=== PATIENT | male | born 1990 | race Caucasian/White ===

== ENCOUNTER 2018-04-02 13:39 | Emergency (ER) | payer MEDICAID ==
[~2018-04-02] VITALS: Ht 177.8 cm; Wt 90.0 kg
[~2018-04-02 13:39] MED LIST: NO HOME MEDS
[2018-04-02] MEDS ORDERED: ketorolac trometh inj. 60 MG/2 ML VIAL IM ONE (14:05)
[2018-04-02 14:32] VITALS: BP 135/89
== END 2018-04-02 14:36 | disposition home or self-care (01) ==
LOC: ER 13:40
DX: M25.562 Pain in left knee (principal); G89.29 Other chronic pain; F15.90 Other stimulant use, unspecified, uncomplicated; Z98.890 Other specified postprocedural states; Z88.0 Allergy status to penicillin; Z88.8 Allergy status to other drugs, medicaments and biological substances; X58.XXXA Exposure to other specified factors, initial encounter; Y93.55 Activity, bike riding; Y92.410 Unspecified street and highway as the place of occurrence of the external cause; Y99.8 Other external cause status
CPT/HCPCS: 29505; 96372; 99283; J1885

== ENCOUNTER 2018-05-28 13:56 | Outpatient (CLI) | payer MEDICAID ==
[~2018-05-28 13:56] MED LIST changes: +HYDR-4383 PO
[2018-05-28 14:09] VITALS: BP 146/73
== END 2018-05-28 15:13 | disposition home or self-care (01) ==
LOC: ORTHO 13:56
PROVIDERS: ATTEND Nurse Practitioner Family
DX: S62.024G Nondisplaced fracture of middle third of navicular [scaphoid] bone of right wrist, subsequent encounter for fracture with delayed healing (principal); S63.502D Unspecified sprain of left wrist, subsequent encounter; F17.210 Nicotine dependence, cigarettes, uncomplicated; Z88.0 Allergy status to penicillin; Z88.8 Allergy status to other drugs, medicaments and biological substances; X58.XXXD Exposure to other specified factors, subsequent encounter
CPT/HCPCS: 73130; 99213

== ENCOUNTER 2018-06-26 12:55 | Outpatient (CLI) | payer MEDICAID ==
[2018-06-26 12:55] VITALS: BP 123/75
== END 2018-06-26 14:04 | disposition home or self-care (01) ==
LOC: ORTHO 12:55
PROVIDERS: ATTEND Nurse Practitioner Family
DX: S62.024D Nondisplaced fracture of middle third of navicular [scaphoid] bone of right wrist, subsequent encounter for fracture with routine healing (principal); S63.501D Unspecified sprain of right wrist, subsequent encounter; F17.210 Nicotine dependence, cigarettes, uncomplicated; F32.9 Major depressive disorder, single episode, unspecified; Z88.8 Allergy status to other drugs, medicaments and biological substances; Z88.0 Allergy status to penicillin; X58.XXXD Exposure to other specified factors, subsequent encounter
CPT/HCPCS: 73110; 99213

== ENCOUNTER 2018-07-23 14:48 | Outpatient (CLI) | payer MEDICAID ==
[2018-07-23 14:59] VITALS: BP 123/81
== END 2018-07-23 15:48 | disposition home or self-care (01) ==
LOC: ORTHO 14:48
PROVIDERS: ATTEND Nurse Practitioner Family
DX: S62.024D Nondisplaced fracture of middle third of navicular [scaphoid] bone of right wrist, subsequent encounter for fracture with routine healing (principal); Z98.890 Other specified postprocedural states; Z88.0 Allergy status to penicillin; Z88.8 Allergy status to other drugs, medicaments and biological substances; X58.XXXD Exposure to other specified factors, subsequent encounter
CPT/HCPCS: 73110; 99213

== ENCOUNTER 2018-08-13 14:58 | Outpatient (CLI) | payer MEDICAID ==
[2018-08-13 14:57] VITALS: BP 143/80
== END 2018-08-13 15:22 | disposition home or self-care (01) ==
LOC: ORTHO 14:58
PROVIDERS: ATTEND Nurse Practitioner Family
DX: S62.021D Displaced fracture of middle third of navicular [scaphoid] bone of right wrist, subsequent encounter for fracture with routine healing (principal); F17.210 Nicotine dependence, cigarettes, uncomplicated; F32.9 Major depressive disorder, single episode, unspecified; Z88.1 Allergy status to other antibiotic agents; Z88.8 Allergy status to other drugs, medicaments and biological substances; X58.XXXD Exposure to other specified factors, subsequent encounter
CPT/HCPCS: 73110; 99213

== ENCOUNTER 2018-09-09 08:15 | Emergency (ER) | payer MEDICAID ==
[~2018-09-09] VITALS: Ht 177.8 cm; Wt 81.0 kg
[2018-09-09 08:17] VITALS: BP 123/77
[2018-09-09] MEDS ORDERED: ibuprofen tablet 400 MG TABLET PO ONE (08:25)
[2018-09-09] MEDS ORDERED: bacitracin 15gm ointment TP ONE (08:25)
[2018-09-09] MEDS ORDERED: LORazepam 1 MG tablet PO ONE (09:25)
[2018-09-09 09:32] LABS: URINE AMPHETAMINE SCREEN NEGATIVE (Neg); URINE BARBITUATE SCREEN NEGATIVE (Neg); URINE BENZODIAZEPINES SCREEN NEGATIVE (Neg); URINE CANNABINOID SCREEN NEGATIVE (Neg); URINE COCAINE SCREEN NEGATIVE (Neg); URINE METHADONE SCREEN NEGATIVE (Neg); URINE OPIATE SCREEN NEGATIVE (Neg); URINE PHENCYCLIDINE SCREEN NEGATIVE (Neg)
[2018-09-09 09:38] LABS: GLUCOSE, URINE NEGATIVE (Neg); KETONES,URINE >=80 mg/dl (Neg); LEUKOCYTE ESTERASE ,URINE NEGATIVE (Neg); NITRITES, URINE NEGATIVE (Neg); OCCULT BLOOD,URINE SMALL (Neg); PROTEIN,URINE 30 mg/dl (Neg)
[2018-09-09] MEDS ORDERED: LORazepam 0.5 MG tablet PO ONE (09:40)
--- NOTE | 2018-09-09 09:43 | NUR ---
pt left out the back door. pt left clothes and shoes in the room. pt left in hospital grown and bare foot. md and charge nurse aware
[2018-09-09 09:45] LABS: CLARITY,URINE SLIGHTLY CLOUDY (Clear); COLOR,URINE DARK YELLOW (Yellow); UA COLLECTION TYPE CLN CATCH MIDSTREAM
[2018-09-09 09:47] LABS: MUCUS STRANDS MODERATE /LPF (Neg); SQUAMOUS EPITHELIAL CELL,UR NONE SEEN /LPF (FEW); WBC,URINE 0-4 /HPF (0-4)
[2018-09-09 09:48] LABS: AMORPHOUS URATES 1+; SPERM FEW /HPF (NEGATIVE)
[2018-09-09 09:55] LABS: ALANINE AMINOTRANSFERASE 48 U/L (12-78); ALBUMIN 4.3 G/DL (3.4-5.0); ALBUMIN/GLOBULIN RATIO 1.2 (1.1-1.5); ALKALINE PHOSPHATASE 77 IU/L (46-116); ANION GAP 14 (8-16); ASPARTATE AMINO TRANSFERASE 109 U/L (10-37); BLOOD UREA NITROGEN 18 MG/DL (7-18); BUN/CREATININE RATIO 22.5 (5.4-32.0); CALCIUM 9.2 MG/DL (8.5-10.1); CHLORIDE 100 MMOL/L (99-107); ETHANOL < 0.010 GM/DL (0.0-0.010); GLUCOSE 116 MG/DL (70-104); POTASSIUM 3.9 MMOL/L (3.5-5.1); SODIUM 140 MMOL/L (135-145); TOTAL CARBON DIOXIDE 25.8 MMOL/L (24-32); TOTAL PROTEIN 7.9 G/DL (6.4-8.2); eGFR > 90 ML/MIN
[2018-09-09 09:56] LABS: BASOPHILS # (AUTO) 0.2 X10'3 (0-0.2); BASOPHILS % (AUTO) 1.2 % (0-1); EOSINOPHILS % (AUTO) 0.1 % (0-6); HEMATOCRIT 46.8 % (42.0-52.0); HEMOGLOBIN 15.6 g/dl (14.0-17.9); LYMPHOCYTES % (AUTO) 7.2 % (21-51); MEAN CORPUSCULAR HEMOGLOBIN 29.6 PG (27.0-31.0); MEAN CORPUSCULAR HGB CONC 33.3 % (33.0-36.5); MEAN CORPUSCULAR VOLUME 88.7 FL (78-98); MEAN PLATELET VOLUME 9.2 FL (7.4-10.4); MONOCYTES # (AUTO) 1.3 X10'3 (0-0.9); MONOCYTES % (AUTO) 9.5 % (2-12); NEUTROPHILS # (AUTO) 11.2 X10'3 (1.8-7.7); PLATELET COUNT 213 X10'3 (140-440); RED BLOOD COUNT 5.28 X10'6 (4.70-6.10); RED CELL DISTRIBUTION WIDTH 12.3 % (11.5-14.5); WHITE BLOOD COUNT 13.7 X10'3 (4.5-11.0)
[2018-09-09] MEDS ORDERED: DIPH-681 PO (17:11)
[2018-09-09] MEDS ORDERED: OMEP40CA37 PO (17:11)
[2018-09-09] MEDS ORDERED: QUET-1 PO (17:11)
[2018-09-09] MEDS ORDERED: CLON-527 PO (17:11)
== END 2018-09-09 09:48 | disposition left against medical advice (07) ==
LOC: ER 08:15
DX: S90.822A Blister (nonthermal), left foot, initial encounter (principal); S90.821A Blister (nonthermal), right foot, initial encounter; L98.8 Other specified disorders of the skin and subcutaneous tissue; K21.9 Gastro-esophageal reflux disease without esophagitis; G89.29 Other chronic pain; Z59.0 Homelessness; Z98.890 Other specified postprocedural states; Z88.8 Allergy status to other drugs, medicaments and biological substances; Z88.0 Allergy status to penicillin; X58.XXXA Exposure to other specified factors, initial encounter; Y93.89 Activity, other specified; Y92.89 Other specified places as the place of occurrence of the external cause; Y99.9 Unspecified external cause status
CPT/HCPCS: 36415; 80053; 80305; 80320; 81001; 85025; 99283

== ENCOUNTER 2018-09-09 09:57 | Emergency (ER) | payer MEDICAID ==
[~2018-09-09] VITALS: Ht 175.3 cm; Wt 81.0 kg
[2018-09-09] MEDS ORDERED: haloperidol lactate 5mg/ml inj IM ONE (10:10)
[2018-09-09] MEDS ORDERED: diphenhydrAMINE 50 mg/ml inj IM ONE (10:10)
[2018-09-09] MEDS ORDERED: LORazepam 2 mg/ml vial IM ONE ×2 (10:10)
--- NOTE | 2018-09-09 11:00 | NUR ---
TELE PSYCH CALLED
--- NOTE | 2018-09-09 13:00 | NUR ---
PT RESTING IN ROOM
--- NOTE | 2018-09-09 14:00 | NUR ---
PT AWAKE, HAD LUNCH, AMBULATED TO BATHROOM
--- NOTE | 2018-09-09 16:00 | NUR ---
PT RESTING, NO CHANGE
--- NOTE | 2018-09-09 16:00 | NUR ---
PACKET FAXED TO [facility] OFFICE AT THIS TIME
[2018-09-09] MEDS ORDERED: CLON-527 PO (17:11)
[2018-09-09] MEDS ORDERED: DIPH-681 PO (17:11)
[2018-09-09] MEDS ORDERED: OMEP40CA37 PO (17:11)
[2018-09-09] MEDS ORDERED: QUET-1 PO (17:11)
[2018-09-09] MEDS ORDERED: LORazepam 1 MG tablet PO ONE (17:25)
[2018-09-09] MEDS ORDERED: LORazepam 0.5 MG tablet PO ONE (17:30)
[2018-09-09] MEDS ORDERED: LORazepam 0.5 MG tablet PO PRN (17:30)
--- NOTE | 2018-09-09 17:39 | NUR ---
Patient moved from bed 16 to bed 26.
--- NOTE | 2018-09-09 18:55 | NUR ---
Pt. ate 100% of dinner tray.
[2018-09-09] MEDS: quetiapine 100mg tablet PO SCH (19:04)
[2018-09-09] MEDS: clonazePAM 1mg tablet PO PRN (19:04)
[2018-09-09] MEDS: diphenhydrAMINE 25mg capsule PO SCH (21:00)
--- NOTE | 2018-09-09 22:18 | NUR ---
pt. sleeping at this time. will continue to monitor.
--- NOTE | 2018-09-09 23:22 | NUR ---
Pt asleep on back. RR 13, even and unlabored. No apparent distress at this time.
--- NOTE | 2018-09-10 01:42 | NUR ---
Pt asleep on back. RR 12, even and unlabored. No apparent distress at this time.
--- NOTE | 2018-09-10 02:07 | NUR ---
pt. sleeping at this time. no s/s of acute distress. will continue to monitor.
--- NOTE | 2018-09-10 03:16 | NUR ---
pt. sleeping in supine position. no acute distress noted. will continue to monitor.
--- NOTE | 2018-09-10 04:57 | NUR ---
pt. to bathroom and back to bed.
--- NOTE | 2018-09-10 05:22 | NUR ---
pt. sleeping at this time.
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
[2018-09-10] MEDS ORDERED: bacitracin 15gm ointment TP ONE (06:30)
[2018-09-10] MEDS: sulfamethoxazole/trimethoprim DS (800/160mg) tablet PO SCH ×3 (07:21→19:55)
[2018-09-10] MEDS: clonazePAM 1mg tablet PO PRN ×3 (07:21→19:55)
[2018-09-10] MEDS: quetiapine 100mg tablet PO SCH ×2 (07:21→19:55)
[2018-09-10] MEDS: pantoprazole 40mg Tablet.DR PO SCH (07:21)
--- NOTE | 2018-09-10 07:50 | NUR ---
Tech used skin marker around reddened areas. RN cleansed feet with N.S. and gauze. RN placed Bacitracin and Kerlix on both feet. RN then wrapped each foot with pako wrap. Patient tolerated well.
--- NOTE | 2018-09-10 10:03 | NUR ---
Patient sleeping supine. No distress observed. Continue to monitor.
--- NOTE | 2018-09-10 12:16 | NUR ---
Patient sleeping on left side. No distress observed. Continue to monitor.
--- NOTE | 2018-09-10 15:55 | NUR ---
Patient is up and walking and asking for juice. No distress observed. Continue to monitor.
--- NOTE | 2018-09-10 17:38 | NUR ---
Patient walking back and forth in front of the nurses station. Continue to monitor.
[2018-09-10] MEDS: diphenhydrAMINE 25mg capsule PO SCH (19:55)
[2018-09-10] MEDS: lactobacillus rhamnosus 10,000 MMU CELLS/CAPSULE PO SCH (19:56)
--- NOTE | 2018-09-10 20:29 | NUR ---
PT ASKED TO CALL HIS DAD SO I GAVE HIM THE PHONE AND GAVE HIM THE NUMBER WE HAD FOR HIS DAD IN HIS RECORDS. PT CAME BACK AND SAID IT WASNT THE RIGHT ONE AND WENT AND LAID BACK DOWN
--- NOTE | 2018-09-10 20:52 | NUR ---
PATIENT APPEARS TOO BE SLEEPING, ON LEFT SIDE, RR EVEN UNLABORED
--- NOTE | 2018-09-10 22:49 | NUR ---
PATIENT LAYING ON HIS RIGHT SIDE, EYES CLOSED RR EVEN UNLABORED DRESSINGS TO BILATERAL FEET: MARIANGEL WRAP OVER GAUZE: CDI; MANAGER PHARMACY WNL TO BOTH FEET
--- NOTE | 2018-09-11 02:00 | NUR ---
Pt asleep on left side. RR 12, ever and unlabored. No apparent distress @ this time.
--- NOTE | 2018-09-11 04:08 | NUR ---
Pt asleep on left side. RR 11, ever and unlabored. No apparent distress @ this time.
--- NOTE | 2018-09-11 06:30 | NUR ---
Asleep under covers in position upon change of shift observation. Undisturbed at this time. Breathing and color WNL
[2018-09-11] MEDS: lactobacillus rhamnosus 10,000 MMU CELLS/CAPSULE PO SCH (08:30)
[2018-09-11] MEDS: sulfamethoxazole/trimethoprim DS (800/160mg) tablet PO SCH (08:30)
[2018-09-11] MEDS: clonazePAM 1mg tablet PO PRN ×2 (08:30→13:28)
--- NOTE | 2018-09-11 08:30 | NUR ---
Awakened for breakfast and morning medication. Pleasant upon staff approach. States he wants to change his diet to vegetarian. Dietary informed.
[2018-09-11] MEDS: quetiapine 100mg tablet PO SCH (08:31)
[2018-09-11] MEDS: pantoprazole 40mg Tablet.DR PO SCH (08:32)
--- NOTE | 2018-09-11 10:30 | NUR ---
Returned to sleep immediately after breakfast. Remains asleep at this time.
--- NOTE | 2018-09-11 12:52 | NUR ---
relieving RN for lunch, report given to Patricia, staff with [facility], she will present info to MD and call back if they accept pt, pt is resting quietly on bed, amb with steady gait to restroom
--- NOTE | 2018-09-11 12:56 | NUR ---
[facility] requesting TSH level, last one was done 06/18/17,
--- NOTE | 2018-09-11 13:13 | NUR ---
pt accepted at [facility] [place], waiting for TSH level before sending pt to facility
--- NOTE | 2018-09-11 13:15 | NUR ---
Patient awakened for lunch. Ate 100% of his meal. Decided he will remain vegetarian but will stay away from "non grass fed beef." Thinks "fish could work for me." Got out of bed to look at the clock. Asked for a snack. Given yogurt, crackers and milk.
--- NOTE | 2018-09-11 13:54 | NUR ---
TSH results received. Faxed to [facility] [place] at this time
--- NOTE | 2018-09-11 14:35 | NUR ---
Patient's father Jed Jackeline's number is [phone]
--- NOTE | 2018-09-11 16:14 | NUR ---
Discharge Note: General Surgery Physician Assistant from [facility] here to transport patient to [facility] [place]. Patient left the unit ambulatory, accompanied by Security. Did not have personal possessions. Provided with clothes and a sack lunch. Cooperative with the discharge process. Accepted information that he was being transferred to [facility] without comment.
[2018-09-11 16:20] VITALS: BP 132/72
== END 2018-09-11 16:15 ==
LOC: ER 09:58
DX: F29 Unspecified psychosis not due to a substance or known physiological condition (principal); F41.9 Anxiety disorder, unspecified; F20.9 Schizophrenia, unspecified; F31.9 Bipolar disorder, unspecified; K21.9 Gastro-esophageal reflux disease without esophagitis; G89.29 Other chronic pain; Z98.890 Other specified postprocedural states; Z88.0 Allergy status to penicillin; Z88.8 Allergy status to other drugs, medicaments and biological substances; Z79.899 Other long term (current) drug therapy; Z59.0 Homelessness; Z60.2 Problems related to living alone
CPT/HCPCS: 36415; 84443; 96372; 99285; J1200; J1630; J2060; Q0163

== ENCOUNTER 2018-09-24 19:25 | Inpatient (IN) | payer MEDICAID, OTHER | END 2018-10-01 11:25 | disposition home or self-care (01) | LOC: ER 19:25 → ED HOLD 09-25 08:16 → PCU 3S 09-25 23:30 ==

== ENCOUNTER 2018-10-01 11:30 | Emergency (ER) | payer MEDICAID ==
[~2018-10-01] VITALS: Ht 180.3 cm; Wt 76.4 kg
[~2018-10-01 11:30] MED LIST changes: +ATI0.5T PO; +CLON-527 PO; +DIPH-681 PO; +DIPH-915 PO; +FAMO20TA8 PO; -HYDR-4383 PO; +LORA2VIA4 IV; -NO HOME MEDS; +OMEP40CA37 PO; +QUET-1 PO; +QUET100T33 PO; +TEMA15CA PO
[2018-10-01 12:37] LABS: BASOPHILS # (AUTO) 0.1 X10'3 (0-0.2); BASOPHILS % (AUTO) 1.8 % (0-1); EOSINOPHILS # (AUTO) 0.2 X10'3 (0-0.9); EOSINOPHILS % (AUTO) 2.4 % (0-6); HEMOGLOBIN 13.6 g/dl (14.0-17.9); LYMPHOCYTES # (AUTO) 1.3 X10'3 (1.1-4.8); LYMPHOCYTES % (AUTO) 18.8 % (21-51); MEAN CORPUSCULAR HEMOGLOBIN 29.8 PG (27.0-31.0); MEAN CORPUSCULAR HGB CONC 33.9 g/dL (33.0-36.5); MEAN CORPUSCULAR VOLUME 87.8 FL (78-98); MEAN PLATELET VOLUME 8.2 FL (7.4-10.4); MONOCYTES # (AUTO) 0.8 X10'3 (0-0.9); MONOCYTES % (AUTO) 12.4 % (2-12); NEUTROPHILS # (AUTO) 4.4 X10'3 (1.8-7.7); NEUTROPHILS % (AUTO) 64.6 % (42-75); PLATELET COUNT 217 X10'3 (140-440); RED BLOOD COUNT 4.55 X10'6 (4.70-6.10); RED CELL DISTRIBUTION WIDTH 13.2 % (11.5-14.5); WHITE BLOOD COUNT 6.8 X10'3 (4.5-11.0)
[2018-10-01 12:39] LABS: URINE AMPHETAMINE SCREEN NEGATIVE (Neg); URINE BARBITUATE SCREEN NEGATIVE (Neg); URINE BENZODIAZEPINES SCREEN NEGATIVE (Neg); URINE CANNABINOID SCREEN NEGATIVE (Neg); URINE COCAINE SCREEN NEGATIVE (Neg); URINE METHADONE SCREEN NEGATIVE (Neg); URINE OPIATE SCREEN NEGATIVE (Neg); URINE PHENCYCLIDINE SCREEN NEGATIVE (Neg)
[2018-10-01 12:50] LABS: ALBUMIN 3.4 G/DL (3.4-5.0); ANION GAP 8 (8-16); BILIRUBIN,TOTAL 0.2 MG/DL (0.1-1.0); BLOOD UREA NITROGEN 21 MG/DL (7-18); BUN/CREATININE RATIO 23.9 (5.4-32.0); CALCIUM 8.8 MG/DL (8.5-10.1); CHLORIDE 103 MMOL/L (99-107); CREATININE 0.88 MG/DL (0.60-1.10); GLUCOSE 97 MG/DL (70-104); POTASSIUM 4.3 MMOL/L (3.5-5.1); SODIUM 139 MMOL/L (135-145); TOTAL CARBON DIOXIDE 28.5 MMOL/L (24-32); TOTAL PROTEIN 6.9 G/DL (6.4-8.2); eGFR > 90 ML/MIN
--- NOTE | 2018-10-01 12:50 | NUR ---
SANDOR GARZON AT BEDSIDE AND HE VISUALIZED RIGHT FOOT WOUND WITH OPEN AREA BETWEEN BIG TOE AND SECOND TOE
[2018-10-01 12:51] LABS: ALANINE AMINOTRANSFERASE 39 U/L (12-78); ALKALINE PHOSPHATASE 71 IU/L (46-116); ASPARTATE AMINO TRANSFERASE 20 U/L (10-37); ETHANOL < 0.010 GM/DL (0.0-0.010)
--- NOTE | 2018-10-01 13:09 | NUR ---
WOUND CARE ORDER PER SANDOR GARZON: SOAK BOTH FEET WITH BOTTLE OF IODINE FOR 15 MINUTES TWICE DAILY DRY FEET WELL RIGHT FOOT DRESSING: NON ADHERENT BETWEEN 1 & 2ND TOES, GAUZE, WRAP WITH COBAN
--- NOTE | 2018-10-01 13:11 | NUR ---
SOAK BOTH FEET WITH WARM WATER AND BOTTLE OF IODINE FOR 15 MINUTES TWICE A DAY
--- NOTE | 2018-10-01 13:42 | NUR ---
PT SOAKING IN WARM BETADINE WATER FOR 15 MIN, REMOVE FEET FROM SOAK AND DRY WITH TOWELS. TAKE PICTURES OF BOTTOM OF BOTH FEET AND BETWEEN GREAT TOE AND 2ND TOE ON RIGHT FOOT. PT GIVEN VEGAN SNACK. PT IS CALM AND COOPERATIVE.
[2018-10-01] MEDS ORDERED: TEMA15CA PO (13:50)
[2018-10-01] MEDS ORDERED: QUET200T30 PO (13:50)
[2018-10-01] MEDS ORDERED: LORA0.5T PO (13:50)
--- NOTE | 2018-10-01 14:34 | NUR ---
CALLED SOC TO INITIATE PSYCH TELE.
--- NOTE | 2018-10-01 16:17 | NUR ---
SET UP FOR PSYCH TELE IN ROOM.
--- NOTE | 2018-10-01 16:45 | NUR ---
PT IS NOT COOPERATIVE FOR THE PSYCH TELE INTERVIEW. REFUSES TO TALK TO THE DR. CONTINUES TO READ THE BIBLE. SOC DR CALLS BACK TO REPORT THAT HE IS UPHOLDING THE 5150 AND WILL RECOMMEND THAT PT BE PLACED ON THE INVEGA SHOT. WAITING FOR THE FAXED REPORT.
[2018-10-01] MEDS ORDERED: LORazepam 0.5 MG tablet PO PRN (17:35)
--- NOTE | 2018-10-01 17:39 | NUR ---
PHARMACY CLARIFYING PT'S HOME MEDS AND CANCELS THE ATIVAN AND KEEPS THE CLONOPIN.
[2018-10-01] MEDS ORDERED: diphenhydrAMINE 25mg capsule PO PRN (18:20)
--- NOTE | 2018-10-01 19:00 | NUR ---
CALL FROM TELEPSYCH DR RICH AT THIS TIME TO CLARIFY INVEGA SUSTENNA ORDER PER RECOMMENDATION ON TELEPSYCH CONSULT PAGE FOUR TREATMENT #3. PER MD PATIENT TO HAVE FIRST DOSE OF INVEGA SUSTENNA 234 MG IM IN DELTOID NOW AND IN ONE WEEK MEDICATION IS TO BE TAPERED TO 156 MG IM AND CONTINUED TO BE TAPERED PER MD. DR RICH AWARE PATIENT MAY NOT BE IN HOSPITAL FOR A WEEK AND IS AWARE FIRST DOSE TO BE GIVEN NOW.
--- NOTE | 2018-10-01 19:18 | NUR ---
PATIENT AWAKE, ALERT, SITTING UP IN BED, READING, NO SIGNS OF DISTRESS NOTED, CALM AT THIS TIME. PER RN CHANO PATIENT ASKED FOR GEODONE (SEE EMAR). PATIENT REFUSED TO ANSWER ANY QUESTIONS DURING ASSESSMENT BUT WAS ABLE TO FOLLOW SIMPLE COMMANDS AND NON COMBATIVE AND NON VIOLENT IN ANY WAY. ALL SAFETY MEASURES IN PLACE, PATIENT IN SIGHT OF NURSING STAFF AT ALL TIMES.
[2018-10-01] MEDS: ziprasidone 20mg capsule PO PRN (19:52)
[2018-10-01] MEDS ORDERED: quetiapine 100mg tablet PO SCH (20:00)
[2018-10-01] MEDS ORDERED: paliperidone palmitate inj 234 MG/1.5 ML SYRINGE IM ONE (20:30)
--- NOTE | 2018-10-01 22:43 | NUR ---
The patient has been up out of bed and pacing in front of the nursing station periodically. He requested and received HS snack. He is cooperative and follows redirection
--- NOTE | 2018-10-02 00:42 | NUR ---
The patient did appear to be asleep but was awakened by loud peer.
--- NOTE | 2018-10-02 02:46 | NUR ---
The patient is quiet but awake on his bed and restless
--- NOTE | 2018-10-02 05:14 | NUR ---
The patient is up pacing up in front of the nursing station. He refused to respond when asked how he was feeling.
--- NOTE | 2018-10-02 06:30 | NUR ---
Asleep upon change of shift observation. Undisturbed at this time.
[2018-10-02] MEDS ORDERED: diphenhydrAMINE 25mg capsule PO SCH (08:00)
--- NOTE | 2018-10-02 08:30 | NUR ---
Awakened for AM meds - Geodon and PRN Ativan and breakfast. Presents as confused and delusional. Does not want to eat. States "You don't want me to eat." Encouraged to eat his meal. Ate 100% of his food.
[2018-10-02] MEDS: famotidine 20mg tablet PO SCH (08:34)
[2018-10-02] MEDS: ziprasidone 20mg capsule PO PRN (08:35)
[2018-10-02] MEDS: LORazepam 1 MG tablet PO PRN ×2 (08:35→22:17)
[2018-10-02] MEDS ORDERED: mag hydrox/Alum hydrox/simeth 30ml oral suspension PO PRN (10:10)
--- NOTE | 2018-10-02 10:30 | NUR ---
Awake and pacing around the unit. States he is living in hell. States "this hospital is hell." More responsive to staff. Answering staff today versus staring at staff and remaining mute. Affect blunted.
--- NOTE | 2018-10-02 11:15 | NUR ---
Footsoak performed. Patient cooperative with process. Right toes dressed in a clean, dry bandage afterwards.
--- NOTE | 2018-10-02 12:30 | NUR ---
Behavior escalating at this time. Getting out of bed and attempting to put his head in the toilet. Appears to be responding to internal stimuli. Is not responding to limit setting or direction. Returns to bed then immediately gets up and goes into the bathroom, taking off his shirt and socks, to bend over the toilet. Continuously escorted back to bed.
--- NOTE | 2018-10-02 13:00 | NUR ---
Served lunch. Asked to have his food tray removed. Stated "This is not mine. I can't eat this. I curse too much." Began to eat his food then spit the food out on his tray.
[2018-10-02] MEDS: ziprasidone IM 20mg inj **IM only IM PRN (13:37)
[2018-10-02] MEDS: diphenhydrAMINE 50 mg/ml inj IM PRN (13:37)
[2018-10-02] MEDS: LORazepam 2 mg/ml vial IM PRN (13:37)
[2018-10-02] MEDS ORDERED: LORazepam 2 mg/ml vial IM ONE (14:35)
[2018-10-02] MEDS ORDERED: diphenhydrAMINE 50 mg/ml inj IM ONE (14:35)
[2018-10-02] MEDS ORDERED: haloperidol lactate 5mg/ml inj IM ONE (14:35)
--- NOTE | 2018-10-02 14:46 | NUR ---
Escalation in behavior over the past hour after he was medicated. Throwing objects at staff including his bible and a cup. Growling while laying in bed. Fighting the drowsiness of his medications. Attempted to run out the [facility] door. Security called and escorted patient back into bed. Medicated with Ativan 2 mg. IM. States "I don't want that poison in my body." Accepted medication with Security standby.
--- NOTE | 2018-10-02 16:12 | NUR ---
Remains awake at this time. Presents as resisting the effects of his medications. Moves frequently. Continues to growl. Bites his sheets.
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
[2018-10-02] MEDS: temazepam 15mg capsule PO PRN (21:21)
[2018-10-02] MEDS ORDERED: ibuprofen tablet 400 MG TABLET PO ONE (22:00)
--- NOTE | 2018-10-03 06:30 | NUR ---
Asleep upon change of shift observation. Breathing even and unlabored. Undisturbed at this time.
[2018-10-03] MEDS: famotidine 20mg tablet PO SCH (07:52)
[2018-10-03] MEDS: clonazePAM 1mg tablet PO PRN ×2 (07:52→20:43)
[2018-10-03] MEDS: ziprasidone 20mg capsule PO PRN ×2 (07:52→20:43)
--- NOTE | 2018-10-03 08:30 | NUR ---
Awakened for breakfast and AM medications. Patient had many questions about when he would be transferred to a "different place." Informed he had come to the ER as mute and it has been difficult to asses his mental health status. Reminded of the importance to communicate with staff. Patient agreed to do so.
[2018-10-03] MEDS: ziprasidone IM 20mg inj **IM only IM PRN (10:23)
[2018-10-03] MEDS: LORazepam 2 mg/ml vial IM PRN (10:23)
[2018-10-03] MEDS: diphenhydrAMINE 50 mg/ml inj IM PRN (10:23)
--- NOTE | 2018-10-03 10:30 | NUR ---
Came to the nurse's station and asked for medications. States "the voices in my head are really bad. I need medicine. Can you give me something?" Asked if he would be willing to take IM medications. Patient stated "Yes." Ativan 2 mg./Benadrl 50 mg./Geodon 10 mg. IM given without event.
--- NOTE | 2018-10-03 11:00 | NUR ---
Warm foot soak completed at this time. Patient c/o right pain in heel. Right foot appears to have areas of abscess. Dr. Lorenz informed.
--- NOTE | 2018-10-03 12:30 | NUR ---
Awakened for lunch. Ate 100% of his meal. Continues to seek additional food and ask when he will be leaving. Also asks to use the phone frequently to call his father. Presents with poor memory and concentration at this time.
--- NOTE | 2018-10-03 14:30 | NUR ---
Braydon PATTEN here. Examined the foot of patient. Ordered an x-ray of right foot for possible foreign body.
--- NOTE | 2018-10-03 15:46 | NUR ---
X-ray performed without event. No foreign body noted in foot per report.
[2018-10-03] MEDS: LORazepam 1 MG tablet PO PRN ×2 (15:56→22:33)
--- NOTE | 2018-10-03 17:57 | NUR ---
Father's phone number: [phone]
[2018-10-03] MEDS: ibuprofen tablet 400 MG TABLET PO PRN (19:51)
--- NOTE | 2018-10-03 19:59 | NUR ---
One to one with the patient to assess severity of disordered thought processes and severity of depressive symptoms. The patient was pleasant and cooperative with the assessment. He stated that he continues to have intense auditory hallucinations telling him to kill himself and other odd things. He reports that his mood has been up and down and that he also has been having suicidal thoughts sporadically during the day but denies plan. He also reports racing thoughts at times as well. Complained of foot pain and requested prn mitali and MD was made aware and orders received.
[2018-10-03] MEDS: temazepam 15mg capsule PO PRN (20:43)
--- NOTE | 2018-10-03 22:00 | NUR ---
Patient up and walking in front of the nursing station. He has been medication compliant. He is friendly with staff. He is requesting food items.
--- NOTE | 2018-10-04 00:29 | NUR ---
The patient is currently sleeping
--- NOTE | 2018-10-04 02:09 | NUR ---
The patient is making some grunting noises but is laying on his bed and talking to himself
--- NOTE | 2018-10-04 02:18 | NUR ---
The patient is up to the station and complaining of sweating. New scrubs given. The patient stated he had a bad dream and awakened with his scrubs damp from sweat.
--- NOTE | 2018-10-04 02:47 | NUR ---
The patient is reporting increased pain in the heel of his right foot and swelling. Dr. Gant made aware and examined the foot.
[2018-10-04] MEDS ORDERED: quetiapine 100mg tablet PO ONE (04:05)
[2018-10-04] MEDS: ibuprofen tablet 400 MG TABLET PO PRN (04:10)
--- NOTE | 2018-10-04 04:14 | NUR ---
The patient has been sleeping very poorly and now has been talking angrily to himself in response to voices. The MD was made aware and orders received.
--- NOTE | 2018-10-04 04:17 | NUR ---
The patient is making growling sounds. He did take seroquel 200mg and ibuprofen
[2018-10-04] MEDS: LORazepam 2 mg/ml vial IM PRN (04:22)
--- NOTE | 2018-10-04 04:50 | NUR ---
The patient is resting on his bed quietly
--- NOTE | 2018-10-04 05:10 | NUR ---
The patient appears to be sleeping
--- NOTE | 2018-10-04 05:29 | NUR ---
The patient is up to the bathroom but does not appear agitated.
[2018-10-04 05:51] VITALS: BP 116/79
--- NOTE | 2018-10-04 06:45 | NUR ---
PT RESTING QUIETLY IN BED
[2018-10-04] MEDS: famotidine 20mg tablet PO SCH (08:07)
--- NOTE | 2018-10-04 08:10 | NUR ---
PT SITTING UP IN BED EATING BREAKFAST, TOOK ORAL MEDICATION.
[2018-10-04] MEDS: ziprasidone 20mg capsule PO PRN (11:58)
[2018-10-04] MEDS: LORazepam 1 MG tablet PO PRN (11:58)
--- NOTE | 2018-10-04 12:39 | NUR ---
PT AMBULATED TO RESTROOM THEN BACK TO BED WITHOUT COMPLAINT
--- NOTE | 2018-10-04 13:01 | NUR ---
PT AWAKE WAITING FOR LUNCH
[2018-10-04] MEDS: clonazePAM 1mg tablet PO PRN (15:15)
--- NOTE | 2018-10-04 15:15 | NUR ---
PT PACING BACK AND FORTH IN UNIT. STATES HE FEELS REALLY ANXIOUS AND ASKED IF HE COULD HAVE ANYTHING TO HELP HIS ANXIETY. MEDS GIVEN ORDERED.
--- NOTE | 2018-10-04 15:45 | NUR ---
[facility] HERE FOR PT.
--- NOTE | 2018-10-04 15:58 | NUR ---
PT D/C'D TO [facility]
[2018-10-05] MEDS ORDERED: DIPH25CA51 PO (18:08)
[2018-10-05] MEDS ORDERED: ZIPR20CA2 PO (18:08)
[2018-10-05] MEDS ORDERED: FAMO20TA8 PO (18:08)
[2018-10-05] MEDS ORDERED: LORA1TAB PO (18:08)
[2018-10-05] MEDS ORDERED: TEMA15CA PO (18:08)
[2018-10-05] MEDS ORDERED: QUET-1 PO (18:08)
== END 2018-10-04 15:58 ==
LOC: ER 11:31
DX: F29 Unspecified psychosis not due to a substance or known physiological condition (principal); M62.82 Rhabdomyolysis; K21.9 Gastro-esophageal reflux disease without esophagitis; G89.29 Other chronic pain; F31.9 Bipolar disorder, unspecified; F20.9 Schizophrenia, unspecified; Z60.2 Problems related to living alone; Z98.890 Other specified postprocedural states; Z88.0 Allergy status to penicillin; Z88.8 Allergy status to other drugs, medicaments and biological substances; Z79.899 Other long term (current) drug therapy
CPT/HCPCS: 36415; 80053; 80305; 80320; 85025; 96372; 99285; J1200; J2060; J3486

== ENCOUNTER 2018-10-04 13:40 | Inpatient (IN) | payer MEDICAID | END 2018-11-12 15:05 | disposition still patient (30) | LOC: ADULT MH 13:40 | DX: F29 Unspecified psychosis not due to a substance or known physiological condition (principal) ==

== ENCOUNTER 2019-04-01 18:46 | Emergency (ER) | payer MEDICAID ==
[~2019-04-01] VITALS: Ht 170.2 cm; Wt 66.0 kg
[~2019-04-01 18:46] MED LIST changes: -ATI0.5T PO; +BUSP15TA7 PO; +CLON-371 PO; -CLON-527 PO; -DIPH-681 PO; -DIPH-915 PO; -FAMO20TA8 PO; -LORA2VIA4 IV; -OMEP40CA37 PO; -QUET-1 PO; -QUET100T33 PO; +QUET200T84 PO; +QUET50TA79 PO; -TEMA15CA PO
[2019-04-01] MEDS ORDERED: diphenhydrAMINE 50 mg/ml inj IM ONE ×2 (18:55→19:10)
[2019-04-01] MEDS ORDERED: haloperidol lactate 5mg/ml inj IM ONE ×2 (18:55→19:10)
[2019-04-01] MEDS ORDERED: LORazepam 2 mg/ml vial IM ONE ×2 (19:00→19:10)
--- NOTE | 2019-04-01 19:50 | NUR ---
PATIENT IS REFUSING TO ANSWER ANY QUESTIONS. HE SPEAKS WHEN HE WANTS TO. PATIENT IS ON THE PULSE OX AND BP MONITORING PER MD VERBAL REQUEST.
--- NOTE | 2019-04-01 20:15 | NUR ---
DR KULKARNI AT BEDSIDE, JUST FINISHED ATTEMPTING TO STRAIGHT CATH THE PATIENT WHOSE URINE BARELY CAME INTO THE CATHETER: NOT ENOUGH FOR A URINE SAMPLE
[2019-04-01 20:31] LABS: BASOPHILS # (AUTO) 0.1 X10'3 (0-0.2); BASOPHILS % (AUTO) 0.8 % (0-1); EOSINOPHILS # (AUTO) 0.2 X10'3 (0-0.9); EOSINOPHILS % (AUTO) 2.2 % (0-6); HEMATOCRIT 38.5 % (42.0-52.0); LYMPHOCYTES # (AUTO) 1.5 X10'3 (1.1-4.8); LYMPHOCYTES % (AUTO) 20.7 % (21-51); MEAN CORPUSCULAR HGB CONC 33.6 g/dL (33.0-36.5); MEAN CORPUSCULAR VOLUME 89.2 FL (78-98); MEAN PLATELET VOLUME 9.2 FL (7.4-10.4); MONOCYTES # (AUTO) 0.6 X10'3 (0-0.9); MONOCYTES % (AUTO) 8.7 % (2-12); NEUTROPHILS # (AUTO) 4.8 X10'3 (1.8-7.7); NEUTROPHILS % (AUTO) 67.6 % (42-75); PLATELET COUNT 278 X10'3 (140-440); RED BLOOD COUNT 4.32 X10'6 (4.70-6.10); RED CELL DISTRIBUTION WIDTH 13.1 % (11.5-14.5); WHITE BLOOD COUNT 7.2 X10'3 (4.5-11.0)
[2019-04-01 20:43] LABS: ALANINE AMINOTRANSFERASE 27 U/L (12-78); ALBUMIN/GLOBULIN RATIO 0.9 (1.1-1.5); ALKALINE PHOSPHATASE 63 IU/L (46-116); ANION GAP 5 (8-16); ASPARTATE AMINO TRANSFERASE 18 U/L (10-37); BILIRUBIN,TOTAL 0.2 MG/DL (0.1-1.0); BLOOD UREA NITROGEN 12 MG/DL (7-18); BUN/CREATININE RATIO 13.3 (5.4-32.0); CALCIUM 8.2 MG/DL (8.5-10.1); CHLORIDE 105 MMOL/L (99-107); GLUCOSE 86 MG/DL (70-104); SODIUM 140 MMOL/L (135-145); TOTAL CARBON DIOXIDE 30.2 MMOL/L (24-32); TOTAL PROTEIN 6.2 G/DL (6.4-8.2); eGFR > 90 ML/MIN
[2019-04-01 20:52] LABS: ETHANOL < 0.010 GM/DL (0.0-0.010)
[2019-04-01] MEDS ORDERED: normal saline 1000ML IV soln IVB ONE (21:00)
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
--- NOTE | 2019-04-01 22:10 | NUR ---
Paged CT for head CT ordered by MD. Mccray IM administered for anxiety prior to CT arrival.
--- NOTE | 2019-04-01 22:10 | NUR ---
CT PAGED FOR HEAD CT
--- NOTE | 2019-04-01 22:28 | NUR ---
Patient to CT via wheelchair in stable condition and accompanied by security. Addendum: 04/01/19 at 2255 by [facility] 4-point restraints removed for transfer.
--- NOTE | 2019-04-01 22:35 | NUR ---
Patient back from CT. Patient cooperative and no behavioral issues reported. Patient assisted back to bed, all restraints off at this time due to patient cooperation and no evidence of violent intent at this time. Patient requesting a dinner tray. Snacks provided. Patient now in laying in bed with eyes closed and covers on. Will continue to monitor patient closely.
[2019-04-01 22:57] LABS: CLARITY,URINE CLEAR (Clear); COLOR,URINE YELLOW (Yellow); GLUCOSE, URINE NEGATIVE (Neg); KETONES,URINE NEGATIVE (Neg); LEUKOCYTE ESTERASE ,URINE TRACE (Neg); NITRITES, URINE NEGATIVE (Neg); OCCULT BLOOD,URINE NEGATIVE (Neg); PROTEIN,URINE NEGATIVE (Neg); UROBILINOGEN,URINE 0.2 E.U/dL (0.2-1.0)
[2019-04-01 22:58] LABS: UA COLLECTION TYPE CLN CATCH MIDSTREAM
[2019-04-01 23:00] LABS: URINE AMPHETAMINE SCREEN NEGATIVE (Neg); URINE BARBITUATE SCREEN NEGATIVE (Neg); URINE BENZODIAZEPINES SCREEN NEGATIVE (Neg); URINE CANNABINOID SCREEN NEGATIVE (Neg); URINE COCAINE SCREEN NEGATIVE (Neg); URINE METHADONE SCREEN NEGATIVE (Neg); URINE OPIATE SCREEN NEGATIVE (Neg); URINE PHENCYCLIDINE SCREEN NEGATIVE (Neg)
[2019-04-01 23:03] LABS: BACTERIA,URINE NONE SEEN /HPF (Neg); MUCUS STRANDS NONE SEEN /LPF (Neg); RBC,URINE NONE SEEN /HPF (0-2); SQUAMOUS EPITHELIAL CELL,UR FEW /LPF (FEW); TRANSITIONAL EPI CELLS,URINE MODERATE /HPF; WBC,URINE 0-4 /HPF (0-4)
--- NOTE | 2019-04-02 00:12 | NUR ---
Patient resting in bed comfortably with eyes closed, no changes in patient condition noted. No incidences of violent behavior. Will continue to monitor patient.
--- NOTE | 2019-04-02 02:15 | NUR ---
Patient resting in bed with eyes closed, respirations even and unlabored. No changes in patient condition, no incidences of violence. Will continue to monitor patient.
--- NOTE | 2019-04-02 05:25 | NUR ---
Patient sleeping comfortably. No changes in patient condition noted.
--- NOTE | 2019-04-02 06:28 | NUR ---
Report given to Katlyn JUAREZ
[2019-04-02] MEDS ORDERED: levoTHYROXINE 100mcg tablet PO STA (09:34)
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
--- NOTE | 2019-04-02 10:27 | NUR ---
PT REFUSING TO TAKE MEDICATIONS AT THIS TIME (SYNTHROID).
--- NOTE | 2019-04-02 10:39 | NUR ---
[facility]
[2019-04-02] MEDS: levoTHYROXINE 100mcg tablet PO SCH ×2 (11:00→16:09)
--- NOTE | 2019-04-02 13:25 | NUR ---
PT. IS SLEEPING IN BED IN NO DISTRESS. WILL CONTINUE TO MONITOR.
--- NOTE | 2019-04-02 16:15 | NUR ---
PT FINALLY AGREED TO TAKE MEDICATIONS
[2019-04-02 17:32] VITALS: BP 108/55
--- NOTE | 2019-04-02 17:37 | NUR ---
PT FINALLY TOOK HIS THYROID MED AND ATE BREAKFAST AND LUNCH
--- NOTE | 2019-04-02 19:00 | NUR ---
Received pt lying in bed. Pt at one point got up like he was going to try and leave and when redirected, he stated he was just walking. No further incidents. Dinner arrived and he ate and then laid back down.
--- NOTE | 2019-04-02 21:00 | NUR ---
Pt resting calmly in bed without complaints awaiting admission to [facility].
== END 2019-04-02 22:20 ==
LOC: ER 18:46
DX: S00.81XA Abrasion of other part of head, initial encounter (principal); F29 Unspecified psychosis not due to a substance or known physiological condition; R41.82 Altered mental status, unspecified; K21.9 Gastro-esophageal reflux disease without esophagitis; G89.29 Other chronic pain; F31.9 Bipolar disorder, unspecified; F20.9 Schizophrenia, unspecified; F10.99 Alcohol use, unspecified with unspecified alcohol-induced disorder; Z98.890 Other specified postprocedural states; Z60.2 Problems related to living alone; Z59.0 Homelessness; Z88.0 Allergy status to penicillin; Z88.8 Allergy status to other drugs, medicaments and biological substances; Z79.899 Other long term (current) drug therapy; Z73.6 Limitation of activities due to disability; X58.XXXA Exposure to other specified factors, initial encounter; Y93.89 Activity, other specified; Y92.89 Other specified places as the place of occurrence of the external cause; Y99.8 Other external cause status; Y90.0 Blood alcohol level of less than 20 mg/100 ml
CPT/HCPCS: 36415; 70450; 80053; 80305; 80320; 81001; 84443; 85025; 96360; 96372; 99285; J1200; J1630; J2060; J7030

== ENCOUNTER 2019-04-02 20:38 | Inpatient (IN) | payer MEDICAID ==
[~2019-04-02] VITALS: Ht 177.8 cm; Wt 72.7 kg
[2019-04-02] MEDS ORDERED: mag hydrox/Alum hydrox/simeth 30ml oral suspension PO PRN (22:05)
[2019-04-02] MEDS ORDERED: loperamide 2mg capsule PO PRN (22:05)
[2019-04-02] MEDS ORDERED: acetaminophen 325mg tablet PO PRN ×2 (22:05)
[2019-04-02] MEDS ORDERED: magnesium hydroxide 30ml (MOM) UD suspension PO PRN (22:05)
[2019-04-02] MEDS ORDERED: LORazepam 1 MG tablet PO PRN (22:10)
[2019-04-02] MEDS ORDERED: diphenhydrAMINE 25mg capsule PO PRN (22:10)
[2019-04-02] MEDS ORDERED: QUEtiapine 25mg tablet PO ONE (22:10)
[2019-04-02] MEDS ORDERED: clonazePAM 0.5mg tablet PO ONE (22:10)
[2019-04-02] MEDS ORDERED: QUEtiapine 25mg tablet PO SCH (22:10)
[2019-04-02] MEDS ORDERED: haloperidol 5mg tablet PO PRN (23:20)
[2019-04-03] MEDS ORDERED: haloperidol 5mg tablet PO ONE
[2019-04-03 00:09] VITALS: BP 125/76
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
[2019-04-03] MEDS ORDERED: levoTHYROXINE 100mcg tablet PO SCH (07:00)
[2019-04-03] MEDS: clonazePAM 0.5mg tablet PO SCH ×2 (08:08→20:00)
[2019-04-03] MEDS: QUEtiapine 25mg tablet PO SCH ×2 (08:09→21:00)
[2019-04-03 08:15] LABS: HEMOGLOBIN A1C 5.4 % (4.5-6.2)
[2019-04-03 08:19] LABS: CHOL/HDL RATIO 3.3 (0.00-4.99); CHOLESTEROL 119 MG/DL (0-200); HDL CHOLESTEROL 36 MG/DL (35-60); LDL CHOLESTEROL 76 MG/DL (50-100); TRIGLYCERIDES 30 MG/DL (20-135)
[2019-04-03 09:13] VITALS: BP 113/58
[2019-04-03] MEDS ORDERED: tuberculin, purif. prot. deriv. 5 units/0.1ml ID ONE (10:00)
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
--- NOTE | 2019-04-04 02:39 | NUR ---
Nursing Progress Note: Legal hold: 5150 Client involuntary status for GD/DTO. Report given by ANN Villa, with the use of SBAR: Why are they here: Patient was brought into the ED by [facility] on a 5150 hold for being gravely disabled. Bystanders called 911 because the patient was wandering the streets yelling nonsense while wearing only shorts that were partially exposing him. Patient was uncooperative with law enforcement and refused to answer their questions. When arriving to the ED department patient was still uncooperative and was assaultive towards [facility] and hospital staff. Patient has been non-compliant with his medications, and was refusing to take medications in the ED. Assessment: What has happened this shift: Patient was sleeping on his left side in bed following shift change. The patient awakens to voice and refuses to discuss anything. He returns to sleep. Patient awoken for medications later in the evening. He refuses medications, he refuses to talk save for saying he does not wish to talk. S/I, H/I: Will not answer. A/VH: Pt declined to answer, stated that he didn't want to talk about it. Sleep: Stayed in bed, slept through dinner. ADL's: Independent, per day shift. Group attendance: Not on days. Were meds taken: Non compliant on NOC shift. Any med S/E: None noted or reported Mental Status Exam Appearance: Disheveled, fatigued Eye contact: Fair Behavior: Isolates in bed. Does not wish to have conversation. Speech: Quiet. Hard to hear. Mood: Will not discuss. Affect: Blunted, constricted Thought process: Linear per day shift. Thought Content: Pt does not wish to talk about his symptoms at this time. Cognition: A/O X 3 per day shift. Insight: Poor Judgment: Poor Interventions PRN's used: None Therapeutic interventions: 1:1 assessment, encouragement to express thoughts and feelings, medication administration/monitoring/education, Q 15 minute checks for safety. Restraints/seclusion/emergency medication: N/A Justification of Continued Inpatient Treatment: Continued therapeutic support and medication management needed to provide stabilization, prevent decompensation, decreasing risk to patient and readmittance.
[2019-04-04] MEDS: QUEtiapine 25mg tablet PO SCH ×3 (08:00→20:28)
[2019-04-04] MEDS: clonazePAM 0.5mg tablet PO SCH ×3 (08:00→20:27)
--- NOTE | 2019-04-04 13:44 | NUR ---
Nursing Progress Note: Legal hold: 5150 Client involuntary status for GD/DTO. Report given by Gabrielle PEREZ with the use of SBAR: Why are they here: Patient was brought into the ED by [facility] on a 5150 hold for being gravely disabled. Bystanders called 911 because the patient was wandering the streets yelling nonsense while wearing only shorts that were partially exposing him. Patient was uncooperative with law enforcement and refused to answer their questions. When arriving to the ED department patient was still uncooperative and was assaultive towards [facility] and hospital staff. Patient has been non-compliant with his medications, and was refusing to take medications in the ED. Assessment: What has happened this shift: Pt up for breakfast, initially refused meds at breakfast, stating, "I don't want them." Went to his room after breakfast to again encourage he take his medications. Pt was lying in bed on his stomach with his covers over him reading the Bible. Pt again declined his meds. Asked him why he did not wish to take them today as he had taken them yesterday. Pt replied, "they aren't working." Educated pt that he had only been back on his meds for a couple of days, encouraged him to give them some more time. Pt replied, "give me the pills" handed pt his pills and he took them. Pt refused VS today, refused physical assessment, and refused to answer mental health assessment questions. S/I, H/I: Pt declined to answer. A/VH: Pt declined to participate in assessment Sleep: Slept 6.25 hours per noc shift report, was awake more during day shift today than yesterday, only took occasional short naps. ADL's: Independent Group attendance: No Were meds taken: Yes, with much encouragement Any med S/E: None noted or reported Mental Status Exam Appearance: Messy hair, dressed in green scrubs and nonskid socks Eye contact: Fair Behavior: avoidant, dismissive, irritable, isolative to self, reads the Bible Speech: Clear, normal volume, rate and rhythm, minimal speech Mood: irritable Affect: Blunted, constricted Thought process: linear Thought Content: Wants to be left alone, does not believe the medicine is working. Cognition: A/O X 3 Insight: Poor Judgment: Poor Interventions PRN's used: None Therapeutic interventions: 1:1 assessment, encouragement to take medication, medication administration/monitoring/education, Q 15 minute checks for safety. Restraints/seclusion/emergency medication: N/A Justification of Continued Inpatient Treatment: Continued therapeutic support and medication management needed to provide stabilization, prevent decompensation, decreasing risk to patient and readmittance. Addendum: 04/04/19 at 1357 by Faith Vogel RN ([place]) Pt's nasal swab came back positive for MRSA, pt not receptive to MRSA teaching at this time. Addendum: 04/04/19 at 1622 by Faith Vogel RN (Lee) Dr Garcia increased Seroquel from 100 mg to 200 mg daily. Pt continues to refuse his PPD.
--- NOTE | 2019-04-05 02:08 | NUR ---
Nursing Progress Note: Legal hold: 5150 Client involuntary status for GD/DTO. Report given by CHRIS Méndez with the use of SBAR: Why are they here: Patient was brought into the ED by [facility] on a 5150 hold for being gravely disabled. Bystanders called 911 because the patient was wandering the streets yelling nonsense while wearing only shorts that were partially exposing him. Patient was uncooperative with law enforcement and refused to answer their questions. When arriving to the ED department patient was still uncooperative and was assaultive towards [facility] and hospital staff. Patient has been non-compliant with his medications, and was refusing to take medications in the ED. Assessment: What has happened this shift: Patient is in the Group room sitting in a corner chair reading a Bible. When greeted by this typewriter ribbon winder he looks up, then continues to read without saying anything. He is noted to spend time either in the group room reading the Bible or in his room in a chair reading the Bible. He refuses vital signs, he refuses a physical assessment and he refuses to answer any mental health questions as well. He does take his HS medications without event and then crawls into bed. S/I, H/I: Declined to answer. A/VH: Declined to participate in assessment Sleep: See sleep assessment ADL's: Independent Group attendance: No groups this shift Were meds taken: Yes Any med S/E: None noted or reported Mental Status Exam Appearance: Messy hair, dressed in green scrubs and nonskid socks Eye contact: Fair Behavior: Avoidant, dismissive, irritable, isolative to self, reads the Bible Speech: Clear, normal volume, rate and rhythm, minimal speech Mood: Irritable Affect: Blunted, constricted Thought process: Linear Thought Content: Wants to be left alone. Cognition: A/O X 3 Insight: Poor Judgment: Poor Interventions PRN's used: None Therapeutic interventions: 1:1 assessment, encouragement to take medication, medication administration/monitoring/education, Q 15 minute checks for safety. Restraints/seclusion/emergency medication: N/A Justification of Continued Inpatient Treatment: Continued therapeutic support and medication management needed to provide stabilization, prevent decompensation, decreasing risk to patient and readmittance.
[2019-04-05] MEDS ORDERED: quetiapine 100mg tablet PO SCH (08:00)
[2019-04-05] MEDS: clonazePAM 0.5mg tablet PO SCH ×2 (08:12→21:10)
[2019-04-05] MEDS: duloxetine 20mg capsule.DR PO SCH (08:13)
[2019-04-05] MEDS: QUEtiapine 25mg tablet PO SCH ×2 (08:13→12:58)
--- NOTE | 2019-04-05 11:01 | NUR ---
Patient refused vitals and physical assessment.
--- NOTE | 2019-04-05 15:13 | NUR ---
Nursing Progress Note: Legal hold: 5150 Client involuntary status for GD/DTO. Report given by Gabrielle PEREZ with the use of SBAR: Why are they here: Patient was brought into the ED by [facility] on a 5150 hold for being gravely disabled. Bystanders called 911 because the patient was wandering the streets yelling nonsense while wearing only shorts that were partially exposing him. Patient was uncooperative with law enforcement and refused to answer their questions. When arriving to the ED department patient was still uncooperative and was assaultive towards [facility] and hospital staff. Patient has been non-compliant with his medications, and was refusing to take medications in the ED. Assessment What has happened this shift? Patient awakened for breakfast, took a.m. medications. Patient does not want to participate in mental health assessment nor physical assessment. Patient will only state that he is okay, but nothing more than this. Patient refusing ppd test. S/I, H/I: Pt declined to answer. A/VH: Refuses to answer. Sleep: Slept 8 hours at NOC, napped in daytime. ADL's: Independent Group attendance: No Were meds taken: Yes Any med S/E: None noted or reported Mental Status Exam Appearance: Messy hair, dressed in green scrubs and nonskid socks Eye contact: Fair Behavior: avoidant, dismissive, irritable, isolative to self Speech: Clear, normal volume, rate and rhythm, minimal speech Mood: irritable Affect: Blunted, constricted Thought process: linear. Thought blocking Thought Content: Unable to assess. Cognition: A/O X 3 Insight: Poor Judgment: Poor Interventions PRN's used: None Therapeutic interventions: 1:1 assessment, encouragement to take medication, medication administration/monitoring/education, Q 15 minute checks for safety. Restraints/seclusion/emergency medication: N/A Justification of Continued Inpatient Treatment: Continued therapeutic support and medication management needed to provide stabilization, prevent decompensation, decreasing risk to patient and readmittance.
[2019-04-05] MEDS: quetiapine 100mg tablet PO SCH (21:09)
--- NOTE | 2019-04-06 04:10 | NUR ---
RN PROGRESS NOTE: Client refused vital signs, physical assessment, and to speak with staff. Client watched TV in the rec room with others, but did not interact with them. Client returned to his room, sat in the corner, and began reading. He did not acknowledge this RN's presence. Client avoided eye contact. Client was compliant with meds. He did not appear to have difficulty falling and staying asleep. Affect and mood are angry.
[2019-04-06] MEDS: QUEtiapine 25mg tablet PO SCH ×2 (08:31→12:56)
[2019-04-06] MEDS: clonazePAM 0.5mg tablet PO SCH ×2 (08:31→20:14)
[2019-04-06] MEDS: duloxetine 20mg capsule.DR PO SCH (08:32)
--- NOTE | 2019-04-06 18:09 | NUR ---
Nursing Progress Note: Legal hold: 5250 Client involuntary status for GD/DTO. Report given by Gabrielle PEREZ. Why are they here: Patient was brought into the ED by [facility] on a 5150 hold for being gravely disabled. Bystanders called 911 because the patient was wandering the streets yelling nonsense while wearing only shorts that were partially exposing him. Patient was uncooperative with law enforcement and refused to answer their questions. When arriving to the ED department patient was still uncooperative and was assaultive towards [facility] and hospital staff. Patient has been non-compliant with his medications, and was refusing to take medications in the ED. Assessment What has happened this shift? Patient sleeping most of the day, up for snacks and meals. Patient refusing mental health and physical assessments. Patient will not state when he had a last bowel movement was, then said leave me alone. Patient refusing ppd test. S/I, H/I: Pt declined to answer. A/VH: Refuses to answer. Sleep: See sleep hours. napped in daytime. ADL's: Independent Group attendance: No Were meds taken: Yes Any med S/E: None noted or reported Mental Status Exam Appearance: Messy hair, dressed in green scrubs and nonskid socks Eye contact: Avoidance Behavior: Avoidance, dismissive, irritable, isolative to self Speech: Clear, normal volume, rate and rhythm, does not speak unless he has to. Mood: irritable Affect: Blunted, constricted Thought process: Thought blocking Thought Content: Wanting to be left alone. Cognition: A/O X 3 Insight: Poor Judgment: Impaired. Interventions PRN's used: None Therapeutic interventions: Attempted 1:1 assessment, clear and simple instructions, encouragement to take medication, medication administration/monitoring/education, Q 15 minute checks for safety. Restraints/seclusion/emergency medication: N/A Justification of Continued Inpatient Treatment: Continued therapeutic support and medication management needed to provide stabilization, prevent decompensation, decreasing risk to patient and readmittance.
[2019-04-06] MEDS: quetiapine 100mg tablet PO SCH (20:14)
--- NOTE | 2019-04-07 00:56 | NUR ---
Nursing Progress Note: Legal hold: 5250 Client involuntary status for GD/DTO. Report given by Kylie PEREZ. Why are they here: Patient was brought into the ED by [facility] on a 5150 hold for being gravely disabled. Bystanders called 911 because the patient was wandering the streets yelling nonsense while wearing only shorts that were partially exposing him. Patient was uncooperative with law enforcement and refused to answer their questions. When arriving to the ED department patient was still uncooperative and was assaultive towards [facility] and hospital staff. Patient has been non-compliant with his medications, and was refusing to take medications in the ED. Assessment What has happened this shift? Patient laid in bed at shift change and read his bible. When information writer approached pt and greeted him he did not look up or reply. When asked if information writer could assess him he replies, "no." He is medication compliant but refuses to answer all questions. After taking medications and eating snack in the community room he goes back to his room and reads the bible. S/I, H/I: Pt declined to answer. A/VH: Refuses to answer. Sleep: See sleep hours ADL's: Independent Group attendance: No Were meds taken: Yes Any med S/E: None noted or reported Mental Status Exam Appearance:dressed in green scrubs and nonskid socks Eye contact: Avoidance Behavior: Avoidance, dismissive, irritable, isolative Speech: "no" is his only answer Mood: irritable Affect: flat, constricted Thought process: Thought blocking Thought Content: Wanting to be left alone. Cognition: A/O X 3 Insight: Poor Judgment: Impaired. Interventions PRN's used: None Therapeutic interventions: Attempted 1:1 assessment, clear and simple instructions, encouragement to take medication, medication administration/monitoring/education, Q 15 minute checks for safety. Restraints/seclusion/emergency medication: N/A Justification of Continued Inpatient Treatment: Continued therapeutic support and medication management needed to provide stabilization, prevent decompensation, decreasing risk to patient and readmittance.
[2019-04-07] MEDS: clonazePAM 0.5mg tablet PO SCH ×2 (08:11→20:32)
[2019-04-07] MEDS: QUEtiapine 25mg tablet PO SCH ×2 (08:11→12:54)
[2019-04-07] MEDS: duloxetine 20mg capsule.DR PO SCH (08:11)
--- NOTE | 2019-04-07 14:33 | NUR ---
LPS RECOMMENDATION: KIARA provided Dr. Garcia with LPS recommendation paperwork. Dr. Garcia completed and SW faxed to [facility] Office for referral. Sailaja Rothman, Sleeping Car Conductor [facility] [id number] Supervised Dheeraj Montiel, [id number] Addendum: 04/07/19 at 1636 by Sailaja Rothman SS Addition to note: SW attempted to meet w/ pt for discharge planning and TOYA signatures. Pt declined to meet w/ SW and began ignoring her. Sailaja Rothman, Sleeping Car Conductor [facility] [id number] Supervised by Dheeraj Rae, [id number]
--- NOTE | 2019-04-07 15:00 | NUR ---
Patient eating well, 75-100% PO intake meeting nutrition needs. GI symptoms documented as constipated, LBM also documented as 04/02, has milk of magnjann gonzalezsue on medications list, discussed with staff, staff reports patient will be offered the milk of adamaris potter. Will continue to follow. Recommend: 1. continue regular diet 2. bowel care to relieve constipation 3. weekly wts Addendum: 04/07/19 at [address] Amended: Links added.
--- NOTE | 2019-04-07 17:37 | NUR ---
Nursing Progress Note: Legal hold: 5150 Client involuntary status for GD/DTO. Report given by Mily JUAREZ with the use of SBAR: Why are they here: Patient was brought into the ED by [facility] on a 5150 hold for being gravely disabled. Bystanders called 911 because the patient was wandering the streets yelling nonsense while wearing only shorts that were partially exposing him. Patient was uncooperative with law enforcement and refused to answer their questions. When arriving to the ED department patient was still uncooperative and was assaultive towards [facility] and hospital staff. Patient has been non-compliant with his medications, and was refusing to take medications in the ED. Assessment: What has happened this shift: Patient has isolated in his room for the majority of the shift. Some pacing noted at the end of the day. Pt refused VS today, refused physical assessment, and refused to answer mental health assessment questions. Did mention to tech when asked that he had a bowel movement "earlier today." Attended his 5250 hearing today. Stated he wanted to be released "because I don't belong here. I can take care of myself. I can go to the [facility] for food, halfway, clothing. I have a sleeping bag by the [employer]." When asked by the immigration judge about his consistency with taking medications, patient answered "Yea. I know how to take them. I take them when I need them. You know. PRN." 5250 upheld due to danger to self and gravely disabled. S/I, H/I: Pt declined to answer. A/VH: Pt declined to participate in assessment Sleep: Slept 6.25 hours per noc shift report, was awake more during day shift today than yesterday, only took occasional short naps. ADL's: Independent/Showered today Group attendance: No Were meds taken: Yes, without event Any med S/E: None noted or reported Mental Status Exam Appearance: Clean, dressed in green scrubs and nonskid socks Eye contact: Fair Behavior: avoidant, dismissive, irritable, isolative to self, reads the Bible Speech: Clear, normal volume, rate and rhythm, minimal speech Mood: irritable Affect: Blunted, constricted Thought process: linear Thought Content: Wants to be left alone Cognition: Will respond to name only Insight: Poor Judgment: Poor Interventions PRN's used: None Therapeutic interventions: 1:1 assessment, encouragement to take medication, medication administration/monitoring/education, Q 15 minute checks for safety. Restraints/seclusion/emergency medication: N/A Justification of Continued Inpatient Treatment: Continued therapeutic support and medication management needed to provide stabilization, prevent decompensation, decreasing risk to patient and readmittance.
[2019-04-07] MEDS: quetiapine 100mg tablet PO SCH (20:32)
--- NOTE | 2019-04-08 02:20 | NUR ---
Nursing Progress Note: Legal hold: 5250 Client involuntary status for GD/DTO. Report given by Kylie PEREZ. Why are they here: Patient was brought into the ED by [facility] on a 5150 hold for being gravely disabled. Bystanders called 911 because the patient was wandering the streets yelling nonsense while wearing only shorts that were partially exposing him. Patient was uncooperative with law enforcement and refused to answer their questions. When arriving to the ED department patient was still uncooperative and was assaultive towards [facility] and hospital staff. Patient has been non-compliant with his medications, and was refusing to take medications in the ED. Assessment What has happened this shift? Patient isolates to his room the beginning of shift laying down with his eyes closed or staring at the ceiling. He spent some time in the hallway sitting in a chair reading the bible. He is medication compliant but refuses a 1:1 physical assessment and will not answer when his last BM was or if he is constipated. When asked how he was feeling he did answer "terrible" but anything asked after that was responded to by silence. After taking medications and eating snack in the community room he goes back to the chair in the hallway and reads the bible. S/I, H/I: Pt declined to answer. A/VH: Refuses to answer. Sleep: See sleep hours ADL's: Independent Group attendance: attended snack Were meds taken: Yes Any med S/E: None noted or reported Mental Status Exam Appearance:dressed in green scrubs and nonskid socks Eye contact: Avoidance Behavior: Avoidance, dismissive, irritable, isolative Speech: "no" is his only answer Mood: irritable Affect: flat, constricted Thought process: Thought blocking Thought Content: Wanting to be left alone. Cognition: A/O X 3 Insight: Poor Judgment: Impaired. Interventions PRN's used: None Therapeutic interventions: Attempted 1:1 assessment, clear and simple instructions, encouragement to take medication, medication administration/monitoring/education, Q 15 minute checks for safety. Restraints/seclusion/emergency medication: N/A Justification of Continued Inpatient Treatment: Continued therapeutic support and medication management needed to provide stabilization, prevent decompensation, decreasing risk to patient and readmittance.
[2019-04-08] MEDS: QUEtiapine 25mg tablet PO SCH ×2 (08:27→12:54)
[2019-04-08] MEDS: clonazePAM 0.5mg tablet PO SCH (08:27)
[2019-04-08] MEDS: duloxetine 20mg capsule.DR PO SCH (08:27)
--- NOTE | 2019-04-08 16:36 | NUR ---
Nursing Progress Note: Legal hold: 5150 Client involuntary status for GD/DTO. Report given by ANN Edouard with the use of SBAR: Why are they here: Patient was brought into the ED by [facility] on a 5150 hold for being gravely disabled. Bystanders called 911 because the patient was wandering the streets yelling nonsense while wearing only shorts that were partially exposing him. Patient was uncooperative with law enforcement and refused to answer their questions. When arriving to the ED department patient was still uncooperative and was assaultive towards [facility] and hospital staff. Patient has been non-compliant with his medications, and was refusing to take medications in the ED. Assessment: What has happened this shift: Pt isolated in his room most of this shift. He does not answer questions when you speak to him. He was compliant with his medications. He shares that he is angry about being here and that he just wants to leave. S/I, H/I: Pt declined to answer. A/VH: Pt declined to participate in assessment Sleep: stayed in bed all day ADL's: Independent/Showered today Group attendance: No Were meds taken: Yes, without event Any med S/E: None noted or reported Mental Status Exam Appearance: Clean, dressed in green scrubs and nonskid socks Eye contact: Fair Behavior: irritable, isolative to self Speech: Clear, normal volume, rate and rhythm, minimal speech Mood: irritable Affect: Blunted, constricted Thought process: linear Thought Content: Wants to be left alone Cognition: Will respond to name only Insight: Poor Judgment: Poor Interventions PRN's used: None Therapeutic interventions: 1:1 assessment, encouragement to take medication, medication administration/monitoring/education, Q 15 minute checks for safety. Restraints/seclusion/emergency medication: N/A Justification of Continued Inpatient Treatment: Continued therapeutic support and medication management needed to provide stabilization, prevent decompensation, decreasing risk to patient and readmittance.
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
[2019-04-08] MEDS ORDERED: quetiapine 100mg tablet PO SCH (21:00)
[2019-04-09] MEDS: duloxetine 20mg capsule.DR PO SCH (07:38)
[2019-04-09] MEDS: QUEtiapine 25mg tablet PO SCH ×2 (07:38→13:30)
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
--- NOTE | 2019-04-09 12:37 | NUR ---
COUNTY DENIAL OF LPS: KIARA received TC from Dr. Trivedi at [facility], who reports pt will not be evaluated for LPS Conservatorship due to hx of dismissal of after the temporary conservatorship. Dr. Trivedi states pt is likely to be treated to baseline within the 47 days that the facility can provide under LPS holds. SW agreed to inform tx team of this decision from county/Public Guardian. Saialja Rothman, Cellophane Bag Machine Operator FRUIT CULLER [id number] Supervised by Dheeraj Rae, [id number]
[2019-04-10] MEDS ORDERED: DULO30CA52 PO (15:05)
[2019-04-10] MEDS ORDERED: TRAZ-251 PO (15:05)
[2019-04-10] MEDS ORDERED: DULO60CA65 PO (15:05)
[2019-04-10] MEDS ORDERED: PANT40TA4 PO (15:05)
== END 2019-04-09 16:30 | disposition left against medical advice (07) | DRG 750 ==
LOC: ADULT MH 21:53
PROVIDERS: ADMIT Psychiatry & Neurology Psychiatry; ATTEND Psychiatry & Neurology Psychiatry
DX: F25.9 Schizoaffective disorder, unspecified (principal); Z91.14 Patient's other noncompliance with medication regimen; E03.9 Hypothyroidism, unspecified; Z79.899 Other long term (current) drug therapy; Z88.0 Allergy status to penicillin; Z88.8 Allergy status to other drugs, medicaments and biological substances
CPT/HCPCS: 36415; 80061; 83036; 87081; Q0163

== ENCOUNTER 2019-04-10 11:32 | Emergency (ER) | payer MEDICAID ==
[~2019-04-10] VITALS: Ht 177.8 cm; Wt 77.2 kg
[2019-04-10] MEDS ORDERED: haloperidol lactate 5mg/ml inj IM ONE (11:50)
[2019-04-10] MEDS ORDERED: normal saline 1000ML IV soln IVB ONE ×2 (11:50→17:05)
[2019-04-10] MEDS ORDERED: LORazepam 2 mg/ml vial IV ONE (11:50)
[2019-04-10 12:35] LABS: BASOPHILS % (AUTO) 0.4 % (0-1); EOSINOPHILS % (AUTO) 0.1 % (0-6); HEMATOCRIT 38.8 % (42.0-52.0); HEMOGLOBIN 12.9 g/dl (14.0-17.9); LYMPHOCYTES # (AUTO) 0.7 X10'3 (1.1-4.8); MEAN CORPUSCULAR HEMOGLOBIN 30.2 PG (27.0-31.0); MEAN CORPUSCULAR HGB CONC 33.3 g/dL (33.0-36.5); MEAN CORPUSCULAR VOLUME 90.8 FL (78-98); MEAN PLATELET VOLUME 8.5 FL (7.4-10.4); MONOCYTES # (AUTO) 0.6 X10'3 (0-0.9); MONOCYTES % (AUTO) 6.7 % (2-12); NEUTROPHILS # (AUTO) 7.9 X10'3 (1.8-7.7); NEUTROPHILS % (AUTO) 84.8 % (42-75); PLATELET COUNT 221 X10'3 (140-440); RED BLOOD COUNT 4.27 X10'6 (4.70-6.10); RED CELL DISTRIBUTION WIDTH 13.3 % (11.5-14.5); WHITE BLOOD COUNT 9.3 X10'3 (4.5-11.0)
[2019-04-10 12:55] LABS: ALANINE AMINOTRANSFERASE 34 U/L (12-78); ALBUMIN 3.7 G/DL (3.4-5.0); ALBUMIN/GLOBULIN RATIO 1.1 (1.1-1.5); ALKALINE PHOSPHATASE 56 IU/L (46-116); ANION GAP 15 (8-16); ASPARTATE AMINO TRANSFERASE 34 U/L (10-37); BILIRUBIN,TOTAL 0.5 MG/DL (0.1-1.0); BLOOD UREA NITROGEN 19 MG/DL (7-18); BUN/CREATININE RATIO 12.8 (5.4-32.0); CALCIUM 8.4 MG/DL (8.5-10.1); CHLORIDE 110 MMOL/L (99-107); CREATININE 1.48 MG/DL (0.60-1.10); GLUCOSE 138 MG/DL (70-104); POTASSIUM 4.1 MMOL/L (3.5-5.1); SODIUM 146 MMOL/L (135-145); TOTAL CARBON DIOXIDE 20.8 MMOL/L (24-32); TOTAL PROTEIN 7.1 G/DL (6.4-8.2); eGFR 56 ML/MIN
[2019-04-10 13:05] LABS: CLARITY,URINE SLIGHTLY CLOUDY (Clear); GLUCOSE, URINE NEGATIVE (Neg); KETONES,URINE NEGATIVE (Neg); LEUKOCYTE ESTERASE ,URINE NEGATIVE (Neg); NITRITES, URINE NEGATIVE (Neg); OCCULT BLOOD,URINE NEGATIVE (Neg); PROTEIN,URINE 100 mg/dl (Neg); UROBILINOGEN,URINE 0.2 E.U/dL (0.2-1.0)
[2019-04-10 13:07] LABS: COLOR,URINE DARK YELLOW (Yellow); UA COLLECTION TYPE NON-SPECIFIED
[2019-04-10 13:08] LABS: URINE AMPHETAMINE SCREEN NEGATIVE (Neg); URINE BARBITUATE SCREEN NEGATIVE (Neg); URINE BENZODIAZEPINES SCREEN NEGATIVE (Neg); URINE CANNABINOID SCREEN NEGATIVE (Neg); URINE COCAINE SCREEN NEGATIVE (Neg); URINE METHADONE SCREEN NEGATIVE (Neg); URINE OPIATE SCREEN NEGATIVE (Neg); URINE PHENCYCLIDINE SCREEN NEGATIVE (Neg)
[2019-04-10 13:09] LABS: CREATINE KINASE 551 U/L (39-308); ETHANOL < 0.010 GM/DL (0.0-0.010); TROPONIN I < 0.04 NG/ML (0.0-0.05)
[2019-04-10 13:14] LABS: HYALINE CASTS 0-3 /LPF (NEGATIVE); SQUAMOUS EPITHELIAL CELL,UR MANY /LPF (FEW)
[2019-04-10 13:15] LABS: BACTERIA,URINE FEW /HPF (Neg); FINE GRANULAR CAST 0-3 /LPF (NEGATIVE); WBC,URINE 0-4 /HPF (0-4)
--- NOTE | 2019-04-10 13:33 | NUR ---
Xray to left wrist performed. MD at bedside evaluating image and wrist. Pt is alert and oriented at this time, is now talking and cooperative.
[2019-04-10 13:34] LABS: PARTIAL THROMBOPLASTIN TIME 25 SECONDS (22-32)
--- NOTE | 2019-04-10 13:55 | NUR ---
PT MOVED VIA [facility] FROM BED 01 TO BED 03 BY DIONI JUAREZ AND MOHSEN JUAREZ
--- NOTE | 2019-04-10 14:40 | NUR ---
monitor tech is in room applied splint to pt's left wrist
[2019-04-10] MEDS ORDERED: TRAZ-251 PO (15:05)
[2019-04-10] MEDS ORDERED: DULO30CA52 PO (15:05)
[2019-04-10] MEDS ORDERED: DULO60CA65 PO (15:05)
[2019-04-10] MEDS ORDERED: PANT40TA4 PO (15:05)
--- NOTE | 2019-04-10 15:39 | NUR ---
packet has been packed to [facility]
[2019-04-10] MEDS ORDERED: traZODone 150mg tablet PO PRN (15:50)
[2019-04-10] MEDS: clonazePAM 1mg tablet PO PRN (16:40)
--- NOTE | 2019-04-10 16:41 | NUR ---
pt c/o feeling anxious. klonipin given. pt states he has taken it before and it helps
--- NOTE | 2019-04-10 17:22 | NUR ---
SPOKE WITH DR COX PT HAS ONLY HAD NS X1L AND HAS ELEVATED MYOGLOBIN. ORDER FOR NS 1 L PLACED AND STARTED
--- NOTE | 2019-04-10 18:22 | NUR ---
Pt is eating dinner at this time. Sitter is present at bedside.
[2019-04-10] MEDS: busPIRone 15mg tablet PO SCH (21:04)
[2019-04-10] MEDS: quetiapine 100mg tablet PO SCH (21:04)
--- NOTE | 2019-04-11 07:00 | NUR ---
Spoke with Dr ramsey to see if pt needs additional labs today. Stated no additional labs needed and pt is medically clear.
[2019-04-11] MEDS: quetiapine 100mg tablet PO SCH (07:28)
[2019-04-11] MEDS: busPIRone 15mg tablet PO SCH ×2 (07:28→13:36)
--- NOTE | 2019-04-11 07:30 | NUR ---
pt requests to have right lef restraint off. pt answering appropriately, right leg removed with left lef still in restraints. no pain. pt rotates self in bed frequently. sitter at bedside. will continue to monitor
[2019-04-11] MEDS ORDERED: duloxetine 30mg CAPSULE.DR PO SCH (08:00)
[2019-04-11] MEDS ORDERED: pantoprazole 40mg Tablet.DR PO SCH (08:00)
--- NOTE | 2019-04-11 08:13 | NUR ---
PT EATING BREAKFAST AND COOPERATING AT THIS TIME.
--- NOTE | 2019-04-11 08:25 | NUR ---
pt restless in bed, educated about importance of staying calm to release the last restraint.
[2019-04-11] MEDS: clonazePAM 1mg tablet PO PRN (08:29)
--- NOTE | 2019-04-11 10:03 | NUR ---
called to OF to see about moving bed 3 over. pt is appropriate, no distress.
--- NOTE | 2019-04-11 11:12 | NUR ---
Report given to Seamus JUAREZ at overflow. Pt escorted with brady, RN, and security to overflow.
[2019-04-11] MEDS ORDERED: ketorolac trometh. 30mg/ml inj. IV ONE (14:10)
--- NOTE | 2019-04-11 17:23 | NUR ---
PATIENT REFUSED VITALS
[2019-04-11] MEDS ORDERED: OLANZapine 2.5MG tablet PO STA (17:35)
[2019-04-11 18:40] VITALS: BP 108/57
== END 2019-04-11 18:44 ==
LOC: ER 11:32
DX: S52.252A Displaced comminuted fracture of shaft of ulna, left arm, initial encounter for closed fracture (principal); F29 Unspecified psychosis not due to a substance or known physiological condition; F31.9 Bipolar disorder, unspecified; F20.9 Schizophrenia, unspecified; L55.9 Sunburn, unspecified; K21.9 Gastro-esophageal reflux disease without esophagitis; G89.29 Other chronic pain; F10.99 Alcohol use, unspecified with unspecified alcohol-induced disorder; Z98.890 Other specified postprocedural states; Z60.2 Problems related to living alone; Z59.0 Homelessness; Z88.0 Allergy status to penicillin; Z88.8 Allergy status to other drugs, medicaments and biological substances; Z79.899 Other long term (current) drug therapy; X58.XXXA Exposure to other specified factors, initial encounter; Y93.89 Activity, other specified; Y92.89 Other specified places as the place of occurrence of the external cause; Y99.8 Other external cause status; Y90.9 Presence of alcohol in blood, level not specified; R79.1 Abnormal coagulation profile
CPT/HCPCS: 29125; 36415; 73090; 80053; 80305; 80320; 81001; 82550; 83874; 84484; 85025; 85610; 85730; 93005; 96372; 96374; 96375; 99285; J1630; J1885; J2060; J7030; 90654

== ENCOUNTER 2019-04-11 15:17 | Inpatient (IN) | payer MEDICAID ==
[~2019-04-11] VITALS: Ht 177.8 cm; Wt 85.8 kg
[~2019-04-11 15:17] MED LIST changes: +DULO30CA52 PO; +DULO60CA65 PO; +PANT40TA4 PO; +TRAZ-251 PO
[2019-04-11] MEDS ORDERED: acetaminophen 325mg tablet PO PRN (18:55)
[2019-04-11] MEDS ORDERED: tuberculin, purif. prot. deriv. 5 units/0.1ml ID ONE (18:55)
[2019-04-11] MEDS ORDERED: mag hydrox/Alum hydrox/simeth 30ml oral suspension PO PRN (18:55)
[2019-04-11] MEDS ORDERED: loperamide 2mg capsule PO PRN (18:55)
[2019-04-11] MEDS ORDERED: magnesium hydroxide 30ml (MOM) UD suspension PO PRN (18:55)
[2019-04-11 21:08] VITALS: BP 134/78
[2019-04-11] MEDS: busPIRone 15mg tablet PO SCH (21:21)
[2019-04-11] MEDS: quetiapine 100mg tablet PO SCH (21:21)
[2019-04-11] MEDS: clonazePAM 0.5mg tablet PO PRN (21:21)
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
[2019-04-12] MEDS: pantoprazole 40mg Tablet.DR PO SCH (08:34)
[2019-04-12] MEDS: busPIRone 15mg tablet PO SCH ×3 (08:35→21:04)
[2019-04-12] MEDS: duloxetine 30mg CAPSULE.DR PO SCH (08:35)
[2019-04-12] MEDS: acetaminophen 325mg tablet PO PRN (11:02)
[2019-04-12] MEDS ORDERED: QUEtiapine 25mg tablet PO ONE (11:15)
[2019-04-12] MEDS: HYDROcodone/acetaminophen 10/325mg tab PO PRN ×3 (11:31→21:06)
[2019-04-12] MEDS: clonazePAM 0.5mg tablet PO PRN (11:31)
[2019-04-12] MEDS: QUEtiapine 25mg tablet PO SCH (13:25)
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
[2019-04-12 19:37] LABS: ALBUMIN 3.2 G/DL (3.4-5.0); ANION GAP 7 (8-16); BLOOD UREA NITROGEN 12 MG/DL (7-18); BUN/CREATININE RATIO 12.8 (5.4-32.0); CALCIUM 8.5 MG/DL (8.5-10.1); CHLORIDE 107 MMOL/L (99-107); CREATININE 0.94 MG/DL (0.60-1.10); GLUCOSE 104 MG/DL (70-104); POTASSIUM 4.2 MMOL/L (3.5-5.1); SODIUM 143 MMOL/L (135-145); TOTAL CARBON DIOXIDE 29.2 MMOL/L (24-32); eGFR > 90 ML/MIN
[2019-04-12 19:38] LABS: BASOPHILS % (AUTO) 0.5 % (0-1); EOSINOPHILS # (AUTO) 0.2 X10'3 (0-0.9); EOSINOPHILS % (AUTO) 3.3 % (0-6); HEMATOCRIT 35.8 % (42.0-52.0); LYMPHOCYTES # (AUTO) 1.8 X10'3 (1.1-4.8); LYMPHOCYTES % (AUTO) 31.3 % (21-51); MEAN CORPUSCULAR HEMOGLOBIN 30.4 PG (27.0-31.0); MEAN CORPUSCULAR HGB CONC 33.5 g/dL (33.0-36.5); MEAN CORPUSCULAR VOLUME 90.5 FL (78-98); MONOCYTES # (AUTO) 0.6 X10'3 (0-0.9); MONOCYTES % (AUTO) 11.1 % (2-12); NEUTROPHILS # (AUTO) 3.1 X10'3 (1.8-7.7); NEUTROPHILS % (AUTO) 53.8 % (42-75); PLATELET COUNT 183 X10'3 (140-440); RED BLOOD COUNT 3.96 X10'6 (4.70-6.10); RED CELL DISTRIBUTION WIDTH 13.3 % (11.5-14.5); WHITE BLOOD COUNT 5.8 X10'3 (4.5-11.0)
[2019-04-12] MEDS ORDERED: sennosides/docusate sodium tablet PO SCH (21:00)
[2019-04-12] MEDS: quetiapine 100mg tablet PO SCH (21:06)
--- NOTE | 2019-04-13 00:30 | NUR ---
Patient is experiencing nausea, vomiting, and diarrhea. He refuses evaluation or medical treatment. He returns to bed. Patient encouraged to wash hands. Patient is uncooperative with staff.
--- NOTE | 2019-04-13 01:15 | NUR ---
Patient is experiencing his second episode of nausea, vomiting, and diarrhea. This patient has refused evaluation, antiemetics, etc. The patient tells this lead technical writer to go away, I don't want to talk.
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
[2019-04-13] MEDS: QUEtiapine 25mg tablet PO SCH ×2 (07:30→12:30)
[2019-04-13] MEDS: pantoprazole 40mg Tablet.DR PO SCH (07:30)
[2019-04-13] MEDS ORDERED: ondansetron 4mg rapidly disintigrating tab PO PRN (07:50)
[2019-04-13] MEDS: duloxetine 30mg CAPSULE.DR PO SCH (08:00)
[2019-04-13] MEDS: busPIRone 15mg tablet PO SCH ×3 (08:00→20:08)
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
[2019-04-13] MEDS: clonazePAM 0.5mg tablet PO PRN (19:43)
[2019-04-13] MEDS: HYDROcodone/acetaminophen 10/325mg tab PO PRN (19:44)
[2019-04-13 19:57] VITALS: BP 120/75
[2019-04-13] MEDS ORDERED: clonazePAM 1mg tablet PO ONE ×2 (20:05→20:40)
[2019-04-13] MEDS: quetiapine 100mg tablet PO SCH (20:09)
--- NOTE | 2019-04-14 02:24 | NUR ---
NURSING PROGRESS NOTE Legal hold: 5150 Client involuntary status for GD. Why are they here: Patient was brought into the ED by the Police on a 5150 hold for being detained after running down [address] naked and resisting arrest. Patient reports "I remember going [place] the [place]." Then states he remembers nothing else besides stripping naked and running. When asked why he took his clothes off and began to run naked he states "I don't know I went crazy." Assessment: What has happened this shift: Pt in room at start of shift. On LOS sitter in hallway outside room. Pt became increasingly agitated pacing in room. Took 0.5 Klonopin for agitation and Artie for arm pain. pt agitation increased at one point he was hitting the wall. Given HS meds and1mg Klonopin. Received an order for Klonopin 1mg and repeat in 30 minutes if not effective from Shorty Jones. Pt improved but still agitated after 30 minutes. When offered 2nd Klonopin pt refused. Behavior continued to deescalate till pt went to sleep. Sleeping at this time. S/I, H/I: Denies A/VH: Auditory Sleep: asleep at this time ADL's: Independent with help covering splint Group attendance: No Were meds taken: yes Any med S/E: None noted or reported Mental Status Exam: Appearance: Disheveled, wearing green scrubs Eye contact: Direct/ minimal Behavior: withdrawn, guarded, resistive to care Speech: Clear, normal volume, rate and rhythm. Mood: Irritated Affect: Constricted, uncooperative Thought process: Linear Thought Content: would not answer questions or speak Cognition: A & Ox3 Insight: Poor Judgment: Poor Interventions PRN's used: Klonopin Therapeutic interventions: 1:1 assessment at bedside, provided therapeutic communication, medication administration/education/monitoring for compliance. Provided active listening with positive feedback, maintained safe therapeutic milieu, and encouraged patient to participate in unit milieu. Q 15 minute checks for safety. Restraints/seclusion/emergency medication: N/A Justification of Continued Inpatient Treatment: Continued therapeutic support and medication management needed to provide stabilization, prevent decompensation, decreasing risk to patient and readmittance.
[2019-04-14] MEDS: QUEtiapine 25mg tablet PO SCH ×2 (07:30→12:30)
[2019-04-14] MEDS: pantoprazole 40mg Tablet.DR PO SCH (07:30)
[2019-04-14] MEDS: duloxetine 30mg CAPSULE.DR PO SCH (08:00)
[2019-04-14] MEDS: busPIRone 15mg tablet PO SCH ×3 (08:00→21:50)
[2019-04-14] MEDS ORDERED: LORazepam 1 MG tablet PO ONE (09:35)
[2019-04-14] MEDS ORDERED: haloperidol 5mg tablet PO ONE (09:35)
[2019-04-14] MEDS ORDERED: LORazepam 2 mg/ml vial ONE ×2 (09:45→15:08)
[2019-04-14] MEDS ORDERED: haloperidol lactate 5mg/ml inj ONE ×3 (09:46→15:11)
[2019-04-14] MEDS ORDERED: diphenhydrAMINE 50 mg/ml inj ONE ×2 (09:46→15:10)
[2019-04-14] MEDS ORDERED: LORazepam 1 MG tablet PO STA (15:20)
[2019-04-14] MEDS ORDERED: haloperidol 5mg tablet PO STA (15:20)
[2019-04-14] MEDS ORDERED: diphenhydrAMINE 25mg capsule PO STA (15:20)
[2019-04-14] MEDS ORDERED: diphenhydrAMINE 25mg capsule PO ONE (15:40)
[2019-04-14] MEDS: HYDROcodone/acetaminophen 10/325mg tab PO PRN (16:23)
--- NOTE | 2019-04-14 17:00 | NUR ---
NURSING PROGRESS NOTE Legal hold: 5150 Client involuntary status for GD. Why are they here: Patient was brought into the ED by the Police on a 5150 hold for being detained after running down [place] naked and resisting arrest. Patient reports "I remember going [place]." Then states he remembers nothing else besides stripping naked and running. When asked why he took his clothes off and began to run naked he states "I don't know I went crazy." Assessment: What has happened this shift: LOS d/c today. Pt. sleeping at beginning of shift. Pt. did not report any diarrhea or vomitting today. Pt. refused assessment today. Pt. ate all meals in community room. Pt. refused medications. Pt. became agitated, pacing, attempted to open exit doors. RN recieved order for PO or if refused IM medication. Pt. refused PO and recived IM Haldol, ativan, and Benydrl. Pt. then slept until lunch. Pt. appears to be responding to internal stimuli. After lunch pt. again became, pacing the halls and attempting to open the exit doors. Pt. given haldol, ativan, and benadryl po with good effect. Pt. reporting pain in left arm rated 8/10 and recieved Emmett and napped. S/I, H/I: Denies A/VH: Denies but appears to be responding to internal stimuli. Sleep: Napped frequently ADL's: Independent with help covering splint Group attendance: No Were meds taken: yes Any med S/E: None noted or reported Mental Status Exam: Appearance: Disheveled, wearing green scrubs Eye contact: Direct/ minimal Behavior: withdrawn, guarded, resistive to care Speech: Clear, normal volume, rate and rhythm. Mood: Irritated Affect: Constricted, uncooperative Thought process: Linear Thought Content: would not answer questions or speak Cognition: A & Ox3 Insight: Poor Judgment: Poor Interventions PRN's used: Haldol 10mg x2, Ativan 4mg x2, Benydrl 50mgx1 and 100mg x1. Emmett x1 Therapeutic interventions: 1:1 assessment at bedside, provided therapeutic communication, medication administration/education/monitoring for compliance. Provided active listening with positive feedback, maintained safe therapeutic milieu, and encouraged patient to participate in unit milieu. Q 15 minute checks for safety. Restraints/seclusion/emergency medication: N/A Justification of Continued Inpatient Treatment: Continued therapeutic support and medication management needed to provide stabilization, prevent decompensation, decreasing risk to patient and readmittance.
[2019-04-14] MEDS: quetiapine 100mg tablet PO SCH (21:50)
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
[2019-04-15] MEDS: QUEtiapine 25mg tablet PO SCH ×2 (08:18→11:45)
[2019-04-15] MEDS: busPIRone 15mg tablet PO SCH ×3 (08:18→21:06)
[2019-04-15] MEDS: duloxetine 30mg CAPSULE.DR PO SCH (08:18)
[2019-04-15] MEDS: pantoprazole 40mg Tablet.DR PO SCH (08:18)
[2019-04-15] MEDS: HYDROcodone/acetaminophen 10/325mg tab PO PRN ×2 (11:08→17:05)
[2019-04-15] MEDS ORDERED: haloperidol 5mg tablet PO ONE (11:20)
[2019-04-15] MEDS ORDERED: LORazepam 1 MG tablet PO ONE (11:20)
[2019-04-15] MEDS: haloperidol 5mg tablet PO SCH (17:00)
[2019-04-15] MEDS: clonazePAM 1mg tablet PO SCH (17:00)
[2019-04-15] MEDS ORDERED: clonazePAM 1mg tablet PO SCH (17:20)
[2019-04-15] MEDS ORDERED: haloperidol 5mg tablet PO SCH (17:40)
--- NOTE | 2019-04-15 18:22 | NUR ---
NURSING PROGRESS NOTE [place] Legal hold: 5150 Client involuntary status for GD. Why are they here: Patient was brought into the ED by the Police on a 5150 hold for being detained after running down [place] naked and resisting arrest. Patient reports "I remember going [place] the river trail." Then states he remembers nothing else besides stripping naked and running. When asked why he took his clothes off and began to run naked he states "I don't know I went crazy." Assessment: What has happened this shift: Patient sleeping at change of shift. Awakened for medications and breakfast; patient then went back to bed. Patient awakened and started checking doors, then came to RN and stated I need something stronger than Ativan I just received. Pt. Asked for B-52 oral which was provided with good relief of symptoms. Patient was medication compliant, but refused vitals and physical exam. Pt. Took a shower with plastic bag over his arm, wrapped in coban and secured with tape. S/I, H/I: Denies A/VH: Denies but appears to be responding to internal stimuli. Sleep: Napped frequently ADL's: Independent with help covering splint Group attendance: Sat for part of group Were meds taken: yes Any med S/E: None noted or reported Mental Status Exam: Appearance: Disheveled, wearing green scrubs Eye contact: minimal Behavior: withdrawn, guarded, resistive to care Speech: Clear, normal volume, rate and rhythm. Mood: Irritated Affect: Constricted, uncooperative Thought process: Linear Thought Content: Stated he was fine. Has pain from fx arm. Looking to elope unit. Cognition: A & Ox3 Insight: Impaired. Judgment: Impaired. Interventions PRN's used: Haldol 10mg, Ativan 2mg , Benydrl 50mg x 2, [place] x 2 Therapeutic interventions: 1:1 assessment at bedside, provided therapeutic communication, medication administration/education/monitoring for compliance. Provided active listening with positive feedback, maintained safe therapeutic milieu, and encouraged patient to participate in unit milieu. Q 15 minute checks for safety. Restraints/seclusion/emergency medication: N/A Justification of Continued Inpatient Treatment: Continued therapeutic support and medication management needed to provide stabilization, prevent decompensation, decreasing risk to patient and readmittance.
[2019-04-15] MEDS: quetiapine 100mg tablet PO SCH (21:06)
[2019-04-15] MEDS: traZODone 50mg tablet PO SCH (21:06)
--- NOTE | 2019-04-15 22:47 | NUR ---
NURSING PROGRESS NOTE Legal hold: 5150 Client involuntary status for GD. Why are they here: Patient was brought into the ED by the Police on a 5150 hold for being detained after running down [place] naked and resisting arrest. Patient reports "I remember going [place] the [place]." Then states he remembers nothing else besides stripping naked and running. When asked why he took his clothes off and began to run naked he states "I don't know I went crazy." Assessment: What has happened this shift: Pt slept entire shift. He wakes up when technical publications writer calls his name but will not make eye contact. He accepts his night time medication but refuses to talk to technical publications writer otherwise. He does not answer any questions just says, "I don't want to talk" and rolls over in bed and puts the covers over his head. S/I, H/I: will not respond A/VH: will not respond Sleep: see sleep assessment notation ADL's: Independent with help covering splint Group attendance: No Were meds taken: yes Any med S/E: None noted or reported Mental Status Exam: Appearance: Disheveled, wearing green scrubs Eye contact: avoidant Behavior: withdrawn, guarded, resistive to care Speech: Clear Mood: Irritated Affect: Constricted, uncooperative Thought process: Linear Thought Content: would not answer questions or speak Cognition: A & Ox3 Insight: Poor Judgment: Poor Interventions PRN's used: none Restraints/seclusion/emergency medication: N/A Justification of Continued Inpatient Treatment: Continued therapeutic support and medication management needed to provide stabilization, prevent decompensation, decreasing risk to patient and readmittance.
[2019-04-16] MEDS ORDERED: haloperidol 5mg tablet PO SCH (08:00)
[2019-04-16] MEDS: haloperidol 5mg tablet PO SCH ×2 (08:30→16:34)
[2019-04-16] MEDS: clonazePAM 1mg tablet PO SCH ×2 (08:30→16:34)
[2019-04-16] MEDS: pantoprazole 40mg Tablet.DR PO SCH (08:30)
[2019-04-16] MEDS: busPIRone 15mg tablet PO SCH ×3 (08:30→20:01)
[2019-04-16] MEDS: HYDROcodone/acetaminophen 10/325mg tab PO PRN ×3 (10:50→20:01)
[2019-04-16] MEDS: diphenhydrAMINE 25mg capsule PO PRN ×2 (11:25→20:06)
[2019-04-16] MEDS ORDERED: quetiapine 100mg tablet PO ONE (11:45)
--- NOTE | 2019-04-16 15:57 | NUR ---
Art Therapy Group, Continued: Patient entered the group room late. He was able to adapt quickly engaging in the group activity. Patient was able to utilize his paper using oil pastels to release his stated emotions of "Anger, resentment and disgust." Following this, he chose to crumple up and throw away his drawing, promptly leaving the room.He did not want to communicate further w/ this therapist or his peers. He did return to the group room 30 minutes later, taking his place around the table. He did not choose to journal or share during the group process. He remained respectful, yet withdrawn. Cherise Blanchard MA Licensed Marriage Family Therapist #[id number] [facility] Art Therapist
--- NOTE | 2019-04-16 17:55 | NUR ---
NURSING PROGRESS NOTE Legal hold: 5150 Client involuntary status for GD. Why are they here: Patient was brought into the ED by the Police on a 5150 hold for being detained after running down [place] naked and resisting arrest. Patient reports "I remember going [place] the [place]." Then states he remembers nothing else besides stripping naked and running. When asked why he took his clothes off and began to run naked he states "I don't know I went crazy." Assessment: What has happened this shift: Patient awakened for breakfast and a.m. Medications. Patient is starting to talk a little more, he can make all requests known to RN, but most times will not answer questions. States that he is having regular bowel movements and does not want to be asked this. Medication compliant. Showers daily. S/I, H/I: Denies A/VH: Denies Sleep: 10 hrs NOC, naps during daytime. ADL's: Independent with help covering splint for shower Group attendance: Sat for part of group Were meds taken: yes Any med S/E: None noted or reported Mental Status Exam: Appearance: Clean, wearing green scrubs Eye contact: minimal Behavior: withdrawn, guarded, isolative. Speech: Clear, normal volume, rate and rhythm. Mood: Depressed. Affect: Anxious, constricted. Thought process: Linear. Thought Content: Meeting daily needs. Cognition: A & Ox3 Insight: Poor. Judgment: Impaired. Interventions PRN's used: Seroquel 100 mg, [place] Therapeutic interventions: 1:1 assessment at bedside, provided therapeutic communication, medication administration/education/monitoring for compliance. Provided active listening with positive feedback, maintained safe therapeutic milieu, and encouraged patient to participate in unit milieu. Q 15 minute checks for safety. Restraints/seclusion/emergency medication: N/A Justification of Continued Inpatient Treatment: Continued therapeutic support and medication management needed to provide stabilization, prevent decompensation, decreasing risk to patient for readmittance.
[2019-04-16 20:00] VITALS: BP 113/65
[2019-04-16] MEDS: traZODone 50mg tablet PO SCH (20:00)
[2019-04-16] MEDS: quetiapine 100mg tablet PO SCH (20:01)
--- NOTE | 2019-04-17 03:21 | NUR ---
NURSING PROGRESS NOTE Legal hold: 5150 Client involuntary status for GD. Why are they here: Patient was brought into the ED by the Police on a 5150 hold for being detained after running down [place] naked and resisting arrest. Patient reports "I remember going [place]." Then states he remembers nothing else besides stripping naked and running. When asked why he took his clothes off and began to run naked he states "I don't know I went crazy." Assessment: What has happened this shift: Patient walks the unit and engages in conversation with staff and peers which is a very big change from yesterday. He smiles at senior writer and answers questions appropriately. He takes his Hs medications and requests a norco for L arm pain. Pt states his arm is at a pain scale of 3 and "doing well, but sometimes the pain gets intense." He makes direct eye contact and is pleasant. He eats snack and watches TV for awhile before retiring to bed. S/I, H/I: Denies A/VH: Denies Sleep: see sleep assessment ADL's: Independent with help covering splint for shower Group attendance: assistant casino shift manager Were meds taken: yes Any med S/E: None noted or reported Mental Status Exam: Appearance: Clean, wearing green scrubs Eye contact: direct Behavior: cooperative, social Speech: Clear, normal volume, rate and rhythm. Mood: upbeat Affect: brightening Thought process: Linear. Thought Content: Meeting daily needs. Cognition: A & Ox3 Insight: Poor. Judgment: Impaired. Interventions PRN's used: [place] Therapeutic interventions: 1:1 assessment at bedside, provided therapeutic communication, medication administration/education/monitoring for compliance. Provided active listening with positive feedback, maintained safe therapeutic milieu, and encouraged patient to participate in unit milieu. Q 15 minute checks for safety. Restraints/seclusion/emergency medication: N/A Justification of Continued Inpatient Treatment: Continued therapeutic support and medication management needed to provide stabilization, prevent decompensation, decreasing risk to patient for readmittance.
[2019-04-17] MEDS: pantoprazole 40mg Tablet.DR PO SCH (07:29)
[2019-04-17] MEDS: haloperidol 5mg tablet PO SCH ×2 (08:36→16:48)
[2019-04-17] MEDS: busPIRone 15mg tablet PO SCH ×3 (08:36→20:32)
[2019-04-17] MEDS: clonazePAM 1mg tablet PO SCH ×3 (08:36→16:49)
[2019-04-17] MEDS: diphenhydrAMINE 25mg capsule PO PRN (09:41)
[2019-04-17] MEDS: acetaminophen 325mg tablet PO PRN (09:42)
[2019-04-17] MEDS: HYDROcodone/acetaminophen 10/325mg tab PO PRN ×2 (09:44→16:32)
[2019-04-17] MEDS ORDERED: quetiapine 100mg tablet PO ONE (10:45)
--- NOTE | 2019-04-17 14:29 | NUR ---
Initial: Pt admit with psychosis. Pt currently on regular diet with documented 100% PO intake meeting nutrient needs. LBM 04/13 however per RN pt reporting regular BMs and is non-compliant with physical assessment, likely LBM 04/13 not accurate. Pt with MoM PRN not yet given. No nutrition diagnosis at this time. Will continue to follow. Recommendations: 1) Continue with regular diet 2) Bowel care PRN 3) Weekly wts Addendum: 04/17/19 at [address] Amended: Links added.
--- NOTE | 2019-04-17 14:42 | NUR ---
Recommendation for conservatorship paperwork sent to [facility] on 04/16/2019.
[2019-04-17] MEDS ORDERED: clonazePAM 1mg tablet PO ONE (17:30)
[2019-04-17] MEDS ORDERED: QUEtiapine 25mg tablet PO ONE (17:30)
--- NOTE | 2019-04-17 18:03 | NUR ---
NURSING PROGRESS NOTE Legal hold: 5150 Client involuntary status for GD. Why are they here: Patient was brought into the ED by the Police on a 5150 hold for being detained after running down [place] naked and resisting arrest. Patient reports "I remember [place]." Then states he remembers nothing else besides stripping naked and running. When asked why he took his clothes off and began to run naked he states "I don't know I went crazy." Assessment: What has happened this shift: Patient has been on a line of sight today due to elopement risk. He is medication compliant and and requests medication when feeling out of control. Patient will do minimal small talk, awaiting medication stabilization. S/I, H/I: Denies A/VH: Denies Sleep: naps during daytime. ADL's: Independent with help covering splint for shower Group attendance: Sat for part of group Were meds taken: yes Any med S/E: None noted or reported Mental Status Exam: Appearance: Clean, wearing green scrubs Eye contact: minimal Behavior: withdrawn, guarded, isolative. Speech: Clear, normal volume, rate and rhythm. Mood: Depressed. Affect: Anxious, constricted. Thought process: Linear. Talks fluently to M.D. Thought Content: Meeting daily needs. Cognition: A & Ox3 Insight: Poor. Judgment: Impaired. Interventions PRN's used: Seroquel, [place], Klonopin, Benadryl Therapeutic interventions: 1:1 assessment at bedside, provided therapeutic communication, medication administration/education/monitoring for compliance. Provided active listening with positive feedback, maintained safe therapeutic milieu, and encouraged patient to participate in unit milieu. Q 15 minute checks for safety. Restraints/seclusion/emergency medication: N/A Justification of Continued Inpatient Treatment: Continued therapeutic support and medication management needed to provide stabilization, prevent decompensation, decreasing risk to patient for readmittance.
[2019-04-17] MEDS: quetiapine 100mg tablet PO SCH (20:32)
[2019-04-17] MEDS: traZODone 50mg tablet PO SCH (20:32)
--- NOTE | 2019-04-17 22:57 | NUR ---
NURSING PROGRESS NOTE Legal hold: 5250 Client involuntary status for GD. Why are they here: Patient was brought into the ED by the Police on a 5150 hold for being detained after running down [place] naked and resisting arrest. Patient reports "I remember [place]." Then states he remembers nothing else besides stripping naked and running. When asked why he took his clothes off and began to run naked he states "I don't know I went crazy." Assessment: What has happened this shift: Pt slept entire shift. He wakes up when senior technical writer calls his name but only answers minimally. He accepts his night time medication but refuses to talk to senior technical writer otherwise, he just puts his headphones on and closes his eyes again. Fingers distal to splint warm, capillary refill WNL. PT states he is not in pain. S/I, H/I: shakes his head A/VH: shakes his head Sleep: see sleep assessment notation ADL's: Independent with help covering splint Group attendance: No Were meds taken: yes Any med S/E: None noted or reported Mental Status Exam: Appearance: Disheveled, wearing green scrubs Eye contact: avoidant Behavior: withdrawn Speech: Clear Mood:isolative, tired Affect: flat Thought process: Linear Thought Content: would not answer questions or speak Cognition: A & Ox3 Insight: Poor Judgment: Poor Interventions PRN's used: none Restraints/seclusion/emergency medication: N/A Justification of Continued Inpatient Treatment: Continued therapeutic support and medication management needed to provide stabilization, prevent decompensation, decreasing risk to patient and readmittance.
[2019-04-18] MEDS: clonazePAM 1mg tablet PO SCH ×2 (08:15→17:00)
[2019-04-18] MEDS: busPIRone 15mg tablet PO SCH ×3 (08:15→21:49)
[2019-04-18] MEDS: haloperidol 5mg tablet PO SCH ×2 (08:15→17:26)
[2019-04-18] MEDS: pantoprazole 40mg Tablet.DR PO SCH (08:15)
[2019-04-18] MEDS: QUEtiapine 25mg tablet PO SCH ×2 (08:15→12:18)
[2019-04-18] MEDS: HYDROcodone/acetaminophen 10/325mg tab PO PRN ×2 (11:51→17:25)
--- NOTE | 2019-04-18 13:27 | NUR ---
NURSING PROGRESS NOTE Legal hold: 5250 Client involuntary status for GD. Report received from ANN Quintana with use of SBAR. Why are they here: Patient was brought into the ED by the Police on a 5150 hold for being detained after running down [place] naked and resisting arrest. Patient reports "I remember [place]." Then states he remembers nothing else besides stripping naked and running. When asked why he took his clothes off and began to run naked he states "I don't know I went crazy." Assessment: What has happened this shift: Pt up for breakfast, went back to bed immediately afterwards with radio headphones on. Pt is on a LOS while awake for elopement risk. Pt refused VS and physical assessment, was compliant with medications. Pt approached this RN at 1130 to ask for a [place] for left arm pain. He also requested Klonopin or Seroquel. Administered prn [place], educated pt that he no longer has prn Klonopin or Seroquel ordered, they are both routine. Pt was okay with waiting until noon med pass for his Buspar and his Seroquel. Pt denied SI/HI, reported that he heard the voices "a little last night." Asked pt if the voices told him to do anything, he replied that they might tell him to get up and leave the room or something like that. Pt has a cast on left arm, CSM intact. S/I, H/I: Pt denies A/VH: Pt denies VH, admitted to some AH last night but not today. Sleep: Pt goes back to bed after meals and naps ADL's: Independent Group attendance: No Were meds taken: Yes Any med S/E: None noted or reported Mental Status Exam: Appearance: Disheveled, wearing green scrubs Eye contact: Fair Behavior: Isolative to self, avoidant except when requests prns Speech: Clear, normal volume, rate and rhythm. Mood: somewhat irritable Affect: constricted Thought process: Linear Thought Content: Likes to take Klonopin and Seroquel Cognition: A/O X 4 Insight: Poor Judgment: Poor Interventions PRN's used: [place] 10/325 mg Therapeutic interventions: 1:1 assessment, encouragement to express thoughts and feelings, medication administration/education/monitoring, encouragement to allow VS and physical assessments to be done, encouragement to attend group, LOS while awake, Q 15 min checks while asleep, elopement prevention. Restraints/seclusion/emergency medication: N/A Justification of Continued Inpatient Treatment: Continued therapeutic support and medication management needed to provide stabilization, prevent decompensation, decreasing risk to patient, plan is to place patient on a conservatorship.
[2019-04-18] MEDS ORDERED: clonazePAM 1mg tablet PO ONE (15:45)
[2019-04-18] MEDS: quetiapine 100mg tablet PO PRN (17:35)
[2019-04-18] MEDS: diphenhydrAMINE 25mg capsule PO PRN (18:48)
[2019-04-18 19:14] VITALS: BP 123/72
[2019-04-18] MEDS: traZODone 50mg tablet PO SCH (20:52)
[2019-04-18] MEDS: quetiapine 100mg tablet PO SCH (20:52)
--- NOTE | 2019-04-19 00:51 | NUR ---
NURSING PROGRESS NOTE Legal hold: 5250 Client involuntary status for GD. Report received from ANN Quintana with use of SBAR. Why are they here: Patient was brought into the ED by the Police on a 5150 hold for being detained after running down [place] naked and resisting arrest. Patient reports "I remember [place]." Then states he remembers nothing else besides stripping naked and running. When asked why he took his clothes off and began to run naked he states "I don't know I went crazy." Assessment: What has happened this shift: Patient visible on the unit at the beginning of shift. Patient resistive to care but is complaint with medication. Patient didn't want to talk and would not walk down to do weekly weight so bed scale used. Patient c/o depression, anxiousness and itchiness. PRN Benadryl was effective. Patient did admit to A/H that come and go. Patient mostly isolated to himself and has slept most of the shift. S/I, H/I: Pt denies A/VH: Denied VH, Admitted AH Sleep: Pt goes back to bed after meals and naps ADL's: Independent Group attendance: No Were meds taken: Yes Any med S/E: None noted or reported Mental Status Exam: Appearance: Disheveled, wearing green scrubs Eye contact: Fair Behavior: Isolative to self, avoidant except when requests prns Speech: Clear, normal volume, rate and rhythm. Mood: somewhat irritable Affect: constricted Thought process: Linear Thought Content: Likes to take Klonopin and Seroquel Cognition: A/O X 4 Insight: Poor Judgment: Poor Interventions PRN's used: Benadryl, effective Therapeutic interventions: 1:1 assessment, encouragement to express thoughts and feelings, medication administration/education/monitoring, encouragement to allow VS and physical assessments to be done, encouragement to attend group, LOS while awake, Q 15 min checks while asleep, elopement prevention. Restraints/seclusion/emergency medication: N/A Justification of Continued Inpatient Treatment: Continued therapeutic support and medication management needed to provide stabilization, prevent decompensation, decreasing risk to patient, plan is to place patient on a conservatorship.
[2019-04-19] MEDS: busPIRone 15mg tablet PO SCH ×3 (08:07→21:07)
[2019-04-19] MEDS: QUEtiapine 25mg tablet PO SCH ×2 (08:07→12:16)
[2019-04-19] MEDS: haloperidol 5mg tablet PO SCH ×2 (08:07→17:29)
[2019-04-19] MEDS: clonazePAM 1mg tablet PO SCH ×2 (08:07→17:29)
[2019-04-19] MEDS: pantoprazole 40mg Tablet.DR PO SCH (08:07)
[2019-04-19] MEDS: HYDROcodone/acetaminophen 10/325mg tab PO PRN ×2 (11:32→18:02)
--- NOTE | 2019-04-19 13:46 | NUR ---
NURSING PROGRESS NOTE Legal hold: 5250 Client involuntary status for GD. Report received from CHRIS Sanchez with use of SBAR. Why are they here: Patient was brought into the ED by the Police on a 5150 hold for being detained after running down [place] naked and resisting arrest. Patient reports "I [place]." Then states he remembers nothing else besides stripping naked and running. When asked why he took his clothes off and began to run naked he states "I don't know I went crazy." Assessment: What has happened this shift: Pt out of bed for meals, returns to bed to nap after meals. Pt continues on a LOS for elopement risk. Pt refused VS and physical assessment this am, did allow this RN to assess his left hand/fingers later in the shift; CSM intact. Pt has a fractured ulna, left arm is casted. Pt c/o moderate pain at 1130, requested prn [place] 10/325 mg with good effect. Pt denies the cast being too tight, states if anything it feels loose and he can feel the bones "popping around in there." Pt denies SI, admits to AH stated the voices were "not too bad today." When asked if they tell him to do anything, he replied, "not anything out of the ordinary." When asked if the voices said mean or derogatory things, pt clammed up and said, "I don't want to talk about it." No door checking or unsafe behaviors noted this shift. S/I, H/I: Pt denies A/VH: +AH Sleep: Pt goes back to bed after meals and naps ADL's: Independent Group attendance: Yes Were meds taken: Yes Any med S/E: None noted or reported Mental Status Exam: Appearance: Disheveled, wearing green scrubs Eye contact: Fair Behavior: Isolative to self, avoidant except when approaches to request prn Speech: Clear, normal volume, rate and rhythm. Mood: irritable Affect: constricted Thought process: Linear Thought Content: does not want to talk about the voices, feels his bones popping Cognition: A/O X 4 Insight: Poor Judgment: Poor Interventions PRN's used: [place] 10/325 mg at 1130 Therapeutic interventions: 1:1 assessment, establishment of rapport, encouragement to express thoughts and feelings, medication administration/education/monitoring, encouragement to allow VS and physical assessments to be done, encouragement to attend group, LOS, elopement prevention. Restraints/seclusion/emergency medication: N/A Justification of Continued Inpatient Treatment: Continued therapeutic support and medication management needed to provide stabilization, prevent decompensation, decreasing risk to patient and readmission.
[2019-04-19] MEDS: quetiapine 100mg tablet PO PRN (17:29)
[2019-04-19] MEDS: quetiapine 100mg tablet PO SCH (21:07)
[2019-04-19] MEDS: traZODone 50mg tablet PO SCH (21:07)
--- NOTE | 2019-04-19 21:45 | NUR ---
NURSING PROGRESS NOTE Legal hold: 5250 Client involuntary status for GD. Report received from CHRIS Camacho with use of SBAR. Why are they here: Patient was brought into the ED by the Police on a 5150 hold for being detained after running down [place] naked and resisting arrest. Patient reports "I [place]." Then states he remembers nothing else besides stripping naked and running. When asked why he took his clothes off and began to run naked he states "I don't know I went crazy." Assessment: What has happened this shift: Patient in bed asleep at the beginning of shift. Refused VS and assessment. Patient catatonic, shrugs off all questions this continuity writer tried to ask. Compliant with medications. Patient came out of his room briefly to watch TV in the rec room before receiving his medications where he stayed a short while after but most of the time he continues to isolate to himself. S/I, H/I: Pt denies A/VH: denied VH, endorses AH Sleep: asleep most of this shift ADL's: Independent Group attendance: no Were meds taken: Yes Any med S/E: None noted or reported Mental Status Exam: Appearance: Disheveled, wearing green scrubs Eye contact: Fair Behavior: Isolative to self, avoidant except when approaches to request prn Speech: Clear, normal volume, rate and rhythm. Mood: irritable Affect: constricted Thought process: Linear Thought Content: unable to assess Cognition: A/O X 4 Insight: Poor Judgment: Poor Interventions PRN's used: none at this time Therapeutic interventions: 1:1 assessment, establishment of rapport, encouragement to express thoughts and feelings, medication administration/education/monitoring, encouragement to allow VS and physical assessments to be done, encouragement to attend group, LOS, elopement prevention. Restraints/seclusion/emergency medication: N/A Justification of Continued Inpatient Treatment: Continued therapeutic support and medication management needed to provide stabilization, prevent decompensation, decreasing risk to patient and readmission.
[2019-04-20] MEDS: QUEtiapine 25mg tablet PO SCH ×2 (07:52→12:41)
[2019-04-20] MEDS: busPIRone 15mg tablet PO SCH ×3 (07:52→20:46)
[2019-04-20] MEDS: pantoprazole 40mg Tablet.DR PO SCH (07:52)
[2019-04-20] MEDS: clonazePAM 1mg tablet PO SCH ×2 (07:52→17:06)
[2019-04-20] MEDS: haloperidol 5mg tablet PO SCH ×2 (07:52→17:06)
[2019-04-20] MEDS: HYDROcodone/acetaminophen 10/325mg tab PO PRN (14:19)
[2019-04-20] MEDS: quetiapine 100mg tablet PO PRN (17:20)
--- NOTE | 2019-04-20 17:40 | NUR ---
Pt was complaining of left arm discomfort, feeling like his arm is sliding around in the cast. Provided sling for for pt to use while up out of bed and he continues on LOS. Pt expressed relief, that his arm felt much better. Sling should be removed at HS.
--- NOTE | 2019-04-20 18:32 | NUR ---
NURSING PROGRESS NOTE Legal hold: 5250 Client involuntary status for GD. Report received from Maren KEITH with use of SBAR. Why are they here: Patient was brought into the ED by the Police on a 5150 hold for being detained after running down [place] naked and resisting arrest. Patient reports "I remember going towards the river trail." Then states he remembers nothing else besides stripping naked and running. When asked why he took his clothes off and began to run naked he states "I don't know I went crazy." Assessment: What has happened this shift: Pt refused VS and physical assessment, admits to AH but doesn't want to talk about it. Did allow this RN to perform CSM check left hand. Also allowed radial pulse check of right wrist, established that pulse was +2 and regular. Left arm is in a cast. Pt c/o left arm pain at 1419, administered prn [place] 10/325 mg with good effect. Hospitalist was in today, notified him of pt's complaints of feeling like the cast was too loose and the bones were "popping." Hospitalist was not concerned. Obtained a sling for left arm, pt expressed relief, stated that his arm felt much better. Pt continues on LOS for elopement risk. Educated chief warden that sling should only be used while pt continues on LOS and should be removed at HS. Pt c/o anxiety at 1720, administered prn Seroquel 100 mg. Pt engaged with staff more this shift, also up out of bed more. Pt thanked this nurse a couple of times today and was helpful with throwing away his own paper med cup/packaging in the trash. Paces in [place] with headphones on, attends groups, no door checking or unsafe behaviors noted. S/I, H/I: Pt denies A/VH: +AH Sleep: pt took far fewer naps today ADL's: Independent Group attendance: Yes Were meds taken: Yes Any med S/E: None noted or reported Mental Status Exam: Appearance: Shaved today Eye contact: Good Behavior: cooperative though resistant to physical assessment and VS, as well as skin assessment Speech: Clear, normal volume, rate and rhythm. Mood: anxious, mildly irritable Affect: constricted Thought process: Linear Thought Content: cast feels loose, feels like bones are popping, happy & feels better with arm splinted Cognition: A/O X 4 Insight: Poor Judgment: Poor Interventions PRN's used: [place] 10/325 mg at 1419, Seroquel 100 mg at 1720 Therapeutic interventions: 1:1 assessment, establishment of rapport, encouragement to express thoughts and feelings, medication administration/education/monitoring, encouragement to allow VS and physical assessments to be done, encouragement to attend group, LOS, elopement prevention, CSM checks left hand. Restraints/seclusion/emergency medication: N/A Justification of Continued Inpatient Treatment: Continued therapeutic support and medication management needed to provide stabilization, prevent decompensation, decreasing risk to patient and readmission.
[2019-04-20 19:57] VITALS: BP 101/68
[2019-04-20] MEDS: quetiapine 100mg tablet PO SCH (20:46)
[2019-04-20] MEDS: traZODone 50mg tablet PO SCH (20:46)
--- NOTE | 2019-04-20 22:03 | NUR ---
NURSING PROGRESS NOTE Legal hold: 5250 Client involuntary status for GD. Report received from Doug JUAREZ with use of SBAR. Why are they here: Patient was brought into the ED by the Police on a 5150 hold for being detained after running down [place] naked and resisting arrest. Patient reports "I remember going towards the river trail." Then states he remembers nothing else besides stripping naked and running. When asked why he took his clothes off and began to run naked he states "I don't know I went crazy." Assessment: What has happened this shift: Pt sitting in recreation room watching tv and remained there until it was time for medications and bedtime. He allowed vitals and physical assessment, he remains guarded and superficial in regards to his mental health symptoms stating he does not want to discuss that. Took his evening meds without problems and then went to bed. S/I, H/I: Pt denies A/VH: refused to discuss Sleep: sleeps well at night, does report issues with nightmares, but he states its a chronic issue ADL's: Independent Group attendance: no groups scheduled this shift Were meds taken: Yes Any med S/E: None noted or reported Mental Status Exam: Appearance: well groomed, wearing green scrubs Eye contact: fair Behavior: cooperative, allowed vitals and assessment, did not want to discuss his hallucinations Speech: Clear, normal volume, rate and rhythm. Mood: even Affect: blunted Thought process: Linear Thought Content: unable to assess, remains guarded Cognition: A/O X 4 Insight: Poor Judgment: Poor Interventions PRN's used: None Therapeutic interventions: 1:1 assessment, establishment of rapport, medication administration/education/monitoring, encouragement to allow VS and physical assessments to be done, LOS, elopement prevention, CSM checks left hand. Restraints/seclusion/emergency medication: N/A Justification of Continued Inpatient Treatment: Continued therapeutic support and medication management needed to provide stabilization, prevent decompensation, decreasing risk to patient and readmission.
[2019-04-21] MEDS: busPIRone 15mg tablet PO SCH ×3 (08:50→20:32)
[2019-04-21] MEDS: QUEtiapine 25mg tablet PO SCH ×2 (08:50→13:00)
[2019-04-21] MEDS: haloperidol 5mg tablet PO SCH ×2 (08:50→18:07)
[2019-04-21] MEDS: pantoprazole 40mg Tablet.DR PO SCH (08:50)
[2019-04-21] MEDS: clonazePAM 1mg tablet PO SCH ×2 (08:50→18:06)
[2019-04-21] MEDS: HYDROcodone/acetaminophen 10/325mg tab PO PRN ×2 (08:58→18:31)
[2019-04-21] MEDS: quetiapine 100mg tablet PO PRN ×2 (09:30→18:31)
--- NOTE | 2019-04-21 13:05 | NUR ---
LPS RECOMMENDATION TO [facility]: made TC to Scotty Matta, INVESTOR RELATIONS ASSOCIATE , to request communication for LPS Conservatorship of pt and verbalize pt's expressed desire for conservatorship. Scotty agreed to present information to tx team in the morning of 04/22/2019 and have the [place] office share the decision with [facility]. Sailaja Rothman, Wire Coating Machine Operator ARTIFICIAL BREEDING TECHNICIAN [id number] Supervised by Dheeraj Rae, [id number]
--- NOTE | 2019-04-21 17:45 | NUR ---
NURSING PROGRESS NOTE Legal hold: 5250 Client involuntary status for GD. Report received from Maren KEITH with use of SBAR. Why are they here: Patient was brought into the ED by the Police on a 5150 hold for being detained after running down [place] naked and resisting arrest. Patient reports "I remember going [place] the river trail." Then states he remembers nothing else besides stripping naked and running. When asked why he took his clothes off and began to run naked he states "I don't know I went crazy." Assessment: What has happened this shift: Pt up and visible this shift. Pt refused am vital signs and did not answer questions r/t his psychiatric condition. Pt did take all medications. Pt did use the radio at times today, but did not initiate interaction with others. Pt did not attend groups. In am, pt stated he felt angry and wanted to punch the green. Pt requested Seroquel which he took and he stated later that it really helped. S/I, H/I: Pt denies A/VH: +AH Sleep: pt napping at times ADL's: Independent Group attendance: no Were meds taken: Yes Any med S/E: None noted or reported Mental Status Exam: Appearance: clean shaved, appropriate Eye contact: Good Behavior: cooperative though resistant to physical assessment and VS, as well as skin assessment Speech: Clear, normal volume, rate and rhythm. Mood: anxious, mildly irritable Affect: constricted Thought process: Linear Thought Content: Cognition: A/O X 4 Insight: Poor Judgment: Poor Interventions PRN's used: [place] and seroquel Therapeutic interventions: 1:1 assessment, establishment of rapport, encouragement to express thoughts and feelings, medication administration/education/monitoring, encouragement to allow VS and physical assessments to be done, encouragement to attend group, LOS, elopement prevention, CSM checks left hand. Restraints/seclusion/emergency medication: N/A Justification of Continued Inpatient Treatment: Continued therapeutic support and medication management needed to provide stabilization, prevent decompensation, decreasing risk to patient and readmission.
[2019-04-21] MEDS: quetiapine 100mg tablet PO SCH (20:32)
[2019-04-21] MEDS: traZODone 50mg tablet PO SCH (20:32)
[2019-04-21 20:43] VITALS: BP 122/68
--- NOTE | 2019-04-21 21:13 | NUR ---
NURSING PROGRESS NOTE Legal hold: 5250 Client involuntary status for GD. Why are they here: Patient was brought into the ED by the Police on a 5150 hold for being detained after running down [place] naked and resisting arrest. Patient reports "I remember going towards the river trail." Then states he remembers nothing else besides stripping naked and running. When asked why he took his clothes off and began to run naked he states "I don't know I went crazy." Assessment: What has happened this shift: Pt sits in community room by himself not engaging with any staff or peers. When approached he will not make eye contact. He accepts his night time medication but refuses to talk to travel writer otherwise. S/I, H/I: will not respond A/VH: will not respond Sleep: see sleep assessment notation ADL's: Independent with help covering splint Group attendance: No Were meds taken: yes Any med S/E: None noted or reported Mental Status Exam: Appearance: Disheveled, wearing green scrubs Eye contact: avoidant Behavior: withdrawn, guarded, resistive to care Speech: Clear Mood: Irritated Affect: Constricted, uncooperative Thought process: Linear Thought Content: would not answer questions or speak Cognition: A & Ox3 Insight: Poor Judgment: Poor Interventions PRN's used: none Restraints/seclusion/emergency medication: N/A Justification of Continued Inpatient Treatment: Continued therapeutic support and medication management needed to provide stabilization, prevent decompensation, decreasing risk to patient and readmittance.
[2019-04-22] MEDS: haloperidol 5mg tablet PO SCH ×2 (08:18→16:59)
[2019-04-22] MEDS: QUEtiapine 25mg tablet PO SCH ×2 (08:19→12:21)
[2019-04-22] MEDS: pantoprazole 40mg Tablet.DR PO SCH (08:19)
[2019-04-22] MEDS: busPIRone 15mg tablet PO SCH ×3 (08:19→20:39)
[2019-04-22] MEDS: clonazePAM 1mg tablet PO SCH ×2 (08:20→16:59)
--- NOTE | 2019-04-22 09:47 | NUR ---
Reassessment: Eating well, 75-100% PO intake meeting nutrient needs. [facility] 04/21. Will continue to follow.. Recommendations: 1) Continue with regular diet 2) Bowel care PRN 3) Weekly wts Addendum: 04/22/19 at [address] Amended: Links added.
[2019-04-22] MEDS: HYDROcodone/acetaminophen 10/325mg tab PO PRN ×2 (12:10→18:17)
--- NOTE | 2019-04-22 15:52 | NUR ---
NURSING PROGRESS NOTE: [place] Legal hold: 5250 Client involuntary status for GD. Why are they here: Patient was brought into the ED by the Police on a 5150 hold for being detained after running down [place] naked and resisting arrest. Patient reports "I remember going [place] the [place]." Then states he remembers nothing else besides stripping naked and running. When asked why he took his clothes off and began to run naked he states "I don't know I went crazy." Assessment: What has happened this shift: Client is no longer LOS and was sleeping to begin this shift. Awoke for breakfast and displayed no behavioral issues. Ambulated briefly on unit and was compliant with medications. Client returned to his room after breakfast where he remains as of this writing. Client had an x-ray of his left arm today. Client complains of pain and feeling the , "bones rub together". Client attended group this am and had to be redirected for aggression towards Recreational Therapist. Client did take prn of [place] for am pain with good effect this am. Client attended both group activities today and participated. S/I, H/I: "no" A/VH: "no" Sleep: see sleep assessment notation ADL's: Independent with help covering splint Group attendance: No Were meds taken: yes Any med S/E: None noted or reported Mental Status Exam: Appearance: Disheveled Eye contact: more direct Behavior: withdrawn, guarded Speech: Clear Mood: Irritated Affect: Constricted, uncooperative Thought process: Linear Thought Content: becoming more social and interactive with peers as well as staff. Cognition: A & Ox3 Insight: Poor Judgment: Poor Interventions PRN's used: none Restraints/seclusion/emergency medication: N/A Justification of Continued Inpatient Treatment: Continued therapeutic support and medication management needed to provide stabilization, prevent decompensation, decreasing risk to patient and readmittance.
[2019-04-22] MEDS: quetiapine 100mg tablet PO PRN (18:17)
[2019-04-22] MEDS: quetiapine 100mg tablet PO SCH (20:40)
[2019-04-22] MEDS: traZODone 50mg tablet PO SCH (20:40)
[2019-04-22 20:43] VITALS: BP 120/76
--- NOTE | 2019-04-22 23:29 | NUR ---
NURSING PROGRESS NOTE Legal hold: 5250 Client involuntary status for GD. Why are they here: Patient was brought into the ED by the Police on a 5150 hold for being detained after running down [place] naked and resisting arrest. Patient reports "I remember going towards the river trail." Then states he remembers nothing else besides stripping naked and running. When asked why he took his clothes off and began to run naked he states "I don't know I went crazy." Assessment: What has happened this shift: Pt makes good eye contact this evening and greets technical report writer. PT said his arm is feeling better at the moment but earlier in the day it hurt. Mechanical Intern asks how his mood has been and he replies, "it really is up and down like today it's a bit better." Mechanical Intern expressed that she was glad he was talking more than usual and he smiled. He denies feeling suicidal but admits that he is still hearing voices. Mechanical Intern asks if they are as bad as they used to be, and he said, "yea I just learn how to deal with them better, I read, I watch TV, I talk sometimes that helps." He also said the Seroquel, Haldol, and "the other meds" have been helping the voices. S/I, H/I: denies A/VH: reports hearing voices. Sleep: see sleep assessment notation ADL's: Independent with help covering splint Group attendance: No Were meds taken: yes Any med S/E: None noted or reported Mental Status Exam: Appearance: wearing green scrubs, clean shaven Eye contact: fair Behavior: withdrawn, guarded, resistive to care Speech: Clear Mood: cooperative, friendly Affect: bland,some brightening Thought process: Linear Thought Content: WNL Cognition: A & Ox3 Insight: Poor Judgment: Poor Interventions PRN's used: none Restraints/seclusion/emergency medication: N/A Justification of Continued Inpatient Treatment: Continued therapeutic support and medication management needed to provide stabilization, prevent decompensation, decreasing risk to patient and readmittance.
[2019-04-23] MEDS: busPIRone 15mg tablet PO SCH ×3 (08:03→19:45)
[2019-04-23] MEDS: haloperidol 5mg tablet PO SCH ×2 (08:03→16:20)
[2019-04-23] MEDS: clonazePAM 1mg tablet PO SCH ×2 (08:03→16:20)
[2019-04-23] MEDS: QUEtiapine 25mg tablet PO SCH ×2 (08:03→13:17)
[2019-04-23] MEDS: pantoprazole 40mg Tablet.DR PO SCH (08:04)
[2019-04-23] MEDS: HYDROcodone/acetaminophen 10/325mg tab PO PRN ×2 (09:13→16:21)
[2019-04-23] MEDS: quetiapine 100mg tablet PO PRN (09:14)
--- NOTE | 2019-04-23 13:31 | NUR ---
Called Dr. Trivedi [phone], to see if he has reviewed the doctors recommendation for conservatorship. No answer, LVM.
--- NOTE | 2019-04-23 17:03 | NUR ---
NURSING PROGRESS NOTE: Van Legal hold: 5250 Client involuntary status for GD. Why are they here: Patient was brought into the ED by the Police on a 5150 hold for being detained after running down [place] naked and resisting arrest. Patient reports "I remember going [place] the [place]." Then states he remembers nothing else besides stripping naked and running. When asked why he took his clothes off and began to run naked he states "I don't know I went crazy." Assessment: What has happened this shift: Patient was asleep at change of shift and up for breakfast. Patient appears more relaxed and chatted with RN in patient's room. Patient laughing and talking to RN. Patient denies depression and SI. Patient states he hears voices everyday and doesn't remember one day in the last 6 years that he has not heard voices. Patient states he feels a little constipated thought he had a BM yesterday it was hard. RN gave patient prune juice x 2 today and also MOM. RN to order power pudding for patient. Patient c/o of feeling his fractured arm's bones moving. osteopathic medicine teacher spoke to ortho clinic who looked at new Xray and stated he doesn't need a cast and he can follow up in [address] Austin came to see patient and stated he would speak to the ortho PA tomorrow and discuss the possibility of a cast for patient. Patient's [place] was changed to Q6 hours PRN and patient overheard Dr Austin giving RN orders and patient stated he was okay with this. S/I, H/I: denies A/VH: denies Sleep: patient took a couple of naps today. ADL's: Independent with help covering splint. took shower today 04/23 Group attendance: No Were meds taken: yes Any med S/E: None noted or reported Mental Status Exam: Appearance: clean and neat. wearing green scrubs Eye contact: good Behavior: more relaxed and chatting with staff Speech: Clear Mood: pleasant Affect: brighter Thought process: Linear Thought Content: worried about his arm healing. Cognition: A & Ox3 Insight: Poor Judgment: Poor Interventions PRN's used: [place], M.O.M., Seroquel Restraints/seclusion/emergency medication: N/A Justification of Continued Inpatient Treatment: Continued therapeutic support and medication management needed to provide stabilization, prevent decompensation, decreasing risk to patient and readmittance.
[2019-04-23] MEDS: quetiapine 100mg tablet PO SCH (19:45)
[2019-04-23] MEDS: traZODone 50mg tablet PO SCH (19:45)
[2019-04-23 20:53] VITALS: BP 112/70
--- NOTE | 2019-04-24 00:23 | NUR ---
NURSING PROGRESS NOTE Legal hold: 5250 Client involuntary status for GD. Why are they here: Patient was brought into the ED by the Police on a 5150 hold for being detained after running down [place] naked and resisting arrest. Patient reports "I remember going [place]." Then states he remembers nothing else besides stripping naked and running. When asked why he took his clothes off and began to run naked he states "I don't know I went crazy." Assessment: What has happened this shift: Pt sits in rec room and watches TV. He is seen walking the unit occasionally before laying down in his room for the night around 19:45. PT was woken up and given his HS medications. He was medication compliant but not talkative. Diamond Sizer And Sorter asked if he wanted HS snack and he just shook his head and laid back down. Diamond Sizer And Sorter asked if pt's arm was in any pain and he shook his head. S/I, H/I: will not respond A/VH: will not respond Sleep: see sleep assessment notation ADL's: Independent with help covering splint Group attendance: No Were meds taken: yes Any med S/E: None noted or reported Mental Status Exam: Appearance: Disheveled, wearing green scrubs Eye contact: avoidant Behavior: withdrawn, guarded, resistive to care Speech: Clear Mood: Irritated Affect: Constricted, uncooperative Thought process: Linear Thought Content: would not answer questions or speak Cognition: A & Ox3 Insight: Poor Judgment: Poor Interventions PRN's used: none Restraints/seclusion/emergency medication: N/A Justification of Continued Inpatient Treatment: Continued therapeutic support and medication management needed to provide stabilization, prevent decompensation, decreasing risk to patient and readmittance.
[2019-04-24 07:50] VITALS: BP 113/64
[2019-04-24] MEDS: busPIRone 15mg tablet PO SCH ×3 (08:11→20:18)
[2019-04-24] MEDS: pantoprazole 40mg Tablet.DR PO SCH (08:12)
[2019-04-24] MEDS: clonazePAM 1mg tablet PO SCH ×2 (08:12→16:49)
[2019-04-24] MEDS: haloperidol 5mg tablet PO SCH ×2 (08:13→16:50)
[2019-04-24] MEDS: QUEtiapine 25mg tablet PO SCH ×2 (08:13→13:36)
[2019-04-24] MEDS: HYDROcodone/acetaminophen 10/325mg tab PO PRN ×2 (10:42→16:50)
[2019-04-24] MEDS: quetiapine 100mg tablet PO PRN ×2 (10:42→15:49)
[2019-04-24] MEDS ORDERED: hydrOXYzine 25 MG tablet PO ONE (11:40)
[2019-04-24] MEDS: ibuprofen 200mg tablet PO PRN (15:49)
[2019-04-24] MEDS: diphenhydrAMINE 25mg capsule PO PRN (16:55)
--- NOTE | 2019-04-24 17:08 | NUR ---
NURSING PROGRESS NOTE: Legal hold: 5250 Client involuntary status for GD. Why are they here: Patient was brought into the ED by the Police on a 5150 hold for being detained after running down [place] naked and resisting arrest. Patient reports "I remember going [place] the [place]." Then states he remembers nothing else besides stripping naked and running. When asked why he took his clothes off and began to run naked he states "I don't know I went crazy." Assessment: What has happened this shift: Patient was asleep at change of shift and up for breakfast. Patient did allow vital signs to be taken today. Patient was interactive with the RN, laughing and talking about medication and Viagra's origin. Patient was seen this morning by Orthopedic PA and they are treating the fracture conservatively. Patient has some pain with movement. Patient states he is depressed but not suicidal. Patient feeling anxious and often asking for medications for anxiety. Dr Trivedi from the [facility] evaluated patient today and agreed patient needs to be conserved. Patient has agreed to pursue conservatorship which will help him stay on meds and more than likely the charges against him will be dropped. Patient told Dr that he is seeing demons everyday and they speak to him. Patient is not taking his money out because it is demon possessed. Patient hides his delusions from staff. S/I, H/I: denies A/VH: denies Sleep: cat naps today ADL's: Independent Group attendance: No Were meds taken: yes Any med S/E: None noted or reported Mental Status Exam: Appearance: clean and neat. wearing green scrubs Eye contact: good Behavior: relaxed and chatting with RN Speech: Clear Mood: depressed with moments of laughter Affect: flat Thought process: Linear Thought Content: thinking about conservatorship Cognition: A & Ox3 Insight: fair Judgment: fair Interventions PRN's used: [place], Motrin, Atarax, Benadryl, Seroquel Restraints/seclusion/emergency medication: N/A Justification of Continued Inpatient Treatment: Continued therapeutic support and medication management needed to provide stabilization, prevent decompensation, decreasing risk to patient and readmittance.
--- NOTE | 2019-04-24 17:19 | NUR ---
DISCHARGE COORDINATION: KIARA faxed packet to [facility] for possible placement if pt is not LPS Conserved. Sailaja Rothman, Trade Clerk BOOTS AND SHOES SUPERVISOR [id number] Supervised by Dheeraj Rae, [id number]
[2019-04-24] MEDS: traZODone 50mg tablet PO SCH (20:18)
[2019-04-24] MEDS: quetiapine 100mg tablet PO SCH (20:18)
--- NOTE | 2019-04-25 01:17 | NUR ---
NURSING PROGRESS NOTE Legal hold: 5250 Client involuntary status for GD. Why are they here: Patient was brought into the ED by the Police on a 5150 hold for being detained after running down [place] naked and resisting arrest. Patient reports "I remember going [place] the [place]." Then states he remembers nothing else besides stripping naked and running. When asked why he took his clothes off and began to run naked he states "I don't know I went crazy." Assessment: What has happened this shift: Patient asleep at the beginning of shift. Briefly woke to eat snack and take HS medications. Patient refused VS and assessment. Complaint with medications. When this press writer asked the patient if was experiencing any hallucinations, he responded, "nothing out of the ordinary." When this press writer tried to have hi elaborate he refused to answer questions and stated, "I don't want to talk about it." This press writer asked if he had any pain and he stated mild pain with movement but did not need prn pain medication at the time. S/I, H/I: denied A/VH: passive, refused to elaborate Sleep: asleep at tis time ADL's: Independent with help covering splint Group attendance: No Were meds taken: yes Any med S/E: None noted or reported Mental Status Exam: Appearance: Disheveled, wearing green scrubs Eye contact: avoidant Behavior: withdrawn, guarded, resistive to care Speech: Clear Mood: Irritated Affect: Constricted, uncooperative Thought process: Linear Thought Content: unable to assess Cognition: A & Ox3 Insight: Poor Judgment: Poor Interventions PRN's used: none Restraints/seclusion/emergency medication: N/A Justification of Continued Inpatient Treatment: Continued therapeutic support and medication management needed to provide stabilization, prevent decompensation, decreasing risk to patient and readmittance.
[2019-04-25] MEDS: pantoprazole 40mg Tablet.DR PO SCH (07:30)
[2019-04-25] MEDS: busPIRone 15mg tablet PO SCH ×3 (08:42→20:18)
[2019-04-25] MEDS: haloperidol 5mg tablet PO SCH ×2 (08:42→16:05)
[2019-04-25] MEDS: duloxetine 30mg CAPSULE.DR PO SCH (08:42)
[2019-04-25] MEDS: HYDROcodone/acetaminophen 10/325mg tab PO PRN ×2 (08:42→16:05)
[2019-04-25] MEDS: clonazePAM 1mg tablet PO SCH ×2 (08:43→16:04)
[2019-04-25] MEDS: quetiapine 100mg tablet PO SCH ×3 (08:43→20:19)
[2019-04-25] MEDS: quetiapine 100mg tablet PO PRN (16:51)
--- NOTE | 2019-04-25 16:57 | NUR ---
DISCHARGE PLANNING: Jerardo, from [facility] came to interview pt this AM and accepted pt. Twan, from [facility] phoned later in afternoon and said they could accept on Sunday04/29/19 and wanted to know our time frame. this rfp writer spoke w/pt's doctor, Dr. Garcia and he said pt would not be ready for D/C until about one week from today. I relayed the time frame to Max. They will need a TB sin test or chest X-Ray and signed med orders prior to D/C. CHITRA Pardo
[2019-04-25] MEDS: ibuprofen 200mg tablet PO PRN (18:15)
--- NOTE | 2019-04-25 18:46 | NUR ---
Nursing Progress Note: Legal hold: N/A Client on voluntary/involuntary status for DTS. Report received from nurse with use of KAI Quintana RN. Why are they here: Pt arrives 1330 on [place] for Behavioral health on a 5150 for DTS. Pt reports feeling depressed and suicidal. Client was recently kicked out of his mothers home and is homeless. Client reports hearing voices and feels the public affairs manager from the [facility] is after him and going to kill him. Pt has a plan to "jump out in front of a train." Pt has history of seizures, pancreatitis, diabetes, depression, schizophrenia. Assessment Patient sleeps well. Naps during daytime. First time that patient informed RN that he had diarrhea last night. Spoke to him about his conservatorship. Pt. Understands instructions about conservatorship and transfer to [facility] to keep up conservatorship. Pt. agrees. S/I, H/I: Pt denies A/VH: Denies VH, no AH so far today Sleep: Patient took several naps today. ADL's: Independent Group attendance: yes Were meds taken: Yes Any med S/E: None reported/None observed Mental Status Exam Appearance: Disheveled, unshaved in tank top and shorts. Eye contact: Good Behavior: Pleasant, cooperative Speech: Clear, audible, normal rate and rhythm Mood: appropriate Affect: animated Thought process: linear Thought Content: going to [place] Cognition: A&Ox4 Insight: Fair Judgment: Fair Interventions PRN's used:None Therapeutic interventions:1:1 assessment, establishment of rapport, therapeutic conversation, medication administration/education/monitoring, encouragement to attend groups, discharge process education, Q 15 min safety checks. Restraints/seclusion/emergency medication:none Justification of Continued Inpatient Treatment: Pt states his AH is ongoing, he needs crisis stabilization and medication adjustment/monitoring in a safe and therapeutic environment to prevent decompensation and readmission, he needs placement.
[2019-04-25 19:45] VITALS: BP 109/73
[2019-04-25] MEDS: traZODone 50mg tablet PO SCH (20:18)
--- NOTE | 2019-04-25 22:38 | NUR ---
Nursing Progress Note: Legal hold: N/A Client on voluntary/involuntary status for DTS. Report received from nurse with use of CHRIS Gross. Why are they here: Pt arrives 1330 on [place] for Behavioral health on a 5150 for DTS. Pt reports feeling depressed and suicidal. Client was recently kicked out of his mothers home and is homeless. Client reports hearing voices and feels the electrician third from the [facility] is after him and going to kill him. Pt has a plan to "jump out in front of a train." Pt has history of seizures, pancreatitis, diabetes, depression, schizophrenia. Assessment What happened this shift: Patient visible on the unit, communicating with peers at the beginning of shift. Patient remained on the unit until shortly after receiving medications. Patient compliant with VS and assessment this shift. He continues to avoid conversation regarding VH and SI. When questioned if he is experiencing VH he shrugs and states, "the normal" and walks away. S/I, H/I: denies A/VH: passively endorses VH Sleep: asleep at this time ADL's: Independent Group attendance: group room for HS snack Were meds taken: Yes Any med S/E: None reported/None observed Mental Status Exam Appearance: Disheveled, green scrubs Eye contact: Good Behavior: Pleasant, cooperative Speech: Clear, audible, normal rate and rhythm Mood: "fine" Affect: animated Thought process: linear Thought Content: unable to assess Cognition: A&Ox4 Insight: Fair Judgment: Fair Interventions PRN's used:None Therapeutic interventions:1:1 assessment, establishment of rapport, therapeutic conversation, medication administration/education/monitoring, encouragement to attend groups, discharge process education, Q 15 min safety checks. Restraints/seclusion/emergency medication:none Justification of Continued Inpatient Treatment: Pt states his AH is ongoing, he needs crisis stabilization and medication adjustment/monitoring in a safe and therapeutic environment to prevent decompensation and readmission, he needs placement.
[2019-04-26] MEDS: docusate sod 100mg capsule PO SCH ×2 (07:00→20:00)
[2019-04-26] MEDS: pantoprazole 40mg Tablet.DR PO SCH (07:37)
[2019-04-26] MEDS: protein shake 8oz. (237ml) PO SCH ×3 (08:00→18:00)
[2019-04-26] MEDS: haloperidol 5mg tablet PO SCH ×2 (08:31→16:05)
[2019-04-26] MEDS: busPIRone 15mg tablet PO SCH ×3 (08:32→20:13)
[2019-04-26] MEDS: quetiapine 100mg tablet PO SCH ×3 (08:32→20:13)
[2019-04-26] MEDS: duloxetine 30mg CAPSULE.DR PO SCH (08:32)
[2019-04-26] MEDS: clonazePAM 1mg tablet PO SCH ×2 (08:35→16:05)
[2019-04-26] MEDS: HYDROcodone/acetaminophen 10/325mg tab PO PRN ×2 (09:02→16:07)
[2019-04-26] MEDS: ibuprofen 200mg tablet PO PRN (17:22)
--- NOTE | 2019-04-26 17:43 | NUR ---
Nursing Progress Note Legal hold: 5250 Client on involuntary status for DTS. Report received from nurse with use of KAI Espinal RN. Assessment Why are they here: Patient was brought into the ED by the Police on a 5150 hold for being detained after running down [place] naked and resisting arrest. Patient reports "I [place]." Then states he remembers nothing else besides stripping naked and running. When asked why he took his clothes off and began to run naked he states "I don't know I went crazy." What happened today? Patient awakened for breakfast and medications. He is becoming more cooperative and social on the unit. Will make small talk with RN and makes some humorous comments occasionally and starting to feel relaxed with peers and staff. S/I, H/I: Pt denies A/VH: A/H never goes away completely. Sleep: Napped ADL's: Independent. Freshly showered. Group attendance: yes Were meds taken: Yes Any med S/E: None reported/None observed Mental Status Exam Appearance: Eye contact: Good Behavior: Pleasant, cooperative Speech: Clear, audible, normal rate and rhythm Mood: appropriate Affect: animated Thought process: linear Thought Content: Meeting basic needs of daily living, pain from arm. Cognition: A&Ox4 Insight: Fair Judgment: Fair Interventions PRN's used:None Therapeutic interventions:1:1 assessment, establishment of rapport, therapeutic conversation, medication administration/education/monitoring, encouragement to attend groups, discharge process education, Q 15 min safety checks. Restraints/seclusion/emergency medication:none Justification of Continued Inpatient Treatment: Pt states his AH is ongoing, he needs crisis stabilization and medication adjustment/monitoring in a safe and therapeutic environment to prevent decompensation and readmission.
[2019-04-26 19:40] VITALS: BP 122/96
[2019-04-26] MEDS: traZODone 50mg tablet PO SCH (20:13)
--- NOTE | 2019-04-26 23:34 | NUR ---
Nursing Progress Note: Legal hold: N/A Client on voluntary/involuntary status for DTS. Report received from nurse with use of CHRIS Gross. Why are they here: Pt arrives 1330 on [place] for Behavioral health on a 5150 for DTS. Pt reports feeling depressed and suicidal. Client was recently kicked out of his mothers home and is homeless. Client reports hearing voices and feels the electricity trader from the [facility] is after him and going to kill him. Pt has a plan to "jump out in front of a train." Pt has history of seizures, pancreatitis, diabetes, depression, schizophrenia. Assessment What happened this shift: Patient visible on the unit, watching TV in rec room with peers. Patient pleasant an cooperative. Staid on the unit unitl shortly after recieving medications. Patient continues to endorse AH but will not explain. When asked if he could explain how he presented to the unit, he explained that he could but did not want to talk about it because he is embarrassed. Patient compliant with all medication. Colace held due to reports of loose stool. S/I, H/I: denies A/VH: endorses VH Sleep: asleep at this time ADL's: Independent Group attendance: group room for HS snack Were meds taken: Yes Any med S/E: None reported/None observed Mental Status Exam Appearance: Disheveled, green scrubs Eye contact: Good Behavior: Pleasant, cooperative Speech: Clear, audible, normal rate and rhythm Mood: depressed Affect: animated Thought process: linear Thought Content: unable to assess Cognition: A&Ox4 Insight: Fair Judgment: Fair Interventions PRN's used:None Therapeutic interventions:1:1 assessment, establishment of rapport, therapeutic conversation, medication administration/education/monitoring, encouragement to attend groups, discharge process education, Q 15 min safety checks. Restraints/seclusion/emergency medication:none Justification of Continued Inpatient Treatment: Pt states his AH is ongoing, he needs crisis stabilization and medication adjustment/monitoring in a safe and therapeutic environment to prevent decompensation and readmission, he needs placement.
[2019-04-27] MEDS: docusate sod 100mg capsule PO SCH ×2 (08:00→20:00)
[2019-04-27] MEDS: protein shake 8oz. (237ml) PO SCH ×4 (08:00→18:00)
[2019-04-27] MEDS: busPIRone 15mg tablet PO SCH ×3 (08:09→21:11)
[2019-04-27] MEDS: pantoprazole 40mg Tablet.DR PO SCH (08:10)
[2019-04-27] MEDS: quetiapine 100mg tablet PO SCH ×3 (08:10→21:11)
[2019-04-27] MEDS: haloperidol 5mg tablet PO SCH ×2 (08:10→16:25)
[2019-04-27] MEDS: clonazePAM 1mg tablet PO SCH ×2 (08:10→16:24)
[2019-04-27] MEDS: duloxetine 30mg CAPSULE.DR PO SCH (08:10)
[2019-04-27] MEDS: HYDROcodone/acetaminophen 10/325mg tab PO PRN ×2 (08:37→15:40)
--- NOTE | 2019-04-27 09:57 | NUR ---
LPS/DISCHARGE PLANNING: SW received TC from Dr. Trivedi at [phone], who reports pt is to be discharged to the [facility] at the end of his hold and can meet w/ pollution control technician Clinician for assessment while at [facility]. If pt continues to believe his sx create need for conservatorship pt can request at this time and be placed on [id number] to re-enter [facility] services. This policy writer will discuss potential plan w/ assigned provider and nursing staff. Sailaja Rothman, Data Report Analyst [employer] [id number] Supervised by Dheeraj Rae, [id number]
[2019-04-27] MEDS: quetiapine 100mg tablet PO PRN ×2 (10:39→18:20)
--- NOTE | 2019-04-27 14:47 | NUR ---
Nursing Progress Note Legal hold: 5250 Client on involuntary status for GD Report received from nurse with use of SBAR Gabrielle Frank RN. Assessment Why are they here: Patient was brought into the ED by the Police on a 5150 hold for being detained after running down [place] naked and resisting arrest. Patient reports "I remember [place]." Then states he remembers nothing else besides stripping naked and running. When asked why he took his clothes off and began to run naked he states "I don't know I went crazy." Assessment: What happened this shift: Pt denied depression and SI, continues to c/o anxiety and auditory hallucinations. Pt reports that the voices say both good and bad things, he states that it is irritating how he oftentimes cannot distinguish between the voices and his own self talk. Pt states sometimes he can't tell if it is God or demons or himself. Pt states he is unsure if the Buspar actually helps because he has never tried it alone, it has always been in conjunction with another med. Pt states he knows that the Seroquel and the Klonopin help because he has tried them by themselves. Pt expressed concern over his kidney function as a doctor told him previously that they could have been damaged after an episode of severe dehydration resulting from pt being in the hot sun for several days with nothing to drink. Pt wondered if his labs needed redrawn. Reassured pt that his latest kidney function labs were within normal limits, further education provided on the risks of dehydration. Pt also stated that he was getting funny twitches/numbness at times in his toes. Pt asked if maybe we should check his glucose levels, then pt stated, "or maybe it could be these shoes" pointed to the tennis shoes he was wearing. Reviewed his glucose lab result with him. Pt stated that yeah but that was when he first came in and hadn't been eating anything for days. Reviewed past glucose labs with him and reassured him that he had not had any abnormal glucose levels. Pt has a cast on his left arm for ulnar fracture, he is also using a sling. CSM intact. Pt's 5250 hold is up tomorrow. SW has been advised by [facility] MD Dr Trivedi to discharge the pt to the [facility] tomorrow and if pt feels that his symptoms still warrant conservatorship then the pt needs to request to see a clinician there for a 5150 eval. Tomorrow is the holiday. Pt has indicated that [place] then maybe go see a clinician at the [facility] on Sunday. Pt states he has a good spot and it is like camping. S/I, H/I: Pt denies A/VH: Pt did not admit to VH, states he always has AH Sleep: Slept 8.25 hours per noc shift report ADL's: Independent Group attendance: yes Were meds taken: Yes Any med S/E: None observed or reported Mental Status Exam Appearance: neat, clean, nice looking young man dressed in hospital scrubs and tennis shoes Eye contact: Good Behavior: Pleasant, cooperative, friendly, inquisitive Speech: Clear, audible, normal rate and rhythm Mood: Anxious Affect: Anxious Thought process: somewhat perseverative, reality distortion, difficulty determining what is real and what is not Thought Content: Wonders if more lab work needs done, concerned about his kidney function and glucose levels, thinking of discharge [place] Cognition: A/O x 4 Insight: Fair Judgment: Poor Interventions PRN's used: Seroquel 100 mg, [place] 10/325 mg Therapeutic interventions: 1:1 assessment, active listening, therapeutic conversation, medication administration/education/monitoring, symptom monitoring, reality orientation, Q 15 min safety checks. Restraints/seclusion/emergency medication:none Justification of Continued Inpatient Treatment: Pt states his AH is ongoing, he needs crisis stabilization and medication adjustment/monitoring in a safe and therapeutic environment to prevent decompensation and readmission, plan was to conserve the pt but per county, pt may not be conserved if he is placed on a 5270, must be discharged tomorrow and seek help again if he continues to feel that he needs it. Addendum: 09/01/19 at 1704 by Faith Vogel RN (Lee) Dr Pan spoke with the patient and the plan is for pt to stay until Sunday. He has tentatively agreed to sign in vol tomorrow though seems undecided as to whether or not he will actually stay. Pt states that it would be nice to have at least one day of freedom and a large beer. Offered positive feedback on the progress pt has made while here, that it was nice to see him back to his old self and encouraged him to consider making garcia choices.
[2019-04-27] MEDS: hydrOXYzine 25 MG tablet PO PRN (16:44)
--- NOTE | 2019-04-27 18:09 | NUR ---
Pt has had an order for protein shakes TID with meals. He has had this order since 04/25/19. Pt has not been receiving the shakes. Called and spoke with dietary about it at lunchtime, they were going to contact the clinical data management director and resolve the issue. Pt did not receive protein shake at dinner. Will follow up tomorrow.
[2019-04-27] MEDS: ibuprofen 200mg tablet PO PRN (19:03)
[2019-04-27 19:57] VITALS: BP 116/63
[2019-04-27] MEDS: traZODone 50mg tablet PO SCH (21:12)
--- NOTE | 2019-04-28 01:27 | NUR ---
Nursing Progress Note Legal hold: 5250 Client on involuntary status for GD Report received from nurse with use of KAI Espinal RN. Assessment Why are they here: Patient was brought into the ED by the Police on a 5150 hold for being detained after running down [place] naked and resisting arrest. Patient reports "I [place]." Then states he remembers nothing else besides stripping naked and running. When asked why he took his clothes off and began to run naked he states "I don't know I went crazy." Assessment: What happened this shift: Pt up on unit interacting with other pts. Listening to headphones at times then watching TV with other pts. Pt denied depression and SI. Pt describes his mood as "good, I am feeling much better about my situation" Pt feels his medications are working and he feels stable. Pt says he is planning to sign in voluntary and stay till Sunday then go to the [facility]. Admits to hearing voices, did not answer when asked what they say. S/I, H/I: Pt denies A/VH: Pt did not admit to VH, states he always has AH Sleep: asleep now ADL's: Independent Group attendance: yes Were meds taken: Yes Any med S/E: None observed or reported Mental Status Exam Appearance: neat, clean, nice looking young man dressed in hospital scrubs and tennis shoes Eye contact: Good Behavior: Pleasant, cooperative, friendly, Speech: Clear, audible, normal rate and rhythm Mood: "Good" Affect: Relaxed Thought process: somewhat perseverative, reality distortion, difficulty determining what is real and what is not Thought Content: Discharge and going to [facility] Cognition: A/O x 4 Insight: Fair Judgment: Poor Interventions PRN's used: none Therapeutic interventions: 1:1 assessment, active listening, therapeutic conversation, medication administration/education/monitoring, symptom monitoring, reality orientation, Q 15 min safety checks. Restraints/seclusion/emergency medication:none Justification of Continued Inpatient Treatment: Pt states his AH is ongoing, he needs crisis stabilization and medication adjustment/monitoring in a safe and therapeutic environment to prevent decompensation and readmission, plan was to conserve the pt but per county, pt may not be conserved if he is placed on a 5270, must be discharged tomorrow and seek help again if he continues to feel that he needs it.
[2019-04-28] MEDS: haloperidol 5mg tablet PO SCH ×2 (08:05→17:59)
[2019-04-28] MEDS: clonazePAM 1mg tablet PO SCH ×2 (08:05→17:59)
[2019-04-28] MEDS: busPIRone 15mg tablet PO SCH ×3 (08:05→20:20)
[2019-04-28] MEDS: pantoprazole 40mg Tablet.DR PO SCH (08:05)
[2019-04-28] MEDS: quetiapine 100mg tablet PO SCH ×3 (08:06→20:20)
[2019-04-28] MEDS: duloxetine 30mg CAPSULE.DR PO SCH (08:06)
[2019-04-28] MEDS: docusate sod 100mg capsule PO SCH ×2 (08:06→20:00)
[2019-04-28] MEDS: protein shake 8oz. (237ml) PO SCH ×3 (08:08→18:01)
[2019-04-28] MEDS: HYDROcodone/acetaminophen 10/325mg tab PO PRN ×2 (09:00→18:00)
[2019-04-28] MEDS: hydrOXYzine 25 MG tablet PO PRN (10:13)
[2019-04-28] MEDS: quetiapine 100mg tablet PO PRN ×2 (10:25→19:25)
--- NOTE | 2019-04-28 14:26 | NUR ---
Nursing Progress Note Legal hold: 5270 Client on involuntary status for GD Report received from nurse with use of KAI Minor RN. Assessment Why are they here: Patient was brought into the ED by the Police on a 5150 hold for being detained after running down [place] naked and resisting arrest. Patient reports "I remember [place]." Then states he remembers nothing else besides stripping naked and running. When asked why he took his clothes off and began to run naked he states "I don't know I went crazy." Assessment: What happened this shift: Pt c/o feeling anxious and depressed this morning. When asked pt why he thought he was feeling depressed he replied, "I don't know why sometimes I just get like that, sometimes I feel good and sometimes I don't." Pt came into charting area frequently to speak with this RN. We discussed his pending discharge and reviewed what the plan was. Pt shared more about his strange dreams from the night before last, he would share and then seem to get a little nervous about it and abruptly say,"okay" and walk out of the room but then he would return to say more. Pt is religiously preoccupied. He has feelings of guilt and shame for sexual thoughts. He stated that feeling lustful is a sin because the Bible says though shalt not commit adultery even in thought. Asked the pt if he was , pt replied, "no." Asked him how then could he be committing adultery? Pt was somewhat embarrassed to discuss his strange dreams as they involved him being castrated and then not castrated and then castrated, he said that in the dream he would look down or feel down there and he wouldn't have balls and then he would have them and then he wouldn't again. He also stated that he saw a penis but it wasn't his penis, though it was uncircumcised like his. He stated that he could remember thinking in his dream that he was castrated for his sinful thoughts. He rapidly referred to a passage in Ra, stated something to the effect that, in the book of Ra it states...but patient mumbled and this nurse could not comprehend what he said. Discussed the possibility that sexual thoughts/desires are not unnatural in a healthy young man and thoughts themselves do not constitute sin so long as they are not acted inappropriately on and that perhaps there is no need to feel guilty about something that he has not done. Pt seemed largely unconvinced. Pt continues to have pervasive ongoing AH, he becomes anxious and utilizes coping mechanisms such as pacing in the [place] listening to music headphones but coping mechanisms are often insufficient and he frequently requests prn meds to help him manage his symptoms. Pt requested prn [place] 10/325 mg at 0900 for moderate left arm pain, Atarax 25 mg for anxiety at 1013 then pt returned at 1025 to state that he didn't think that one Atarax tab was going to be enough to help with his anxiety so requested prn Seroquel 100 mg. 5250 hold was up today, psychiatrist determined that pt remains gravely disabled and decided to place him on a 5270. S/I, H/I: Pt denies A/VH: +AH, denies VH Sleep: Slept 8 hours per noc shift report ADL's: Independent Group attendance: yes Were meds taken: Yes Any med S/E: None reported or observed Mental Status Exam Appearance: neat, clean, nice looking young man dressed in hospital scrubs and tennis shoes Eye contact: Good Behavior: Pleasant, cooperative, friendly, inquisitive Speech: Clear, audible, normal rate and rhythm Mood: Anxious, depressed Affect: Anxious Thought process: anabaptist preoccupation, perseveration Thought Content: perseverates on guilt/sin from perceived "unclean" thoughts, feels needs frequent prn meds to manage symptoms Cognition: A/O x 4 Insight: Fair Judgment: Poor Interventions PRN's used: [place] 10/325 mg @ 0900, Atarax 25 mg @ 1013, Seroquel 100 mg @ 1025 Therapeutic interventions: 1:1 assessment, active listening, therapeutic conversation, medication administration/education/monitoring, symptom monitoring, reality orientation, Q 15 min safety checks. Restraints/seclusion/emergency medication:none Justification of Continued Inpatient Treatment: Pt has persistent AH and has difficulty distinguishing the voices of God/demons vs his own thoughts, he continues to have elevated anxiety for which coping mechanisms other than prn medication are largely ineffective, he is religiously preoccupied and perseverates on feelings of sin/guilt for having sexual needs, he remains unable to formulate a viable plan for food, clothing, and jail, seems unable to manage medication and follow up care on his own. Pt placed on a 5270 today.
[2019-04-28] MEDS ORDERED: haloperidol decanoate***LONG-ACTING*** 100mg/ml **IM only** inj. IM ONE (18:35)
[2019-04-28] MEDS: ibuprofen 200mg tablet PO PRN (18:41)
[2019-04-28 20:00] VITALS: BP 119/66
[2019-04-28] MEDS: traZODone 50mg tablet PO SCH (20:20)
--- NOTE | 2019-04-29 00:53 | NUR ---
Nursing Progress Note Legal hold: 5250 Client on involuntary status for GD Report received from nurse with use of KAI Espinal RN. Assessment Why are they here: Patient was brought into the ED by the Police on a 5150 hold for being detained after running down [place] naked and resisting arrest. Patient reports "I [place]." Then states he remembers nothing else besides stripping naked and running. When asked why he took his clothes off and began to run naked he states "I don't know I went crazy." Assessment: What happened this shift: Pt up on unit interacting with other pts. Pt denied depression and SI. Pt says he did not have a good day today. Unable to describe what was not good. He admitted to feeling nervous about going to the [facility] tomorrow. Pt says he only is hearing his voices if he listens for them "They are not very loud" A/VH: Pt did not admit to VH, states he always has AH Sleep: asleep now ADL's: Independent Group attendance: yes Were meds taken: Yes Any med S/E: None observed or reported Mental Status Exam Appearance: neat, clean, nice looking young man dressed in hospital scrubs and tennis shoes Eye contact: Good Behavior: Pleasant, cooperative, friendly, Speech: Clear, audible, normal rate and rhythm Mood: " Not Good" Affect: Relaxed Thought process: somewhat perseverative, reality distortion, difficulty determining what is real and what is not Thought Content: Discharge and going to [facility] Cognition: A/O x 4 Insight: Fair Judgment: Poor Interventions PRN's used: Motrin Seroquel Therapeutic interventions: 1:1 assessment, active listening, therapeutic conversation, medication administration/education/monitoring, symptom monitoring, reality orientation, Q 15 min safety checks. Restraints/seclusion/emergency medication:none Justification of Continued Inpatient Treatment: Pt states his AH is ongoing, he needs crisis stabilization and medication adjustment/monitoring in a safe and therapeutic environment to prevent decompensation and readmission, plan is to discharge tomorrow to the [facility] and seek help again if he continues to feel that he needs it.
[2019-04-29 07:35] VITALS: BP 114/62
[2019-04-29] MEDS: haloperidol 5mg tablet PO SCH (07:54)
[2019-04-29] MEDS: clonazePAM 1mg tablet PO SCH (07:54)
[2019-04-29] MEDS: quetiapine 100mg tablet PO SCH ×2 (07:54→12:20)
[2019-04-29] MEDS: busPIRone 15mg tablet PO SCH ×2 (07:54→12:20)
[2019-04-29] MEDS: duloxetine 30mg CAPSULE.DR PO SCH (07:54)
[2019-04-29] MEDS: pantoprazole 40mg Tablet.DR PO SCH (07:55)
[2019-04-29] MEDS: docusate sod 100mg capsule PO SCH (08:00)
[2019-04-29] MEDS: protein shake 8oz. (237ml) PO SCH ×2 (08:07→13:26)
[2019-04-29] MEDS: HYDROcodone/acetaminophen 10/325mg tab PO PRN (08:19)
[2019-04-29] MEDS ORDERED: BUSP15TA7 PO (10:30)
[2019-04-29] MEDS ORDERED: HALO5TAB PO ×2 (10:30→13:05)
[2019-04-29] MEDS ORDERED: PANT40TA4 PO (10:30)
[2019-04-29] MEDS ORDERED: CLON1TAB12 PO (10:30)
[2019-04-29] MEDS ORDERED: COL100C PO (10:30)
[2019-04-29] MEDS ORDERED: IBUP-1985 PO (10:30)
[2019-04-29] MEDS ORDERED: HYDR-3972 PO (10:30)
[2019-04-29] MEDS ORDERED: TRAZ-251 PO (10:30)
[2019-04-29] MEDS ORDERED: NUT.237L32 PO (10:30)
[2019-04-29] MEDS ORDERED: QUET100T33 PO ×2 (10:30)
--- NOTE | 2019-04-29 11:57 | NUR ---
Reassessment: Eating well, 75-100% PO intake meeting nutrient needs. [facility] 04/28. Will continue to follow.. Recommendations: 1) Continue with regular diet 2) Bowel care PRN 3) Weekly wts Addendum: 04/29/19 at [address] Amended: Links added.
--- NOTE | 2019-04-29 14:13 | NUR ---
Discharge Note Pt was accompanied by omaira Siddiqui off the unit at 1348. He was transported to [facility] via [facility] transportation. Pt had all of his valuables when he left. He has a follow up appointment at [facility] on 04/30/19 @ 9am. He has an upbeat, anxious mood and denies SI. His sx have significantly improved since admission. He has no acute physical or emotional distress. He was offered nicotine replacements which was declined.
== END 2019-04-29 13:48 | disposition short-term general hospital (02) | DRG 750 ==
LOC: ADULT MH 15:17
PROVIDERS: ADMIT Psychiatry & Neurology Psychiatry; ATTEND Psychiatry & Neurology Psychiatry
DX: F25.9 Schizoaffective disorder, unspecified (principal); Z59.0 Homelessness; F31.9 Bipolar disorder, unspecified; S52.252A Displaced comminuted fracture of shaft of ulna, left arm, initial encounter for closed fracture; K59.00 Constipation, unspecified; F41.9 Anxiety disorder, unspecified; G89.29 Other chronic pain; X58.XXXA Exposure to other specified factors, initial encounter; S62.002A Unspecified fracture of navicular [scaphoid] bone of left wrist, initial encounter for closed fracture; G24.9 Dystonia, unspecified; K21.9 Gastro-esophageal reflux disease without esophagitis; Z72.89 Other problems related to lifestyle; Z91.14 Patient's other noncompliance with medication regimen; Z88.0 Allergy status to penicillin; Z88.8 Allergy status to other drugs, medicaments and biological substances; Y93.89 Activity, other specified; Y92.89 Other specified places as the place of occurrence of the external cause; Y99.8 Other external cause status; Y35.311A Legal intervention involving baton, law enforcement official injured, initial encounter
CPT/HCPCS: 36415; 73090; 80048; 85025; 87081; 99285; J1200; J1630; J2060; Q0163; Z7610

== ENCOUNTER 2019-05-22 08:01 | Day surgery (SDC) | payer MEDICAID ==
[~2019-05-22] VITALS: Ht 177.8 cm; Wt 81.8 kg
[~2019-05-22 08:01] MED LIST changes: -CLON-371 PO; +CLON1TAB12 PO; +COL100C PO; -DULO30CA52 PO; -DULO60CA65 PO; +HALO5TAB PO; +HYDR-3972 PO; +IBUP-1985 PO; +NUT.237L32 PO; +QUET100T33 PO; -QUET200T84 PO; -QUET50TA79 PO
[2019-05-22 08:15] VITALS: BP 133/75
[2019-05-22] MEDS ORDERED: CLON-514 PO (08:27)
[2019-05-22] MEDS ORDERED: DOCU100C41 PO (08:28)
[2019-05-22] MEDS ORDERED: fentaNYL/PF 50MCG/1 ML 2ML syringe ONE (08:28)
[2019-05-22] MEDS ORDERED: LIDOcaine Viscous 15ml cup ONE (08:29)
[2019-05-22] MEDS ORDERED: HALO0.5T PO (08:29)
[2019-05-22] MEDS ORDERED: MIDAZolam 5mg/5ml vial ONE (08:29)
[2019-05-22] MEDS ORDERED: HYDR-3972 PO (08:32)
[2019-05-22] MEDS ORDERED: PANT-47 PO (08:35)
[2019-05-22] MEDS ORDERED: QUET100T33 PO (08:36)
[2019-05-22 09:56] VITALS: BP 111/49
[2019-05-22 10:06] VITALS: BP 113/45
[2019-05-22 10:16] VITALS: BP 114/58
[2019-05-22 10:26] VITALS: BP 118/62
== END 2019-05-22 10:32 | disposition home or self-care (01) ==
LOC: GI LAB 08:01
PROVIDERS: ATTEND Internal Medicine Gastroenterology
DX: R12 Heartburn (principal); K29.50 Unspecified chronic gastritis without bleeding; Z79.899 Other long term (current) drug therapy
CPT/HCPCS: 43239; 99152; J2250; J3010; J7040; A4620

== ENCOUNTER 2019-05-22 11:27 | Outpatient (CLI) | payer MEDICAID ==
[~2019-05-22 11:27] MED LIST changes: +CLON-514 PO; +DOCU100C41 PO; +HALO0.5T PO; +PANT-47 PO
== END 2019-05-22 12:45 | disposition home or self-care (01) ==
LOC: ORTHO 11:27
PROVIDERS: ATTEND Orthopaedic Surgery
DX: S52.602D Unspecified fracture of lower end of left ulna, subsequent encounter for closed fracture with routine healing (principal); M79.632 Pain in left forearm
CPT/HCPCS: 73090; A4590; G0463

== ENCOUNTER 2019-05-28 08:02 | Emergency (ER) | payer MEDICAID ==
[~2019-05-28] VITALS: Ht 177.8 cm; Wt 81.8 kg
[~2019-05-28 08:02] MED LIST changes: -BUSP15TA7 PO; -CLON1TAB12 PO; -COL100C PO; -HALO5TAB PO; -IBUP-1985 PO; -NUT.237L32 PO; -PANT40TA4 PO; -TRAZ-251 PO
[2019-05-28] MEDS ORDERED: TRAZ-251 PO (08:25)
[2019-05-28] MEDS ORDERED: HALO5AMP2 PO (08:25)
[2019-05-28] MEDS ORDERED: DOCU100C33 PO (08:28)
[2019-05-28] MEDS ORDERED: QUET200T84 PO (08:29)
[2019-05-28] MEDS ORDERED: QUET-1 PO ×2 (08:33→08:36)
[2019-05-28 08:45] LABS: BASOPHILS # (AUTO) 0.1 X10'3 (0-0.2); BASOPHILS % (AUTO) 0.5 % (0-1); EOSINOPHILS # (AUTO) 0.1 X10'3 (0-0.9); EOSINOPHILS % (AUTO) 0.8 % (0-6); HEMATOCRIT 43.1 % (42.0-52.0); HEMOGLOBIN 14.6 g/dl (14.0-17.9); LYMPHOCYTES # (AUTO) 1.5 X10'3 (1.1-4.8); LYMPHOCYTES % (AUTO) 13.3 % (21-51); MEAN CORPUSCULAR HEMOGLOBIN 30.2 PG (27.0-31.0); MEAN CORPUSCULAR HGB CONC 33.8 g/dL (33.0-36.5); MEAN CORPUSCULAR VOLUME 89.4 FL (78-98); MEAN PLATELET VOLUME 8.1 FL (7.4-10.4); MONOCYTES % (AUTO) 8.9 % (2-12); NEUTROPHILS # (AUTO) 8.5 X10'3 (1.8-7.7); NEUTROPHILS % (AUTO) 76.5 % (42-75); PLATELET COUNT 270 X10'3 (140-440); RED BLOOD COUNT 4.82 X10'6 (4.70-6.10); RED CELL DISTRIBUTION WIDTH 13.5 % (11.5-14.5); WHITE BLOOD COUNT 11.1 X10'3 (4.5-11.0)
[2019-05-28 08:59] LABS: CLARITY,URINE SLIGHTLY CLOUDY (Clear); COLOR,URINE YELLOW (Yellow); GLUCOSE, URINE NEGATIVE (Neg); KETONES,URINE NEGATIVE (Neg); LEUKOCYTE ESTERASE ,URINE NEGATIVE (Neg); NITRITES, URINE NEGATIVE (Neg); OCCULT BLOOD,URINE NEGATIVE (Neg); PROTEIN,URINE NEGATIVE (Neg); UROBILINOGEN,URINE 0.2 E.U/dL (0.2-1.0)
[2019-05-28 09:03] LABS: ALANINE AMINOTRANSFERASE 19 U/L (12-78); ALBUMIN 3.7 G/DL (3.4-5.0); ALBUMIN/GLOBULIN RATIO 1.1 (1.1-1.5); ALKALINE PHOSPHATASE 92 IU/L (46-116); ANION GAP 9 (8-16); ASPARTATE AMINO TRANSFERASE 10 U/L (10-37); BILIRUBIN,TOTAL 0.2 MG/DL (0.1-1.0); BLOOD UREA NITROGEN 11 MG/DL (7-18); BUN/CREATININE RATIO 11.7 (5.4-32.0); CALCIUM 8.4 MG/DL (8.5-10.1); CHLORIDE 107 MMOL/L (99-107); CREATININE 0.94 MG/DL (0.60-1.10); GLUCOSE 101 MG/DL (70-104); POTASSIUM 4.2 MMOL/L (3.5-5.1); SODIUM 143 MMOL/L (135-145); TOTAL CARBON DIOXIDE 27.2 MMOL/L (24-32); TOTAL PROTEIN 7.2 G/DL (6.4-8.2); eGFR > 90 ML/MIN
[2019-05-28 09:06] LABS: MUCUS STRANDS MANY /LPF (Neg); SQUAMOUS EPITHELIAL CELL,UR FEW /LPF (FEW); UA COLLECTION TYPE VOIDED
[2019-05-28 09:07] LABS: BACTERIA,URINE FEW /HPF (Neg); HYALINE CASTS 0-3 /LPF (NEGATIVE); RBC,URINE 0-2 /HPF (0-2); WBC,URINE 0-4 /HPF (0-4)
[2019-05-28 09:13] LABS: URINE AMPHETAMINE SCREEN NEGATIVE (Neg); URINE BARBITUATE SCREEN NEGATIVE (Neg); URINE BENZODIAZEPINES SCREEN NEGATIVE (Neg); URINE CANNABINOID SCREEN NEGATIVE (Neg); URINE COCAINE SCREEN NEGATIVE (Neg); URINE METHADONE SCREEN NEGATIVE (Neg); URINE OPIATE SCREEN POSITIVE (Neg); URINE PHENCYCLIDINE SCREEN NEGATIVE (Neg)
[2019-05-28 09:15] LABS: ETHANOL < 0.010 GM/DL (0.0-0.010)
--- NOTE | 2019-05-28 09:45 | NUR ---
PACKET HAS BEEN FAXED TO [facility]
--- NOTE | 2019-05-28 11:46 | NUR ---
PT TOOK SEROQUEL 200 MG, 2.5 HALDOL @ 0700.
--- NOTE | 2019-05-28 12:19 | NUR ---
PT BROUGHT OVER FROM ROOM 15 TO ROOM 22. PT PACING UP AND DOWN THE OF HALLWAY.
--- NOTE | 2019-05-28 12:35 | NUR ---
Med rec faxed to pharmacy. Pt asking for Seroquel and Klonopin. Pt pacing back and forth in unit.
[2019-05-28] MEDS ORDERED: quetiapine 100mg tablet PO SCH ×2 (12:51→21:00)
[2019-05-28] MEDS: clonazePAM 1mg tablet PO PRN (12:57)
[2019-05-28] MEDS: quetiapine 100mg tablet PO PRN ×2 (12:57→18:43)
[2019-05-28] MEDS ORDERED: QUET100T33 PO (12:58)
[2019-05-28] MEDS ORDERED: QUET25TA34 PO (12:58)
--- NOTE | 2019-05-28 15:23 | NUR ---
pt is calm and resting quietly in bed.
--- NOTE | 2019-05-28 17:08 | NUR ---
pt slept for a few hours s/p Seroquel and Klonopin administration @ 1257. He is now anxious and pacing back and forth on the unit. Comes to nurses station asking for a PRN for anxiety. Talked to Dr. Marshall and stated ok to give Hydroxyzine 50mg. Ordered placed.
[2019-05-28] MEDS ORDERED: hydrOXYzine 25 MG tablet PO ONE (17:10)
[2019-05-28] MEDS: docusate sod 100mg capsule PO SCH (19:45)
[2019-05-28] MEDS: haloperidol 5mg tablet PO SCH (19:45)
--- NOTE | 2019-05-28 20:00 | NUR ---
The patient has been pacing in front of the nursing station and appears preoccupied with internal stimuli. He reports he feels very anxious and irritable and he is asking for for medications. He was guarded and irritable during the assessment. He admitted to having voices and stated that his anxiety level was "terrible". He is compliant with staff and he is taking his medications as prescribed.
[2019-05-28] MEDS ORDERED: traZODone 50mg tablet PO SCH (21:00)
--- NOTE | 2019-05-28 21:03 | NUR ---
report to Suresh Villafuerte
--- NOTE | 2019-05-28 21:47 | NUR ---
The patient is resting on his bed.
--- NOTE | 2019-05-29 00:01 | NUR ---
The patient appears to be sleeping
--- NOTE | 2019-05-29 02:45 | NUR ---
The patient appears to be sleeping
--- NOTE | 2019-05-29 04:40 | NUR ---
The patient appears to be asleep at this time
--- NOTE | 2019-05-29 07:00 | NUR ---
Pt. asleep in bed at start of shift. breathing normaly.
[2019-05-29] MEDS ORDERED: pantoprazole 40mg Tablet.DR PO SCH (08:00)
[2019-05-29] MEDS: haloperidol 5mg tablet PO SCH (08:49)
[2019-05-29] MEDS: QUEtiapine 25mg tablet PO SCH ×2 (08:49→13:01)
[2019-05-29] MEDS: docusate sod 100mg capsule PO SCH (08:49)
--- NOTE | 2019-05-29 09:00 | NUR ---
Pt. took all AM medications and pt. went back to sleep. Pt. waiting for breakfast tray.
--- NOTE | 2019-05-29 10:07 | NUR ---
breaking primary RN, pt is sitting up in bed, eating breakfast, no anxiety or agitation observed
--- NOTE | 2019-05-29 11:00 | NUR ---
RN attempted to do 1:1 at bedside. Pt. states, "I feel crazy, I'm trippin... I don't want to talk about it. Pt. denies SI/HI, A/V H. Pt. given PRN of seroquel 100mg and Klonopin 1mg. Pt. states, "The meds aren't working". Pt. got out of bed and started to pace. RN encouraged pt. to rest and let PRNs take effect. Pt. went back to bed.
[2019-05-29] MEDS: clonazePAM 1mg tablet PO PRN (11:05)
[2019-05-29] MEDS: quetiapine 100mg tablet PO PRN (11:06)
[2019-05-29] MEDS: LORazepam 1 MG tablet PO PRN ×2 (11:42→18:48)
[2019-05-29] MEDS ORDERED: quetiapine 100mg tablet PO ONE ×2 (11:45→15:30)
[2019-05-29] MEDS ORDERED: acetaminophen 325mg tablet PO ONE (12:10)
--- NOTE | 2019-05-29 13:00 | NUR ---
Pt. more calm. eating lunch. Pt. states, "The medications is helping a little".
--- NOTE | 2019-05-29 15:00 | NUR ---
Pt. increasingly agitated, pacing, throwing ice pack on floor. Pt. states, "There's demons in my head and they won't shut up. Some aliens, or demons put something on my face and it hurts." RN reached out to provider for PRN.
[2019-05-29] MEDS ORDERED: QUEtiapine 25mg tablet PO ONE (15:20)
--- NOTE | 2019-05-29 15:28 | NUR ---
Pt. given Seroquel 100mg po for audio hallucinations and agitation.
[2019-05-29] MEDS ORDERED: LORazepam 1 MG tablet PO ONE (16:10)
--- NOTE | 2019-05-29 16:10 | NUR ---
Pt. reports seroquel is helping decrease his AH, however, pt. reports increasing anxiety. Pt. given 1x does of Ativan 1mg po.
--- NOTE | 2019-05-29 17:00 | NUR ---
Pt. continues to c/o audio hallucinations. Pt. has outbursts at times loudly stating, "I'm not doing well". Pt. pacing. Pt. c/o of slurring speech, states. RN reached out to provider for medications for EPS. Pt. requested that his father, Jeff Viveros, not be informed of pt.'s situation, only that the phone be transfered to pt.
[2019-05-29] MEDS ORDERED: benztropine 1mg tablet PO ONE (17:20)
--- NOTE | 2019-05-29 17:23 | NUR ---
Pt. received x1 cogentin 1mg po for EPS symptoms. Pt. briefly discussed the events leading up to his admission. Pt. reports that he feels he shouldn't have left the [facility] and gone to live with his Dad in [place]. Pt. states, "what happened was I had 2 alcoholic drinks and then I blacked out and I woke up hallucinating". Pt. states, "I never should have left the [facility] and gone to live with my dad. I had too much time on my hands".
--- NOTE | 2019-05-29 18:54 | NUR ---
Patient is pacing, he exhibits rapid speech, patient responding to internal stimuli. Patient is quite anxious and exhibits agitation. PO Ativan given.
--- NOTE | 2019-05-29 19:05 | NUR ---
Patient health care aide is here from the Behavioral Health Unit. Patient is being transfered to their unit. Patient is cooperative with tech at this time
[2019-05-29 19:19] VITALS: BP 133/89
[2019-05-29] MEDS ORDERED: METH-348 (20:44)
[2019-05-29] MEDS ORDERED: METH-350 (20:44)
[2019-05-29] MEDS ORDERED: quetiapine 100mg tablet PO SCH (21:00)
== END 2019-05-29 19:24 ==
LOC: ER 08:02
DX: R45.851 Suicidal ideations (principal); F20.9 Schizophrenia, unspecified; K21.9 Gastro-esophageal reflux disease without esophagitis; G89.29 Other chronic pain; F31.9 Bipolar disorder, unspecified; Z98.890 Other specified postprocedural states; Z59.0 Homelessness; Z88.0 Allergy status to penicillin; Z79.899 Other long term (current) drug therapy
CPT/HCPCS: 36415; 80053; 80305; 80320; 81001; 84443; 85025; 99285; Z7610

== ENCOUNTER 2019-05-29 11:52 | Inpatient (IN) | payer MEDICAID ==
[~2019-05-29] VITALS: Ht 177.8 cm; Wt 83.2 kg
[~2019-05-29 11:52] MED LIST changes: +DOCU100C33 PO; -DOCU100C41 PO; -HALO0.5T PO; +HALO5AMP2 PO; +QUET-1 PO; +QUET25TA34 PO; +TRAZ-251 PO
[2019-05-29 20:12] VITALS: BP 131/71
[2019-05-29] MEDS ORDERED: METH-350 (20:44)
[2019-05-29] MEDS ORDERED: METH-348 (20:44)
[2019-05-29] MEDS ORDERED: magnesium hydroxide 30ml (MOM) UD suspension PO PRN (22:15)
[2019-05-29] MEDS ORDERED: ibuprofen tablet 400 MG TABLET PO PRN (22:15)
[2019-05-29] MEDS ORDERED: acetaminophen 325mg tablet PO PRN ×2 (22:15)
[2019-05-29] MEDS ORDERED: loperamide 2mg capsule PO PRN (22:15)
[2019-05-29] MEDS ORDERED: traZODone 50mg tablet PO ONE (22:50)
[2019-05-29] MEDS ORDERED: traZODone 50mg tablet PO SCH (22:50)
[2019-05-29] MEDS ORDERED: QUEtiapine 25mg tablet PO ONE (22:50)
[2019-05-29] MEDS ORDERED: QUEtiapine 25mg tablet PO SCH (22:50)
[2019-05-29] MEDS ORDERED: quetiapine 100mg tablet PO ONE (23:20)
--- NOTE | 2019-05-30 01:45 | NUR ---
ADMISSION NOTE: Pt arrived on the unit on 05/29/2019 at 1930 accompanied by staff. 2RN skin check was completed, and pt changed into green scrubs. Belongings were inventoried and physical assessment completed. 5150 written, explained to patient, and copy of document given to him. PT came to [facility] from the ED. On May 28 pt presented to [facility] ED stating "I am not able to care for myself." He explained he nearly stripped down naked after experiencing hallucinations, but explained he stopped himself and was able to seek help in the ED instead. PT reports he was taking his medications, but then stopped briefly. Pt currently has a cast on his left arm. Capillary refill distal to cast WNL. No edema present. Pt denies any pain at this time. Pt denies SI/HI ideations at this time. He states he is having AH. Van has a long history of mental health hospitalizations and hx of conservatorship. Pt also has hx of suicide attempts and elopement.
[2019-05-30 08:00] VITALS: BP 115/66
[2019-05-30 08:17] LABS: CHOL/HDL RATIO 3.6 (0.00-4.99); CHOLESTEROL 158 MG/DL (0-200); HDL CHOLESTEROL 44 MG/DL (35-60); LDL CHOLESTEROL 105 MG/DL (50-100); TRIGLYCERIDES 179 MG/DL (20-135)
[2019-05-30] MEDS: haloperidol 5mg tablet PO SCH ×2 (08:27→17:35)
[2019-05-30] MEDS: pantoprazole 40mg Tablet.DR PO SCH (08:28)
[2019-05-30] MEDS: quetiapine 100mg tablet PO SCH ×2 (08:28→11:17)
[2019-05-30] MEDS: docusate sod 100mg capsule PO SCH ×2 (08:28→20:20)
[2019-05-30] MEDS: clonazePAM 1mg tablet PO PRN (11:17)
[2019-05-30] MEDS: hydrOXYzine 25 MG tablet PO PRN (12:30)
--- NOTE | 2019-05-30 17:48 | NUR ---
Nursing Progress Note: Legal hold: 5150 Client on involuntary status for GD Report received from nurse with use of SBAR: Gabrielle Banda RN Why are they here: Pt arrived on the unit on 05/29/2019 at 1930 accompanied by staff. PT came to [facility] from the ED. On May 28 pt presented to [facility] ED stating "I am not able to care for myself." He explained he nearly stripped down naked after experiencing hallucinations, but explained he stopped himself and was able to seek help in the ED instead. PT reports he was taking his medications, but then stopped briefly. Assessment Patient is observed resting comfortably at shift change. He wakes and take shis medications without issue. After breakfast he returns to bed. Later he c/o increased anxiety and requests Ativan. He states that he does not like the haldol and feels it is causing his tongue to make wierd movements. He states that he does not like to take the Seroquel because it makes him feel drugged up. He doesnt want to use either of those as a PRN. Patient states he continues to hear voices but does not elaborate on what they say. S/I, H/I: none reported A/VH: A/H Sleep: 8hrs NOC rested during the day ADL's: Independent, showered today Group attendance: yes Were meds taken: Yes Any med S/E: patient reports abnormal tongue movements Mental Status Exam Appearance: Well groomed Eye contact: Direct Behavior: Pleasant, cooperative Speech: Clear, soft tone, normal rate/rhythm Mood: content Affect: restricted Thought process: Linear Thought Content: medication regimen Cognition: A&O X4 Insight: Fair to good Judgment: Fair Interventions PRN's used: Ativan, Atarax Therapeutic interventions: 1:1 assessment, establishment of rapport, maintained safe therapeutic milieu, provided active listening with positive feedback, provided medication education and monitored for effects, monitored for change in behavior and provided needed interventions. Q 15 minute safety checks. Restraints/seclusion/emergency medication: N/A Justification of Continued Inpatient Treatment: Continued therapeutic support and medication management needed to provide stabilization, prevent decompensation, improve coping mechanisms decreasing risk to patient of re-admittance.
[2019-05-30] MEDS: quetiapine 100mg tablet PO PRN (18:23)
[2019-05-30 20:00] VITALS: BP 141/81
[2019-05-30] MEDS: traZODone 50mg tablet PO SCH (20:20)
[2019-05-30] MEDS ORDERED: quetiapine 100mg tablet PO SCH (21:00)
--- NOTE | 2019-05-30 23:01 | NUR ---
Nursing Progress Note: Legal hold: 5150 Client on involuntary status for GD Report received from nurse with use of SBAR: ANN Camacho Why are they here: Pt arrived on the unit on 05/29/2019 at 1930 accompanied by staff. PT came to [facility] from the ED. On May 28 pt presented to [facility] ED stating "I am not able to care for myself." He explained he nearly stripped down naked after experiencing hallucinations, but explained he stopped himself and was able to seek help in the ED instead. PT reports he was taking his medications, but then stopped briefly. Assessment Pt paces the unit at shift change while listening to head phones. He lays down around 1900. Pt is cooperative with 1:1 assessment and makes good eye contact. Air Conditioning Insulation Installer asks how his day went and he said, "it was okay but I am kind of regretting coming here, I wonder if I could have just dealt with it myself and maybe I would been okay in a day or two." Air Conditioning Insulation Installer reassured him and pt agreed it was probably a good thing he came to ED that day. Air Conditioning Insulation Installer asks about what living situation he sees being good for him after discharge. He was previously living with a man named Jeff in [place], but he said he does not want to go back and that Jeff "wasn't that nice." He says living on the [facility] wouldn't be that bad in a tent and he states he has done that through a winter before "it was just a little cold but bearable." Air Conditioning Insulation Installer asks if there is anywhere that doesn't involve being homeless or sleeping outside where it is not safe. He states, "well I could go to the [facility] but that sounds horrible." He admits to hearing AH, mostly "chattering in the background" but he states that wearing the headphones is helping. S/I, H/I: none reported A/VH: A/H Sleep:see sleep assessment notation ADL's: Independent, showered on day shift Group attendance: yes, HS snack Were meds taken: Yes Any med S/E: none reported this shift Mental Status Exam Appearance: Well groomed Eye contact: Direct Behavior: Pleasant, cooperative Speech: Clear, soft tone, normal rate/rhythm Mood: content, pleasant Affect: restricted at times, but lighthearted at other times Thought process: Linear Thought Content: "I kind of regret coming here" Cognition: A&O X4 Insight: Fair to good Judgment: Fair Interventions PRN's used: none Therapeutic interventions: 1:1 assessment, establishment of rapport, maintained safe therapeutic milieu, provided active listening with positive feedback, provided medication education and monitored for effects, monitored for change in behavior and provided needed interventions. Q 15 minute safety checks. Restraints/seclusion/emergency medication: N/A Justification of Continued Inpatient Treatment: Continued therapeutic support and medication management needed to provide stabilization, prevent decompensation, improve coping mechanisms decreasing risk to patient of re-admittance.
[2019-05-31 08:22] VITALS: BP 92/51
[2019-05-31] MEDS: haloperidol 5mg tablet PO SCH (08:45)
[2019-05-31] MEDS: pantoprazole 40mg Tablet.DR PO SCH (08:45)
[2019-05-31] MEDS: docusate sod 100mg capsule PO SCH ×2 (08:45→20:23)
[2019-05-31] MEDS: quetiapine 100mg tablet PO SCH ×3 (08:45→20:21)
--- NOTE | 2019-05-31 09:22 | NUR ---
LAB called: Pt MRSA positive. Pt educated to wash his hands.
[2019-05-31] MEDS: clonazePAM 1mg tablet PO PRN (11:49)
[2019-05-31] MEDS: hydrOXYzine 25 MG tablet PO PRN (16:17)
[2019-05-31] MEDS: quetiapine 100mg tablet PO PRN (16:18)
--- NOTE | 2019-05-31 16:38 | NUR ---
Nursing Progress Note: Legal hold: 5150 Client on involuntary status for GD Report received from nurse with use of SBAR: Gabrielle Banda RN Why are they here: Pt arrived on the unit on 05/29/2019 at 1930 accompanied by staff. PT came to [facility] from the ED. On May 28 pt presented to [facility] ED stating "I am not able to care for myself." He explained he nearly stripped down naked after experiencing hallucinations, but explained he stopped himself and was able to seek help in the ED instead. PT reports he was taking his medications, but then stopped briefly. Assessment Patient is observed sleeping at change of shift. He sleeps until breakfast arrives and then returns to his room to rest. He takes his medications without issue and denies any needs. Patient meets with doctor and haldol is decreased with the plan to start Abilify. Patient understands this change, is happy with it, education is provided. Patient does not discuss AH but does state that his mind feels funny. He cant tell if it is a symptom of his dx or his medication. He laughs and is friendly during interaction. Patient is observed pacing and reports anxiety, PRNs administered. S/I, H/I: none reported A/VH: none reported Sleep: 7.5hrs NOC rested during the day ADL's: Independent Group attendance: yes Were meds taken: Yes Any med S/E: reports over sedation last night Mental Status Exam Appearance: Well groomed Eye contact: Direct Behavior: Pleasant, cooperative Speech: Clear, soft tone, normal rate/rhythm Mood: content Affect: restricted with brightening Thought process: Linear Thought Content: medication regimen Cognition: A&O X4 Insight: Fair to good Judgment: Fair Interventions PRN's used: Ativan, Atarax, seroquel Therapeutic interventions: 1:1 assessment, establishment of rapport, maintained safe therapeutic milieu, provided active listening with positive feedback, provided medication education and monitored for effects, monitored for change in behavior and provided needed interventions. Q 15 minute safety checks. Restraints/seclusion/emergency medication: N/A Justification of Continued Inpatient Treatment: Continued therapeutic support and medication management needed to provide stabilization, prevent decompensation, improve coping mechanisms decreasing risk to patient of re-admittance.
[2019-05-31 19:57] VITALS: BP 138/93
[2019-05-31] MEDS: aripiprazole 5mg tablet PO SCH (20:21)
[2019-05-31] MEDS: benztropine 1mg tablet PO SCH (20:21)
[2019-05-31] MEDS: traZODone 50mg tablet PO SCH (20:22)
--- NOTE | 2019-06-01 00:06 | NUR ---
Nursing Progress Note: Legal hold: 5150 Client on involuntary status for GD Report received from nurse with use of SBAR: ANN Camacho. Why are they here: Pt arrived on the unit on 05/29/2019 at 1930 accompanied by staff. PT came to [facility] from the ED. On May 28 pt presented to [facility] ED stating "I am not able to care for myself." He explained he nearly stripped down naked after experiencing hallucinations, but explained he stopped himself and was able to seek help in the ED instead. PT reports he was taking his medications, but then stopped briefly. Assessment Patient is in room isolating after change of shift. Patient is well oriented. When interviewed by this advertising copy writer the patient states "Life is terrible, I just want to sleep." Patient exhibits a flat affect. He complains of anxiety, he states he wants more Klonopin than BID. Patient states he also wants to know when the doctor is going to start him on Ritalin? This advertising copy writer explained to patient that medications can only be given as prescribed. Based on patients insistence this advertising copy writer placed a call to Dr. Garcia and a one time order for Klonopin 0.5 mg PO was received. The patient was advised that Dr. Garcia will follow up with him on the Ritalin order in a few days. Save for anxiety, the patients thought process is linear. Patient states he is still hearing faint voices. He denies S/I, H/I. Depression is moderate. The patient ate his dinner. He has been medication compliant. Upon passing of evening medications patient states he no longer needs the new Klonopin order. Patient states my evening medications will do me fine. The patient is medication compliant. S/I, H/I: None reported A/VH: Audible only, minor voices, indistinguishable in nature. Sleep: Resting quietly following night time medication pass. ADL's: Independent Group attendance:Yes, on day shift. Were meds taken: Patient is medication compliant. Any med S/E: None Mental Status Exam Appearance: Well groomed Eye contact: Direct Behavior: Pleasant, cooperative Speech: Clear, soft tone, normal rate/rhythm Mood: content Affect: restricted with brightening Thought process: Linear Thought Content: medication regimen Cognition: A&O X4 Insight: Fair to good Judgment: Fair Interventions PRN's used: Ativan, Atarax, seroquel Therapeutic interventions: 1:1 assessment, establishment of rapport, maintained safe therapeutic milieu, provided active listening with positive feedback, provided medication education and monitored for effects, monitored for change in behavior and provided needed interventions. Q 15 minute safety checks. Restraints/seclusion/emergency medication: N/A Justification of Continued Inpatient Treatment: Continued therapeutic support and medication management needed to provide stabilization, prevent decompensation, improve coping mechanisms decreasing risk to patient of re-admittance.
[2019-06-01 07:50] VITALS: BP 117/74
[2019-06-01] MEDS: aripiprazole 5mg tablet PO SCH ×2 (08:22→20:08)
[2019-06-01] MEDS: pantoprazole 40mg Tablet.DR PO SCH (08:22)
[2019-06-01] MEDS: docusate sod 100mg capsule PO SCH ×2 (08:22→20:07)
[2019-06-01] MEDS: benztropine 1mg tablet PO SCH (08:23)
[2019-06-01] MEDS: quetiapine 100mg tablet PO SCH ×3 (08:23→20:08)
[2019-06-01] MEDS: clonazePAM 1mg tablet PO PRN ×2 (09:01→20:58)
[2019-06-01] MEDS: hydrOXYzine 25 MG tablet PO PRN ×2 (11:51→18:55)
[2019-06-01] MEDS: quetiapine 100mg tablet PO PRN (14:05)
[2019-06-01] MEDS: mag hydrox/Alum hydrox/simeth 30ml oral suspension PO PRN (16:14)
--- NOTE | 2019-06-01 17:44 | NUR ---
Nursing Progress Note: Legal hold: 5150 Client on involuntary status for GD Report received from nurse with use of SBAR: Buck RN. Why are they here: Pt arrived on the unit on 05/29/2019 at 1930 accompanied by staff. PT came to [facility] from the ED. On May 28 pt presented to [facility] ED stating "I am not able to care for myself." He explained he nearly stripped down naked after experiencing hallucinations, but explained he stopped himself and was able to seek help in the ED instead. PT reports he was taking his medications, but then stopped briefly. Assessment Pt. is asleep at start of shift. Pt. ate all of his breakfast. Pt. took all medications. Pt. denies SI/HI. Pt. reports hearing auditory hallucinations, pt. states, "they are quite now and I can ignore them, if I really wanted to I could listen to them". Pt. reporting anxiety and requesting PRN Klonopin. Klonopin given with minimal effect. RN asked pt. what was causing his anxiety and pt. states, "I don't want to talk about it right now". 1:1 done at bedside but. pt. offers minimal responses to questions. Pt. seen in room reading. Pt. became anxious requesting PRN Klonopin, pt. informed that Klonpin is q12 hours. Pt. received Atarax 50mg instead with minimal effect. Pt. requested increased Klonopin due to anxiety. RN informed pt.'s provider. Pt. sat with this RN and discussed his plans for discharge. Pt. reports that he will go to [facility] or the [place]. 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 Pt. states, "I realize I need a good paying job". S/I, H/I: Denies. A/VH: Pt. reports always hearing voices in the background, but that they are quiter. Pt. states, "I could listen to them if I really wanted tod" Sleep: Pt. up all shift. ADL's: Independent Group attendance:Yes Were meds taken: Yes Any med S/E: None Mental Status Exam Appearance: Well groomed Eye contact: Direct Behavior: Pleasant, cooperative Speech: Clear, soft tone, normal rate/rhythm Mood: anxious at times. bright at other times Affect: congruent with affect Thought process: Linear Thought Content: Klonopin Cognition: A&O X4 Insight: Fair Judgment: Fair Interventions PRN's used: Ativan, Atarax, seroquel, Maalox Therapeutic interventions: 1:1 assessment, establishment of rapport, maintained safe therapeutic milieu, provided active listening with positive feedback, provided medication education and monitored for effects, monitored for change in behavior and provided needed interventions. Q 15 minute safety checks. Restraints/seclusion/emergency medication: N/A Justification of Continued Inpatient Treatment: Continued therapeutic support and medication management needed to provide stabilization, prevent decompensation, improve coping mechanisms decreasing risk to patient of re-admittance.
[2019-06-01 19:57] VITALS: BP 132/85
[2019-06-01] MEDS: traZODone 50mg tablet PO SCH (20:09)
--- NOTE | 2019-06-01 21:41 | NUR ---
Nursing Progress Note: Legal hold: 5150 Client on involuntary status for GD Report received from nurse with use of SBAR: ANN Camacho. Why are they here: Pt arrived on the unit on 05/29/2019 at 1930 accompanied by staff. PT came to [facility] from the ED. On May 28 pt presented to [facility] ED stating "I am not able to care for myself." He explained he nearly stripped down naked after experiencing hallucinations, but explained he stopped himself and was able to seek help in the ED instead. PT reports he was taking his medications, but then stopped briefly. Assessment Pt. denies SI/HI. Pt. reports hearing auditory hallucinations, pt. states, "they are quite now and I can ignore them, if I really wanted to I could listen to them". Pt complained of anxiety and received Atarax 50mg with minimal effect. After med pass he requested a Prn Klonopin for increased anxiety. He paced the landaverde with head phones on then went to bed. S/I, H/I: Denies. A/VH: Pt. reports always hearing voices in the background, but that they are quiter. Pt. states, "I could listen to them if I really wanted to" Sleep: Pt. up all shift. ADL's: Independent Group attendance:Yes Were meds taken: Yes Any med S/E: None Mental Status Exam Appearance: Well groomed Eye contact: Direct Behavior: Pleasant, cooperative Speech: Clear, soft tone, normal rate/rhythm Mood: anxious at times. bright at other times Affect: congruent with affect Thought process: Linear Thought Content: Klonopin Cognition: A&O X4 Insight: Fair Judgment: Fair Interventions PRN's used: Ativan, Atarax, Therapeutic interventions: 1:1 assessment, establishment of rapport, maintained safe therapeutic milieu, provided active listening with positive feedback, provided medication education and monitored for effects, monitored for change in behavior and provided needed interventions. Q 15 minute safety checks. Restraints/seclusion/emergency medication: N/A Justification of Continued Inpatient Treatment: Continued therapeutic support and medication management needed to provide stabilization, prevent decompensation, improve coping mechanisms decreasing risk to patient of re-admittance.
[2019-06-02] MEDS: quetiapine 100mg tablet PO SCH ×2 (07:25→12:10)
[2019-06-02] MEDS: pantoprazole 40mg Tablet.DR PO SCH (07:25)
[2019-06-02] MEDS: aripiprazole 5mg tablet PO SCH (07:25)
[2019-06-02] MEDS: docusate sod 100mg capsule PO SCH (07:25)
[2019-06-02 07:30] VITALS: BP 130/82
[2019-06-02] MEDS: clonazePAM 1mg tablet PO PRN (07:35)
[2019-06-02] MEDS: mag hydrox/Alum hydrox/simeth 30ml oral suspension PO PRN (09:08)
[2019-06-02] MEDS: quetiapine 100mg tablet PO PRN (09:11)
[2019-06-02] MEDS ORDERED: calcium carbonate 500mg chew tablet PO PRN (13:35)
[2019-06-02] MEDS ORDERED: calcium carbonate 500mg chew tablet PO ONE (13:50)
[2019-06-02] MEDS ORDERED: clonazePAM 1mg tablet PO PRN (14:20)
[2019-06-02] MEDS ORDERED: quetiapine 100mg tablet PO PRN (14:25)
--- NOTE | 2019-06-02 17:45 | NUR ---
Pt. won his court hearing today and is d/c to home with his father Jeff. Pt.'s father is picking him up and driving him. Pt. is A&Ox4. Pt. reports 2/10 pain in his left arm. Pt. denies SI/HI, pt. reports hearing voices but cannot make out what they are saying. Pt.'s f/u plan is to contact his providers out-patient office tomorrow to get refills and f/u appointments. Pt. discharged on the following medication: Klonopin 1mg po PRN #7 Abilify 10mg po q am #7 Abilify 20mg po q hs #7 Trazadone 50mg po q hs #7 Pt. reports he plans to stay with his father only a few days and then will try getting into the [facility] or [facility]. Pt. is in no apparent psychological or emotional distress. Pt. verbalizes f/u plans.
[2019-06-02] MEDS ORDERED: TRAZ-251 PO (18:26)
[2019-06-02] MEDS ORDERED: PANT40TA4 PO (18:26)
[2019-06-02] MEDS ORDERED: ARIP10TA17 PO (18:26)
[2019-06-02] MEDS ORDERED: ARIP20TA10 PO (18:26)
[2019-06-02] MEDS ORDERED: CLON-286 PO (18:26)
[2019-06-02] MEDS ORDERED: pantoprazole 40mg Tablet.DR PO SCH (20:00)
[2019-06-02] MEDS ORDERED: aripiprazole 5mg tablet PO SCH (21:00)
[2019-06-02] MEDS ORDERED: traZODone 50mg tablet PO SCH (21:00)
[2019-06-03] MEDS ORDERED: aripiprazole 5mg tablet PO SCH (08:00)
== END 2019-06-02 18:45 | disposition home or self-care (01) | DRG 750 ==
LOC: ADULT MH 11:52
PROVIDERS: ADMIT Psychiatry & Neurology Psychiatry; ATTEND Psychiatry & Neurology Psychiatry
DX: F25.0 Schizoaffective disorder, bipolar type (principal); Z59.0 Homelessness; F41.9 Anxiety disorder, unspecified; F90.9 Attention-deficit hyperactivity disorder, unspecified type
CPT/HCPCS: 36415; 80061; 87081; Z7610

== ENCOUNTER 2019-06-21 13:18 | Emergency (ER) | payer MEDICAID ==
[~2019-06-21] VITALS: Ht 172.7 cm; Wt 80.0 kg
[~2019-06-21 13:18] MED LIST changes: +ARIP10TA17 PO; +ARIP20TA10 PO; +CLON-286 PO; -CLON-514 PO; -DOCU100C33 PO; -HALO5AMP2 PO; -HYDR-3972 PO; -PANT-47 PO; +PANT40TA4 PO; -QUET-1 PO; -QUET100T33 PO; -QUET25TA34 PO
[2019-06-21 13:54] LABS: BASOPHILS # (AUTO) 0.1 X10'3 (0-0.2); BASOPHILS % (AUTO) 0.7 % (0-1); EOSINOPHILS % (AUTO) 0.5 % (0-6); HEMATOCRIT 40.4 % (42.0-52.0); HEMOGLOBIN 13.7 g/dl (14.0-17.9); LYMPHOCYTES # (AUTO) 1.5 X10'3 (1.1-4.8); LYMPHOCYTES % (AUTO) 18.8 % (21-51); MEAN CORPUSCULAR HEMOGLOBIN 30.4 PG (27.0-31.0); MEAN CORPUSCULAR VOLUME 89.4 FL (78-98); MEAN PLATELET VOLUME 8.3 FL (7.4-10.4); MONOCYTES # (AUTO) 0.8 X10'3 (0-0.9); MONOCYTES % (AUTO) 10.4 % (2-12); NEUTROPHILS # (AUTO) 5.6 X10'3 (1.8-7.7); NEUTROPHILS % (AUTO) 69.6 % (42-75); PLATELET COUNT 242 X10'3 (140-440); RED BLOOD COUNT 4.51 X10'6 (4.70-6.10); RED CELL DISTRIBUTION WIDTH 12.9 % (11.5-14.5); WHITE BLOOD COUNT 8.1 X10'3 (4.5-11.0)
[2019-06-21 14:04] LABS: ALANINE AMINOTRANSFERASE 25 U/L (12-78); ALBUMIN 3.8 G/DL (3.4-5.0); ALBUMIN/GLOBULIN RATIO 1.1 (1.1-1.5); ALKALINE PHOSPHATASE 66 IU/L (46-116); ANION GAP 10 (8-16); ASPARTATE AMINO TRANSFERASE 30 U/L (10-37); BILIRUBIN,TOTAL 0.4 MG/DL (0.1-1.0); BLOOD UREA NITROGEN 12 MG/DL (7-18); BUN/CREATININE RATIO 14.5 (5.4-32.0); CALCIUM 9.2 MG/DL (8.5-10.1); CHLORIDE 105 MMOL/L (99-107); CREATININE 0.83 MG/DL (0.60-1.10); GLUCOSE 101 MG/DL (70-104); POTASSIUM 3.5 MMOL/L (3.5-5.1); SODIUM 142 MMOL/L (135-145); TOTAL PROTEIN 7.3 G/DL (6.4-8.2); eGFR > 90 ML/MIN
[2019-06-21 14:13] LABS: ETHANOL < 0.010 GM/DL (0.0-0.010)
--- NOTE | 2019-06-21 14:14 | NUR ---
provider at the bedside attempting to assess and evaluate pt, pt is still non verbal at this time.
--- NOTE | 2019-06-21 14:52 | NUR ---
Pt urine was collected. Adsvised pt urine is a bit dark and he needs to consume some water. Client is compliant and curently drinking water.
[2019-06-21 15:00] LABS: CLARITY,URINE CLEAR (Clear); COLOR,URINE YELLOW (Yellow); GLUCOSE, URINE NEGATIVE (Neg); KETONES,URINE 15 mg/dl (Neg); LEUKOCYTE ESTERASE ,URINE NEGATIVE (Neg); NITRITES, URINE NEGATIVE (Neg); OCCULT BLOOD,URINE NEGATIVE (Neg); PROTEIN,URINE NEGATIVE (Neg); UROBILINOGEN,URINE 0.2 E.U/dL (0.2-1.0)
[2019-06-21 15:05] LABS: UA COLLECTION TYPE CLN CATCH MIDSTREAM
[2019-06-21 15:14] LABS: URINE AMPHETAMINE SCREEN NEGATIVE (Neg); URINE BARBITUATE SCREEN NEGATIVE (Neg); URINE BENZODIAZEPINES SCREEN NEGATIVE (Neg); URINE CANNABINOID SCREEN NEGATIVE (Neg); URINE COCAINE SCREEN NEGATIVE (Neg); URINE METHADONE SCREEN NEGATIVE (Neg); URINE OPIATE SCREEN NEGATIVE (Neg); URINE PHENCYCLIDINE SCREEN NEGATIVE (Neg)
[2019-06-21] MEDS ORDERED: ARIP5TAB14 PO (16:07)
[2019-06-21] MEDS ORDERED: ARIP20TA10 PO (16:09)
[2019-06-21] MEDS ORDERED: CLON-527 PO (16:10)
[2019-06-21] MEDS ORDERED: TRAZ-251 PO (16:11)
[2019-06-21] MEDS ORDERED: PANT-47 PO (16:11)
--- NOTE | 2019-06-21 16:40 | NUR ---
Esther from [facility] attempting to speak with pt. Pt nonverbal
--- NOTE | 2019-06-21 19:05 | NUR ---
Pt redressed with minimal direction from tech. Security at bedside.
[2019-06-21] MEDS: ARIPIPRAZOLE 10 MG TABLET PO SCH ×2 (20:20→20:22)
[2019-06-21] MEDS: traZODone 50mg tablet PO SCH ×2 (20:20→20:22)
--- NOTE | 2019-06-21 20:25 | NUR ---
Pt refused to wear red allergy band.
--- NOTE | 2019-06-21 20:45 | NUR ---
Pt refusing to take po meds after several attempts.
--- NOTE | 2019-06-21 22:19 | NUR ---
Pt resting comfortably, respirations normal, no s/s of distress.
--- NOTE | 2019-06-21 23:12 | NUR ---
Pt resting comfortably, respirations normal, no s/s of distress.
--- NOTE | 2019-06-22 00:02 | NUR ---
Pt resting comfortably, respirations normal, no s/s of distress.
--- NOTE | 2019-06-22 01:00 | NUR ---
Pt resting comfortably, respirations normal, no s/s of distress.
--- NOTE | 2019-06-22 02:00 | NUR ---
Pt resting comfortably, respirations normal, no s/s of distress.
--- NOTE | 2019-06-22 03:00 | NUR ---
Pt resting comfortably, respirations normal, no s/s of distress.
--- NOTE | 2019-06-22 03:02 | NUR ---
Pt took clothes off and got out of bed. Standing at bedside. Easily redirected.
--- NOTE | 2019-06-22 03:54 | NUR ---
Pt resting comfortably, respirations normal, no s/s of distress.
--- NOTE | 2019-06-22 07:01 | NUR ---
pt standing in room, naked looking at the wall. Does not appear to be in distress.
[2019-06-22] MEDS: clonazePAM 1mg tablet PO SCH (08:00)
[2019-06-22] MEDS: aripiprazole 5mg tablet PO SCH (08:00)
[2019-06-22] MEDS: pantoprazole 40mg Tablet.DR PO SCH (08:00)
--- NOTE | 2019-06-22 08:03 | NUR ---
pt put his pants on at the request of Handsel RN.
--- NOTE | 2019-06-22 08:04 | NUR ---
Pt took his pants back off and is naked again.
--- NOTE | 2019-06-22 08:07 | NUR ---
Pt refusing medications and breakfast
--- NOTE | 2019-06-22 08:36 | NUR ---
Pt continues to senior java engineer the corner naked.
--- NOTE | 2019-06-22 09:53 | NUR ---
Pt is sitting on the floor naked. He refuses to eat or get dressed. He will only say no
--- NOTE | 2019-06-22 11:33 | NUR ---
pt is pacing in his room, he is still naked.
--- NOTE | 2019-06-22 11:57 | NUR ---
Pt pacing next to his bed
--- NOTE | 2019-06-22 11:57 | NUR ---
Pt has appointment on 06/26/19 at [facility] and with Dr Templeton 06/27/19 at 11 am.
--- NOTE | 2019-06-22 12:28 | NUR ---
Pt lying down
--- NOTE | 2019-06-22 12:33 | NUR ---
pt is pacing next to the bed, he is still naked.
--- NOTE | 2019-06-22 13:30 | NUR ---
registration attempted bedside follow up but pt would not respond.
--- NOTE | 2019-06-22 13:42 | NUR ---
This rn is currently breaking david rn. pt is naked pacing near bedside. pt refuses lunch and meds.
--- NOTE | 2019-06-22 14:48 | NUR ---
pt is dressed and laying in bed. Does not appear to be in distress.
--- NOTE | 2019-06-22 14:49 | NUR ---
Pt currently wearing both his scrub pants and scrub top
--- NOTE | 2019-06-22 15:22 | NUR ---
Pt eating his meal and drinking water and lemonade
--- NOTE | 2019-06-22 16:59 | NUR ---
Pt pacing by his head
--- NOTE | 2019-06-22 17:47 | NUR ---
Pt ate a sandwich, and drank cocoa and lemonade
[2019-06-22 17:58] VITALS: BP 146/75
--- NOTE | 2019-06-22 19:16 | NUR ---
Patient paces [place] and sits on bed. He will not speak with this underwriter mortgage loan. Patient under close observation, in view from nursing station.
[2019-06-22] MEDS: ARIPIPRAZOLE 10 MG TABLET PO SCH (21:00)
[2019-06-22] MEDS: traZODone 50mg tablet PO SCH (21:00)
--- NOTE | 2019-06-22 21:44 | NUR ---
Patient sitting on floor next to bed. Patient refuses medications.
--- NOTE | 2019-06-22 23:55 | NUR ---
Pt calm and in bed wtih eyes closed. Lying on his right side with blankets covering to his shouders. RR 14 and unlabored. Staff within view of Pt AAT.
--- NOTE | 2019-06-23 01:20 | NUR ---
Patient sleeping on his left side in bed.
--- NOTE | 2019-06-23 01:20 | NUR ---
Patient is sleeping mid fowlers position in bed.
--- NOTE | 2019-06-23 01:35 | NUR ---
Patient is up to bathroom to void then back to bed. Patient does not speak to staff.
--- NOTE | 2019-06-23 05:30 | NUR ---
Pt refused AM vitals. RN aware.
--- NOTE | 2019-06-23 05:37 | NUR ---
Patient refuses morning vital signs to be taken. He presents as awake and aware. His voice is clear whtn he chooses to talk.
--- NOTE | 2019-06-23 07:00 | NUR ---
pt is resting in bed
[2019-06-23] MEDS: aripiprazole 5mg tablet PO SCH ×2 (08:00→08:07)
[2019-06-23] MEDS: pantoprazole 40mg Tablet.DR PO SCH (08:00)
[2019-06-23] MEDS: clonazePAM 1mg tablet PO SCH ×2 (08:00→08:07)
--- NOTE | 2019-06-23 08:00 | NUR ---
pt is pacing by his bed. pt can be redirected to some degree
--- NOTE | 2019-06-23 09:00 | NUR ---
pt finished all his breakfast
--- NOTE | 2019-06-23 09:23 | NUR ---
pt is refusing to take his meds at this time. pt is pacing by his med. pt will speak with staff but just using yes and no responses
--- NOTE | 2019-06-23 09:41 | NUR ---
spoke with [facility] is scheduled to come off on
--- NOTE | 2019-06-23 10:00 | NUR ---
PT IS RESTING IN BED. SEEMS TO BE AWAKING UP MORE AFTER TAKING HIS MEDS
--- NOTE | 2019-06-23 11:00 | NUR ---
PT IS UP AND WAKING UP
--- NOTE | 2019-06-23 12:00 | NUR ---
PT IS TALKING TO STAFF. INTERACTING. WALKING AROUND
--- NOTE | 2019-06-23 13:00 | NUR ---
SPOKE WITH ABOUT [facility] ORDERING [facility]. PT WAS ON THE MEDICATION BEFORE PER MENTAL HEALTH AND HE DID WELL. PT IS REQUESTING TO TRY THE MEDICATION AGAIN
--- NOTE | 2019-06-23 14:00 | NUR ---
PT IS TALKING WITH STAFF. PT HAS BEEN KEEPING ALL HIS CLOTHES ON
--- NOTE | 2019-06-23 15:00 | NUR ---
PT IS AWAKING AROUND UNIT. HE STATES THE VOICES HE HEARS IS GETTING BETTER
--- NOTE | 2019-06-23 16:00 | NUR ---
PT HAS TAKEN A BREAK FROM PACING AROUND AND RETURNED BACK TO BED
[2019-06-23] MEDS ORDERED: LORazepam 1 MG tablet PO ONE (16:35)
--- NOTE | 2019-06-23 17:00 | NUR ---
PT IS BACK UP AND WALKING AROUND. HE IS LAUGHING AND JOKING WITH STAFF
--- NOTE | 2019-06-23 17:27 | NUR ---
PT WALKING UP AND DOWN HALLWAY FOR EXERCISE.
--- NOTE | 2019-06-23 18:04 | NUR ---
REPORT GIVEN TO NIGHT RN. PT IS RESTING IN BED. PT REFUSED FOR HIS VITAL SIGNS TO BE TAKEN AT THIS TIME
== END 2019-06-23 21:52 ==
LOC: ER 13:29
DX: F25.9 Schizoaffective disorder, unspecified (principal); K21.9 Gastro-esophageal reflux disease without esophagitis; G89.29 Other chronic pain; F31.9 Bipolar disorder, unspecified; F10.99 Alcohol use, unspecified with unspecified alcohol-induced disorder; Z98.890 Other specified postprocedural states; Z60.2 Problems related to living alone; Z59.0 Homelessness; Z88.0 Allergy status to penicillin; Z88.8 Allergy status to other drugs, medicaments and biological substances; Z79.899 Other long term (current) drug therapy; Y90.9 Presence of alcohol in blood, level not specified
CPT/HCPCS: 36415; 80053; 80305; 80320; 81003; 84443; 85025; 99285

== ENCOUNTER 2021-03-15 13:54 | Emergency (ER) | payer MEDICAID ==
[~2021-03-15] VITALS: Ht 179.1 cm; Wt 77.3 kg
[~2021-03-15 13:54] MED LIST changes: -ARIP10TA17 PO; -ARIP20TA10 PO; +ARIP30TA22 PO; +ATOM80CA PO; -CLON-286 PO; +CLON0.5T4 PO; +PANT-47 PO; -PANT40TA4 PO; +QUET50TA22 PO; -TRAZ-251 PO
[2021-03-15 14:11] VITALS: BP 132/83
[2021-03-15] MEDS ORDERED: clonazePAM 1mg tablet PO ONE (14:35)
[2021-03-15 14:39] LABS: BASOPHILS % (AUTO) 0.5 % (0-1); EOSINOPHILS # (AUTO) 0.1 X10'3 (0-0.9); EOSINOPHILS % (AUTO) 1.5 % (0-6); HEMOGLOBIN 16.4 g/dl (14.0-17.9); LYMPHOCYTES # (AUTO) 1.4 X10'3 (1.1-4.8); LYMPHOCYTES % (AUTO) 15.5 % (21-51); MEAN CORPUSCULAR HGB CONC 34.2 g/dL (33.0-36.5); MEAN CORPUSCULAR VOLUME 90.5 FL (78-98); MEAN PLATELET VOLUME 8.3 FL (7.4-10.4); MONOCYTES # (AUTO) 0.9 X10'3 (0-0.9); NEUTROPHILS # (AUTO) 6.7 X10'3 (1.8-7.7); NEUTROPHILS % (AUTO) 72.5 % (42-75); PLATELET COUNT 267 X10'3 (140-440); RED CELL DISTRIBUTION WIDTH 13.6 % (11.5-14.5); WHITE BLOOD COUNT 9.3 X10'3 (4.5-11.0)
[2021-03-15 14:45] LABS: ALANINE AMINOTRANSFERASE 30 U/L (12-78); ALBUMIN 4.3 G/DL (3.4-5.0); ALBUMIN/GLOBULIN RATIO 1.3 (1.1-1.5); ALKALINE PHOSPHATASE 85 IU/L (46-116); ANION GAP 11 (8-16); ASPARTATE AMINO TRANSFERASE 22 U/L (10-37); BILIRUBIN,TOTAL 0.8 MG/DL (0.1-1.0); BLOOD UREA NITROGEN 9 MG/DL (7-18); BUN/CREATININE RATIO 8.7 (5.4-32.0); CALCIUM 9.1 MG/DL (8.5-10.1); CHLORIDE 104 MMOL/L (99-107); CREATININE 1.04 MG/DL (0.60-1.10); GLUCOSE 103 MG/DL (70-104); POTASSIUM 4.1 MMOL/L (3.5-5.1); SODIUM 141 MMOL/L (135-145); TOTAL CARBON DIOXIDE 25.9 MMOL/L (24-32); TOTAL PROTEIN 7.7 G/DL (6.4-8.2); eGFR 83 ML/MIN
[2021-03-15 14:48] LABS: CLARITY,URINE CLEAR (Clear); COLOR,URINE YELLOW (Yellow); GLUCOSE, URINE NEGATIVE (Neg); KETONES,URINE NEGATIVE (Neg); LEUKOCYTE ESTERASE ,URINE TRACE (Neg); NITRITES, URINE NEGATIVE (Neg); OCCULT BLOOD,URINE NEGATIVE (Neg); PH,URINE 8.5 (4.8-8.0); PROTEIN,URINE NEGATIVE (Neg); UROBILINOGEN,URINE 0.2 E.U/dL (0.2-1.0)
[2021-03-15 14:59] LABS: UA COLLECTION TYPE NON-SPECIFIED
[2021-03-15 15:01] LABS: RBC,URINE NONE SEEN /HPF (0-2); URINE AMPHETAMINE SCREEN NEGATIVE (Neg); URINE BARBITUATE SCREEN NEGATIVE (Neg); URINE BENZODIAZEPINES SCREEN NEGATIVE (Neg); URINE CANNABINOID SCREEN NEGATIVE (Neg); URINE COCAINE SCREEN NEGATIVE (Neg); URINE METHADONE SCREEN NEGATIVE (Neg); URINE OPIATE SCREEN NEGATIVE (Neg); URINE PHENCYCLIDINE SCREEN NEGATIVE (Neg); WBC,URINE 0-4 /HPF (0-4)
[2021-03-15 15:02] LABS: ETHANOL < 0.010 GM/DL (0.0-0.010)
[2021-03-15 15:02] LABS: BACTERIA,URINE NONE SEEN /HPF (Neg); MUCUS STRANDS NONE SEEN /LPF (Neg); SQUAMOUS EPITHELIAL CELL,UR FEW /LPF (FEW)
--- NOTE | 2021-03-15 15:13 | NUR ---
CHANGED INTO GREEN SCRUBS & BELONGINGS COLLECTED.
--- NOTE | 2021-03-15 17:06 | NUR ---
TC FROM NURSE BERTA AT [facility] [place] FOR NURSE TO NURSE REPORT. PRIMARY NURSE IS ON BREAK AND WILL CALL TO GIVE REPORT WHEN HE RETURNS. [facility] NUMBER IS , EXT 1.
--- NOTE | 2021-03-15 18:40 | NUR ---
Patient provided with dinner tray- calm and coopeartive. Able to feed himself independently.
[2021-03-15] MEDS ORDERED: ATOM40CA PO (19:16)
[2021-03-15] MEDS ORDERED: CLON0.5T23 PO (19:16)
[2021-03-15] MEDS ORDERED: QUET25TA34 PO (19:16)
[2021-03-15] MEDS ORDERED: clonazePAM 0.5mg tablet PO SCH (20:00)
--- NOTE | 2021-03-15 20:44 | NUR ---
Negative Covid swab faxed to [facility]- notified staff development manager. 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
[2021-03-15] MEDS ORDERED: QUEtiapine 25mg tablet PO SCH (21:00)
[2021-03-16] MEDS ORDERED: atomoxetine 40 MG capsule PO SCH (08:00)
== END 2021-03-15 21:08 ==
LOC: ER 13:54
DX: F25.0 Schizoaffective disorder, bipolar type (principal); Z20.822 Contact with and (suspected) exposure to COVID-19; R45.1 Restlessness and agitation; K21.9 Gastro-esophageal reflux disease without esophagitis; G89.29 Other chronic pain; F31.9 Bipolar disorder, unspecified; Z98.890 Other specified postprocedural states; Z72.89 Other problems related to lifestyle; Z60.2 Problems related to living alone; Z59.0 Homelessness; Z88.0 Allergy status to penicillin; Z88.8 Allergy status to other drugs, medicaments and biological substances; Z79.899 Other long term (current) drug therapy
CPT/HCPCS: 36415; 80053; 80305; 80320; 81001; 84443; 85025; 87635; 99285; C9803

== ENCOUNTER 2021-04-02 23:04 | Emergency (ER) | payer MEDICAID ==
[~2021-04-02] VITALS: Ht 172.7 cm; Wt 70.0 kg
[~2021-04-02 23:04] MED LIST changes: -ARIP30TA22 PO; +ATOM40CA PO; -ATOM80CA PO; +CLON0.5T23 PO; -CLON0.5T4 PO; -PANT-47 PO; +QUET25TA36 PO; -QUET50TA22 PO
[2021-04-02 23:27] LABS: MEAN CORPUSCULAR VOLUME 89.9 FL (78-98); MEAN PLATELET VOLUME 8.1 FL (7.4-10.4)
[2021-04-02 23:29] LABS: BASOPHILS % (AUTO) 0.3 % (0-1); EOSINOPHILS # (AUTO) 0.3 X10'3 (0-0.9); EOSINOPHILS % (AUTO) 2.9 % (0-6); HEMATOCRIT 37.3 % (42.0-52.0); LYMPHOCYTES # (AUTO) 1.7 X10'3 (1.1-4.8); LYMPHOCYTES % (AUTO) 17.4 % (21-51); MEAN CORPUSCULAR HEMOGLOBIN 31.2 PG (27.0-31.0); MEAN CORPUSCULAR HGB CONC 34.7 g/dL (33.0-36.5); MONOCYTES # (AUTO) 1.3 X10'3 (0-0.9); MONOCYTES % (AUTO) 13.7 % (2-12); NEUTROPHILS # (AUTO) 6.3 X10'3 (1.8-7.7); NEUTROPHILS % (AUTO) 65.7 % (42-75); PLATELET COUNT 204 X10'3 (140-440); RED BLOOD COUNT 4.15 X10'6 (4.70-6.10); RED CELL DISTRIBUTION WIDTH 12.5 % (11.5-14.5); WHITE BLOOD COUNT 9.5 X10'3 (4.5-11.0)
[2021-04-02 23:41] LABS: ALANINE AMINOTRANSFERASE 26 U/L (12-78); ALBUMIN 3.5 G/DL (3.4-5.0); ALKALINE PHOSPHATASE 55 IU/L (46-116); ANION GAP 12 (8-16); ASPARTATE AMINO TRANSFERASE 30 U/L (10-37); BILIRUBIN,TOTAL 0.7 MG/DL (0.1-1.0); BLOOD UREA NITROGEN 12 MG/DL (7-18); BUN/CREATININE RATIO 11.7 (5.4-32.0); CALCIUM 8.3 MG/DL (8.5-10.1); CHLORIDE 105 MMOL/L (99-107); CREATININE 1.03 MG/DL (0.60-1.10); ETHANOL < 0.010 GM/DL (0.0-0.010); GLUCOSE 139 MG/DL (70-104); POTASSIUM 3.3 MMOL/L (3.5-5.1); SODIUM 143 MMOL/L (135-145); TOTAL CARBON DIOXIDE 25.9 MMOL/L (24-32); eGFR 84 ML/MIN
[2021-04-02] MEDS ORDERED: LORazepam 2 mg/ml vial ONE (23:59)
[2021-04-03] MEDS ORDERED: diphenhydrAMINE 50 mg/ml inj IM ONE (02:00)
[2021-04-03] MEDS ORDERED: haloperidol lactate 5mg/ml inj IM ONE (02:00)
[2021-04-03] MEDS ORDERED: LORazepam 2 mg/ml vial IM ONE (02:00)
--- NOTE | 2021-04-03 03:15 | NUR ---
pt refusing cath ua.
--- NOTE | 2021-04-03 07:00 | NUR ---
Patient assessed, attempted interview but pt not making any sense. Able to answer just simple questions.
[2021-04-03] MEDS ORDERED: QUET25TA PO ×2 (07:19→07:31)
[2021-04-03] MEDS ORDERED: BUPR-94 PO (07:19)
[2021-04-03] MEDS ORDERED: QUET50TA PO (07:31)
[2021-04-03] MEDS ORDERED: OMEP40CA21 PO (07:31)
[2021-04-03] MEDS ORDERED: CLON-528 PO (07:31)
[2021-04-03] MEDS ORDERED: QUET200T PO (07:31)
[2021-04-03] MEDS ORDERED: VENL25TA48 PO (07:31)
[2021-04-03] MEDS ORDERED: QUEtiapine 25mg tablet PO PRN (07:50)
--- NOTE | 2021-04-03 09:00 | NUR ---
resting with eyes closed
--- NOTE | 2021-04-03 10:30 | NUR ---
Pt now more verbal, sitting up. given water and some snacks
[2021-04-03 13:06] LABS: CLARITY,URINE SLIGHTLY CLOUDY (Clear); COLOR,URINE YELLOW (Yellow); GLUCOSE, URINE NEGATIVE (Neg); KETONES,URINE NEGATIVE (Neg); LEUKOCYTE ESTERASE ,URINE NEGATIVE (Neg); NITRITES, URINE NEGATIVE (Neg); OCCULT BLOOD,URINE NEGATIVE (Neg); PROTEIN,URINE TRACE mg/dl (Neg)
[2021-04-03 13:18] LABS: UA COLLECTION TYPE CLN CATCH MIDSTREAM
[2021-04-03] MEDS: QUEtiapine 25mg tablet PO SCH (13:24)
[2021-04-03] MEDS: clonazePAM 0.5mg tablet PO SCH ×2 (13:24→20:44)
[2021-04-03] MEDS: buPROPion SR 150mg tablet PO SCH (13:24)
[2021-04-03] MEDS: venlafaxine 37.5mg tablet PO SCH (13:24)
[2021-04-03 13:27] LABS: URINE AMPHETAMINE SCREEN POSITIVE (Neg); URINE BARBITUATE SCREEN NEGATIVE (Neg); URINE BENZODIAZEPINES SCREEN POSITIVE (Neg); URINE CANNABINOID SCREEN NEGATIVE (Neg); URINE COCAINE SCREEN NEGATIVE (Neg); URINE METHADONE SCREEN NEGATIVE (Neg); URINE OPIATE SCREEN POSITIVE (Neg); URINE PHENCYCLIDINE SCREEN NEGATIVE (Neg)
[2021-04-03] MEDS: atomoxetine 40 MG capsule PO SCH (13:27)
[2021-04-03 13:28] LABS: MUCUS STRANDS MANY /LPF (Neg); SQUAMOUS EPITHELIAL CELL,UR NONE SEEN /LPF (FEW)
[2021-04-03 13:29] LABS: BACTERIA,URINE FEW /HPF (Neg); RBC,URINE 0-2 /HPF (0-2); WBC,URINE 0-4 /HPF (0-4)
--- NOTE | 2021-04-03 16:43 | NUR ---
RESTING WITH EYES CLOSED
--- NOTE | 2021-04-03 19:04 | NUR ---
ASSUMED CARE OF PATIENT WITH RN SHAI BARDALES ORIENTATION . PT RESTING PEACFULLY IN ROON PRONE RESP EVEN AND UNLABORED PT IN THE DIRECT LINE OF SIGHT OF NURSING STAFF . BELONGING LIST COMPLETED AT BEDSIDE PRIOR TO ASSUMING CARE . MED REC FAXED TO PHARMACY . REPORT GIVEN THAT PT WAS AWAITING PLACEMENT . WAS SEEN BY [facility] THIS AFTERNOON . PT UPDATED PLAN OF CARE NO QURSTIONS ASKED PT COROPORTATIVE .
[2021-04-03] MEDS ORDERED: quetiapine 100mg tablet PO SCH (21:00)
--- NOTE | 2021-04-03 21:12 | NUR ---
Eloisa from [facility] states patient will probably be accepted back to [facility] in the morning but they need a COVID swab done.
--- NOTE | 2021-04-03 22:15 | NUR ---
COVID SWAB SENT TO LAB
[2021-04-04] MEDS ORDERED: pantoprazole 40mg Tablet.DR PO SCH (07:30)
[2021-04-04] MEDS: venlafaxine 37.5mg tablet PO SCH (08:05)
[2021-04-04] MEDS: buPROPion SR 150mg tablet PO SCH (08:05)
[2021-04-04] MEDS: clonazePAM 0.5mg tablet PO SCH (08:05)
[2021-04-04] MEDS: QUEtiapine 25mg tablet PO SCH (08:06)
[2021-04-04 08:08] VITALS: BP 134/80
--- NOTE | 2021-04-04 08:13 | NUR ---
called pharmacy to ask about pt stratera 40 mg cap .
--- NOTE | 2021-04-04 08:16 | NUR ---
recived the medication strattera .will medicated the pt ,called the dietry to make sure that pt does not have caffeine in coffe as per dietry office 5117 said the coffe which comes to main er is without caffeine .
[2021-04-04] MEDS: atomoxetine 40 MG capsule PO SCH (08:19)
--- NOTE | 2021-04-04 08:28 | NUR ---
pt went to use restroom at this time ,with steady gait ,will cont to keep an eye on pt.
--- NOTE | 2021-04-04 08:48 | NUR ---
pt sleeping in supine position in bed ,rr within normal limits ,equal chest rise nad fall.
== END 2021-04-04 10:30 ==
LOC: ER 23:05
DX: R45.851 Suicidal ideations (principal); K21.9 Gastro-esophageal reflux disease without esophagitis; F31.9 Bipolar disorder, unspecified; F20.9 Schizophrenia, unspecified; Z56.0 Unemployment, unspecified; Z88.0 Allergy status to penicillin; Z88.8 Allergy status to other drugs, medicaments and biological substances; Z20.822 Contact with and (suspected) exposure to COVID-19
CPT/HCPCS: 36415; 80053; 80305; 80320; 81001; 85025; 87635; 96372; 99285; C9803; J1200; J1630; J2060

== ENCOUNTER 2021-04-04 09:36 | Inpatient (IN) | payer MEDICAID ==
[~2021-04-04] VITALS: Ht 177.8 cm; Wt 81.9 kg
[~2021-04-04 09:36] MED LIST changes: +BUPR-94 PO; +CLON-528 PO; -CLON0.5T23 PO; +OMEP40CA21 PO; +QUET200T PO; +QUET25TA PO; -QUET25TA36 PO; +QUET50TA PO; +VENL25TA48 PO
[2021-04-04 09:57] VITALS: BP 110/69
--- NOTE | 2021-04-04 10:00 | NUR ---
ADMIT NOTE: Pt. admitted to unit from ER on 5150 which states that pt. was not eating food because it is too warm for his system. That he hasnt slept in days and reported not drinking anything until [facility] offered him water Pt. escorted on unit by security in staff. Vitals taken and skin assessment done. Pt. showered and cooperative with admission and physical assessments. During interview pt. states, I Needed help. My feet were hurting. I was going insane. I need to clear my mind and get into a board and care. I need to let my feet cool off. Pt. reports that he is hearing voices that tell he will get beat up if he eats food. Pt. repots losing over 10 lbs. Pt.s speech is pressured and he is hyperverbal. Pt. states, I think Im autistic. Caffeine helps me talk to the voices in my head Im stressed out, Im pulling my life together for myself and everyone else. Pt. reports drinking ETOH 3 days ago in an attempt to quiet his voices. Pt. states, I only drink when there an absolute medical need. Alcohol is an antipsychotic, I need it when the voices are too heavy. Pt. also reports using opiates and meth to control the pain in his feet. Pt. states, I couldnt find a doctor for pain medicine so I used drugs. Pt. reports abusing opiates since he was 11 y.o. Pt. reports being off his meds for Quite a few days. Pt. reports he cannot go back to living with his dad. Pt. reports passive SI. Pt. states, I feel like wanting life to cease for the last couple months. I Just want to go to sleep and not wake up., have it all be over. Too much is expected out of me.
[2021-04-04] MEDS ORDERED: acetaminophen 325mg tablet PO PRN (10:45)
[2021-04-04] MEDS ORDERED: traZODone 50mg tablet PO PRN (10:45)
[2021-04-04] MEDS: acetaminophen 325mg tablet PO PRN (12:40)
[2021-04-04] MEDS: LORazepam 1 MG tablet PO PRN ×2 (13:35→14:25)
[2021-04-04] MEDS: magnesium hydroxide 30ml (MOM) UD suspension PO PRN (14:06)
[2021-04-04] MEDS ORDERED: ziprasidone IM 20mg inj **IM only IM ONE (14:35)
[2021-04-04] MEDS: QUEtiapine 25mg tablet PO PRN (18:52)
[2021-04-04] MEDS: clonazePAM 0.5mg tablet PO SCH (20:00)
[2021-04-04] MEDS: quetiapine 100mg tablet PO SCH (20:01)
[2021-04-04 20:25] VITALS: BP 97/67
--- NOTE | 2021-04-04 23:19 | NUR ---
Nursing Progress Note: [employer] hold:515 Client on voluntary/involuntary status for GD Report received from nurse Kylie JUAREZ with use of SBAR Why are they here: Pt. admitted to unit from ER on 515 which states that pt. was not eating food because it is too warm for his system. That he hasnt slept in days and reported not drinking anything until [facility] offered him water Pt. escorted on unit by security in staff. Vitals taken and skin assessment done. Pt. showered and cooperative with admission and physical assessments. During interview pt. states, I Needed help. My feet were hurting. I was going insane. I need to clear my mind and get into a board and care. I need to let my feet cool off. Pt. reports that he is hearing voices that tell he will get beat up if he eats food. Pt. repots losing over 10 lbs. Pt.s speech is pressured and he is hyperverbal. Pt. states, I think Im autistic. Caffeine helps me talk to the voices in my head Im stressed out, Im pulling my life together for myself and everyone else. Pt. reports drinking ETOH 3 days ago in an attempt to quiet his voices. Pt. states, I only drink when there an absolute medical need. Alcohol is an antipsychotic, I need it when the voices are too heavy. Pt. also reports using opiates and meth to control the pain in his feet. Pt. states, I couldnt find a doctor for pain medicine so I used drugs. Pt. reports abusing opiates since he was 11 y.o. Pt. reports being off his meds for Quite a few days. Pt. reports he cannot go back to living with his dad. Pt. reports passive SI. Pt. states, I feel like wanting life to cease for the last couple months. I Just want to go to sleep and not wake up., have it all be over. Too much is expected out of me. Assessment What has happened this shift:Pt was in bed at change of shift. He awoke just beore snack time asked foraPrn for anxiety Seroquel 25 mg given and helpfull. Pt ate snack in group room sitting by him self. he was med compliant then went to bed S/I, H/I: wants life to cease. A/VH: reports voices Sleep:See sleep assessment ADL's: ind Group attendance:none Were meds taken:yes Any med S/E none Mental Status Exam Appearance: Dressed in Green Scrubs Eye contact: fair Behavior: Isolative Speech: Pressured Mood: Depressed Affect: flat Thought process: linear Thought Content: circumstantial Cognition: congruent Insight: poor Judgment:poor Interventions PRN's used:none Therapeutic interventions: 1:1 assessment, therapeutic communication, active listening, ensured contract for safety, medication administration/education/monitoring, encouragement to come out of room and participate in unit activities Q 15 minute safety checks. Restraints/seclusion/emergency medication: N/A Justification of Continued Inpatient Treatment: Patient requires interruption of current crisis in safe and therapeutic milieu.
[2021-04-05 07:26] LABS: HEMOGLOBIN A1C 5.7 % (4.5-6.2)
[2021-04-05 07:44] LABS: CHOL/HDL RATIO 3.6 (0.00-4.99); CHOLESTEROL 111 MG/DL (0-200); HDL CHOLESTEROL 31 MG/DL (35-60); LDL CHOLESTEROL 61 MG/DL (50-100); TRIGLYCERIDES 51 MG/DL (20-135)
[2021-04-05 07:46] VITALS: BP 113/59
[2021-04-05] MEDS: clonazePAM 0.5mg tablet PO SCH (08:00)
[2021-04-05] MEDS: buPROPion SR 150mg tablet PO SCH (08:00)
[2021-04-05] MEDS: QUEtiapine 25mg tablet PO SCH (08:00)
[2021-04-05] MEDS: pantoprazole 40mg Tablet.DR PO SCH (08:01)
[2021-04-05] MEDS: acetaminophen 325mg tablet PO PRN ×2 (10:38→17:16)
[2021-04-05] MEDS: QUEtiapine 25mg tablet PO PRN (10:38)
[2021-04-05] MEDS ORDERED: olanzapine 10mg tablet PO ONE (12:45)
--- NOTE | 2021-04-05 15:22 | NUR ---
Received order per SANDOR Olson, for PRN Olanzapine 10mg PO, one time dose for patient. PRN Olanzapine effective with no ASE noted.
[2021-04-05] MEDS ORDERED: haloperidol 5mg tablet PO ONE (16:35)
[2021-04-05] MEDS ORDERED: LORazepam 1 MG tablet PO ONE (16:35)
--- NOTE | 2021-04-05 17:28 | NUR ---
Pt noted walking up to the nurses station, punching his fists and demanding PRN Ativan. Pt having nonsensical delusions of being a super hero. Tangential thought process. One time order of PRN Ativan 2mg PO and Haldol 10mg PO given via verbal order per SANDOR Olson. Addendum: 04/05/21 at 1732 by Josefina Davis RN At Approximately 1630, pt noted walking up to the nurses station, punching his fists and demanding PRN Ativan. Pt having nonsensical delusions of being a super hero. Tangential thought process. One time order of PRN Ativan 2mg PO and Haldol 10mg PO given via verbal order per PA. Whitney
--- NOTE | 2021-04-05 17:29 | NUR ---
Nursing Progress Note: [employer] hold: 5150 for GD Report received from nurse Silke RN with use of SBAR Why are they here: Pt. admitted to unit from ER on 5150 which states that pt. was not eating food because it is too warm for his system. That he hasnt slept in days and reported not drinking anything until [facility] offered him water Pt. escorted on unit by security in staff. Vitals taken and skin assessment done. Pt. showered and cooperative with admission and physical assessments. During interview pt. states, I Needed help. My feet were hurting. I was going insane. I need to clear my mind and get into a board and care. I need to let my feet cool off. Pt. reports that he is hearing voices that tell he will get beat up if he eats food. Pt. repots losing over 10 lbs. Pt.s speech is pressured and he is hyperverbal. Pt. states, I think Im autistic. Caffeine helps me talk to the voices in my head Im stressed out, Im pulling my life together for myself and everyone else. Pt. reports drinking ETOH 3 days ago in an attempt to quiet his voices. Pt. states, I only drink when there an absolute medical need. Alcohol is an antipsychotic, I need it when the voices are too heavy. Pt. also reports using opiates and meth to control the pain in his feet. Pt. states, I couldnt find a doctor for pain medicine so I used drugs. Pt. reports abusing opiates since he was 11 y.o. Pt. reports being off his meds for Quite a few days. Pt. reports he cannot go back to living with his dad. Pt. reports passive SI. Pt. states, I feel like wanting life to cease for the last couple months. I Just want to go to sleep and not wake up., have it all be over. Too much is expected out of me. Assessment What has happened this shift: Patient noted sleeping in bed at shift change. He joined in the community room for breakfast, noted sitting with peers. Patient retreated back to his room. 1:1 assessment completed. Patient noted to be cooperative, yet restless and anxious. When asked if patient was experiencing AH, he stated, Yeah that I need caffeine. He endorsed to this screen writer that he is Feeling groggy this morning and has Fuzzy pushes on my head. Denies SI/HI or VH. He is compliant with mediation. Pt fixated on getting caffeine. Asking various staff members for coffee after being instructed to wait for snack time by primary nurse. Pt given PRN Seroquel 25mg for c/o anxiety. PRN Tylenol given for c/o bilateral foot pain from being on my feet all the time. He is noted walking around the unit talking to himself, appears to be responding to internal stimuli. Patient endorsed to this screen writer, I cant rest I am too crazy inside. Cant stop walking, but my feet hurt. Received order per SANDOR Olson, for PRN Olanzapine 10mg PO, one time dose for patient. PRN Olanzapine effective with no ASE noted. At approximately 1630 pt noted walking up to the nurses station, punching his fists and demanding PRN Ativan. Pt having nonsensical delusions of being a super hero. Tangential thought process. One time order of PRN Ativan 2mg and Haldol 10mg given via verbal order per SANDOR Olson. S/I, H/I: Denies A/VH: Pt reports experiencing VH Sleep: Pt slept 8 hours last night per NOC shift, on and off throughout the day ADL's: Independent Group attendance: No group provided today Were meds taken: Yes Any med S/E: None noted or reported Mental Status Exam Appearance: Clean, dressed appropriately for unit in green scrubs Eye contact: Fair Behavior: Self-isolating, perseveration on caffeine Speech: Clear Mood: Anxious, depressed Affect: Flat Thought process: Linear, Tangential Thought Content: Fixated on caffeine, circumstantial, experiencing AH Cognition: A&O x4, able to make needs known to staff Insight: Poor Judgment: Poor Interventions PRN's used: Seroquel, Tylenol, Olanzapine, Ativan 2mg and Haldol 10mg Therapeutic interventions: 1:1 assessment, therapeutic communication, active listening, ensured contract for safety, medication administration/education/monitoring, encouragement to participate in the unit, encouragement to come out of his room, Q 15 minute safety checks. Restraints/seclusion/emergency medication: N/A Justification of Continued Inpatient Treatment: Patient requires interruption of current crisis, medication adjustment and monitoring, and a safe and therapeutic environment. Patient is currently homeless.
[2021-04-05 20:00] VITALS: BP 105/60
[2021-04-05] MEDS: quetiapine 100mg tablet PO SCH (20:01)
--- NOTE | 2021-04-06 00:52 | NUR ---
Nursing Progress Note: [employer] hold: 5150 for GD Report received from nurse ANN Espinal with use of SBAR Why are they here: Pt. admitted to unit from ER on 5150 which states that pt. was not eating food because it is too warm for his system. That he hasnt slept in days and reported not drinking anything until [facility] offered him water Pt. escorted on unit by security in staff. Vitals taken and skin assessment done. Pt. showered and cooperative with admission and physical assessments. During interview pt. states, I Needed help. My feet were hurting. I was going insane. I need to clear my mind and get into a board and care. I need to let my feet cool off. Pt. reports that he is hearing voices that tell he will get beat up if he eats food. Pt. repots losing over 10 lbs. Pt.s speech is pressured and he is hyperverbal. Pt. states, I think Im autistic. Caffeine helps me talk to the voices in my head Im stressed out, Im pulling my life together for myself and everyone else. Pt. reports drinking ETOH 3 days ago in an attempt to quiet his voices. Pt. states, I only drink when there an absolute medical need. Alcohol is an antipsychotic, I need it when the voices are too heavy. Pt. also reports using opiates and meth to control the pain in his feet. Pt. states, I couldnt find a doctor for pain medicine so I used drugs. Pt. reports abusing opiates since he was 11 y.o. Pt. reports being off his meds for Quite a few days. Pt. reports he cannot go back to living with his dad. Pt. reports passive SI. Pt. states, I feel like wanting life to cease for the last couple months. I Just want to go to sleep and not wake up., have it all be over. Too much is expected out of me. Assessment What has happened this shift: Patient sleeping in bed at shift change. 1:1 assessment completed. Patient was cooperative Denies SI/HI or VH. He is compliant with mediation. Pt did get up for snack and ate in his room. Pt isolated to his room the entire shift S/I, H/I: Denies A/VH: Pt reports experiencing VH Sleep: See sleep assessment ADL's: Independent Group attendance: No group provided today Were meds taken: Yes Any med S/E: None noted or reported Mental Status Exam Appearance: Clean, dressed appropriately for unit in green scrubs Eye contact: Fair Behavior: Self-isolating, perseveration on caffeine Speech: Clear Mood: Anxious, depressed Affect: Flat Thought process: Linear, Tangential Thought Content: Fixated on caffeine, circumstantial, experiencing AH Cognition: A&O x4, able to make needs known to staff Insight: Poor Judgment: Poor Interventions PRN's used: none Therapeutic interventions: 1:1 assessment, therapeutic communication, active listening, ensured contract for safety, medication administration/education/monitoring, encouragement to participate in the unit, encouragement to come out of his room, Q 15 minute safety checks. Restraints/seclusion/emergency medication: N/A Justification of Continued Inpatient Treatment: Patient requires interruption of current crisis, medication adjustment and monitoring, and a safe and therapeutic environment. Patient is currently homeless.
[2021-04-06 08:00] VITALS: BP 105/72
[2021-04-06] MEDS: QUEtiapine 25mg tablet PO SCH (08:34)
[2021-04-06] MEDS: buPROPion SR 150mg tablet PO SCH (08:34)
[2021-04-06] MEDS: haloperidol 5mg tablet PO SCH (08:34)
[2021-04-06] MEDS: pantoprazole 40mg Tablet.DR PO SCH (08:34)
[2021-04-06] MEDS: QUEtiapine 25mg tablet PO PRN ×2 (11:46→18:34)
[2021-04-06] MEDS: acetaminophen 325mg tablet PO PRN ×3 (11:55→19:09)
[2021-04-06] MEDS: NICOTINE POLACRILEX 2 MG LOZENGE BC PRN (12:16)
[2021-04-06] MEDS ORDERED: haloperidol 5mg tablet PO ONE (14:35)
[2021-04-06] MEDS: LORazepam 1 MG tablet PO PRN (14:41)
[2021-04-06] MEDS: mag hydrox/Alum hydrox/simeth 30ml oral suspension PO PRN (15:32)
[2021-04-06] MEDS ORDERED: LORazepam 1 MG tablet PO ONE (15:50)
--- NOTE | 2021-04-06 16:13 | NUR ---
Nursing Progress Note: ÁNGEL Legal hold: 5150 for GD. Expires 04/07 @ 0957 Report received from ANN Edouard with use of SBAR Why are they here: Pt. admitted to unit from ER on 5150 which states that pt. was not eating food because it is too warm for his system. That he hasnt slept in days and reported not drinking anything until [facility] offered him water Pt. escorted on unit by security in staff. Vitals taken and skin assessment done. Pt. showered and cooperative with admission and physical assessments. During interview pt. states, I Needed help. My feet were hurting. I was going insane. I need to clear my mind and get into a board and care. I need to let my feet cool off. Pt. reports that he is hearing voices that tell he will get beat up if he eats food. Pt. repots losing over 10 lbs. Pt.s speech is pressured and he is hyperverbal. Pt. states, I think Im autistic. Caffeine helps me talk to the voices in my head Im stressed out, Im pulling my life together for myself and everyone else. Pt. reports drinking ETOH 3 days ago in an attempt to quiet his voices. Pt. states, I only drink when there an absolute medical need. Alcohol is an antipsychotic, I need it when the voices are too heavy. Pt. also reports using opiates and meth to control the pain in his feet. Pt. states, I couldnt find a doctor for pain medicine so I used drugs. Pt. reports abusing opiates since he was 11 y.o. Pt. reports being off his meds for Quite a few days. Pt. reports he cannot go back to living with his dad. Pt. reports passive SI. Pt. states, I feel like wanting life to cease for the last couple months. I Just want to go to sleep and not wake up., have it all be over. Too much is expected out of me. Assessment What has happened this shift: Received patient sleeping at shift change, no distress noted. Pt wakes, eat breakfast then returns to his room to sleep. Pt was cooperative with his medication and 1:1, but presented restless and anxious. Soon after pt woke up mid-morning he found ticket writer and reported my feet hurt. I need a PRN for my anxiety, besides Ativan coos the pain in my feet. Its because Im crazy thats why. Seroquel makes me dumb. I need Ativan. Pt presents with pressured, rapid speech and flight of ideas. My feet are sweaty I need Tylenol, then I will shower. Pt had PRN Seroquel 25mg and at first refused it, then later came back to ticket writer and requested it. Pt rocks back and forth during conversation. Pt was given an ice bag for his feet that he tossed in the garbage. Pt later became agitated again requesting Ativan. While waiting for orders to be placed pt became irritate you dont do nothing for me I have the truth! I am not in the army, you want to destroy everything I have. I need a higher prescription level I have a higher power! Pt then punched the observation window. Received order for Ativan 2 mg and Haldol 10mg with some effect. When asked about A/VH pt stated They beat me up everyday. They poke me like hot prongs (rubs his head). They think they are doing Gods will and they are not! Pt continues to intermittently pace the landaverde, but no other behaviors to report. Pt is intrusive interrupting conversation, but will later apologize. S/I, H/I: Denies both A/VH: Pt reports experiencing See note above. Sleep: 7.25 hours per sleep assessment. Pt lies on his bed, but doesnt sleep. ADL's: Independent Group attendance: No group scheduled today Were meds taken: Yes, without issue. Any med S/E: None noted or reported Mental Status Exam Appearance: Clean, well trimmed robertson. Dressed in green scrub bottoms and black polo shirt. Eye contact: Fair Behavior: Restless, anxious, paces halls, demanding for medication, intrusive. Speech: Clear, rapid, tangential, hyper verbal. Mood: Labile, anxious Affect: Flat Thought process: Linear, Tangential Thought Content: Getting medications. Cognition: A&O x4, able to make needs known to staff Insight: Poor Judgment: Poor Interventions PRN's used: Seroquel, Tylenol, Ativan 2mg and Haldol 10mg Therapeutic interventions: 1:1 assessment, therapeutic communication, active listening, ensured contract for safety, medication administration/education/monitoring, encouragement to participate in the unit, encouragement to come out of his room, Q 15 minute safety checks. Restraints/seclusion/emergency medication: N/A Justification of Continued Inpatient Treatment: Patient requires interruption of current crisis, medication adjustment and monitoring, and a safe and therapeutic environment. Patient is currently homeless. Addendum: 04/06/21 at 1625 by Caitlyn Paula RN Patient reports feeling gassy. Administered Maalox with effect.
[2021-04-06] MEDS: quetiapine 100mg tablet PO SCH (20:02)
[2021-04-06 20:04] VITALS: BP 143/86
--- NOTE | 2021-04-06 23:48 | NUR ---
Nursing Progress Note: ÁNGEL Legal hold: 5150 for GD. Expires 04/07 @ 0957 Report received from ANN Espinal with use of SBAR Why are they here: Pt. admitted to unit from ER on 5150 which states that pt. was not eating food because it is too warm for his system. That he hasnt slept in days and reported not drinking anything until [facility] offered him water Pt. escorted on unit by security in staff. Vitals taken and skin assessment done. Pt. showered and cooperative with admission and physical assessments. During interview pt. states, I Needed help. My feet were hurting. I was going insane. I need to clear my mind and get into a board and care. I need to let my feet cool off. Pt. reports that he is hearing voices that tell he will get beat up if he eats food. Pt. repots losing over 10 lbs. Pt.s speech is pressured and he is hyperverbal. Pt. states, I think Im autistic. Caffeine helps me talk to the voices in my head Im stressed out, Im pulling my life together for myself and everyone else. Pt. reports drinking ETOH 3 days ago in an attempt to quiet his voices. Pt. states, I only drink when there an absolute medical need. Alcohol is an antipsychotic, I need it when the voices are too heavy. Pt. also reports using opiates and meth to control the pain in his feet. Pt. states, I couldnt find a doctor for pain medicine so I used drugs. Pt. reports abusing opiates since he was 11 y.o. Pt. reports being off his meds for Quite a few days. Pt. reports he cannot go back to living with his dad. Pt. reports passive SI. Pt. states, I feel like wanting life to cease for the last couple months. I Just want to go to sleep and not wake up., have it all be over. Too much is expected out of me. Assessment What has happened this shift: Patient was up on the unit at shift change, Pt was cooperative with his medication .Pt presented restless and anxious. Pt complained about his head needs to cool off and his feet hurt. Pt wanted a prn Ativan to help. Pt given Seroquel 25 mg that was helpful. S/I, H/I: Denies both A/VH: Pt reports experiencing See note above. Sleep: See sleep assessment. ADL's: Independent Group attendance: No group scheduled today Were meds taken: Yes, without issue. Any med S/E: None noted or reported Mental Status Exam Appearance: Clean, well trimmed robertson. Dressed in green scrub bottoms and black polo shirt. Eye contact: Fair Behavior: Restless, anxious, paces halls, demanding for medication, intrusive. Speech: Clear, rapid, tangential, hyper verbal. Mood: Labile, anxious Affect: Flat Thought process: Linear, Tangential Thought Content: Getting medications. Cognition: A&O x4, able to make needs known to staff Insight: Poor Judgment: Poor Interventions PRN's used: Seroquel, Tylenol, Ativan 2mg and Haldol 10mg Therapeutic interventions: 1:1 assessment, therapeutic communication, active listening, ensured contract for safety, medication administration/education/monitoring, encouragement to participate in the unit, encouragement to come out of his room, Q 15 minute safety checks. Restraints/seclusion/emergency medication: N/A Justification of Continued Inpatient Treatment: Patient requires interruption of current crisis, medication adjustment and monitoring, and a safe and therapeutic environment. Patient is currently homeless.
[2021-04-07 07:12] VITALS: BP 109/71
[2021-04-07] MEDS: pantoprazole 40mg Tablet.DR PO SCH (07:26)
[2021-04-07] MEDS: haloperidol 5mg tablet PO SCH (07:26)
[2021-04-07] MEDS: buPROPion SR 150mg tablet PO SCH (07:26)
[2021-04-07] MEDS: QUEtiapine 25mg tablet PO SCH (07:26)
[2021-04-07] MEDS: LORazepam 1 MG tablet PO PRN ×2 (09:14→16:02)
--- NOTE | 2021-04-07 10:22 | NUR ---
Initial: Pt admit for schizoaffective disorder. Currently on a regular diet documented with 100% PO intake throughout LOS meeting estimated nutrient needs. LBM 04/04 with PRN bowel care available, last given 04/04 per EMR. D/w dietary to send prunes and prune juice with next meal to further assist with bowel regularity. Will continue to follow and monitor need for further nutrition intervention. Recommendations: 1) Continue regular diet 2) Routine bowel care 3) Weekly scaled weights Addendum: 04/07/21 at [address] Amended: Links added.
[2021-04-07] MEDS ORDERED: haloperidol 5mg tablet PO ONE (11:20)
[2021-04-07] MEDS ORDERED: LORazepam 1 MG tablet PO ONE (11:20)
[2021-04-07] MEDS ORDERED: diphenhydrAMINE 50 mg/ml inj ONE (11:38)
[2021-04-07] MEDS ORDERED: haloperidol lactate 5mg/ml inj ONE (11:38)
[2021-04-07] MEDS ORDERED: LORazepam 2 mg/ml vial ONE (11:39)
[2021-04-07] MEDS: NICOTINE POLACRILEX 2 MG LOZENGE BC PRN ×3 (11:54→16:57)
[2021-04-07] MEDS ORDERED: haloperidol 5mg tablet PO SCH (12:30)
--- NOTE | 2021-04-07 14:34 | NUR ---
PROBABLE CAUSE HEARING Patients Name: Van Viveros Admission Date: 04/04/21 Date of 5150: 04/02/21 Written by: [facility] Criteria: GD Summary of Facts: Arrived to [facility] disorganized and tangential. making bizarre statements and not making sense. Date of 525: 04/05/21 Written by: Radha Criteria: GD Summary of Facts: Pt wants to be conserved and go to a board and care. Failed outpt. Homeless, responding to internal stimuli Diagnosis: Schizoaffective d/o Behavior during past 48 HRS: Patient continues to be responding to internal stimuli. Patient will answer questions appropriately and then does go off talking to someone who is not there. Some of its very angry and hostile. I have put the patient on Ativan 4 times a day 1 mg because he is easily getting agitated. I asked what the voices were saying and stated that to Commit violence against myself. Patient states he is not tells the voices he is not going to do it. Patient talked about how his brain was on fire. In between the halves of the brain there was stuff going on feels hot. FOOD: 100 SLEEPIN ADLS: ind PRISON: homeless MEDICATION DOSAGE FREQUENCY DURATION Seroquel 50 mg q day, 200 mg q hs Haldol 5 mg po daily and 5 mg @l lunch Wellbutrin 150 mg po daily
--- NOTE | 2021-04-07 14:41 | NUR ---
Nursing Progress Note: ÁNGEL Legal hold: 5150 for GD. Expires 04/07 @ 0957 Report received from ANN Edouard with use of SBAR Why are they here: Pt. admitted to unit from ER on 5150 which states that pt. was not eating food because it is too warm for his system. That he hasnt slept in days and reported not drinking anything until [facility] offered him water Pt. escorted on unit by security in staff. Vitals taken and skin assessment done. Pt. showered and cooperative with admission and physical assessments. During interview pt. states, I Needed help. My feet were hurting. I was going insane. I need to clear my mind and get into a board and care. I need to let my feet cool off. Pt. reports that he is hearing voices that tell he will get beat up if he eats food. Pt. repots losing over 10 lbs. Pt.s speech is pressured and he is hyperverbal. Pt. states, I think Im autistic. Caffeine helps me talk to the voices in my head Im stressed out, Im pulling my life together for myself and everyone else. Pt. reports drinking ETOH 3 days ago in an attempt to quiet his voices. Pt. states, I only drink when there an absolute medical need. Alcohol is an antipsychotic, I need it when the voices are too heavy. Pt. also reports using opiates and meth to control the pain in his feet. Pt. states, I couldnt find a doctor for pain medicine so I used drugs. Pt. reports abusing opiates since he was 11 y.o. Pt. reports being off his meds for Quite a few days. Pt. reports he cannot go back to living with his dad. Pt. reports passive SI. Pt. states, I feel like wanting life to cease for the last couple months. I Just want to go to sleep and not wake up., have it all be over. Too much is expected out of me. Assessment Pt was active on the unit, walking the halls at various times during the shift. Pt is responding to IS by screaming, god fuck off, leave me alone. Pt became extremely agitated, yelling in the halls but not at staff. Pt was given 2 mg Ativan, 50 mg Benadryl, 10 mg Haldol, all IM. Pt continued to walk the halls but was no longer screaming. Pt was cooperative and polite despite being in obvious discomfort. Pt was screaming loudly and aggressively but it was never directed at staff. S/I, H/I: Denies both A/VH: Pt reports experiencing See note above. Sleep: See sleep assessment. ADL's: Independent Group attendance: No group scheduled today Were meds taken: Yes, without issue. Any med S/E: None noted or reported Mental Status Exam Appearance: Clean, wnl, in green scrubs Eye contact: Fair Behavior: Restless, anxious, paces halls Speech: Clear, rapid, tangential, hyper verbal. Mood: Labile, anxious Affect: Flat Thought process: Linear, Tangential Thought Content: Getting medications. Cognition: A&O x4, able to make needs known to staff Insight: Poor Judgment: Poor Interventions PRN's used: Ativan 4mg and Haldol 10mg, 50 mg benadryl Therapeutic interventions: 1:1 assessment, therapeutic communication, active listening, ensured contract for safety, medication administration/education/monitoring, encouragement to participate in the unit, encouragement to come out of his room, Q 15 minute safety checks. Restraints/seclusion/emergency medication: N/A Justification of Continued Inpatient Treatment: Patient requires interruption of current crisis, medication adjustment and monitoring, and a safe and therapeutic environment. Patient is currently homeless.
[2021-04-07] MEDS: ibuprofen 200mg tablet PO PRN (14:55)
[2021-04-07 19:00] VITALS: BP 117/66
[2021-04-07] MEDS: quetiapine 100mg tablet PO SCH (20:14)
--- NOTE | 2021-04-07 23:17 | NUR ---
Nursing Progress Note: ÁNGEL Legal hold: 5150 for GD. Expires 04/07 @ 0957 Report received from ANN Edouard with use of SBAR Why are they here: Pt. admitted to unit from ER on 5150 which states that pt. was not eating food because it is too warm for his system. That he hasnt slept in days and reported not drinking anything until [facility] offered him water Pt. escorted on unit by security in staff. Vitals taken and skin assessment done. Pt. showered and cooperative with admission and physical assessments. During interview pt. states, I Needed help. My feet were hurting. I was going insane. I need to clear my mind and get into a board and care. I need to let my feet cool off. Pt. reports that he is hearing voices that tell he will get beat up if he eats food. Pt. repots losing over 10 lbs. Pt.s speech is pressured and he is hyperverbal. Pt. states, I think Im autistic. Caffeine helps me talk to the voices in my head Im stressed out, Im pulling my life together for myself and everyone else. Pt. reports drinking ETOH 3 days ago in an attempt to quiet his voices. Pt. states, I only drink when there an absolute medical need. Alcohol is an antipsychotic, I need it when the voices are too heavy. Pt. also reports using opiates and meth to control the pain in his feet. Pt. states, I couldnt find a doctor for pain medicine so I used drugs. Pt. reports abusing opiates since he was 11 y.o. Pt. reports being off his meds for Quite a few days. Pt. reports he cannot go back to living with his dad. Pt. reports passive SI. Pt. states, I feel like wanting life to cease for the last couple months. I Just want to go to sleep and not wake up., have it all be over. Too much is expected out of me. Assessment Pt mostly isolated to his room all evening. Pt denies being suicidal but when asked about his voices, he responded, nothing I want to talk about. Pt did not have any behavior issues and accepted hs meds without issue. S/I, H/I: Denies both A/VH: Pt reports experiencing Sleep: See sleep assessment. ADL's: Independent Group attendance: No group scheduled today Were meds taken: Yes, without issue. Any med S/E: None noted or reported Mental Status Exam Appearance: Clean, wnl, in green scrubs Eye contact: good Behavior: cooperative, calm Speech: Clear, rapid, tangential, hyper verbal. Mood: Labile, anxious Affect: Flat Thought process: Linear, Tangential Thought Content: Getting medications. Cognition: A&O x4, able to make needs known to staff Insight: Poor Judgment: Poor Interventions PRN's used: trazadone Therapeutic interventions: 1:1 assessment, therapeutic communication, active listening, ensured contract for safety, medication administration/education/monitoring, encouragement to participate in the unit, encouragement to come out of his room, Q 15 minute safety checks. Restraints/seclusion/emergency medication: N/A Justification of Continued Inpatient Treatment: Patient requires interruption of current crisis, medication adjustment and monitoring, and a safe and therapeutic environment. Patient is currently homeless.
[2021-04-08] MEDS: pantoprazole 40mg Tablet.DR PO SCH (08:23)
[2021-04-08] MEDS: buPROPion SR 150mg tablet PO SCH (08:23)
[2021-04-08] MEDS: haloperidol 5mg tablet PO SCH ×2 (08:23→11:32)
[2021-04-08] MEDS: QUEtiapine 25mg tablet PO SCH (08:23)
[2021-04-08 08:58] VITALS: BP 124/54
[2021-04-08] MEDS: LORazepam 1 MG tablet PO PRN (09:37)
[2021-04-08] MEDS: NICOTINE POLACRILEX 2 MG LOZENGE BC PRN ×2 (09:37→12:12)
[2021-04-08] MEDS: mag hydrox/Alum hydrox/simeth 30ml oral suspension PO PRN ×2 (10:06→14:44)
[2021-04-08] MEDS: ibuprofen 200mg tablet PO PRN ×2 (10:45→19:04)
[2021-04-08] MEDS: QUEtiapine 25mg tablet PO PRN ×2 (11:34→16:16)
[2021-04-08] MEDS: acetaminophen 325mg tablet PO PRN (11:41)
[2021-04-08] MEDS: magnesium hydroxide 30ml (MOM) UD suspension PO PRN (14:44)
--- NOTE | 2021-04-08 15:02 | NUR ---
Nursing Progress Note: Legal hold: 5249 Client on involuntary status for GD Report received from nurse with use of SBAR: Gabrielle Banda RN Why are they here: Pt. admitted to unit from ER on 5149 which states that pt. was not eating food because it is too warm for his system. That he hasnt slept in days and reported not drinking anything until [facility] offered him water During interview pt. states, I Needed help. My feet were hurting. I was going insane. I need to clear my mind and get into a board and care. I need to let my feet cool off. Pt. reports that he is hearing voices that tell he will get beat up if he eats food. Pt. repots losing over 10 lbs. Pt.s speech is pressured and he is hyperverbal. Pt. states, I think Im autistic. Caffeine helps me talk to the voices in my head Im stressed out, Im pulling my life together for myself and everyone else. Pt. reports drinking ETOH 3 days ago in an attempt to quiet his voices. Pt. states, I only drink when there an absolute medical need. Alcohol is an antipsychotic, I need it when the voices are too heavy. Pt. also reports using opiates and meth to control the pain in his feet. Pt. states, I couldnt find a doctor for pain medicine so I used drugs. Pt. reports abusing opiates since he was 11 y.o. Pt. reports being off his meds for Quite a few days. Pt. reports he cannot go back to living with his dad. Pt. reports passive SI. Pt. states, I feel like wanting life to cease for the last couple months. I Just want to go to sleep and not wake up., have it all be over. Too much is expected out of me. Assessment What has happened this shift: Received pt. sleeping in bed at the beginning of the shift, he was awoken by staff for breakfast and then retreated back to bed afterwards. Pt. was compliant with all medications and then returned back to sleep, he awoke mid morning and immediately requested PRN Ativan for anxiety. When questioned by this blurb writer regarding the cause of his anxiety pt. stated, "They (his A/V/FOX) are trying to beat me up!" 1:1 completed, pt. denies any S/I or H/I, however reports ongoing A/V/FOX. Pt. states these A/FOX, "Tell me all kinds of things, and sometimes tell me to hurt myself." Pt. is cooperative with the assessment, but presents as guarded, restless, anxious, agitated at times, and impulsive. He appears suspicious and restlessly paces the unit throughout the day wearing headphones. Pt. later requests PRN Motrin and Tylenol r/t bilateral leg pain from walking the streets previously before coming to the hospital. Pt. states, "I was walking and my brain was boiling, it's still retarded!" Pt's agitation and restlessness appeared to increase throughout the day. He is observed to be actively responding to internal stimuli and accepted PRN Seroquel and Clonazepam. Afterwards, pt. was observed to be laughing aloud while talking to himself, his mood is labile. At approximately 1600, pt. began yelling aloud responding to A/FOX in a very agitated manner using vulgar language. Pt. began pacing the hallway at an increased rate, and knocked down the Exit sign twice. He was unable to be redirected by staff and continued to yell loudly at intervals. Security was called r/t safety precautions, and on order of Haldol 10mg IM was received from SANDOR Calvillo. This was administered in pt's left ventrogluteal, and he tolerated procedure well. Pt. later c/o of burning sensation in his body and stated, "The demons are burning me from the inside!" He was provided with ice packs and this blurb writer sat with him and offered comfort and encouragement, and after some time pt. was able to calm down. Pt's actions during this incident did border on behavioral at times, as he was noted to be smiling at intervals and medication seeking. Also, during this incident, pt. did exhibit some self injurious behaviors AEB hitting his head with the ice pack and later banging his head on his doorway. He was able to be redirected by this blurb writer, endorsed to SANDOR Calvillo and will continue to monitor. S/I, H/I: Denies, however admits to some command A/FOX at times A/VH: Pt. reports ongoing A/V/FOX, which are at times command in nature Sleep: Sleep hours are 9.25, he naps intermittently during the day ADL's: Pt. requires direction and encouragement Group attendance: N/A Were meds taken: Yes Any med S/E: None Mental Status Exam Appearance: Neat and appropriately dressed Eye contact: Fair Behavior: Cooperative, restless, anxious, agitation at times, and impulsive Speech: Responds minimally to direct questions, abrupt and frank at times Mood: Restless with some agitation a times Affect: Labile Thought process: Tangental with disorganization Thought Content: Ongoing A/V/FOX and paranoid delusions Cognition: A&O X3 Insight: Poor Judgment: Poor Interventions PRN's used:Ativan, Seroquel, Motrin, Tylenol, Maalox, and MOM Therapeutic interventions: Introduced self and established rapport, maintained a safe and supportive environment, ensured contract for safety, provided clear and simple instructions, attempted to orient to reality, provided active listening and direction as needed, monitored behaviors and need for intervention, and maintained Q 15min safety checks. Restraints/seclusion/emergency medication: N/A Justification of Continued Inpatient Treatment: Per SANDOR Jones, pt. continues to require interruption of current crisis, medication adjustments, and a safe and supportive environment.
[2021-04-08] MEDS: clonazePAM 1mg tablet PO SCH (16:01)
[2021-04-08] MEDS: traMADol 50MG tablet PO PRN (16:02)
[2021-04-08] MEDS ORDERED: QUEtiapine 25mg tablet PO ONE (16:20)
[2021-04-08] MEDS ORDERED: haloperidol lactate 5mg/ml inj ONE (16:36)
[2021-04-08 19:21] VITALS: BP 130/62
[2021-04-08] MEDS: quetiapine 100mg tablet PO SCH (20:16)
[2021-04-08] MEDS: traZODone 50mg tablet PO PRN (20:17)
--- NOTE | 2021-04-09 00:26 | NUR ---
Nursing Progress Note: Legal hold: 5249 Client on involuntary status for GD Report received from nurse with use of SBAR: ANN Camacho Why are they here: Pt. admitted to unit from ER on 5149 which states that pt. was not eating food because it is too warm for his system. That he hasnt slept in days and reported not drinking anything until [facility] offered him water During interview pt. states, I Needed help. My feet were hurting. I was going insane. I need to clear my mind and get into a board and care. I need to let my feet cool off. Pt. reports that he is hearing voices that tell he will get beat up if he eats food. Pt. repots losing over 10 lbs. Pt.s speech is pressured and he is hyperverbal. Pt. states, I think Im autistic. Caffeine helps me talk to the voices in my head Im stressed out, Im pulling my life together for myself and everyone else. Pt. reports drinking ETOH 3 days ago in an attempt to quiet his voices. Pt. states, I only drink when there an absolute medical need. Alcohol is an antipsychotic, I need it when the voices are too heavy. Pt. also reports using opiates and meth to control the pain in his feet. Pt. states, I couldnt find a doctor for pain medicine so I used drugs. Pt. reports abusing opiates since he was 11 y.o. Pt. reports being off his meds for Quite a few days. Pt. reports he cannot go back to living with his dad. Pt. reports passive SI. Pt. states, I feel like wanting life to cease for the last couple months. I Just want to go to sleep and not wake up., have it all be over. Too much is expected out of me. Assessment What has happened this shift: Received pt. up pacing in the hallway wearing headphones at the beginning of the shift, he approached this technical report writer and requested PRN Motrin for chronic bilateral leg pain. Medication administered with effectiveness. Pt. later attended snack and then immediately afterwards retreated to bed. This technical report writer attempted to complete 1:1 at bedside, however pt. appears fatigued and mumbles sometimes indiscernible responses. Pt. does report that his A/V/FOX have lessoned when questioned by this technical report writer. He is not observed to be actively responding aloud as he was during the previous shift, and no s/s of agitation exhibited. Pt. requested PRN Trazodone at HS and appears to be sleeping well. S/I, H/I: Unable to assess A/VH: Pt. reports ongoing A/V/FOX, however they have lessoned this shift Sleep: Pt. requests PRN Trazodone at HS, he appears to be resting comfortably ADL's: Pt. requires direction and encouragement Group attendance: N/A Were meds taken: Yes Any med S/E: None Mental Status Exam Appearance: Neat and appropriately dressed Eye contact: Fair Behavior: Cooperative, restless, and fatigued Speech: Responds minimally to direct questions, mumbled Mood: Restless Affect: Labile Thought process: Tangental with disorganization Thought Content: Ongoing A/V/FOX and paranoid delusions Cognition: A&O X3 Insight: Poor Judgment: Poor Interventions PRN's used: Motrin Therapeutic interventions: Maintained a safe and supportive environment, ensured contract for safety, provided clear and simple instructions, attempted to orient to reality, provided active listening and direction as needed, monitored behaviors and need for intervention, and maintained Q 15min safety checks. Restraints/seclusion/emergency medication: N/A Justification of Continued Inpatient Treatment: Per SANDOR Calvillo, pt. continues to require interruption of current crisis, medication adjustments, and a safe and supportive environment.
[2021-04-09 07:10] VITALS: BP 117/75
[2021-04-09] MEDS: buPROPion SR 150mg tablet PO SCH (07:58)
[2021-04-09] MEDS: pantoprazole 40mg Tablet.DR PO SCH (07:58)
[2021-04-09] MEDS: clonazePAM 1mg tablet PO SCH ×2 (07:58→16:32)
[2021-04-09] MEDS: haloperidol 5mg tablet PO SCH ×2 (07:58→12:01)
[2021-04-09] MEDS: QUEtiapine 25mg tablet PO SCH (07:58)
[2021-04-09] MEDS: traMADol 50MG tablet PO PRN (11:24)
[2021-04-09] MEDS: ibuprofen 200mg tablet PO PRN (12:01)
[2021-04-09] MEDS: QUEtiapine 25mg tablet PO PRN (13:52)
[2021-04-09] MEDS: NICOTINE POLACRILEX 2 MG LOZENGE BC PRN ×2 (14:07→17:01)
[2021-04-09] MEDS: acetaminophen 325mg tablet PO PRN (14:48)
[2021-04-09] MEDS ORDERED: LORazepam 1 MG tablet PO ONE (16:55)
[2021-04-09] MEDS ORDERED: haloperidol 5mg tablet PO ONE (16:55)
--- NOTE | 2021-04-09 17:44 | NUR ---
Nursing Progress Note: Legal hold: 5249 Client on involuntary status for GD Report received from nurse with use of SBAR: Silke RN Why are they here: Pt. admitted to unit from ER on 5149 which states that pt. was not eating food because it is too warm for his system. That he hasnt slept in days and reported not drinking anything until [facility] offered him water During interview pt. states, I Needed help. My feet were hurting. I was going insane. I need to clear my mind and get into a board and care. I need to let my feet cool off. Pt. reports that he is hearing voices that tell he will get beat up if he eats food. Pt. repots losing over 10 lbs. Pt.s speech is pressured and he is hyperverbal. Pt. states, I think Im autistic. Caffeine helps me talk to the voices in my head Im stressed out, Im pulling my life together for myself and everyone else. Pt. reports drinking ETOH 3 days ago in an attempt to quiet his voices. Pt. states, I only drink when there an absolute medical need. Alcohol is an antipsychotic, I need it when the voices are too heavy. Pt. also reports using opiates and meth to control the pain in his feet. Pt. states, I couldnt find a doctor for pain medicine so I used drugs. Pt. reports abusing opiates since he was 11 y.o. Pt. reports being off his meds for Quite a few days. Pt. reports he cannot go back to living with his dad. Pt. reports passive SI. Pt. states, I feel like wanting life to cease for the last couple months. I Just want to go to sleep and not wake up., have it all be over. Too much is expected out of me. Assessment What has happened this shift: Pt was up for breakfast though returned to bed immediately afterwards. Pt was cooperative with medications. Pt napped for awhile after breakfast. Pt requested a Tramadol before lunch. Pt rated his bilateral leg pain at a 3/10. Pt reported that this is bad pain for him and other people don't report their pain accurately. Pt was given tramadol 50 mg at 1124. Pt was back at the nurse's charting room in 20 minutes asking for ibuprofen. Educated pt that he had not given the tramadol enough time to work. Pt agreed to give it more time. Pt did not wait very long and was back within 1/2 an hour for the ibuprofen which was given at 1201. Pt requested Tylenol after lunch. This RN attempted to convince pt that he didn't need all 3 pain medications. Pt stated that the PA told him he could have all 3 at once. Pt was given Tylenol 650 mg at 1448. Pt requested prune juice for constipation. Pt admitted to hearing voices though stated, "not bad...just annoying." Pt would not elaborate on what the voices were saying. Pt was observed responding to internal stimuli frequently throughout the shift. He would talk to himself, pace rapidly and punch his fist into his other hand. Pt requested Seroquel while this RN was at lunch and was given PRN Seroquel 25 mg at 1352. Pt asked for nicotine lozenges X 2. Pt became agitated after an interaction with a male peer. The male peer had marker on his face and Van told him so. Evidently the male peer did not respond the way Van expected, he became offended and agitated. He began talking to himself loudly, rapidly pacing, and punching his hand. SANDOR Calvillo ordered a one time dose of Haldol 5 mg and Ativan 1 mg which was given at 1658 with good effect. Pt has a new orders for Strattera 40 mg daily to start tomorrow and Colace 100 mg PO BID routine. Pt's PRN Seroquel was increased from 25 mg to 50 mg TID. S/I, H/I: Pt denies. A/VH: +AH Sleep: Pt slept 10.5 hours last night per noc shift report. ADL's: Independent. Group attendance: N/A Were meds taken: Yes Any med S/E: Pt reports some fatigue from Haldol. Mental Status Exam Appearance: Neat, clean man with short dark hair and robertson dressed in clean green unit scrubs. Eye contact: Fair to good. Behavior: Cooperative, restless, makes frequent requests, easily frustrated. Speech: Mumbles at times, normal rate and rhythm. Mood: Labile, ranges from friendly to agitated. Affect: Labile; blunted, bright, angry. Thought process: Perseverative. Thought Content: Perseverates on medications. Cognition: A&O X3 Insight: Poor Judgment: Poor Interventions PRN's used: Tramadol, ibuprofen, Tylenol, nicotine lozenges, Seroquel. Therapeutic interventions: 1:1 assessment, therapeutic conversation, active listening, maintained a safe and supportive environment, ensured contract for safety, provided clear and simple instructions, medication administration/education/monitoring, behavior monitoring and intervention as needed; distraction, redirection, limit setting, provided encouragement and positive reinforcement, and maintained Q 15 minute safety checks. Restraints/seclusion/emergency medication: N/A Justification of Continued Inpatient Treatment: SANDOR Walton, pt. continues to require interruption of current crisis, medication adjustments, and a safe and supportive environment.
[2021-04-09] MEDS: mag hydrox/Alum hydrox/simeth 30ml oral suspension PO PRN (18:55)
[2021-04-09 19:05] VITALS: BP 123/72
[2021-04-09] MEDS: docusate sod 100mg capsule PO SCH (19:56)
[2021-04-09] MEDS: quetiapine 100mg tablet PO SCH (20:00)
[2021-04-09] MEDS: traZODone 50mg tablet PO PRN (20:00)
--- NOTE | 2021-04-10 01:57 | NUR ---
Nursing Progress Note: ÁNGEL Legal hold: 5150 for GD. Expires 04/07 @ 0957 Report received from ANN Camacho with use of SBAR Why are they here: Pt. admitted to unit from ER on 5150 which states that pt. was not eating food because it is too warm for his system. That he hasnt slept in days and reported not drinking anything until [facility] offered him water Pt. escorted on unit by security in staff. Vitals taken and skin assessment done. Pt. showered and cooperative with admission and physical assessments. During interview pt. states, I Needed help. My feet were hurting. I was going insane. I need to clear my mind and get into a board and care. I need to let my feet cool off. Pt. reports that he is hearing voices that tell he will get beat up if he eats food. Pt. repots losing over 10 lbs. Pt.s speech is pressured and he is hyperverbal. Pt. states, I think Im autistic. Caffeine helps me talk to the voices in my head Im stressed out, Im pulling my life together for myself and everyone else. Pt. reports drinking ETOH 3 days ago in an attempt to quiet his voices. Pt. states, I only drink when there an absolute medical need. Alcohol is an antipsychotic, I need it when the voices are too heavy. Pt. also reports using opiates and meth to control the pain in his feet. Pt. states, I couldnt find a doctor for pain medicine so I used drugs. Pt. reports abusing opiates since he was 11 y.o. Pt. reports being off his meds for Quite a few days. Pt. reports he cannot go back to living with his dad. Pt. reports passive SI. Pt. states, I feel like wanting life to cease for the last couple months. I Just want to go to sleep and not wake up., have it all be over. Too much is expected out of me. Assessment Pt had a good evening, only complaint was indigestion. Pt was given Maalox with good effect. Pt stated, voices are good today. Pt was friendly and cooperative for 1:1 and accepted hs meds without issue. Pt did not have any behavior outbursts and was seen interacting with other patients appropriately. S/I, H/I: Denies both A/VH: good today Sleep: See sleep assessment. ADL's: Independent Group attendance: No group scheduled today Were meds taken: Yes, without issue. Any med S/E: None noted or reported Mental Status Exam Appearance: Clean, wnl, in green scrubs Eye contact: good Behavior: cooperative, calm Speech: Clear, wnl. Mood: calm, cooperative Affect: Flat Thought process: Linear, Tangential Thought Content: Getting medications. Cognition: A&O x4, able to make needs known to staff Insight: Poor Judgment: Poor Interventions PRN's used: trazadone Therapeutic interventions: 1:1 assessment, therapeutic communication, active listening, ensured contract for safety, medication administration/education/monitoring, encouragement to participate in the unit, encouragement to come out of his room, Q 15 minute safety checks. Restraints/seclusion/emergency medication: N/A Justification of Continued Inpatient Treatment: Patient requires interruption of current crisis, medication adjustment and monitoring, and a safe and therapeutic environment. Patient is currently homeless.
[2021-04-10] MEDS: docusate sod 100mg capsule PO SCH ×2 (07:38→20:03)
[2021-04-10] MEDS: haloperidol 5mg tablet PO SCH ×2 (07:39→12:35)
[2021-04-10] MEDS: pantoprazole 40mg Tablet.DR PO SCH (07:39)
[2021-04-10] MEDS: clonazePAM 1mg tablet PO SCH ×2 (07:39→16:09)
[2021-04-10] MEDS: QUEtiapine 25mg tablet PO SCH (07:40)
[2021-04-10] MEDS: buPROPion SR 150mg tablet PO SCH (07:41)
[2021-04-10 07:43] VITALS: BP 105/60
[2021-04-10] MEDS: atomoxetine 40 MG capsule PO SCH (07:46)
[2021-04-10] MEDS: traMADol 50MG tablet PO PRN ×2 (08:39→15:56)
[2021-04-10] MEDS: mag hydrox/Alum hydrox/simeth 30ml oral suspension PO PRN ×2 (10:58→15:55)
[2021-04-10] MEDS: NICOTINE POLACRILEX 2 MG LOZENGE BC PRN ×3 (11:17→18:23)
--- NOTE | 2021-04-10 12:03 | NUR ---
Nursing Progress Note: ÁNGEL Legal hold: 5150 for GD. Expires 04/07 @ 0957 Report received from ANN Camacho with use of SBAR Why are they here: Pt. admitted to unit from ER on 5150 which states that pt. was not eating food because it is too warm for his system. That he hasnt slept in days and reported not drinking anything until [facility] offered him water Pt. escorted on unit by security in staff. Vitals taken and skin assessment done. Pt. showered and cooperative with admission and physical assessments. During interview pt. states, I Needed help. My feet were hurting. I was going insane. I need to clear my mind and get into a board and care. I need to let my feet cool off. Pt. reports that he is hearing voices that tell he will get beat up if he eats food. Pt. repots losing over 10 lbs. Pt.s speech is pressured and he is hyperverbal. Pt. states, I think Im autistic. Caffeine helps me talk to the voices in my head Im stressed out, Im pulling my life together for myself and everyone else. Pt. reports drinking ETOH 3 days ago in an attempt to quiet his voices. Pt. states, I only drink when there an absolute medical need. Alcohol is an antipsychotic, I need it when the voices are too heavy. Pt. also reports using opiates and meth to control the pain in his feet. Pt. states, I couldnt find a doctor for pain medicine so I used drugs. Pt. reports abusing opiates since he was 11 y.o. Pt. reports being off his meds for Quite a few days. Pt. reports he cannot go back to living with his dad. Pt. reports passive SI. Pt. states, I feel like wanting life to cease for the last couple months. I Just want to go to sleep and not wake up., have it all be over. Too much is expected out of me. Assessment Pt slept in late this morning but denied having any complaints. Pt is denying si/hi or having hallucinations and was not observed responding to IS. Pt reported, I feel more sane today, my brain is working. Pt was polite and cooperative and appeared less stressed and did not have any behavior outbursts. S/I, H/I: Denies both A/VH: I feel sane today Sleep: See sleep assessment. ADL's: Independent Group attendance: No group scheduled today Were meds taken: Yes, without issue. Any med S/E: None noted or reported Mental Status Exam Appearance: Clean, wnl, in green scrubs Eye contact: good Behavior: cooperative, calm Speech: Clear, wnl. Mood: calm, cooperative Affect: Flat Thought process: Linear Thought Content: getting better Cognition: A&O x4, able to make needs known to staff Insight: Poor Judgment: Poor Interventions PRN's used: trazadone Therapeutic interventions: 1:1 assessment, therapeutic communication, active listening, ensured contract for safety, medication administration/education/monitoring, encouragement to participate in the unit, encouragement to come out of his room, Q 15 minute safety checks. Restraints/seclusion/emergency medication: N/A Justification of Continued Inpatient Treatment: Patient requires interruption of current crisis, medication adjustment and monitoring, and a safe and therapeutic environment. Patient is currently homeless.
[2021-04-10] MEDS: QUEtiapine 25mg tablet PO PRN (13:45)
[2021-04-10 19:00] VITALS: BP 122/70
[2021-04-10] MEDS: traZODone 50mg tablet PO PRN (20:03)
[2021-04-10] MEDS: quetiapine 100mg tablet PO SCH (20:04)
--- NOTE | 2021-04-11 00:18 | NUR ---
Nursing Progress Note: ÁNGEL Legal hold: 5150 for GD. Expires 04/07 @ 0957 Report received from ANN Espinal with use of SBAR Why are they here: Pt. admitted to unit from ER on 5150 which states that pt. was not eating food because it is too warm for his system. That he hasnt slept in days and reported not drinking anything until [facility] offered him water Pt. escorted on unit by security in staff. Vitals taken and skin assessment done. Pt. showered and cooperative with admission and physical assessments. During interview pt. states, I Needed help. My feet were hurting. I was going insane. I need to clear my mind and get into a board and care. I need to let my feet cool off. Pt. reports that he is hearing voices that tell he will get beat up if he eats food. Pt. repots losing over 10 lbs. Pt.s speech is pressured and he is hyperverbal. Pt. states, I think Im autistic. Caffeine helps me talk to the voices in my head Im stressed out, Im pulling my life together for myself and everyone else. Pt. reports drinking ETOH 3 days ago in an attempt to quiet his voices. Pt. states, I only drink when there an absolute medical need. Alcohol is an antipsychotic, I need it when the voices are too heavy. Pt. also reports using opiates and meth to control the pain in his feet. Pt. states, I couldnt find a doctor for pain medicine so I used drugs. Pt. reports abusing opiates since he was 11 y.o. Pt. reports being off his meds for Quite a few days. Pt. reports he cannot go back to living with his dad. Pt. reports passive SI. Pt. states, I feel like wanting life to cease for the last couple months. I Just want to go to sleep and not wake up., have it all be over. Too much is expected out of me. Assessment Pt up about the unit this shift social with some of his peers in the group room. He paced the jall for a while then returned to the group room and watched tv. He ate snack in the group room and was med compliant. S/I, H/I: Denies both A/VH: I feel sane today Sleep: See sleep assessment. ADL's: Independent Group attendance: No group scheduled today Were meds taken: Yes, without issue. Any med S/E: None noted or reported Mental Status Exam Appearance: Clean, wnl, in green scrubs Eye contact: good Behavior: cooperative, calm Speech: Clear, wnl. Mood: calm, cooperative Affect: Flat Thought process: Linear Thought Content: getting better Cognition: A&O x4, able to make needs known to staff Insight: Poor Judgment: Poor Interventions PRN's used: trazadone Therapeutic interventions: 1:1 assessment, therapeutic communication, active listening, ensured contract for safety, medication administration/education/monitoring, encouragement to participate in the unit, encouragement to come out of his room, Q 15 minute safety checks. Restraints/seclusion/emergency medication: N/A Justification of Continued Inpatient Treatment: Patient requires interruption of current crisis, medication adjustment and monitoring, and a safe and therapeutic environment. Patient is currently homeless.
[2021-04-11 07:21] VITALS: BP 102/53
[2021-04-11] MEDS: atomoxetine 40 MG capsule PO SCH (07:52)
[2021-04-11] MEDS: buPROPion SR 150mg tablet PO SCH (07:52)
[2021-04-11] MEDS: docusate sod 100mg capsule PO SCH ×2 (07:52→20:00)
[2021-04-11] MEDS: QUEtiapine 25mg tablet PO SCH (07:52)
[2021-04-11] MEDS: pantoprazole 40mg Tablet.DR PO SCH (07:53)
[2021-04-11] MEDS: haloperidol 5mg tablet PO SCH ×2 (07:54→12:30)
[2021-04-11] MEDS: clonazePAM 1mg tablet PO SCH ×2 (07:56→15:49)
[2021-04-11] MEDS: traMADol 50MG tablet PO PRN ×2 (08:33→15:49)
[2021-04-11] MEDS: NICOTINE POLACRILEX 2 MG LOZENGE BC PRN ×3 (08:34→15:49)
--- NOTE | 2021-04-11 14:02 | NUR ---
Nursing Progress Note: ÁNGEL Legal hold: 5250 for GD. Expires 04/21. Report received from ANN Schultz with use of SBAR Why are they here: Pt. admitted to unit from ER on 515 which states that pt. was not eating food because it is too warm for his system. That he hasnt slept in days and reported not drinking anything until [facility] offered him water Pt. escorted on unit by security in staff. Vitals taken and skin assessment done. Pt. showered and cooperative with admission and physical assessments. During interview pt. states, I Needed help. My feet were hurting. I was going insane. I need to clear my mind and get into a board and care. I need to let my feet cool off. Pt. reports that he is hearing voices that tell he will get beat up if he eats food. Pt. repots losing over 10 lbs. Pt.s speech is pressured and he is hyper verbal. Pt. states, I think Im autistic. Caffeine helps me talk to the voices in my head Im stressed out, Im pulling my life together for myself and everyone else. Pt. reports drinking ETOH 3 days ago in an attempt to quiet his voices. Pt. states, I only drink when there an absolute medical need. Alcohol is an antipsychotic, I need it when the voices are too heavy. Pt. also reports using opiates and meth to control the pain in his feet. Pt. states, I couldnt find a doctor for pain medicine so I used drugs. Pt. reports abusing opiates since he was 11 y.o. Pt. reports being off his meds for Quite a few days. Pt. reports he cannot go back to living with his dad. Pt. reports passive SI. Pt. states, I feel like wanting life to cease for the last couple months. I just want to go to sleep and not wake up., have it all be over. Too much is expected out of me. Assessment What happened this shift: Received patient sleeping at shift change, no distress noted. Pt woke prior to breakfast and paced landaverde. Pt was compliant with medication and one on one assessment. Pt requested his PRN Tylenol, Ultram and Motrin for bilateral knew pain 12/04. Pt states I usually get them all at once. Certified Technician administered Tramadol 50mg with effect. Pt reports my brain is feeling better. But complains the Haldol makes me sedated and I cant talk. Certified Technician suggested he discuss his concerns with the provider. Pt reports the voices are less. Pt napped in the afternoon, lying in bed listening to the headphones. No behaviors to reports. S/I, H/I: Denies both A/VH: the voices are less. Sleep: 8.5 hours per sleep assessment. No naps. ADL's: Independent Group attendance: Declined. Were meds taken: Yes, without issue. 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 Eye contact: Good Behavior: Cooperative, bored. Paces landaverde. Can be pushy r/t getting medication or coffee; able to redirect. Speech: Clear, pressured, audible. Mood: Elevated at times. Affect: Flat Thought process: Linear Thought Content: My knees hurt. Cognition: A&O x4 Insight: Poor Judgment: Poor Interventions PRN's used: Tramadol Therapeutic interventions: 1:1 assessment, therapeutic communication, active listening, ensured contract for safety, medication administration/education/monitoring, encouragement to participate in the unit, encouragement to come out of his room, Q 15 minute safety checks. Restraints/seclusion/emergency medication: N/A Justification of Continued Inpatient Treatment: Patient requires interruption of current crisis, medication adjustment and monitoring, and a safe and therapeutic environment. Patient is currently homeless.
[2021-04-11] MEDS: QUEtiapine 25mg tablet PO PRN (16:29)
[2021-04-11] MEDS: aspirin/acetaminophen/caffeine tablet PO SCH (17:19)
[2021-04-11 20:02] VITALS: BP 108/56
[2021-04-11] MEDS: quetiapine 100mg tablet PO SCH (20:04)
[2021-04-11] MEDS: traZODone 50mg tablet PO PRN (20:04)
--- NOTE | 2021-04-12 01:15 | NUR ---
Nursing Progress Note: ÁNGEL Legal hold: 5250 for GD. Expires 04/21. Report received from ANN Espinal with use of SBAR Why are they here: Pt. admitted to unit from ER on 5149 which states that pt. was not eating food because it is too warm for his system. That he hasnt slept in days and reported not drinking anything until [facility] offered him water Pt. escorted on unit by security in staff. Vitals taken and skin assessment done. Pt. showered and cooperative with admission and physical assessments. During interview pt. states, I Needed help. My feet were hurting. I was going insane. I need to clear my mind and get into a board and care. I need to let my feet cool off. Pt. reports that he is hearing voices that tell he will get beat up if he eats food. Pt. repots losing over 10 lbs. Pt.s speech is pressured and he is hyper verbal. Pt. states, I think Im autistic. Caffeine helps me talk to the voices in my head Im stressed out, Im pulling my life together for myself and everyone else. Pt. reports drinking ETOH 3 days ago in an attempt to quiet his voices. Pt. states, I only drink when there an absolute medical need. Alcohol is an antipsychotic, I need it when the voices are too heavy. Pt. also reports using opiates and meth to control the pain in his feet. Pt. states, I couldnt find a doctor for pain medicine so I used drugs. Pt. reports abusing opiates since he was 11 y.o. Pt. reports being off his meds for Quite a few days. Pt. reports he cannot go back to living with his dad. Pt. reports passive SI. Pt. states, I feel like wanting life to cease for the last couple months. I just want to go to sleep and not wake up., have it all be over. Too much is expected out of me. Assessment What happened this shift: Pt was sleeping at the start of the shift.Pt was awakened for Hs meds and snack. Then returned to bed. Pt stated that he felt ok but realy tired to day. S/I, H/I: Denies both A/VH: the voices are less. Sleep: See sleep assessment.. ADL's: Independent Group attendance: Declined. Were meds taken: Yes, without issue. 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 Eye contact: Good Behavior: Cooperative, bored. Paces landaverde. Can be pushy r/t getting medication or coffee; able to redirect. Speech: Clear, pressured, audible. Mood: Elevated at times. Affect: Flat Thought process: Linear Thought Content: My knees hurt. Cognition: A&O x4 Insight: Poor Judgment: Poor Interventions PRN's used: Tramadol Therapeutic interventions: 1:1 assessment, therapeutic communication, active listening, ensured contract for safety, medication administration/education/monitoring, encouragement to participate in the unit, encouragement to come out of his room, Q 15 minute safety checks. Restraints/seclusion/emergency medication: N/A Justification of Continued Inpatient Treatment: Patient requires interruption of current crisis, medication adjustment and monitoring, and a safe and therapeutic environment. Patient is currently homeless.
[2021-04-12 07:35] VITALS: BP 121/68
[2021-04-12] MEDS: pantoprazole 40mg Tablet.DR PO SCH (07:43)
[2021-04-12] MEDS: docusate sod 100mg capsule PO SCH ×2 (07:43→20:00)
[2021-04-12] MEDS: clonazePAM 1mg tablet PO SCH ×2 (07:44→15:38)
[2021-04-12] MEDS: QUEtiapine 25mg tablet PO SCH (07:44)
[2021-04-12] MEDS: atomoxetine 40 MG capsule PO SCH (07:44)
[2021-04-12] MEDS: buPROPion SR 150mg tablet PO SCH ×2 (07:44→20:04)
[2021-04-12] MEDS: aspirin/acetaminophen/caffeine tablet PO SCH (07:44)
[2021-04-12] MEDS: haloperidol 5mg tablet PO SCH ×2 (07:44→12:36)
[2021-04-12] MEDS: traMADol 50MG tablet PO PRN ×2 (11:14→17:23)
[2021-04-12] MEDS: mag hydrox/Alum hydrox/simeth 30ml oral suspension PO PRN (12:12)
[2021-04-12] MEDS: NICOTINE POLACRILEX 2 MG LOZENGE BC PRN ×2 (13:51→16:16)
--- NOTE | 2021-04-12 17:08 | NUR ---
Nursing Progress Note: Legal hold: 5249 Client on involuntary status for GD Report received from nurse with use of SBAR: Cynthia RN Why are they here: Pt. admitted to unit from ER on 5149 which states that pt. was not eating food because it is too warm for his system. That he hasnt slept in days and reported not drinking anything until [facility] offered him water During interview pt. states, I Needed help. My feet were hurting. I was going insane. I need to clear my mind and get into a board and care. I need to let my feet cool off. Pt. reports that he is hearing voices that tell he will get beat up if he eats food. Pt. repots losing over 10 lbs. Pt.s speech is pressured and he is hyperverbal. Pt. states, I think Im autistic. Caffeine helps me talk to the voices in my head Im stressed out, Im pulling my life together for myself and everyone else. Pt. reports drinking ETOH 3 days ago in an attempt to quiet his voices. Pt. states, I only drink when there an absolute medical need. Alcohol is an antipsychotic, I need it when the voices are too heavy. Pt. also reports using opiates and meth to control the pain in his feet. Pt. states, I couldnt find a doctor for pain medicine so I used drugs. Pt. reports abusing opiates since he was 11 y.o. Pt. reports being off his meds for Quite a few days. Pt. reports he cannot go back to living with his dad. Pt. reports passive SI. Pt. states, I feel like wanting life to cease for the last couple months. I Just want to go to sleep and not wake up., have it all be over. Too much is expected out of me. Assessment What has happened this shift: Pt was up before breakfast and cooperative with medications. Pt is friendly, talkative, and somewhat intrusive. When asked about voices today, pt replied, "not really, I'm just really groggy from the Haldol but they decreased it so I feel like my speech is a little better." Pt was informed that his Strattera order had been increased from 40 mg to 80 mg starting tomorrow. Pt asked if he was getting 300 mg of Wellbutrin. Educated pt that he was taking 150mg in the morning and 150 mg in the evening for a total of 300 mg daily. Pt stated that he thought Wellbutrin was not supposed to be taken in the evening. Asked pt if he was experiencing insomnia. Pt reported he was not. Pt reassured that this is the main reason why some people don't like taking it in the evening but that it was not adversely effecting him this way. Pt expressed understanding. Pt c/o 4/10 left knee pain at 1114 and was given PRN Tramadol 50 mg with good effect. Hospitalist Dr Bales came to see the pt today and pt asked MD to increase his Tramadol to 100 mg. Discussed with MD that pt's pain is not severe and he has only been asking for the Tramadol 50 mg once a shift, and that he also had PRN Motrin and Tylenol available. Tramadol order was not increased. Pt has a new order for Metamucil, 1 packet to be given Q HS routine. Pt requested PRN Maalox at 1212 for c/o upset stomach. S/I, H/I: Pt denies. A/VH: +AH Sleep: Pt slept 8.25 hours last night per noc shift report. ADL's: Independent. Group attendance: No Were meds taken: Yes Any med S/E: Pt reports that Haldol makes him groggy and affects his speech. 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 Eye contact: Good. Behavior: Cooperative, restless, makes frequent requests, somewhat intrusive, socializes with staff. Speech: Clear, audible. Mood: Euthymic Affect: Calm Thought process: Perseverative Thought Content: Perseverates on medications. Cognition: A&O X3 Insight: Fair Judgment: Fair Interventions PRN's used: Tramadol, Maalox, nicotine lozenges. Therapeutic interventions: 1:1 assessment, therapeutic conversation, active listening, maintained a safe and supportive environment, ensured contract for safety, provided clear and simple instructions, medication administration/education/monitoring, behavior monitoring and intervention as needed; distraction, redirection, limit setting, provided encouragement and positive reinforcement, and maintained Q 15 minute safety checks. Restraints/seclusion/emergency medication: N/A Justification of Continued Inpatient Treatment: Per SANDOR Calvillo, pt. continues to require interruption of current crisis, medication adjustments, and a safe and supportive environment.
[2021-04-12] MEDS: traZODone 50mg tablet PO PRN (20:04)
[2021-04-12] MEDS: quetiapine 100mg tablet PO SCH (20:05)
[2021-04-12] MEDS: psyllium seed 3.4 gm packet PO SCH (20:05)
[2021-04-12 20:07] VITALS: BP 113/56
--- NOTE | 2021-04-13 00:02 | NUR ---
Nursing Progress Note: ÁNGEL Legal hold: 5250 for GD. Expires 04/21. Report received from ANN Espinal with use of SBAR Why are they here: Pt. admitted to unit from ER on 5149 which states that pt. was not eating food because it is too warm for his system. That he hasnt slept in days and reported not drinking anything until [facility] offered him water Pt. escorted on unit by security in staff. Vitals taken and skin assessment done. Pt. showered and cooperative with admission and physical assessments. During interview pt. states, I Needed help. My feet were hurting. I was going insane. I need to clear my mind and get into a board and care. I need to let my feet cool off. Pt. reports that he is hearing voices that tell he will get beat up if he eats food. Pt. repots losing over 10 lbs. Pt.s speech is pressured and he is hyper verbal. Pt. states, I think Im autistic. Caffeine helps me talk to the voices in my head Im stressed out, Im pulling my life together for myself and everyone else. Pt. reports drinking ETOH 3 days ago in an attempt to quiet his voices. Pt. states, I only drink when there an absolute medical need. Alcohol is an antipsychotic, I need it when the voices are too heavy. Pt. also reports using opiates and meth to control the pain in his feet. Pt. states, I couldnt find a doctor for pain medicine so I used drugs. Pt. reports abusing opiates since he was 11 y.o. Pt. reports being off his meds for Quite a few days. Pt. reports he cannot go back to living with his dad. Pt. reports passive SI. Pt. states, I feel like wanting life to cease for the last couple months. I just want to go to sleep and not wake up., have it all be over. Too much is expected out of me. Assessment What happened this shift: Pt was sleeping at the start of the shift.Pt was awakened for Hs meds and snack. Then returned to bed. Pt stated that he is really tired to day. S/I, H/I: Denies both A/VH: the voices are less. Sleep: See sleep assessment.. ADL's: Independent Group attendance: Declined. Were meds taken: Yes, without issue. Any med S/E: None noted or reported Mental Status Exam Appearance: Well- groomed, dressed in green scrubs and crabtree gizzard puller sweat shirt. Eye contact: Good Behavior: Cooperative, bored. Paces landaverde. Can be pushy r/t getting medication or coffee; able to redirect. Speech: Clear, pressured, audible. Mood: Elevated at times. Affect: Flat Thought process: Linear Thought Content: My knees hurt. Cognition: A&O x4 Insight: Poor Judgment: Poor Interventions PRN's used: Tramadol Therapeutic interventions: 1:1 assessment, therapeutic communication, active listening, ensured contract for safety, medication administration/education/monitoring, encouragement to participate in the unit, encouragement to come out of his room, Q 15 minute safety checks. Restraints/seclusion/emergency medication: N/A Justification of Continued Inpatient Treatment: Patient requires interruption of current crisis, medication adjustment and monitoring, and a safe and therapeutic environment. Patient is currently homeless.
[2021-04-13] MEDS: buPROPion SR 150mg tablet PO SCH ×2 (07:19→20:06)
[2021-04-13] MEDS: pantoprazole 40mg Tablet.DR PO SCH (07:19)
[2021-04-13] MEDS: aspirin/acetaminophen/caffeine tablet PO SCH (07:20)
[2021-04-13] MEDS: clonazePAM 1mg tablet PO SCH ×2 (07:20→16:36)
[2021-04-13] MEDS: haloperidol 5mg tablet PO SCH ×2 (07:20→12:45)
[2021-04-13] MEDS: QUEtiapine 25mg tablet PO SCH (07:20)
[2021-04-13] MEDS: atomoxetine 40 MG capsule PO SCH (07:20)
[2021-04-13 07:36] VITALS: BP 116/70
[2021-04-13] MEDS: NICOTINE POLACRILEX 2 MG LOZENGE BC PRN ×2 (10:01→14:29)
[2021-04-13] MEDS: traMADol 50MG tablet PO PRN (10:29)
--- NOTE | 2021-04-13 11:23 | NUR ---
T Con was filed on 04/11/21. It should be signed sometime within the next week. ANDREW Rosas
[2021-04-13] MEDS: magnesium hydroxide 30ml (MOM) UD suspension PO PRN (13:20)
--- NOTE | 2021-04-13 14:31 | NUR ---
Nursing Progress Note: Legal hold: 5249 Client on involuntary status for GD Report received from nurse with use of SBAR: Cynthia RN Why are they here: Pt. admitted to unit from ER on 5149 which states that pt. was not eating food because it is too warm for his system. That he hasnt slept in days and reported not drinking anything until [facility] offered him water During interview pt. states, I Needed help. My feet were hurting. I was going insane. I need to clear my mind and get into a board and care. I need to let my feet cool off. Pt. reports that he is hearing voices that tell he will get beat up if he eats food. Pt. repots losing over 10 lbs. Pt.s speech is pressured and he is hyperverbal. Pt. states, I think Im autistic. Caffeine helps me talk to the voices in my head Im stressed out, Im pulling my life together for myself and everyone else. Pt. reports drinking ETOH 3 days ago in an attempt to quiet his voices. Pt. states, I only drink when there an absolute medical need. Alcohol is an antipsychotic, I need it when the voices are too heavy. Pt. also reports using opiates and meth to control the pain in his feet. Pt. states, I couldnt find a doctor for pain medicine so I used drugs. Pt. reports abusing opiates since he was 11 y.o. Pt. reports being off his meds for Quite a few days. Pt. reports he cannot go back to living with his dad. Pt. reports passive SI. Pt. states, I feel like wanting life to cease for the last couple months. I Just want to go to sleep and not wake up., have it all be over. Too much is expected out of me. Assessment What has happened this shift: Pt is still experiencing AH but reports that the voices are now faint. Pt started on an increased dose of Strattera 80 mg this morning. Pt reported that he feels like he has more clarity and is able to concentrate better. Pt said that before it was like he had 2 minds one on top of the other and he was trying to communicate with the smaller brain on to to make it understand. Pt has been focused on numbers, mathematics and dreams this shift. Pt is friendly and talkative though needy with frequent requests. Pt requested prn tramadol 50 mg at 1029 for c/o 4/10 bilateral leg pain and it was given with good effect. Pt requested MOM for constipation at 1320 and was given prune juice as well. Pt reports having a hard BM today. Pt has a new order for Colace 250 mg HS. S/I, H/I: Pt denies. A/VH: +AH "faint" Sleep: Pt slept 8.5 hours last night per noc shift report. ADL's: Independent. Group attendance: No Were meds taken: Yes Any med S/E: None noted or reported. 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 Eye contact: Good. Behavior: Pleasant, cooperative, needy; makes frequent requests, socializes with staff and peers. Speech: Clear, audible. Mood: Good Affect: Calm, euthymic Thought process: Ruminative Thought Content: Focused on numbers, mathematics and dreams today. Cognition: A&O X3 Insight: Fair Judgment: Fair Interventions PRN's used: Tramadol, MOM, nicotine lozenges. Therapeutic interventions: 1:1 assessment, therapeutic conversation, active listening, maintained a safe and supportive environment, ensured contract for safety, provided clear and simple instructions, medication administration/education/monitoring, behavior monitoring and intervention as needed; distraction, redirection, reality orientation, limit setting, provided encouragement and positive reinforcement, and maintained Q 15 minute safety checks. Restraints/seclusion/emergency medication: N/A Justification of Continued Inpatient Treatment: Per SANDOR Calvillo, pt. continues to require interruption of current crisis, medication adjustments, and a safe and supportive environment.
[2021-04-13] MEDS: acetaminophen 325mg tablet PO PRN (15:43)
[2021-04-13 19:38] VITALS: BP 129/70
[2021-04-13] MEDS: traZODone 50mg tablet PO PRN (20:06)
[2021-04-13] MEDS: psyllium seed 3.4 gm packet PO SCH (20:06)
[2021-04-13] MEDS: quetiapine 100mg tablet PO SCH (20:06)
[2021-04-13] MEDS: docusate sod 250mg capsule PO SCH (20:06)
--- NOTE | 2021-04-14 04:25 | NUR ---
Nursing Progress Note: Legal hold: 5249 Client on involuntary status for GD Report received from nurse with use of SBAR: ANN Camacho Why are they here: Pt. admitted to unit from ER on 5149 which states that pt. was not eating food because it is too warm for his system. That he hasnt slept in days and reported not drinking anything until [facility] offered him water During interview pt. states, I Needed help. My feet were hurting. I was going insane. I need to clear my mind and get into a board and care. I need to let my feet cool off. Pt. reports that he is hearing voices that tell he will get beat up if he eats food. Pt. repots losing over 10 lbs. Pt.s speech is pressured and he is hyperverbal. Pt. states, I think Im autistic. Caffeine helps me talk to the voices in my head Im stressed out, Im pulling my life together for myself and everyone else. Pt. reports drinking ETOH 3 days ago in an attempt to quiet his voices. Pt. states, I only drink when there an absolute medical need. Alcohol is an antipsychotic, I need it when the voices are too heavy. Pt. also reports using opiates and meth to control the pain in his feet. Pt. states, I couldnt find a doctor for pain medicine so I used drugs. Pt. reports abusing opiates since he was 11 y.o. Pt. reports being off his meds for Quite a few days. Pt. reports he cannot go back to living with his dad. Pt. reports passive SI. Pt. states, I feel like wanting life to cease for the last couple months. I Just want to go to sleep and not wake up., have it all be over. Too much is expected out of me. Assessment What has happened this shift: Patient active and social on the unit at the beginning of shift. Pleasant and cooperative with care; compliant with medication. PRN Trazodone provided with positive effect. Patient denies SI, HI and VH; reports "not as much" AH. Patient does not appear to be responding to IS and no delusional thought content expressed. Patient continued to socialize and provided HS snack in his room prior to bed; observed sleeping and does not appear to be having difficulty. S/I, H/I: Denies A/VH: +AH Sleep: Refer to sleep assessment ADL's: Independent Group attendance: NA Were meds taken: Yes Any med S/E: None observed or reported Mental Status Exam Appearance: Neat, clean and appropriate attire Eye contact: Good Behavior: Pleasant and cooperative, social Speech: Clear, audible, regular rate/rhythm Mood: Euthymic Affect: Animated Thought process: Linear Thought Content: Meeting needs; feeling better Cognition: A&O X3 Insight: Fair Judgment: Fair Interventions PRN's used: Trazodone Therapeutic interventions: 1:1 assessment, therapeutic conversation, active listening, maintained a safe and supportive environment, ensured contract for safety, provided clear and simple instructions, medication administration/education/monitoring, behavior monitoring and intervention as needed; distraction, redirection, reality orientation, limit setting, provided encouragement and positive reinforcement, and maintained Q 15 minute safety checks. Restraints/seclusion/emergency medication: N/A Justification of Continued Inpatient Treatment: Per SANDOR Calvillo, pt. continues to require interruption of current crisis, medication adjustments, and a safe and supportive environment.
[2021-04-14] MEDS: haloperidol 5mg tablet PO SCH ×2 (07:38→12:38)
[2021-04-14] MEDS: pantoprazole 40mg Tablet.DR PO SCH (07:38)
[2021-04-14] MEDS: buPROPion SR 150mg tablet PO SCH ×2 (07:38→20:17)
[2021-04-14] MEDS: aspirin/acetaminophen/caffeine tablet PO SCH (07:38)
[2021-04-14] MEDS: atomoxetine 40 MG capsule PO SCH (07:38)
[2021-04-14] MEDS: clonazePAM 1mg tablet PO SCH ×2 (07:39→15:15)
[2021-04-14] MEDS: QUEtiapine 25mg tablet PO SCH (07:39)
--- NOTE | 2021-04-14 07:48 | NUR ---
Reassessment: Pt PO ~100% avg regular diet meeting needs. LBM 04/13. No nutrition intervention at this time. Noted +5.3kg past week; unsure of accuracy as both standing scaled. Will continue to monitor. Recommendations: 1) Continue regular diet 2) Routine bowel care 3) Weekly scaled weights Addendum: 04/14/21 at [address] Amended: Links added.
[2021-04-14 08:00] VITALS: BP 128/79
[2021-04-14] MEDS: traMADol 50MG tablet PO PRN (09:02)
[2021-04-14 10:20] VITALS: BP 128/79
[2021-04-14] MEDS: mag hydrox/Alum hydrox/simeth 30ml oral suspension PO PRN ×2 (14:24→19:14)
--- NOTE | 2021-04-14 14:50 | NUR ---
Nursing Progress Note: Legal hold: 5249 Client on involuntary status for GD Report received from nurse with use of SBAR: ANN Marie Why are they here: Pt. admitted to unit from ER on 5149 which states that pt. was not eating food because it is too warm for his system. That he hasnt slept in days and reported not drinking anything until [facility] offered him water During interview pt. states, I Needed help. My feet were hurting. I was going insane. I need to clear my mind and get into a board and care. I need to let my feet cool off. Pt. reports that he is hearing voices that tell he will get beat up if he eats food. Pt. repots losing over 10 lbs. Pt.s speech is pressured and he is hyperverbal. Pt. states, I think Im autistic. Caffeine helps me talk to the voices in my head Im stressed out, Im pulling my life together for myself and everyone else. Pt. reports drinking ETOH 3 days ago in an attempt to quiet his voices. Pt. states, I only drink when there an absolute medical need. Alcohol is an antipsychotic, I need it when the voices are too heavy. Pt. also reports using opiates and meth to control the pain in his feet. Pt. states, I couldnt find a doctor for pain medicine so I used drugs. Pt. reports abusing opiates since he was 11 y.o. Pt. reports being off his meds for Quite a few days. Pt. reports he cannot go back to living with his dad. Pt. reports passive SI. Pt. states, I feel like wanting life to cease for the last couple months. I Just want to go to sleep and not wake up., have it all be over. Too much is expected out of me. Assessment What has happened this shift: Received pt. up pacing in the hallway somewhat restlessly at the beginning of the shift. He greeted this writer producer appropriately and attended breakfast in the Group Room. Afterwards, pt. remained up interacting appropriately with others. 1:1 completed at bedside, pt. presents as cooperative, restless, anxious, and is guarded when discussing any MH s/s. He denies any S/I, H/I, or V/FOX. Pt. does admit to some ongoing A/FOX, however states, "Not much." He appears to be minimizing. Pt. is noted to be writing in a journal and when questioned further he repots he is writing a book on philosophy. He later requests PRN Tramadol for chronic leg pain, administered with effectiveness. Pt. continues to appear to be medication seeking at times, and makes multiple requests during the shift (including his ongoing request for caffeinated coffee), but he is able to redirected. Later he reports he does not want to continue taking Haldol, he states, "It makes me tired and and feel dumb." This was endorsed to SANDOR Jones. S/I, H/I: Denies A/VH: Pt. reports some ongoing A/FOX, appears to be minimizing Sleep: Pt. reports he slept well, sleep hours are 7 ADL's: Pt. requires some direction and encouragement Group attendance: N/A Were meds taken: Yes Any med S/E: Pt. reports he does not want to continue taking Haldol, he states, "It makes me tired and and feel dumb." This was endorsed to SANDOR Jones. Mental Status Exam Appearance: Neat and appropriately dressed Eye contact: Fair Behavior: Cooperative, restless, anxious, and guarded Speech: WNL, however becomes minimal and guarded when discussing MH Mood: Restless Affect: Labile at times Thought process: Linear with some disorganization Thought Content: Some ongoing A/FOX Cognition: A&O X3 Insight: Poor Judgment: Poor Interventions PRN's used: Ultram and Maalox Therapeutic interventions: Maintained a safe and supportive environment, ensured contract for safety, provided clear and simple instructions, monitored behaviors and need for intervention, provided active listening and direction as needed, and maintained Q 15min safety checks. Restraints/seclusion/emergency medication: N/A Justification of Continued Inpatient Treatment: Per SANDOR Jones pt. has been served his [employer] paperwork and has an upcoming court date. He continues to require a safe and supportive environment.
[2021-04-14] MEDS: NICOTINE POLACRILEX 2 MG LOZENGE BC PRN ×2 (15:38→20:57)
[2021-04-14 19:00] VITALS: BP 137/80
[2021-04-14] MEDS: psyllium seed 3.4 gm packet PO SCH (20:17)
[2021-04-14] MEDS: quetiapine 100mg tablet PO SCH (20:17)
[2021-04-14] MEDS: docusate sod 250mg capsule PO SCH (20:17)
[2021-04-14] MEDS: traZODone 50mg tablet PO PRN (21:58)
--- NOTE | 2021-04-15 03:36 | NUR ---
Nursing Progress Note: Legal hold: 5249 Client on involuntary status for GD Report received from nurse with use of SBAR: ANN Camacho Why are they here: Pt. admitted to unit from ER on 5149 which states that pt. was not eating food because it is too warm for his system. That he hasnt slept in days and reported not drinking anything until [facility] offered him water During interview pt. states, I Needed help. My feet were hurting. I was going insane. I need to clear my mind and get into a board and care. I need to let my feet cool off. Pt. reports that he is hearing voices that tell he will get beat up if he eats food. Pt. repots losing over 10 lbs. Pt.s speech is pressured and he is hyperverbal. Pt. states, I think Im autistic. Caffeine helps me talk to the voices in my head Im stressed out, Im pulling my life together for myself and everyone else. Pt. reports drinking ETOH 3 days ago in an attempt to quiet his voices. Pt. states, I only drink when there an absolute medical need. Alcohol is an antipsychotic, I need it when the voices are too heavy. Pt. also reports using opiates and meth to control the pain in his feet. Pt. states, I couldnt find a doctor for pain medicine so I used drugs. Pt. reports abusing opiates since he was 11 y.o. Pt. reports being off his meds for Quite a few days. Pt. reports he cannot go back to living with his dad. Pt. reports passive SI. Pt. states, I feel like wanting life to cease for the last couple months. I Just want to go to sleep and not wake up., have it all be over. Too much is expected out of me. Assessment What has happened this shift: Patient active and social on the unit at the beginning of shift. Pleasant and cooperative with care; compliant with medication. PRN Trazodone provided with positive effect. Patient denies SI, HI and denies hallucinations. Patient does not appear to be responding to IS and no delusional thought content expressed. Patient continued to socialize and provided HS snack in his room prior to bed; observed sleeping and does not appear to be having difficulty. S/I, H/I: Denies A/VH: denies Sleep: Refer to sleep assessment ADL's: Independent Group attendance: NA Were meds taken: Yes Any med S/E: None observed or reported Mental Status Exam Appearance: Neat, clean and appropriate attire Eye contact: Good Behavior: Pleasant and cooperative, social Speech: Clear, audible, regular rate/rhythm Mood: Euthymic Affect: Animated Thought process: Linear Thought Content: Meeting needs; feeling better Cognition: A&O X3 Insight: Fair Judgment: Fair Interventions PRN's used: Trazodone Therapeutic interventions: 1:1 assessment, therapeutic conversation, active listening, maintained a safe and supportive environment, ensured contract for safety, provided clear and simple instructions, medication administration/education/monitoring, behavior monitoring and intervention as needed; distraction, redirection, reality orientation, limit setting, provided encouragement and positive reinforcement, and maintained Q 15 minute safety checks. Restraints/seclusion/emergency medication: N/A Justification of Continued Inpatient Treatment: Per SANDOR Calvillo, pt. continues to require interruption of current crisis, medication adjustments, and a safe and supportive environment.
[2021-04-15] MEDS: NICOTINE POLACRILEX 2 MG LOZENGE BC PRN ×4 (07:11→16:29)
[2021-04-15] MEDS: atomoxetine 40 MG capsule PO SCH (07:11)
[2021-04-15] MEDS: QUEtiapine 25mg tablet PO SCH (07:12)
[2021-04-15] MEDS: clonazePAM 1mg tablet PO SCH ×2 (07:12→16:00)
[2021-04-15] MEDS: pantoprazole 40mg Tablet.DR PO SCH (07:12)
[2021-04-15] MEDS: buPROPion SR 150mg tablet PO SCH ×2 (07:12→20:00)
[2021-04-15] MEDS: traMADol 50MG tablet PO PRN ×2 (07:43→15:38)
[2021-04-15 08:00] VITALS: BP 135/82
[2021-04-15] MEDS: haloperidol 5mg tablet PO SCH ×2 (08:00→12:30)
--- NOTE | 2021-04-15 11:47 | NUR ---
PLACEMENT Sent placement packet to [facility] office. Van is on Admin days as of 04/13/21. ANDREW Rosas
[2021-04-15] MEDS: QUEtiapine 25mg tablet PO PRN (12:58)
[2021-04-15] MEDS: mag hydrox/Alum hydrox/simeth 30ml oral suspension PO PRN (15:37)
--- NOTE | 2021-04-15 17:08 | NUR ---
Nursing Progress Note: Legal hold: Tcon Client on involuntary status for GD Report received from nurse with use of SBAR: Gabrielle Banda RN Why are they here: Pt. admitted to unit from ER on 5150 which states that pt. was not eating food because it is too warm for his system. That he hasnt slept in days and reported not drinking anything until [facility] offered him water During interview pt. states, I Needed help. My feet were hurting. I was going insane. I need to clear my mind and get into a board and care. I need to let my feet cool off. Pt. reports that he is hearing voices that tell he will get beat up if he eats food. Pt. repots losing over 10 lbs. Pt.s speech is pressured and he is hyperverbal. Pt. states, I think Im autistic. Caffeine helps me talk to the voices in my head Im stressed out, Im pulling my life together for myself and everyone else. Pt. reports drinking ETOH 3 days ago in an attempt to quiet his voices. Pt. states, I only drink when there an absolute medical need. Alcohol is an antipsychotic, I need it when the voices are too heavy. Pt. also reports using opiates and meth to control the pain in his feet. Pt. states, I couldnt find a doctor for pain medicine so I used drugs. Pt. reports abusing opiates since he was 11 y.o. Pt. reports being off his meds for Quite a few days. Pt. reports he cannot go back to living with his dad. Pt. reports passive SI. Pt. states, I feel like wanting life to cease for the last couple months. I Just want to go to sleep and not wake up., have it all be over. Too much is expected out of me. Assessment What has happened this shift: Received pt. up pacing in the hallway somewhat restlessly at the beginning of the shift. Pt. attended breakfast in the Group Room, and afterwards remained up interacting minimally with others. Pt. requested his AM medications, however refused Haldol, this scientific technical writer attempted to provide eduction to pt. regarding medication compliance and effectiveness however he stated irritably, "I'm not going to take it! If it comes up in court, that's not my fault!" 1:1 completed, pt. continues to be guarded when discussing any MH s/s and slightly irritable. He continues to deny any S/I or H/I, then states irritably in a disorganized way, "I think it should be against the law to ask those kinds of questions. It's harmonic law!" When questioned regarding A/FOX, pt. reports ongoing A/FOX, states, "They are just different people that I talk to." Pt. continued to refuse Haldol throughout the day despite ongoing education and encouragement provided by this scientific technical writer at request of SANDOR Jones. He became increasingly restless throughout they day and was observed to be responding to internal stimuli AEB talking aloud to himself while pacing in the hallway. He requested PRN Seroquel and was administered with effectiveness. Pt. continues to appear to be medication seeking at times, and makes multiple requests during the shift (including his ongoing request for caffeinated coffee), SANDOR Jones is aware and coffee has been removed off the unit. Pt. also continues to report adverse s/s r/t taking Haldol, he states, "It makes me tired and and feel dumb." He also reports a previous allergy to this medication which has not been verified, this was endorsed to SANDOR Jones. He will change medication to Perphenazine, pt. reports contentment. S/I, H/I: Denies A/VH: Pt. reports some ongoing A/FOX, and is observed to be internally preoccupied and responding aloud Sleep: Pt. reports he slept well, sleep hours are 6.75 ADL's: Pt. requires some direction and encouragement Group attendance: N/A Were meds taken: Yes Any med S/E: Pt. reports he does not want to continue taking Haldol, he states, "It makes me tired and and feel dumb." This was endorsed to SANDOR Jones. Medication with be changed to Perphenazine and pt. reports contentment. Mental Status Exam Appearance: Neat and appropriately dressed Eye contact: Fair Behavior: Cooperative, restless, anxious, and guarded Speech: WNL, however becomes minimal and guarded when discussing MH Mood: Restless Affect: Labile at times Thought process: Linear with some disorganization Thought Content: Some ongoing A/FOX and possible delusions Cognition: A&O X3 Insight: Poor Judgment: Poor Interventions PRN's used: Ultram and Maalox Therapeutic interventions: Maintained a safe and supportive environment, ensured contract for safety, provided clear and simple instructions, monitored behaviors and need for intervention, attempted to orient to reality, provided redirection and clear boundaries as needed, provided active listening and direction as needed, and maintained Q 15min safety checks. Restraints/seclusion/emergency medication: N/A Justification of Continued Inpatient Treatment: SANDOR Schwab pt. has been served his LPS paperwork and has an upcoming court date. He continues to require a safe and supportive environment and time to allow medications to take their therapeutic effect.
--- NOTE | 2021-04-15 17:45 | NUR ---
Per [facility] Public Guardian (Aj): Going forward, send consent form to public guardian for any changes in medications. This was endorsed to SANDOR Jones. In response to pt. calling public guardian today regarding desire not to take Haldol.
[2021-04-15 20:00] VITALS: BP 123/78
[2021-04-15] MEDS: loperamide 2mg capsule PO PRN (20:00)
[2021-04-15] MEDS: quetiapine 100mg tablet PO SCH (20:01)
[2021-04-15] MEDS: perphenazine 8mg tablets PO SCH (20:01)
[2021-04-15] MEDS: docusate sod 250mg capsule PO SCH (21:00)
[2021-04-15] MEDS: psyllium seed 3.4 gm packet PO SCH (21:00)
--- NOTE | 2021-04-16 02:40 | NUR ---
Nursing Progress Note: Legal hold: Tcon Client on involuntary status for GD Report received from nurse with use of SBAR: ANN Camacho Why are they here: Pt. admitted to unit from ER on 5150 which states that pt. was not eating food because it is too warm for his system. That he hasnt slept in days and reported not drinking anything until [facility] offered him water During interview pt. states, I Needed help. My feet were hurting. I was going insane. I need to clear my mind and get into a board and care. I need to let my feet cool off. Pt. reports that he is hearing voices that tell he will get beat up if he eats food. Pt. repots losing over 10 lbs. Pt.s speech is pressured and he is hyperverbal. Pt. states, I think Im autistic. Caffeine helps me talk to the voices in my head Im stressed out, Im pulling my life together for myself and everyone else. Pt. reports drinking ETOH 3 days ago in an attempt to quiet his voices. Pt. states, I only drink when there an absolute medical need. Alcohol is an antipsychotic, I need it when the voices are too heavy. Pt. also reports using opiates and meth to control the pain in his feet. Pt. states, I couldnt find a doctor for pain medicine so I used drugs. Pt. reports abusing opiates since he was 11 y.o. Pt. reports being off his meds for Quite a few days. Pt. reports he cannot go back to living with his dad. Pt. reports passive SI. Pt. states, I feel like wanting life to cease for the last couple months. I Just want to go to sleep and not wake up., have it all be over. Too much is expected out of me. Assessment What has happened this shift: Received pt. up pacing in the hallway somewhat restlessly at the beginning of the shift. He requested his HS medications as soon as possible, and reported he was looking forward to trying the new medication prescribed to him, perphenazine. This senior underwriter provided pt. medication education and print out regarding this medication upon his request and he reported contentment. 1:1 completed, pt. denies any S/I or H/I, and he states animatedly in a somewhat disorganized way, "Nothing abnormal, little growls here and there." He denies any A/V/FOX, however continues to appear internally preoccupied at times AEB talking softly to himself. Pt. continues to be manipulative and staff splitting at times, requiring redirection and clear boundaries. He reported eating "coffee beans" on day shift which he believes gave him diarrhea, PRN Imodium administered with effectiveness. This senior underwriter provided re-education to pt. that he will no longer be allowed to have caffeine on the unit, and he reported understanding. Pt. appears to be resting comfortably. S/I, H/I: Denies A/VH: Pt. denies any A/V/FOX, however continues to appear to be internally preoccupied at times Sleep: Pt. appears to be sleeping well ADL's: Pt. requires some direction and encouragement Group attendance: N/A Were meds taken: Held Colace and Metamucil r/t report of diarrhea Any med S/E: None Mental Status Exam Appearance: Neat and appropriately dressed Eye contact: Fair Behavior: Cooperative, restless, anxious, and guarded. Can be manipulative and staff splitting, requiring redirection and clear boundaries. Speech: WNL, however becomes minimal and guarded when discussing MH Mood: Restless Affect: Labile at times Thought process: Linear with some disorganization Thought Content: Some ongoing A/FOX and possible delusions Cognition: A&O X3 Insight: Poor Judgment: Poor Interventions PRN's used: None Therapeutic interventions: Maintained a safe and supportive environment, ensured contract for safety, provided clear and simple instructions, monitored behaviors and need for intervention, attempted to orient to reality, provided redirection and clear boundaries as needed, provided medication education, and maintained Q 15min safety checks. Restraints/seclusion/emergency medication: N/A Justification of Continued Inpatient Treatment: Per SANDOR Jones pt. continues to require medication adjustments, clear boundaries, and a safe and supportive environment.
[2021-04-16] MEDS: buPROPion SR 150mg tablet PO SCH ×2 (07:52→20:11)
[2021-04-16] MEDS: atomoxetine 40 MG capsule PO SCH (07:52)
[2021-04-16] MEDS: perphenazine 8mg tablets PO SCH ×2 (07:52→20:12)
[2021-04-16] MEDS: clonazePAM 1mg tablet PO SCH ×2 (07:54→16:22)
[2021-04-16] MEDS: pantoprazole 40mg Tablet.DR PO SCH (07:54)
[2021-04-16] MEDS: haloperidol 5mg tablet PO SCH (07:59)
[2021-04-16 08:00] VITALS: BP 113/62
[2021-04-16] MEDS: NICOTINE POLACRILEX 2 MG LOZENGE BC PRN ×3 (08:20→16:18)
--- NOTE | 2021-04-16 11:47 | NUR ---
Nursing Progress Note: Legal hold: TCON Client on involuntary status for GD Report received from nurse, Umm RN with use of SBAR Why are they here: Pt. admitted to unit from ER on 5150. Pt self reported he was not eating, drinking or sleeping due to hearing voices telling him he will be killed if he does. Pt reports loosing weight and pain in his feet. He endorses recent illicit drug and alcohol use. Assessment What has happened this shift: Pt observed standing at the nurses station at the beginning of the shift. Before 0800, pt had asked for Excedrin, Nicotine Lozenges, coffee and Seroquel PRN. Pt was given coffee and nicotine indigo. He does not have Excedrin or Seroquel PRN. Pt continues to isolate on the unit. He declined to play chess or cards in a group. Pt refused Haldol this morning stating, "I was told it was going to be discontinued since I am allergic to it." S/I, H/I: Denies A/VH: Declines; however is heard mumbling that sounds like an argument Sleep: Appears to have napped once during this shift ADL's: Pt. requires some direction and encouragement Group attendance: N/A Were Meds taken: All but the Haldol Any med S/E: Reports "allergy" to Haldol Mental Status Exam Appearance: Clean shaven and nicely dressed in jeans and a white shirt Eye contact: Fair Behavior: Guarded Speech: Audible, clear Mood: Restless Affect: Congruent with mood Thought process: Linear with some disorganization Thought Content: Some ongoing A/FOX and possible delusions Cognition: A&O X3 Insight: Poor Judgment: Poor Interventions PRN's used: Nicotine Indigo. Therapeutic interventions: Provided 1:1 assessment with therapeutic communication and active listening, medication administration/education/monitoring,provided redirection and clear boundaries as needed, and maintained Q 15min safety checks. Restraints/seclusion/emergency medication: N/A Justification of Continued Inpatient Treatment: SANDOR Schwab pt. has been served his [employer] paperwork and has an upcoming court date. He continues to require a safe and supportive environment and time to allow medications to take their therapeutic effect.
[2021-04-16] MEDS ORDERED: methylphenidate 5mg tablet PO ONE (13:30)
[2021-04-16 19:00] VITALS: BP 107/52
[2021-04-16] MEDS: psyllium seed 3.4 gm packet PO SCH (20:11)
[2021-04-16] MEDS: docusate sod 100mg capsule PO SCH (20:12)
[2021-04-16] MEDS: quetiapine 100mg tablet PO SCH (20:12)
[2021-04-16] MEDS: traZODone 50mg tablet PO PRN (20:12)
--- NOTE | 2021-04-17 01:17 | NUR ---
Nursing Progress Note: Legal hold: Tcon Client on involuntary status for GD Report received from ANN Camacho with use of SBAR: Why are they here: Pt. admitted to unit from ER on 5150 which states that pt. was not eating food because it is too warm for his system. That he hasnt slept in days and reported not drinking anything until [facility] offered him water During interview pt. states, I Needed help. My feet were hurting. I was going insane. I need to clear my mind and get into a board and care. I need to let my feet cool off. Pt. reports that he is hearing voices that tell he will get beat up if he eats food. Pt. repots losing over 10 lbs. Pt.s speech is pressured and he is hyperverbal. Pt. states, I think Im autistic. Caffeine helps me talk to the voices in my head Im stressed out, Im pulling my life together for myself and everyone else. Pt. reports drinking ETOH 3 days ago in an attempt to quiet his voices. Pt. states, I only drink when there an absolute medical need. Alcohol is an antipsychotic, I need it when the voices are too heavy. Pt. also reports using opiates and meth to control the pain in his feet. Pt. states, I couldnt find a doctor for pain medicine so I used drugs. Pt. reports abusing opiates since he was 11 y.o. Pt. reports being off his meds for Quite a few days. Pt. reports he cannot go back to living with his dad. Pt. reports passive SI. Pt. states, I feel like wanting life to cease for the last couple months. I Just want to go to sleep and not wake up., have it all be over. Too much is expected out of me. Assessment What has happened this shift: Received patient in the hallway. He says that he's "feeling fine, just a little restlessness." Patient denies SI/HI, and VH. States the AH are mostly better, only happening once in a while. Patient spent the evening wandering and it appears he has trouble relaxing. He keeps to himself and doesn't stay in one place for very long. Patient is happy with his medications and has no complaints. He was compliant with HS med pass, before going to bed. S/I, H/I: Denies A/VH: Denies, but is seen talking to himself. Sleep: See sleep assessment. ADL's: Independent. Group attendance: N/A Were meds taken: Refused Colace due to claim of diarrhea. Any med S/E: None reported or observed. Mental Status Exam Appearance: Neat and appropriately dressed in street clothes. Eye contact: Fair Behavior: Cooperative, restless, anxious, guarded, isolative. Speech: Normal Mood: Restless Affect: Labile at times Thought process: Linear with some disorganization Thought Content: Some ongoing A/FOX and possible delusions Cognition: A&O X3 Insight: Poor Judgment: Poor Interventions PRN's used: Nicotine lozenge Therapeutic interventions: Maintained a safe and supportive environment, ensured contract for safety, provided clear and simple instructions, monitored behaviors and need for intervention, attempted to orient to reality, provided redirection and clear boundaries as needed, provided medication education, and maintained Q 15min safety checks. Restraints/seclusion/emergency medication: N/A Justification of Continued Inpatient Treatment: SANDOR Schwab pt. continues to require medication adjustments, clear boundaries, and a safe and supportive environment.
[2021-04-17] MEDS: pantoprazole 40mg Tablet.DR PO SCH (07:30)
[2021-04-17] MEDS: buPROPion SR 150mg tablet PO SCH ×2 (07:30→20:04)
[2021-04-17] MEDS: NICOTINE POLACRILEX 2 MG LOZENGE BC PRN ×5 (07:30→18:02)
[2021-04-17] MEDS: perphenazine 8mg tablets PO SCH ×2 (07:30→20:04)
[2021-04-17] MEDS: atomoxetine 40 MG capsule PO SCH (07:30)
[2021-04-17] MEDS: clonazePAM 1mg tablet PO SCH ×2 (07:30→16:10)
[2021-04-17] MEDS: methylphenidate 5mg tablet PO SCH ×2 (07:33→12:14)
[2021-04-17 08:00] VITALS: BP 114/72
[2021-04-17] MEDS: acetaminophen 325mg tablet PO PRN (10:23)
--- NOTE | 2021-04-17 11:25 | NUR ---
Nursing Progress Note: Legal hold: TCON Client on involuntary status for GD Report received from nurse Gabrielle Banda RN with use of SBAR Why are they here: Pt. admitted to unit from ER on 5150. Pt self reported he was not eating, drinking or sleeping due to hearing voices telling him he will be killed if he does. Pt reports loosing weight and pain in his feet. He endorses recent illicit drug and alcohol use. Assessment What has happened this shift: Pt spends most of the day standing in front of the doorway to the observation room talking to the nurses, standing in front of the nurses station talking to the financial secretary or charge nurse or pacing the halls. He perseverates on caffeine along with somatic symptoms of FOX, stomach ache, etc. constantly asking for a quick fix for his caffeine "withdrawals" or ailments of his head or stomach. Pt talked about purchasing "cheap caffeine pills from the [employer] store which is why I'm going through withdrawals." S/I, H/I: Denies A/VH: Denies; however at times is seen laughing inappropriately or moving his lips pacing the halls Sleep: Up so far this shift ADL's: Independent Group attendance: N/A Were Meds taken: yes Any med S/E: None noted or observed; he reports FOX from caffeine withdrawal Mental Status Exam Appearance: wearing the same clothing as yesterday Eye contact: Fair Behavior: Guarded Speech: Audible, clear Mood: Restless Affect: Congruent with mood Thought process: Linear with some disorganization Thought Content: Some ongoing A/FOX and possible delusions Cognition: A&O X3 Insight: Poor Judgment: Poor Interventions PRN's used: Nicotine Richelle. Therapeutic interventions: Provided 1:1 assessment with therapeutic communication and active listening, medication administration/education/monitoring,provided redirection and clear boundaries as needed, and maintained Q 15min safety checks. Restraints/seclusion/emergency medication: N/A Justification of Continued Inpatient Treatment: SANDOR Schwab pt. has been served his [employer] paperwork and has an upcoming court date. He continues to require a safe and supportive environment and time to allow medications to take their therapeutic effect.
[2021-04-17 19:00] VITALS: BP 134/81
[2021-04-17] MEDS: docusate sod 100mg capsule PO SCH (20:04)
[2021-04-17] MEDS: traZODone 50mg tablet PO PRN (20:04)
[2021-04-17] MEDS: quetiapine 100mg tablet PO SCH (20:04)
[2021-04-17] MEDS: psyllium seed 3.4 gm packet PO SCH (21:14)
--- NOTE | 2021-04-17 23:11 | NUR ---
Nursing Progress Note: Legal hold: Tcon Client on involuntary status for GD Report received from ANN Camacho with use of SBAR: Why are they here: Pt. admitted to unit from ER on 5150 which states that pt. was not eating food because it is too warm for his system. That he hasnt slept in days and reported not drinking anything until [facility] offered him water During interview pt. states, I Needed help. My feet were hurting. I was going insane. I need to clear my mind and get into a board and care. I need to let my feet cool off. Pt. reports that he is hearing voices that tell he will get beat up if he eats food. Pt. repots losing over 10 lbs. Pt.s speech is pressured and he is hyperverbal. Pt. states, I think Im autistic. Caffeine helps me talk to the voices in my head Im stressed out, Im pulling my life together for myself and everyone else. Pt. reports drinking ETOH 3 days ago in an attempt to quiet his voices. Pt. states, I only drink when there an absolute medical need. Alcohol is an antipsychotic, I need it when the voices are too heavy. Pt. also reports using opiates and meth to control the pain in his feet. Pt. states, I couldnt find a doctor for pain medicine so I used drugs. Pt. reports abusing opiates since he was 11 y.o. Pt. reports being off his meds for Quite a few days. Pt. reports he cannot go back to living with his dad. Pt. reports passive SI. Pt. states, I feel like wanting life to cease for the last couple months. I Just want to go to sleep and not wake up., have it all be over. Too much is expected out of me. Assessment What has happened this shift: Received patient lying on his bed reading. He came out soon after and sat in the rec room. He is open and friendly to select peers. he sat on the exercise bike for a while as he watched tv and worked out. The patient described his nightmare from last night to a peer. While on the bike, this nurse observed him speaking to himself very softly, but was unable to hear what he was saying. He made no requests for coffee, snacks, or anything. He attended snack time, took HS meds, then went to bed. He denies all MH symptoms. S/I, H/I: Denies A/VH: Denies, but is seen talking to himself. Sleep: See sleep assessment. ADL's: Independent. Group attendance: N/A Were meds taken: Refused Colace due to claim of diarrhea. Any med S/E: None reported or observed. Mental Status Exam Appearance: Neat and appropriately dressed in street clothes. Eye contact: Fair Behavior: Cooperative, restless, anxious, guarded. Speech: Normal Mood: Restless Affect: Labile at times Thought process: Linear with some disorganization Thought Content: Some ongoing A/FOX and possible delusions Cognition: A&O X3 Insight: Poor Judgment: Poor Interventions PRN's used: Trazodone Therapeutic interventions: Maintained a safe and supportive environment, ensured contract for safety, provided clear and simple instructions, monitored behaviors and need for intervention, attempted to orient to reality, provided redirection and clear boundaries as needed, provided medication education, and maintained Q 15min safety checks. Restraints/seclusion/emergency medication: N/A Justification of Continued Inpatient Treatment: SANDOR Schwab pt. continues to require medication adjustments, clear boundaries, and a safe and supportive environment.
[2021-04-18] MEDS: atomoxetine 40 MG capsule PO SCH (07:42)
[2021-04-18] MEDS: pantoprazole 40mg Tablet.DR PO SCH (07:42)
[2021-04-18] MEDS: buPROPion SR 150mg tablet PO SCH ×2 (07:42→20:01)
[2021-04-18] MEDS: clonazePAM 1mg tablet PO SCH ×2 (07:42→15:24)
[2021-04-18] MEDS: methylphenidate 5mg tablet PO SCH ×2 (07:42→11:59)
[2021-04-18] MEDS: perphenazine 8mg tablets PO SCH ×2 (07:43→20:02)
[2021-04-18 08:03] VITALS: BP 114/67
[2021-04-18] MEDS: NICOTINE POLACRILEX 2 MG LOZENGE BC PRN ×5 (08:10→18:40)
[2021-04-18] MEDS: ibuprofen 200mg tablet PO PRN ×2 (09:05→16:06)
--- NOTE | 2021-04-18 16:19 | NUR ---
Nursing Progress Note: Legal hold: TCON Client on involuntary status for GD Report received from nurse Gabrielle Banda RN with use of SBAR Why are they here: Pt. admitted to unit from ER on 5150. Pt self reported he was not eating, drinking or sleeping due to hearing voices telling him he will be killed if he does. Pt reports loosing weight and pain in his feet. He endorses recent illicit drug and alcohol use. Assessment What has happened this shift: Pt spends most of the day standing in front of the doorway to the observation room talking to the nurses, standing in front of the nurses station talking to the medical unit secretary or charge nurse or pacing the halls. He perseverates on caffeine along with somatic symptoms of FOX, stomach ache, etc. constantly asking for a quick fix for his caffeine "Dr. Fung is going to ask Shorty to Rx me Excedrin", patient is reminded that he just now is getting off a caffeine taper. 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 and to get away from [facility], My dad is mental ill and is not taking any meds" S/I, H/I: Denies A/VH: Denies; Sleep: Up so far this shift ADL's: Independent, showered late in shift Group attendance: N/A Were Meds taken: yes Any med S/E: None noted or observed; he reports FOX from caffeine withdrawal Mental Status Exam Appearance: wearing the same clothing as yesterday Eye contact: Fair Behavior: Guarded Speech: Audible, clear Mood: Restless Affect: Congruent with mood Thought process: Linear with some disorganization Thought Content: Some ongoing A/FOX and possible delusions Cognition: A&O X3 Insight: Poor Judgment: Poor Interventions PRN's used: Nicotine Richelle. all day long, Motrin X2 Therapeutic interventions: Provided 1:1 assessment with therapeutic communication and active listening, medication administration/education/monitoring,provided redirection and clear boundaries as needed, and maintained Q 15min safety checks. Restraints/seclusion/emergency medication: N/A Justification of Continued Inpatient Treatment: Patient is on a T-Con with [facility] due to failed outpatient treatment plans. He continues to require a safe and supportive environment and time to allow medications to take their therapeutic effect.
[2021-04-18] MEDS: quetiapine 100mg tablet PO SCH (20:02)
[2021-04-18] MEDS: docusate sod 100mg capsule PO SCH (20:02)
[2021-04-18] MEDS: traZODone 50mg tablet PO PRN (20:03)
[2021-04-18 20:25] VITALS: BP 116/66
[2021-04-18] MEDS: psyllium seed 3.4 gm packet PO SCH (21:01)
--- NOTE | 2021-04-19 01:34 | NUR ---
Nursing Progress Note: Legal hold: Tcon Client on involuntary status for GD Report received from ANN Camacho with use of SBAR: Why are they here: Pt. admitted to unit from ER on 5150 which states that pt. was not eating food because it is too warm for his system. That he hasnt slept in days and reported not drinking anything until [facility] offered him water During interview pt. states, I Needed help. My feet were hurting. I was going insane. I need to clear my mind and get into a board and care. I need to let my feet cool off. Pt. reports that he is hearing voices that tell he will get beat up if he eats food. Pt. repots losing over 10 lbs. Pt.s speech is pressured and he is hyperverbal. Pt. states, I think Im autistic. Caffeine helps me talk to the voices in my head Im stressed out, Im pulling my life together for myself and everyone else. Pt. reports drinking ETOH 3 days ago in an attempt to quiet his voices. Pt. states, I only drink when there an absolute medical need. Alcohol is an antipsychotic, I need it when the voices are too heavy. Pt. also reports using opiates and meth to control the pain in his feet. Pt. states, I couldnt find a doctor for pain medicine so I used drugs. Pt. reports abusing opiates since he was 11 y.o. Pt. reports being off his meds for Quite a few days. Pt. reports he cannot go back to living with his dad. Pt. reports passive SI. Pt. states, I feel like wanting life to cease for the last couple months. I Just want to go to sleep and not wake up., have it all be over. Too much is expected out of me. Assessment What has happened this shift: Received patient in his room. 1:1 done at bedside. The patient's well groomed and wearing nice clothes. He says that he's "doing fine today." Patient does not want to be conserved again, believing he can make it on his own, even though he has no viable means of support or usp. He came out and sat in the rec room for a while, before joining some of his peers in the group room to play board games. That lasted until snack time, when he took HS meds and went to bed. S/I, H/I: Denies A/VH: Denies. Sleep: See sleep assessment. ADL's: Independent. Group attendance: N/A Were meds taken: Refused Colace due to claim of diarrhea. Any med S/E: None reported or observed. Mental Status Exam Appearance: Neat, well groomed, and appropriately dressed in street clothes. Eye contact: Fair Behavior: Cooperative, restless, anxious, guarded. Speech: Normal Mood: Restless Affect: Labile at times Thought process: Linear with some disorganization Thought Content: Some ongoing A/FOX and possible delusions Cognition: A&O X3 Insight: Poor Judgment: Poor Interventions PRN's used: Trazodone Therapeutic interventions: Maintained a safe and supportive environment, ensured contract for safety, provided clear and simple instructions, monitored behaviors and need for intervention, attempted to orient to reality, provided redirection and clear boundaries as needed, provided medication education, and maintained Q 15min safety checks. Restraints/seclusion/emergency medication: N/A Justification of Continued Inpatient Treatment: SANDOR Schwab pt. continues to require medication adjustments, clear boundaries, and a safe and supportive environment.
[2021-04-19 07:00] VITALS: BP 125/71
[2021-04-19] MEDS: methylphenidate 5mg tablet PO SCH ×2 (07:48→12:32)
[2021-04-19] MEDS: atomoxetine 40 MG capsule PO SCH (07:48)
[2021-04-19] MEDS: buPROPion SR 150mg tablet PO SCH ×2 (07:48→20:06)
[2021-04-19] MEDS: clonazePAM 1mg tablet PO SCH ×2 (07:48→16:45)
[2021-04-19] MEDS: perphenazine 8mg tablets PO SCH ×2 (07:48→20:06)
[2021-04-19] MEDS: pantoprazole 40mg Tablet.DR PO SCH (07:48)
[2021-04-19] MEDS: NICOTINE POLACRILEX 2 MG LOZENGE BC PRN ×3 (08:14→17:07)
[2021-04-19] MEDS: acetaminophen 325mg tablet PO PRN ×2 (08:25→17:07)
[2021-04-19] MEDS: mag hydrox/Alum hydrox/simeth 30ml oral suspension PO PRN (13:20)
[2021-04-19] MEDS: psyllium seed 3.4 gm packet PO SCH (20:05)
[2021-04-19] MEDS: traZODone 50mg tablet PO PRN (20:06)
[2021-04-19] MEDS: quetiapine 100mg tablet PO SCH (20:06)
[2021-04-19 20:10] VITALS: BP 136/81
[2021-04-19] MEDS: docusate sod 100mg capsule PO SCH (21:00)
--- NOTE | 2021-04-20 01:38 | NUR ---
Nursing Progress Note: Legal hold: Tcon Client on involuntary status for GD Report received from ANN Camacho with use of SBAR: Why are they here: Pt. admitted to unit from ER on 5150 which states that pt. was not eating food because it is too warm for his system. That he hasnt slept in days and reported not drinking anything until [facility] offered him water During interview pt. states, I Needed help. My feet were hurting. I was going insane. I need to clear my mind and get into a board and care. I need to let my feet cool off. Pt. reports that he is hearing voices that tell he will get beat up if he eats food. Pt. repots losing over 10 lbs. Pt.s speech is pressured and he is hyperverbal. Pt. states, I think Im autistic. Caffeine helps me talk to the voices in my head Im stressed out, Im pulling my life together for myself and everyone else. Pt. reports drinking ETOH 3 days ago in an attempt to quiet his voices. Pt. states, I only drink when there an absolute medical need. Alcohol is an antipsychotic, I need it when the voices are too heavy. Pt. also reports using opiates and meth to control the pain in his feet. Pt. states, I couldnt find a doctor for pain medicine so I used drugs. Pt. reports abusing opiates since he was 11 y.o. Pt. reports being off his meds for Quite a few days. Pt. reports he cannot go back to living with his dad. Pt. reports passive SI. Pt. states, I feel like wanting life to cease for the last couple months. I Just want to go to sleep and not wake up., have it all be over. Too much is expected out of me. Assessment What has happened this shift: Received patient lying on his bed reading. "Doing great." Patient states he just feels like relaxing in his room tonight, "maybe do some writing." He continues to be cooperative, and no behavioral issues. The patient takes HS meds without issue, and turns the lights off after receiving them. S/I, H/I: Denies A/VH: Denies. Sleep: See sleep assessment. ADL's: Independent. Group attendance: N/A Were meds taken: Refused Colace due to claim of diarrhea. Any med S/E: None reported or observed. Mental Status Exam Appearance: Neat, well groomed, and appropriately dressed in street clothes. Eye contact: Fair Behavior: Cooperative, restless, guarded, isolative. Speech: Normal Mood: Restless Affect: Labile at times Thought process: Linear with some disorganization Thought Content: Some ongoing A/FOX and possible delusions Cognition: A&O X3 Insight: Poor Judgment: Poor Interventions PRN's used: Trazodone Therapeutic interventions: Maintained a safe and supportive environment, ensured contract for safety, provided clear and simple instructions, monitored behaviors and need for intervention, attempted to orient to reality, provided redirection and clear boundaries as needed, provided medication education, and maintained Q 15min safety checks. Restraints/seclusion/emergency medication: N/A Justification of Continued Inpatient Treatment: SANDOR Schwab pt. continues to require medication adjustments, clear boundaries, and a safe and supportive environment.
[2021-04-20 08:00] VITALS: BP 119/73
[2021-04-20] MEDS ORDERED: aspirin/acetaminophen/caffeine tablet PO SCH (08:00)
[2021-04-20] MEDS: perphenazine 8mg tablets PO SCH ×2 (08:23→20:17)
[2021-04-20] MEDS: methylphenidate 5mg tablet PO SCH ×2 (08:25→12:39)
[2021-04-20] MEDS: pantoprazole 40mg Tablet.DR PO SCH (08:25)
[2021-04-20] MEDS: buPROPion SR 150mg tablet PO SCH ×2 (08:25→20:18)
[2021-04-20] MEDS: clonazePAM 1mg tablet PO SCH ×2 (08:25→15:56)
[2021-04-20] MEDS: atomoxetine 40 MG capsule PO SCH (08:25)
[2021-04-20] MEDS: NICOTINE POLACRILEX 2 MG LOZENGE BC PRN ×4 (08:52→19:15)
--- NOTE | 2021-04-20 09:27 | NUR ---
Provided list of board and care's with contact info at Van's request. ANDREW Rosas
[2021-04-20] MEDS: traMADol 50MG tablet PO PRN (14:33)
--- NOTE | 2021-04-20 15:40 | NUR ---
Nursing Progress Note: Legal hold: TCON Client on involuntary status for GD Report received from nurse Cynthia RN with use of SBAR Why they are here: Pt. admitted to unit from ER on 5150. Pt self-reported he was not eating, drinking or sleeping due to hearing voices telling him he will be killed if he does. Pt reports losing weight and pain in his feet. He endorses recent illicit drug and alcohol use. Assessment What has happened this shift: Patient resting quietly in bed at start of shift. Slept 9 hours per report. Patient got up when breakfast arrived and ate in the common room with peers. PRN Ultram requested for leg pain. Patient paces in hallway, appears restless. Interacts appropriately with peers. Denies any SI/ HI at this time. Pt received word that he is in the process of being conserved and expresses disappointment over loss of independence. Stated, I guess I blew it, verbalizes understanding that he has discharged and stopped his medication many times and decompensated. Noted to be restless stepping back and forth in doorway while talking with staff. States he is having delusions today. His mind starts to get lost but he is then able to snap out of it and say what am I thinking? Second PRN Ultram given in afternoon. Appears depressed in the afternoon. Guarded, not giving details. Only states, Im not really feelin it. S/I, H/I: Denies A/VH: Denies; Sleep: 9 hours per NOC report ADL's: Independent Group attendance: N/A Were Meds taken: yes Any med S/E: None noted Mental Status Exam Appearance: well kept, dressed appropriately for unit Eye contact: Fair Behavior: Guarded Speech: pressured Mood: Restless Affect: Congruent with mood Thought process: Linear with some disorganization Thought Content: describes having delusions, but does not go into specifics. Cognition: A&O X4 Insight: Fair Judgment: Fair Interventions PRN's used: Ultram Therapeutic interventions: Provided 1:1 assessment with therapeutic communication and active listening, medication administration/education/monitoring, provided redirection and clear boundaries as needed, and maintained Q 15min safety checks. Restraints/seclusion/emergency medication: N/A Justification of Continued Inpatient Treatment: Patient is on a T-Con with [facility] due to failed outpatient treatment plans. He continues to require a safe and supportive environment and time to allow medications to take their therapeutic effect.
[2021-04-20] MEDS: acetaminophen 325mg tablet PO PRN (17:33)
[2021-04-20 20:00] VITALS: BP 132/63
[2021-04-20] MEDS: psyllium seed 3.4 gm packet PO SCH (20:18)
[2021-04-20] MEDS: quetiapine 100mg tablet PO SCH (20:18)
[2021-04-20] MEDS: docusate sod 100mg capsule PO SCH (20:29)
--- NOTE | 2021-04-21 01:24 | NUR ---
Nursing Progress Note: Legal hold: TCON Client on involuntary status for GD Report received from nurse Kylie RN with use of SBAR Why they are here: Pt. admitted to unit from ER on 5150. Pt self-reported he was not eating, drinking or sleeping due to hearing voices telling him he will be killed if he does. Pt reports losing weight and pain in his feet. He endorses recent illicit drug and alcohol use. Assessment What has happened this shift: Pt in his room, sitting on his bed writing at the start of shift. He remained in his room, except to come out for snacks. Pt denies all psychiatric symptoms at this time. He did refuse his colace dose at bedtime, as he reports having loose stools from it. S/I, H/I: Denies A/VH: Denies; Sleep: pt sleeping well ADL's: Independent Group attendance: N/A Were Meds taken: yes Any med S/E: None noted Mental Status Exam Appearance: dressed in his own clothing, hygiene and grooming is good Eye contact: good Behavior: appropriate Speech: normal rate Mood: Even Affect: Blunted Thought process: Linear Thought Content: WNL Cognition: A&O X4 Insight: Fair Judgment: Fair Interventions PRN's used: Nicotine Lozenge Therapeutic interventions: Provided 1:1 assessment with therapeutic communication and active listening, medication administration/education/monitoring, and maintained Q 15min safety checks. Restraints/seclusion/emergency medication: N/A Justification of Continued Inpatient Treatment: Patient is on a T-Con with [facility] due to multiple attempts outpatient treatment that have failed. He continues to require a safe and supportive environment and medication therapy to help stabilize him while he awaits the T-CON process to see if he will again be conserved.
[2021-04-21 07:32] VITALS: BP 130/88
[2021-04-21] MEDS: perphenazine 8mg tablets PO SCH ×2 (07:52→19:54)
[2021-04-21] MEDS: pantoprazole 40mg Tablet.DR PO SCH (07:52)
[2021-04-21] MEDS: atomoxetine 40 MG capsule PO SCH (07:52)
[2021-04-21] MEDS: buPROPion SR 150mg tablet PO SCH ×2 (07:52→19:54)
[2021-04-21] MEDS: methylphenidate 5mg tablet PO SCH ×2 (07:52→12:06)
[2021-04-21] MEDS: NICOTINE POLACRILEX 2 MG LOZENGE BC PRN ×6 (08:11→18:20)
[2021-04-21] MEDS: traMADol 50MG tablet PO PRN ×2 (08:11→12:59)
--- NOTE | 2021-04-21 13:52 | NUR ---
F/u 04/21: Pt PO ~100% avg regular diet meeting needs. LBM 04/19. No nutrition intervention at this time. Will continue to monitor. Recommendations: 1) Continue regular diet 2) bowel care per rx 3) Weekly scaled weights Addendum: 04/21/21 at [address] Amended: Links added.
[2021-04-21] MEDS: clonazePAM 0.5mg tablet PO PRN (13:57)
--- NOTE | 2021-04-21 14:31 | NUR ---
Nursing Progress Note: Legal hold: TCON Client on involuntary status for GD Report received from nurse, RN with use of SBAR Why they are here: Pt. admitted to unit from ER on 5150. Pt self-reported he was not eating, drinking or sleeping due to hearing voices telling him he will be killed if he does. Pt reports losing weight and pain in his feet. He endorses recent illicit drug and alcohol use. Assessment What has happened this shift: Pt was active on the unit most of the day. Pt spent time walking the halls but not interacting with other patients. When asked how he was doing, he replied, Im pretty good. Pt denied having any complaints or needs. Pt asks for prns on schedule. S/I, H/I: Denies A/VH: Denies; Sleep: no napping observed ADL's: Independent Group attendance: N/A Were Meds taken: yes Any med S/E: None noted Mental Status Exam Appearance: dressed in his own clothing, hygiene and grooming is good Eye contact: good Behavior: appropriate Speech: normal rate Mood: Even Affect: Blunted Thought process: Linear Thought Content: WNL Cognition: A&O X4 Insight: Fair Judgment: Fair Interventions PRN's used: Nicotine Lozenge Therapeutic interventions: Provided 1:1 assessment with therapeutic communication and active listening, medication administration/education/monitoring, and maintained Q 15min safety checks. Restraints/seclusion/emergency medication: N/A Justification of Continued Inpatient Treatment: Patient is on a T-Con with [facility] due to multiple attempts outpatient treatment that have failed. He continues to require a safe and supportive environment and medication therapy to help stabilize him while he awaits the T-CON process to see if he will again be conserved.
[2021-04-21] MEDS: ibuprofen 200mg tablet PO PRN (15:31)
[2021-04-21] MEDS: docusate sod 100mg capsule PO SCH (19:54)
[2021-04-21] MEDS: psyllium seed 3.4 gm packet PO SCH (19:54)
[2021-04-21] MEDS: quetiapine 100mg tablet PO SCH (20:02)
--- NOTE | 2021-04-22 03:30 | NUR ---
Nursing Progress Note: Legal hold: TCON Client on involuntary status for GD Report received from nurse, RN with use of SBAR Why they are here: Pt. admitted to unit from ER on 5150. Pt self-reported he was not eating, drinking or sleeping due to hearing voices telling him he will be killed if he does. Pt reports losing weight and pain in his feet. He endorses recent illicit drug and alcohol use. Assessment What has happened this shift: Pt mostly isolated to his room for evening shift, sitting on his bed reading. Pt is calm and cooperative for all assessments and care but appears fixated on getting prns. Pts complaining of knee pain and requesting multiple analgesics for his pain. S/I, H/I: Denies A/VH: Denies; Sleep: see sleep assessment ADL's: Independent Group attendance: N/A Were Meds taken: yes Any med S/E: None noted Mental Status Exam Appearance: dressed in his own clothing, hygiene and grooming is good Eye contact: good Behavior: appropriate Speech: normal rate Mood: Even Affect: Blunted Thought process: Linear Thought Content: WNL Cognition: A&O X4 Insight: Fair Judgment: Fair Interventions PRN's used: Nicotine Lozenge Therapeutic interventions: Provided 1:1 assessment with therapeutic communication and active listening, medication administration/education/monitoring, and maintained Q 15min safety checks. Restraints/seclusion/emergency medication: N/A Justification of Continued Inpatient Treatment: Patient is on a T-Con with [facility] due to multiple attempts outpatient treatment that have failed. He continues to require a safe and supportive environment and medication therapy to help stabilize him while he awaits the T-CON process to see if he will again be conserved.
[2021-04-22 07:21] VITALS: BP 106/78
[2021-04-22] MEDS: perphenazine 8mg tablets PO SCH ×2 (07:31→20:03)
[2021-04-22] MEDS: NICOTINE POLACRILEX 2 MG LOZENGE BC PRN ×4 (07:31→17:43)
[2021-04-22] MEDS: pantoprazole 40mg Tablet.DR PO SCH (07:32)
[2021-04-22] MEDS: atomoxetine 40 MG capsule PO SCH (07:32)
[2021-04-22] MEDS: buPROPion SR 150mg tablet PO SCH ×2 (07:32→20:03)
[2021-04-22] MEDS: methylphenidate 5mg tablet PO SCH ×2 (07:57→12:35)
[2021-04-22] MEDS: traMADol 50MG tablet PO PRN ×2 (08:29→14:25)
[2021-04-22] MEDS: ibuprofen 200mg tablet PO PRN ×2 (08:57→17:11)
[2021-04-22] MEDS: clonazePAM 0.5mg tablet PO PRN (08:57)
[2021-04-22] MEDS: lactose-reduced food (Ensure High Protein) 237ml bottle PO SCH ×2 (13:00→18:12)
[2021-04-22] MEDS ORDERED: PALI234D IM (17:08)
[2021-04-22] MEDS: QUEtiapine 25mg tablet PO ONE ×2 (17:11→17:17)
--- NOTE | 2021-04-22 17:16 | NUR ---
Nursing Progress Note: Legal hold: TCON Client on involuntary status for GD Report received from Gabrielle Frank RN with use of SBAR Why they are here: Pt. admitted to unit from ER on 5150. Pt self-reported he was not eating, drinking or sleeping due to hearing voices telling him he will be killed if he does. Pt reports losing weight and pain in his feet. He endorses recent illicit drug and alcohol use. Assessment What has happened this shift: RN received pt. asleep in bed at start of shift. Pt. took all medications and ate all meals in the community room. Pt. c/o of anxiety and received Klonopin 0.5mg po x1. Pt. received Tramadol 50mg po x2 for leg pain with good effect. Pt. observed exercising in the hallway listening to headphones. Pt. appeared to be getting agitated and offered one time dose of Seroquel 50mg, pt. refused, stating, Im just exercising. During 1:1 interview, pt. states, Im good. I just need to exercise to clear my brain.. Pt. states, its the meth that messes me up, I always do meth before Im put in a psych hospital and I hope the deputy manager will take that into consideration, this is drug induced. S/I, H/I: Denies A/VH: Denies Sleep: Pt. slept 8.5 hrs on NOC shift and did not appear to nap on day shift. ADL's: Independent Group attendance: N/A Were Meds taken: yes Any med S/E: None noted Mental Status Exam Appearance: Neat and clean, wearing casual attire. Eye contact: WNL Behavior: Cooperative, socially withdrawn. Speech: WNL Mood: Euthymic Affect: Flat Thought process: Linear Thought Content: Perseverates on medication. Cognition: A&O X4 Insight: Fair Judgment: Fair Interventions PRN's used: Tramadol x2, Klonopin x1. Therapeutic interventions: Provided 1:1 assessment with therapeutic communication and active listening, medication administration/education/monitoring, and maintained Q 15min safety checks. Restraints/seclusion/emergency medication: N/A Justification of Continued Inpatient Treatment: Patient is on a T-Con with [facility] due to multiple attempts outpatient treatment that have failed. He continues to require a safe and supportive environment and medication therapy to help stabilize him while he awaits the T-CON process to see if he will again be conserved. Addendum: 04/22/21 at 1806 by Anderson De Leon RN Pt. changed his mind and requested Seroquel 50mg now dose, stating, "It will help me calm down after my workout.".
[2021-04-22 19:00] VITALS: BP 133/79
[2021-04-22] MEDS: quetiapine 100mg tablet PO SCH (20:03)
[2021-04-22] MEDS: docusate sod 100mg capsule PO SCH (20:03)
[2021-04-22] MEDS: psyllium seed 3.4 gm packet PO SCH (20:05)
--- NOTE | 2021-04-23 01:20 | NUR ---
Nursing Progress Note: Legal hold: TCON Client on involuntary status for GD Report received from nurse, RN with use of SBAR Why they are here: Pt. admitted to unit from ER on 5150. Pt self-reported he was not eating, drinking or sleeping due to hearing voices telling him he will be killed if he does. Pt reports losing weight and pain in his feet. He endorses recent illicit drug and alcohol use. Assessment What has happened this shift: Pt was more isolative this evening, only coming out when he needs something. When asked if he has pain, pt responded, too much to talk about. Pt would not elaborate. Pt was not observed responding to IS, nor did he have any behavior issues. S/I, H/I: Denies A/VH: Denies; Sleep: see sleep assessment ADL's: Independent Group attendance: N/A Were Meds taken: yes Any med S/E: None noted Mental Status Exam Appearance: dressed in his own clothing, hygiene and grooming is good Eye contact: good Behavior: appropriate Speech: normal rate Mood: Even Affect: Blunted Thought process: Linear Thought Content: WNL Cognition: A&O X4 Insight: Fair Judgment: Fair Interventions PRN's used: none Therapeutic interventions: Provided 1:1 assessment with therapeutic communication and active listening, medication administration/education/monitoring, and maintained Q 15min safety checks. Restraints/seclusion/emergency medication: N/A Justification of Continued Inpatient Treatment: Patient is on a T-Con with [facility] due to multiple attempts outpatient treatment that have failed. He continues to require a safe and supportive environment and medication therapy to help stabilize him while he awaits the T-CON process to see if he will again be conserved.
[2021-04-23] MEDS: perphenazine 8mg tablets PO SCH ×2 (07:53→20:10)
[2021-04-23] MEDS: atomoxetine 40 MG capsule PO SCH (07:53)
[2021-04-23] MEDS: buPROPion SR 150mg tablet PO SCH ×2 (07:53→20:06)
[2021-04-23] MEDS: pantoprazole 40mg Tablet.DR PO SCH (07:53)
[2021-04-23 07:57] VITALS: BP 106/66
[2021-04-23] MEDS: ibuprofen 200mg tablet PO PRN ×2 (07:58→15:18)
[2021-04-23] MEDS: traMADol 50MG tablet PO PRN ×2 (07:58→14:14)
[2021-04-23] MEDS: methylphenidate 5mg tablet PO SCH ×2 (07:58→12:57)
[2021-04-23] MEDS: lactose-reduced food (Ensure High Protein) 237ml bottle PO SCH ×3 (08:00→18:00)
[2021-04-23] MEDS: NICOTINE POLACRILEX 2 MG LOZENGE BC PRN ×5 (08:44→20:44)
[2021-04-23] MEDS: clonazePAM 0.5mg tablet PO PRN ×2 (09:03→15:17)
[2021-04-23] MEDS: acetaminophen 325mg tablet PO PRN ×2 (10:01→16:36)
[2021-04-23] MEDS: hydrOXYzine 25 MG tablet PO ONE ×2 (12:00→12:10)
--- NOTE | 2021-04-23 17:28 | NUR ---
Nursing Progress Note: Legal hold: TCON Client on involuntary status for GD Report received from Gabrielle Frank RN with use of SBAR Why they are here: Pt. admitted to unit from ER on 5150. Pt self-reported he was not eating, drinking or sleeping due to hearing voices telling him he will be killed if he does. Pt reports losing weight and pain in his feet. He endorses recent illicit drug and alcohol use. Assessment What has happened this shift: RN received pt. asleep in bed at start of shift. Pt. took all medications and ate all meals in the community room. Pt. c/o bilateral leg pain and requested his Ultram and Ibuprofen with his AM medications. Later in the AM pt. reported anxiety and requested Klonopin 0.5mg po PRN and received with good effect. 1:1 done at bedside, pt. reports increased anxiety today. Pt. states, Im trying to take less Klonopin these days because it makes me tired. However, pt. reports that he still gets breakthrough anxiety and wants seroquil PRN prescribed instead. Provider notified of pt.s wishes. Pt. requested medication multiple times throughout the day, receiving second dose of Ultram, Ibuprofen, Tylenol, and Klonopin. S/I, H/I: Denies A/VH: Denies Sleep: Pt. slept 8.5 hrs on NOC shift and did not appear to nap on day shift. ADL's: Independent Group attendance: N/A Were Meds taken: Yes Any med S/E: Sedation Mental Status Exam Appearance: Neat and clean, wearing casual attire. Eye contact: WNL Behavior: Cooperative, socially withdrawn. Speech: WNL Mood: Euthymic Affect: Flat Thought process: Linear Thought Content: Perseverates on medication. Cognition: A&O X4 Insight: Fair Judgment: Fair Interventions PRN's used: Tramadol, Ibuprofen, Tylenol, Klonopin x2 Therapeutic interventions: Provided 1:1 assessment with therapeutic communication and active listening, medication administration/education/monitoring, and maintained Q 15min safety checks. Restraints/seclusion/emergency medication: N/A Justification of Continued Inpatient Treatment: Patient is on a T-Con with [facility] due to multiple attempts outpatient treatment that have failed. He continues to require a safe and supportive environment and medication therapy to help stabilize him while he awaits the T-CON process to see if he will again be conserved.
[2021-04-23] MEDS ORDERED: hydrOXYzine 25 MG tablet PO PRN (17:50)
[2021-04-23] MEDS: hydrOXYzine 25 MG tablet PO PRN (18:19)
[2021-04-23 19:00] VITALS: BP 121/61
[2021-04-23] MEDS: docusate sod 100mg capsule PO SCH (20:06)
[2021-04-23] MEDS: psyllium seed 3.4 gm packet PO SCH (20:06)
[2021-04-23] MEDS: quetiapine 100mg tablet PO SCH (20:07)
--- NOTE | 2021-04-24 00:34 | NUR ---
Nursing Progress Note: Legal hold: TCON Client on involuntary status for GD Report received from ANN Long with use of SBAR Why they are here: Pt. admitted to unit from ER on 5150. Pt self-reported he was not eating, drinking or sleeping due to hearing voices telling him he will be killed if he does. Pt reports losing weight and pain in his feet. He endorses recent illicit drug and alcohol use. Assessment What has happened this shift: Patient was in bed at shift change napping. Pt got up several times paced the halls up for snack and meds. then returned to bed. Little interaction with staff and peers this shift. S/I, H/I: Denies A/VH: Denies Sleep: See sleep assessment. ADL's: Independent Group attendance: N/A Were Meds taken: Yes Any med S/E: Sedation Mental Status Exam Appearance: Neat and clean, wearing casual attire. Eye contact: WNL Behavior: Cooperative, socially withdrawn. Speech: WNL Mood: Euthymic Affect: Flat Thought process: Linear Thought Content: Perseverates on medication. Cognition: A&O X4 Insight: Fair Judgment: Fair Interventions PRN's used: Therapeutic interventions: Provided 1:1 assessment with therapeutic communication and active listening, medication administration/education/monitoring, and maintained Q 15min safety checks. Restraints/seclusion/emergency medication: N/A Justification of Continued Inpatient Treatment: Patient is on a T-Con with [facility] due to multiple attempts outpatient treatment that have failed. He continues to require a safe and supportive environment and medication therapy to help stabilize him while he awaits the T-CON process to see if he will again be conserved.
[2021-04-24] MEDS: atomoxetine 40 MG capsule PO SCH (07:31)
[2021-04-24] MEDS: perphenazine 8mg tablets PO SCH ×2 (07:31→20:00)
[2021-04-24] MEDS: pantoprazole 40mg Tablet.DR PO SCH (07:31)
[2021-04-24] MEDS: methylphenidate 5mg tablet PO SCH ×2 (07:31→11:54)
[2021-04-24] MEDS: buPROPion SR 150mg tablet PO SCH ×2 (07:31→20:01)
[2021-04-24 08:00] VITALS: BP 107/77
[2021-04-24] MEDS: lactose-reduced food (Ensure High Protein) 237ml bottle PO SCH (08:00)
[2021-04-24] MEDS: NICOTINE POLACRILEX 2 MG LOZENGE BC PRN ×4 (08:25→15:35)
[2021-04-24] MEDS: ibuprofen 200mg tablet PO PRN ×2 (08:25→14:58)
[2021-04-24] MEDS: hydrOXYzine 25 MG tablet PO PRN (08:48)
[2021-04-24] MEDS: traMADol 50MG tablet PO PRN (10:21)
[2021-04-24] MEDS: acetaminophen 325mg tablet PO PRN (11:55)
[2021-04-24] MEDS ORDERED: hydrOXYzine 25 MG tablet PO ONE (12:10)
[2021-04-24] MEDS ORDERED: diphenhydrAMINE 25mg capsule PO ONE (14:05)
[2021-04-24] MEDS ORDERED: haloperidol 5mg tablet PO ONE (14:05)
[2021-04-24] MEDS ORDERED: LORazepam 2 mg/ml vial IM ONE (15:20)
[2021-04-24] MEDS ORDERED: haloperidol lactate 5mg/ml inj IM ONE (15:20)
[2021-04-24] MEDS ORDERED: diphenhydrAMINE 50 mg/ml inj IV ONE (15:20)
[2021-04-24] MEDS ORDERED: LORazepam 2 mg/ml vial ONE (15:21)
[2021-04-24] MEDS ORDERED: diphenhydrAMINE 50 mg/ml inj ONE (15:21)
[2021-04-24] MEDS ORDERED: haloperidol lactate 5mg/ml inj ONE (15:22)
--- NOTE | 2021-04-24 16:21 | NUR ---
Nursing Progress Note: Legal hold: TCON Client on involuntary status for GD Report received from Gabrielle Frank RN with use of SBAR Why they are here: Pt. admitted to unit from ER on 5150. Pt self-reported he was not eating, drinking or sleeping due to hearing voices telling him he will be killed if he does. Pt reports losing weight and pain in his feet. He endorses recent illicit drug and alcohol use. Assessment What has happened this shift: Patient in bed at change of shift. Eats meals in community room with peers. Patient restless/ pacing. Requests PRN medications frequently. New order today to D/C Ensure. At approx. 10:15 pt followed SANDOR Jones to Exam room and stood in doorway to request medication changes. PA educated pt on medications and their indications. Pt appears irritable and uses explicit language. PA does not change medications per pt request. Patient took water that he was holding and threw it at PA. He then threw cup on ground then walked away. Pt requesting additional medication for c/o anxiety/ his heart hurting. Indicates feeling by jabbing fingers into his left chest stating, It feels like someones just poking me hard right here. PA consulted who gave new order for x1 Atarax dose in addition to current PRN Order. PA stated he previously educated patient, which this nurse re-enforced that besides medication he needs to try other avenues to bring down his anxiety. Patient speech is pressured and he appears very tense. States, I just need someone sane to talk to. Theres no one sane here to talk to. I cant get a hold of my head. I cant even read or anything. I just cant get my head together. pt continues to perseverate on medications. Attempts to redirect are not helpful. Pt later states, I feel like ripping my clothes off! Im burning up hot! This is the worst anxiety Nabila ever had! Paces landaverde yelling at internal stimuli. Shorty Jones notified with new order for PO Haldol/ Benadryl. Yelling in room in response to internal stimuli. Throwing items. Security called/ notified, new order for IM Benadryl/ Haldol/ Ativan, Theyre tormenting me! I just cant! Aaaagh!! then tears shirt off. Pt compliant with receiving IM shot in deltoids. Patient got in bed, but then went back to pacing the halls/ requested nicotine lozenge. S/I, H/I: Denies A/VH: Appears to be responding to internal stimuli Sleep: See sleep assessment, short nap during day ADL's: Independent Group attendance: N/A Were Meds taken: Yes Any med S/E: None noted Mental Status Exam: Appearance: Neat and clean, dressed appropriately for unit. Eye contact: Good Behavior: Agitated Speech: loud, pressured Mood: Im frustrated! Affect: Congruent with mood Thought process: Linear Thought Content: Perseverates on medication. Cognition: A&O X4 Insight: Poor Judgment: Poor Interventions PRN's used: Tramadol, Ibuprofen, nicotine lozenge, Atarax Therapeutic interventions: Provided 1:1 assessment with therapeutic communication and active listening, medication administration/education/monitoring, and maintained Q 15min safety checks. Restraints/seclusion/emergency medication: IM Benadryl/ Haldol/ Ativan Justification of Continued Inpatient Treatment: Patient is on a T-Con with [facility] due to multiple attempts outpatient treatment that have failed. He continues to require a safe and supportive environment and medication therapy to help stabilize him while he awaits the T-CON process to see if he will again be conserved.
[2021-04-24] MEDS: quetiapine 100mg tablet PO SCH (20:01)
[2021-04-24] MEDS: docusate sod 100mg capsule PO SCH (20:01)
[2021-04-24] MEDS: psyllium seed 3.4 gm packet PO SCH (20:01)
[2021-04-24 20:35] VITALS: BP 111/57
[2021-04-25] VITALS (9 sets, daily range): BP systolic 129–151; BP diastolic 71–106
--- NOTE | 2021-04-25 00:36 | NUR ---
Nursing Progress Note: Legal hold: TCON Client on involuntary status for GD Report received from Ethan RN with use of SBAR Why they are here: Pt. admitted to unit from ER on 5150. Pt self-reported he was not eating, drinking or sleeping due to hearing voices telling him he will be killed if he does. Pt reports losing weight and pain in his feet. He endorses recent illicit drug and alcohol use. Assessment What has happened this shift: Patient was in bed at shift change and needed to be awakened for hs meds. No outburst noted this shift. S/I, H/I: Denies A/VH: Appears to be responding to internal stimuli Sleep: See sleep assessment, ADL's: Independent Group attendance: N/A Were Meds taken: Yes Any med S/E: None noted Mental Status Exam: Appearance: Neat and clean, dressed appropriately for unit. Eye contact: Good Behavior: Agitated Speech: loud, pressured Mood: Im frustrated! Affect: Congruent with mood Thought process: Linear Thought Content: Perseverates on medication. Cognition: A&O X4 Insight: Poor Judgment: Poor Interventions PRN's used: none Therapeutic interventions: Provided 1:1 assessment with therapeutic communication and active listening, medication administration/education/monitoring, and maintained Q 15min safety checks. Restraints/seclusion/emergency medication: IM Benadryl/ Haldol/ Ativan Justification of Continued Inpatient Treatment: Patient is on a T-Con with [facility] due to multiple attempts outpatient treatment that have failed. He continues to require a safe and supportive environment and medication therapy to help stabilize him while he awaits the T-CON process to see if he will again be conserved.
[2021-04-25] MEDS: NICOTINE POLACRILEX 2 MG LOZENGE BC PRN ×5 (07:42→21:47)
[2021-04-25] MEDS: perphenazine 8mg tablets PO SCH ×2 (08:00→19:01)
[2021-04-25] MEDS: pantoprazole 40mg Tablet.DR PO SCH (08:00)
[2021-04-25] MEDS: methylphenidate 5mg tablet PO SCH (08:00)
[2021-04-25] MEDS: buPROPion SR 150mg tablet PO SCH ×2 (08:00→19:00)
[2021-04-25] MEDS: atomoxetine 40 MG capsule PO SCH (08:00)
[2021-04-25] MEDS: mag hydrox/Alum hydrox/simeth 30ml oral suspension PO PRN (08:15)
[2021-04-25] MEDS: hydrOXYzine 25 MG tablet PO PRN ×3 (08:26→18:43)
[2021-04-25] MEDS: traMADol 50MG tablet PO PRN ×3 (09:23→21:22)
[2021-04-25] MEDS ORDERED: diphenhydrAMINE 50 mg/ml inj ONE (09:59)
[2021-04-25] MEDS ORDERED: haloperidol lactate 5mg/ml inj IM ONE (11:00)
--- NOTE | 2021-04-25 17:03 | NUR ---
Nursing Progress Note: Legal hold: TCON Client on involuntary status for GD Report received from Gabrielle Frank RN with use of SBAR Why they are here: Pt. admitted to unit from ER on 5150. Pt self-reported he was not eating, drinking or sleeping due to hearing voices telling him he will be killed if he does. Pt reports losing weight and pain in his feet. He endorses recent illicit drug and alcohol use. Assessment What has happened this shift: pt in bed at start of shift, arises before breakfast requesting PRN Nicotine lozenge, takes morning medications. States he is, Not too good, today. Continues to perseverate about medications. Patient comes to nursing stating, The spirits are torturing me! Like theyre burning a hole in me! I feel like Im losing control! Yelling Fuck you! You took my GOOD medication away! to staff. PA notified, PRN Atarax given. Patient hitting self in head and hitting head into door then c/o headache. PA/ CN aware. PRN Ultram given, ice pack provided. Continues yelling in room and in landaverde. SANDOR Jones notified. New order given for IM Haldol/ Benadryl. Patient calmly accepts IM injections then goes back to yelling loudly in his room. Comes to nurses station and states, Youre all aliens and this is an alien space ship, isnt it? Youre not demons are you? Whats wrong with me? Patient expressing desire to work. Calms down slightly when given a washcloth to clean with. Appears less anxious in the afternoon but continues to perseverate over medications and pace hallway. Patient demanding medications from staff. Agitated/ aggressive. Able to redirect pt into his room where he threw himself on the floor yelling and pulling himself across the floor with his arms then got back into bed. Began punching himself in the face and appeared to be trying to rip his face off with his hands screaming, See what I have to do!? PA made aware and security called. Redirection unsuccessful. Patient was asked to move to another room where he could be by himself he stated in a calm voice, Ill stop if thats what I gotta do. and then started yelling again. [facility]. Once inside room patient started punching window several times while yelling. He then dropped to the floor on his side, thrashed his body around and spun himself in circles yelling, Heres your show! repeatedly. Martha crabtree called. Additional staff/ security arrived to put patient in restraints. Patient then laid down and asked to be restrained saying, Restrain me. I cant help myself. Vital signs monitored every 15 minutes while in restraints as well as patient safety. Patient eventually becomes more calm and is released from restraints and seclusion. Returns to pacing the halls without yelling. S/I, H/I: Denies A/VH: Responding to internal stimuli. Describes AH as spirits/ demons. Sleep: 9 hours per NOC ADL's: Independent Group attendance: N/A Were Meds taken: Yes Any med S/E: None noted Mental Status Exam: Appearance: Neat and clean, dressed appropriately for unit. Eye contact: Fair Behavior: Restless, Agitated, yelling. Speech: Pressured, loud/ yelling at times. Mood: Angry Affect: Congruent with mood Thought process: Disorganized Thought Content: Perseverates on medication. Makes frequent reference to being tortured by demons. Cognition: A&O X2 to person, time Insight: Poor Judgment: Poor Interventions PRN's used: nicotine lozenge Therapeutic interventions: Provided 1:1 assessment with therapeutic communication and active listening, medication administration/education/monitoring, and maintained Q 15min safety checks. Restraints/seclusion/emergency medication: IM Benadryl/ Haldol Justification of Continued Inpatient Treatment: Patient is on a T-Con with [facility] due to multiple attempts outpatient treatment that have failed. He continues to require a safe and supportive environment and medication therapy to help stabilize him while he awaits the T-CON process to see if he will again be conserved.
[2021-04-25] MEDS: docusate sod 100mg capsule PO SCH (19:01)
[2021-04-25] MEDS: quetiapine 100mg tablet PO SCH (19:01)
[2021-04-25] MEDS: psyllium seed 3.4 gm packet PO SCH (19:02)
[2021-04-25] MEDS: traZODone 50mg tablet PO PRN (19:02)
[2021-04-25] MEDS: ibuprofen 200mg tablet PO PRN (22:54)
[2021-04-26] MEDS: NICOTINE POLACRILEX 2 MG LOZENGE BC PRN ×7 (00:10→18:29)
--- NOTE | 2021-04-26 00:13 | NUR ---
Nursing Progress Note: Legal hold: TCON Client on involuntary status for GD Report received from ANN Camacho with use of SBAR Why they are here: Pt. admitted to unit from ER on 5150. Pt self-reported he was not eating, drinking or sleeping due to hearing voices telling him he will be killed if he does. Pt reports losing weight and pain in his feet. He endorses recent illicit drug and alcohol use. Assessment What has happened this shift: Patient was up on the unit pacing at shift change. Pt's mood was elevated and asking for Klonopin or Ativan. Pt was given Prn Atarax with little help. Hs medications were given early and a Nicotine Lozenge every two hours. Pt had a difficult time sleeping despite his Trazodone PRN. Pt was able to hold his agitation in check this shift.Pt asked for Ultram and Motrin for pain. S/I, H/I: Denies A/VH: Responding to internal stimuli. Describes AH as spirits/ demons. Sleep: See sleep assessment. ADL's: Independent Group attendance: N/A Were Meds taken: Yes Any med S/E: None noted Mental Status Exam: Appearance: Neat and clean, dressed appropriately for unit. Eye contact: Fair Behavior: Restless, Agitated, yelling. Speech: Pressured, loud/ yelling at times. Mood: Angry Affect: Congruent with mood Thought process: Disorganized Thought Content: Perseverates on medication. Makes frequent reference to being tortured by demons. Cognition: A&O X2 to person, time Insight: Poor Judgment: Poor Interventions PRN's used: nicotine lozenge,Trazodone Motrin, Ultram. Therapeutic interventions: Provided 1:1 assessment with therapeutic communication and active listening, medication administration/education/monitoring, and maintained Q 15min safety checks. Restraints/seclusion/emergency medication: IM Benadryl/ Haldol Justification of Continued Inpatient Treatment: Patient is on a T-Con with [facility] due to multiple attempts outpatient treatment that have failed. He continues to require a safe and supportive environment and medication therapy to help stabilize him while he awaits the T-CON process to see if he will again be conserved. Addendum: 04/26/21 at 0158 by Antoine Rubio RN Lloyd [address] Antonieta winston continued to pace the [place]aver[place] this shift not sleeping.
[2021-04-26] MEDS: traZODone 50mg tablet PO PRN ×3 (00:34→20:05)
[2021-04-26] MEDS ORDERED: quetiapine 100mg tablet PO ONE (01:50)
[2021-04-26] MEDS: hydrOXYzine 25 MG tablet PO PRN ×3 (04:05→15:18)
[2021-04-26] MEDS: traMADol 50MG tablet PO PRN ×2 (04:33→15:19)
[2021-04-26] MEDS: acetaminophen 325mg tablet PO PRN ×3 (05:48→16:23)
[2021-04-26] MEDS: perphenazine 8mg tablets PO SCH ×2 (07:19→19:06)
[2021-04-26] MEDS: buPROPion SR 150mg tablet PO SCH ×2 (07:19→19:06)
[2021-04-26] MEDS: ibuprofen 200mg tablet PO PRN ×2 (07:19→15:19)
[2021-04-26] MEDS: pantoprazole 40mg Tablet.DR PO SCH (07:19)
[2021-04-26 08:00] VITALS: BP 135/84
[2021-04-26] MEDS: mag hydrox/Alum hydrox/simeth 30ml oral suspension PO PRN ×2 (13:20→18:07)
[2021-04-26] MEDS ORDERED: cloNIDine 0.1 mg tablet PO ONE (14:35)
--- NOTE | 2021-04-26 17:35 | NUR ---
Nursing Progress Note: Legal hold: TCON Client on involuntary status for GD Report received from Gabrielle Frank RN with use of SBAR Why they are here: Pt. admitted to unit from ER on 5150. Pt self-reported he was not eating, drinking or sleeping due to hearing voices telling him he will be killed if he does. Pt reports losing weight and pain in his feet. He endorses recent illicit drug and alcohol use. Assessment What has happened this shift: RN received pt. awake and pacing hallway at beginning of shift. Pt. requesting anxiolytic PRN. Pt. given Atarax 50mg po with minimal effect. Pt. requesting analgesic for bilateral leg pain rated 8/10. Pt. given Tramadol 50mg with good effect. Pt. took all medications and ate all meals in the community room. After breakfast pt. requesting more PRN anxiolytics, pt. informed that he would not receive more medication. Pt. became agitated and attempted to elope by pushing on the exit door until it beeped. Pt. given verbal redirection and stated, I might as well leave if Im not going to get Klonopin Pt. complied with verbal redirection. Provider notified. Pt. continue to c/o of hearing voices that are demons inside of him. Pt. paces throughout the day and asks for medications insensately. Pt. informed to use coping skills of relaxation and distraction. Pt. started on Clonidine 0.01mg TID scheduled and received now dose in the afternoon with minimal effect. Pt. continued to ask for Ativan even after being told he would not receive any benzodiazepines. Pt. received Ibuprofen, Tylenol, and Tramadol for bilateral leg pain. Pt. observed rolling around on floor in hallway states that he cannot get off the floor because his legs hurt and he needs clonidine. Pt. had to be told to get off the floor multiple times but eventually complied. S/I, H/I: Denies A/VH: CHOLO estrada Sleep: Pt. slept 1 hr on NOC shift and did not appear to nap on day shift. ADL's: Independent Group attendance: N/A Were Meds taken: Yes Any med S/E: None noted or reported. Mental Status Exam Appearance: Neat and clean, wearing casual attire. Eye contact: WNL Behavior: Mostly cooperative, pt. attempted to elope once, socially withdrawn, pacing hallway. Speech: WNL Mood: Euthymic Affect: Flat Thought process: Perseverative. Thought Content: Getting medication. Cognition: A&O X4 Insight: Fair Judgment: Fair Interventions PRN's used: Tramadol, Ibuprofen, Tylenol, Atarax x2 Therapeutic interventions: Provided 1:1 assessment with therapeutic communication and active listening, medication administration/education/monitoring, and maintained Q 15min safety checks. Restraints/seclusion/emergency medication: N/A Justification of Continued Inpatient Treatment: Patient is on a T-Con with [facility] due to multiple attempts outpatient treatment that have failed. He continues to require a safe and supportive environment and medication therapy to help stabilize him while he awaits the T-CON process to see if he will again be conserved.
[2021-04-26] MEDS: docusate sod 100mg capsule PO SCH (19:06)
[2021-04-26] MEDS: psyllium seed 3.4 gm packet PO SCH (19:08)
[2021-04-26] MEDS: cloNIDine 0.1 mg tablet PO SCH (20:06)
[2021-04-26] MEDS: quetiapine 100mg tablet PO SCH (20:06)
[2021-04-26 20:21] VITALS: BP 128/83
--- NOTE | 2021-04-27 00:09 | NUR ---
Nursing Progress Note: Legal hold: TCON Client on involuntary status for GD Report received from ANN Camacho with use of SBAR Why they are here: Pt. admitted to unit from ER on 5150. Pt self-reported he was not eating, drinking or sleeping due to hearing voices telling him he will be killed if he does. Pt reports losing weight and pain in his feet. He endorses recent illicit drug and alcohol use. Assessment What has happened this shift: Patient was up on unit pacing at shift change asking for medication. He stated "I did not sleep last nite or today I need an Ativan to go to sleep. Pt later asked for his night meds early. Meds given a little early and Pt went to sleep. S/I, H/I: Denies A/VH: CHOLO estrada Sleep: See sleep assessment. ADL's: Independent Group attendance: N/A Were Meds taken: Yes Any med S/E: None noted or reported. Mental Status Exam Appearance: Neat and clean, wearing casual attire. Eye contact: WNL Behavior: Mostly cooperative, pt. attempted to elope once, socially withdrawn, pacing hallway. Speech: WNL Mood: Euthymic Affect: Flat Thought process: Perseverative. Thought Content: Getting medication. Cognition: A&O X4 Insight: Fair Judgment: Fair Interventions PRN's used: Tramadol, Ibuprofen, Tylenol, Atarax x2 Therapeutic interventions: Provided 1:1 assessment with therapeutic communication and active listening, medication administration/education/monitoring, and maintained Q 15min safety checks. Restraints/seclusion/emergency medication: N/A Justification of Continued Inpatient Treatment: Patient is on a T-Con with [facility] due to multiple attempts outpatient treatment that have failed. He continues to require a safe and supportive environment and medication therapy to help stabilize him while he awaits the T-CON process to see if he will again be conserved.
[2021-04-27 07:39] VITALS: BP 113/70
[2021-04-27] MEDS: buPROPion SR 150mg tablet PO SCH ×2 (07:48→20:09)
[2021-04-27] MEDS: perphenazine 8mg tablets PO SCH ×2 (07:48→20:09)
[2021-04-27] MEDS: pantoprazole 40mg Tablet.DR PO SCH (07:48)
[2021-04-27] MEDS: cloNIDine 0.1 mg tablet PO SCH ×3 (07:48→21:33)
[2021-04-27] MEDS: hydrOXYzine 25 MG tablet PO PRN ×3 (08:18→19:41)
[2021-04-27] MEDS: traMADol 50MG tablet PO PRN ×2 (08:18→19:36)
[2021-04-27] MEDS: NICOTINE POLACRILEX 2 MG LOZENGE BC PRN ×3 (08:18→14:54)
[2021-04-27] MEDS: acetaminophen 325mg tablet PO PRN ×3 (10:49→20:09)
[2021-04-27] MEDS: mag hydrox/Alum hydrox/simeth 30ml oral suspension PO PRN (16:13)
--- NOTE | 2021-04-27 16:29 | NUR ---
Nursing Progress Note: Legal hold: TCON Client on involuntary status for GD Report received from ANN Marie with use of SBAR Why they are here: Pt. admitted to unit from ER on 5150. Pt self-reported he was not eating, drinking or sleeping due to hearing voices telling him he will be killed if he does. Pt reports losing weight and pain in his feet. He endorses recent illicit drug and alcohol use. What has happened this shift: Patient is awake at shift change requesting anything off his prn list, the behavior goes on all day long. At one point today patient is dragging his own body along the floor, rolling around like a wounded person. Van states his insides are on fire. This handbook writer gave Van every prn that he asked for that was with in the parameters of the prns. Patient was allowed to shower two times today and was given a ice pack. Just was not able to control his behavior today. Avn is unreasonable all day long. It is in the opinion of this handbook writer that [facility] should help Van with his impulsivity and give him strict boundaries to follow. S/I, H/I: Denies A/VH: CHOLO estrada Sleep: Per NOC 8.75 ADL's: Independent Group attendance: N/A Were Meds taken: Yes Any med S/E: None noted or reported. Mental Status Exam Appearance: Neat and clean, wearing casual attire. Eye contact: Hard stare Behavior: Manic Speech: low tone pressured Mood: uptight Affect: liable Thought process: Perseverative. Thought Content: Getting medication all day long................. Cognition: A&O X4 Insight: Fair Judgment: Fair Interventions PRN's used: Tramadol, Tylenol, Atarax, Malox, nicotine indigo Therapeutic interventions: Provided 1:1 assessment with therapeutic communication and active listening, medication administration/education/monitoring, and maintained Q 15min safety checks. Restraints/seclusion/emergency medication: N/A Justification of Continued Inpatient Treatment: Patient is on a T-Con with [facility] due to multiple attempts outpatient treatment that have failed. He continues to require a safe and supportive environment and medication therapy to help stabilize him while he awaits the T-CON process to see if he will again be conserved. [facility] is blocking his ability to make realistic discharge plans.
[2021-04-27 19:41] VITALS: BP 101/56
[2021-04-27] MEDS: quetiapine 100mg tablet PO SCH (20:09)
[2021-04-27] MEDS: traZODone 50mg tablet PO PRN (20:20)
[2021-04-27] MEDS: psyllium seed 3.4 gm packet PO SCH (21:33)
[2021-04-27] MEDS: docusate sod 100mg capsule PO SCH (21:33)
--- NOTE | 2021-04-27 23:02 | NUR ---
Nursing Progress Note: Legal hold: TCON Client on involuntary status for GD Report received from ANN Camacho with use of SBAR Why they are here: Pt. admitted to unit from ER on 5150. Pt self-reported he was not eating, drinking or sleeping due to hearing voices telling him he will be killed if he does. Pt reports losing weight and pain in his feet. He endorses recent illicit drug and alcohol use. Assessment What has happened this shift: Patient attempted to sleep during being of shift but kept being woken by auditory hallucinations. Patient also states struggling with feelings of anxiety. Patient was given PRN Atarax for anxiety at 1940 as well as PRN Ultram for generalized pain. Patient did allow tech's to get vials and participated in snacks. Patient was finally able to sleep for a few hours before waking up again and requesting his medications early so he could try to sleep through the night. Patient was complaint with all scheduled medications and was given PRN trazodone and Tylenol as well. S/I, H/I: Denies A/VH: Responding to internal stimuli. Describes AH as spirits/ demons. Sleep: See sleep assessment. ADL's: Independent Group attendance: N/A Were Meds taken: Yes Any med S/E: None noted Mental Status Exam: Appearance: Neat and clean, dressed appropriately for unit. Eye contact: Fair Behavior: Fatigued, Restless Speech: Pressured, soft Mood: Exhausted Affect: Congruent with mood Thought process: Disorganized Thought Content: Tired, hallucinations interrupting sleep Cognition: A&O X2 to person, time Insight: Poor Judgment: Poor Interventions PRN's used: Trazodone, Tylenol, Atarax, Ultram. Therapeutic interventions: Provided 1:1 assessment with therapeutic communication and active listening, medication administration/education/monitoring, and maintained Q 15min safety checks. Restraints/seclusion/emergency medication: IM Benadryl/ Haldol Justification of Continued Inpatient Treatment: Patient is on a T-Con with [facility] due to multiple attempts outpatient treatment that have failed. He continues to require a safe and supportive environment and medication therapy to help stabilize him while he awaits the T-CON process to see if he will again be conserved.
[2021-04-28 07:24] VITALS: BP 117/79
[2021-04-28] MEDS: perphenazine 8mg tablets PO SCH ×2 (07:55→20:55)
[2021-04-28] MEDS: pantoprazole 40mg Tablet.DR PO SCH (07:56)
[2021-04-28] MEDS: cloNIDine 0.1 mg tablet PO SCH ×3 (07:56→20:56)
[2021-04-28] MEDS: buPROPion SR 150mg tablet PO SCH ×2 (07:56→20:55)
[2021-04-28] MEDS: NICOTINE POLACRILEX 2 MG LOZENGE BC PRN ×4 (08:59→15:36)
[2021-04-28] MEDS: traMADol 50MG tablet PO PRN ×2 (08:59→13:16)
--- NOTE | 2021-04-28 09:35 | NUR ---
F/u 04/28: Pt PO ~100% avg regular diet meeting needs. LBM 04/27 receiving routine colace. No nutrition intervention at this time. Will continue to monitor. Recommendations: 1) Continue regular diet 2) bowel care per rx 3) Weekly scaled weights Addendum: 04/28/21 at [address] Amended: Links added.
[2021-04-28] MEDS: ibuprofen 200mg tablet PO PRN (09:46)
[2021-04-28] MEDS: hydrOXYzine 25 MG tablet PO PRN ×2 (10:16→15:48)
--- NOTE | 2021-04-28 10:25 | NUR ---
Pt. became agitated, started yelling, stating demons were inside of him. Pt. requested to go into restraints, stating, "I feel like i am going to hurt myself". Pt. placed in 4 point restraints in observation room. Pt. screaming nonsensical words. Q 15 min vital and behavioral assessments started.
[2021-04-28 10:35] VITALS: BP 127/70
[2021-04-28 10:50] VITALS: BP 123/81
--- NOTE | 2021-04-28 11:26 | NUR ---
PLACEMENT UPDATE Van's packet is at [facility], however, they are currently on lockdown due to Covid. ANDREW Rosas
--- NOTE | 2021-04-28 11:50 | NUR ---
Sent updated notes to [place] office for review. 04/15-04/27/21. ANDREW Rosas
[2021-04-28] MEDS: acetaminophen 325mg tablet PO PRN (15:48)
--- NOTE | 2021-04-28 18:08 | NUR ---
Nursing Progress Note: Legal hold: TCON Client on involuntary status for GD Report received from ANN Marie with use of SBAR Why they are here: Pt. admitted to unit from ER on 5150. Pt self-reported he was not eating, drinking or sleeping due to hearing voices telling him he will be killed if he does. Pt reports losing weight and pain in his feet. He endorses recent illicit drug and alcohol use. Assessment What has happened this shift: RN received pt. awake and pacing hallway at beginning of shift. Pt. requesting anxiolytic PRN. Pt. given Atarax 50mg po with minimal effect. Pt. requesting analgesic for bilateral leg pain rated 8/10. Pt. given Tramadol 50mg with good effect. Pt. took all medications and ate all meals in the community room. Pt. requesting PRNs for anxiety, when informed there were no more pt. became agitated, yelling loudly in his room, stating there was a demon inside him. Pt was put in 4 point restraints from 10:25 to approx. 1100. While restrained pt. screamed for approx. 10 minutes while restrained, saying incomprehensible things. After pt. was released he had no further outbursts. Pt. requested PRN Atarax in the afternoon, along with PRN analgesics. S/I, H/I: Jesusies A/VH: CHOLO estrada Sleep: Pt. slept 8/75 hrs on NOC shift and napped intermittently throughout the day. ADL's: Independent Group attendance: N/A Were Meds taken: Yes Any med S/E: None noted or reported. Mental Status Exam Appearance: Neat and clean, wearing casual attire. Eye contact: WNL Behavior: Mostly cooperative, one outburst of screaming, socially withdrawn, pacing hallway. Speech: WNL Mood: Euthymic Affect: Flat Thought process: Perseverative. Thought Content: Getting medication. Cognition: A&O X4 Insight: Fair Judgment: Fair Interventions PRN's used: Tramadol and Atarax x2. Ibuprofen x1 Therapeutic interventions: Provided 1:1 assessment with therapeutic communication and active listening, medication administration/education/monitoring, and maintained Q 15min safety checks. Restraints/seclusion/emergency medication: N/A Justification of Continued Inpatient Treatment: Patient is on a T-Con with [facility] due to multiple attempts outpatient treatment that have failed. He continues to require a safe and supportive environment and medication therapy to help stabilize him while he awaits the T-CON process to see if he will again be conserved.
[2021-04-28 19:05] VITALS: BP 115/57
[2021-04-28] MEDS: docusate sod 100mg capsule PO SCH (20:56)
[2021-04-28] MEDS: benztropine 1mg tablet PO SCH (20:56)
[2021-04-28] MEDS: quetiapine 100mg tablet PO SCH (20:56)
[2021-04-28] MEDS: psyllium seed 3.4 gm packet PO SCH (20:59)
--- NOTE | 2021-04-29 04:56 | NUR ---
Nursing Progress Note: Legal hold: TCON Client on involuntary status for GD Report received from ANN Marie with use of SBAR Why they are here: Pt. admitted to unit from ER on 5150. Pt self-reported he was not eating, drinking or sleeping due to hearing voices telling him he will be killed if he does. Pt reports losing weight and pain in his feet. He endorses recent illicit drug and alcohol use. Assessment What has happened this shift: After dinner pt. requested nicotine lozenge and then lied down and slept. Pt. was awoken by this RN for evening medications. Pt. took medications except of Wellbutrin, stating, I dont like taking that before I go to sleep. Pt. went back to sleep. S/I, H/I: Denies A/VH: Denies Sleep: Pt. slept entire shift. ADL's: Independent Group attendance: N/A Were Meds taken: All meds except for Wellbutrin. Any med S/E: Denies Mental Status Exam Appearance: Neat and clean, wearing casual attire. Eye contact: WNL Behavior: Cooperative, sleeping. Speech: WNL Mood: Depressed Affect: Flat Thought process: Linear Thought Content: Unable to assess as pt. slept entire shift. Insight: Poor Judgment: Poor Interventions PRN's used: None Therapeutic interventions: Provided 1:1 assessment with therapeutic communication and active listening, medication administration/education/monitoring, and maintained Q 15min safety checks. Restraints/seclusion/emergency medication: N/A Justification of Continued Inpatient Treatment: Patient is on a T-Con with [facility] due to multiple attempts outpatient treatment that have failed. He continues to require a safe and supportive environment and medication therapy to help stabilize him while he awaits the T-CON process to see if he will again be conserved.
[2021-04-29 07:14] VITALS: BP 104/65
[2021-04-29] MEDS: perphenazine 8mg tablets PO SCH ×2 (08:13→20:04)
[2021-04-29] MEDS: cloNIDine 0.1 mg tablet PO SCH ×3 (08:13→20:05)
[2021-04-29] MEDS: benztropine 1mg tablet PO SCH ×2 (08:13→20:05)
[2021-04-29] MEDS: buPROPion SR 150mg tablet PO SCH ×2 (08:13→20:04)
[2021-04-29] MEDS: pantoprazole 40mg Tablet.DR PO SCH (08:14)
[2021-04-29] MEDS: traMADol 50MG tablet PO PRN ×2 (08:58→18:54)
[2021-04-29] MEDS: acetaminophen 325mg tablet PO PRN (13:16)
[2021-04-29] MEDS: NICOTINE POLACRILEX 2 MG LOZENGE BC PRN ×3 (13:16→18:19)
--- NOTE | 2021-04-29 16:20 | NUR ---
Nursing Progress Note: Legal hold: TCON Client on involuntary status for GD Report received from ANN Barron with use of SBAR Why they are here: Pt. admitted to unit from ER on 5150. Pt self-reported he was not eating, drinking or sleeping due to hearing voices telling him he will be killed if he does. Pt reports losing weight and pain in his feet. He endorses recent illicit drug and alcohol use. What has happened this shift: Van was a sleep at shift change, patient did get up and eat breakfast, following breakfast this tech writer did patient 1:1 assessment at bedside and passed morning medication. Patient quickly asked for a prn Tramadol, this tech writer reminded Van that he has that ordered only two times in 24hours, patient stated he was ready to take it now. Not even two hours later patient wanted Tylenol for his nervous system pain......patient continues to have somatic complaint all day long. Today patient was able to control his behavior unlike yesterday, there was no yelling or rolling around the floor like he was on fire. S/I, H/I: Denies A/VH: CHOLO estrada Sleep: Naps on and off during the day ADL's: Independent, no shower today Group attendance: N/A Were Meds taken: Yes Any med S/E: None noted or reported. Mental Status Exam Appearance: Neat and clean, wearing casual attire. Eye contact: Hard stare Behavior: corporative Speech: low tone pressured Mood: depressed Affect: flat Thought process: Perseverative. Thought Content: Getting medication all day long................. Cognition: A&O X4 Insight: Fair Judgment: Fair Interventions PRN's used: Tramadol, Tylenol, nicotine indigo Therapeutic interventions: Provided 1:1 assessment with therapeutic communication and active listening, medication administration/education/monitoring, and maintained Q 15min safety checks. Restraints/seclusion/emergency medication: N/A Justification of Continued Inpatient Treatment: Patient is on a T-Con with [facility] due to multiple attempts outpatient treatment that have failed. He continues to require a safe and supportive environment and medication therapy to help stabilize him while he awaits the T-CON process to see if he will again be conserved. [facility] is blocking his ability to make realistic discharge plans.
[2021-04-29 19:00] VITALS: BP 106/69
[2021-04-29] MEDS: docusate sod 100mg capsule PO SCH (20:04)
[2021-04-29] MEDS: quetiapine 100mg tablet PO SCH (20:05)
[2021-04-29] MEDS: psyllium seed 3.4 gm packet PO SCH (20:05)
--- NOTE | 2021-04-29 22:53 | NUR ---
Nursing Progress Note: Legal hold: TCON Client on involuntary status for GD Report received from ANN Espinal with use of SBAR Why they are here: Pt. admitted to unit from ER on 5150. Pt self-reported he was not eating, drinking or sleeping due to hearing voices telling him he will be killed if he does. Pt reports losing weight and pain in his feet. He endorses recent illicit drug and alcohol use. What has happened this shift: Following shift change this patient was out of his room and socializing with peers and staff, he interacted well while watching television. Patient had some generalized pain, eg: headache, bilateral knee pain, and miscellaneous aches. Tramadol was given once with full relief. The patient rested following snacks. He denied S/I, H/I, or any hallucinations. S/I, H/I: Denies. A/VH: Denies. Sleep: Sleeping well, will tally at 0500 hours. ADL's: Independent. 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 Were Meds taken: Yes, medication compliant. Any med S/E: None noted or reported. Mental Status Exam Appearance: WNL, wearing green scrubs. Eye contact: Direct. Behavior: Friendly and social. Speech: Normal rhythm and tone. Mood: Upbeat. Affect: Congruent with mood. Thought process: Perseverative. Thought Content: "Feeling fine." Does not elaborate. Cognition: A&O X4 Insight: Fair. Judgment: Fair. Interventions PRN's used: Tramadol, Nicotine lozenge. Therapeutic interventions: Provided 1:1 assessment with therapeutic communication and active listening, medication administration/education/monitoring, and maintained Q 15min safety checks. Restraints/seclusion/emergency medication: N/A Justification of Continued Inpatient Treatment: Patient is on a T-Con with [facility] due to multiple attempts outpatient treatment that have failed. He continues to require a safe and supportive environment and medication therapy to help stabilize him while he awaits the T-CON process to see if he will again be conserved. is blocking his ability to make realistic discharge plans.
[2021-04-30] MEDS: cloNIDine 0.1 mg tablet PO SCH ×3 (07:42→20:02)
[2021-04-30] MEDS: pantoprazole 40mg Tablet.DR PO SCH (07:42)
[2021-04-30] MEDS: buPROPion SR 150mg tablet PO SCH ×2 (07:42→20:02)
[2021-04-30] MEDS: perphenazine 8mg tablets PO SCH ×2 (07:43→20:02)
[2021-04-30] MEDS: benztropine 1mg tablet PO SCH ×2 (07:43→20:01)
[2021-04-30] MEDS: NICOTINE POLACRILEX 2 MG LOZENGE BC PRN ×4 (07:49→19:38)
[2021-04-30] MEDS: hydrOXYzine 25 MG tablet PO PRN (07:49)
[2021-04-30 08:00] VITALS: BP 129/77
[2021-04-30] MEDS: mag hydrox/Alum hydrox/simeth 30ml oral suspension PO PRN (11:48)
--- NOTE | 2021-04-30 15:06 | NUR ---
Nursing Progress Note: Legal hold: TCON Client on involuntary status for GD Report received from nurse Gabrielle Banda RN with use of SBAR Why are they here: Pt. admitted to unit from ER on 5150. Pt self reported he was not eating, drinking or sleeping due to hearing voices telling him he will be killed if he does. Pt reports loosing weight and pain in his feet. He endorses recent illicit drug and alcohol use. Assessment What has happened this shift: Van had a nice day. He spent less time standing at the nurses room asking for PRN's and/or changes in medications. He was given MOM for indigestion, Atarax for anxiety and Nicotine lozenges for his nicotine addiction, per Van report, all with good effect. Van talked about "going through withdrawal from Ativan and the other medication." S/I, H/I: Denies A/VH: Van endorses hearing voices and states Clozaril is what has helped with that in the past. Sleep: Napped in the morning ADL's: Independent Group attendance: No Were Meds taken: yes Any med S/E: None noted or observed Mental Status Exam Appearance: wearing the same clothing as yesterday Eye contact: Fair Behavior: Calm; Articulate Speech: Normal rate and rhythm Mood: Euthymic Affect: Appropriate Thought process: Linear, Circumstantial Thought Content: ongoing A/FOX Cognition: A&O X3 Insight: Poor Judgment: Poor Interventions PRN's used: Nicotine Richelle., Atarax, MOM Therapeutic interventions: Provided 1:1 assessment with therapeutic communication and active listening, medication administration/education/monitoring,provided redirection and clear boundaries as needed, and maintained Q 15min safety checks. Restraints/seclusion/emergency medication: N/A Justification of Continued Inpatient Treatment: SANDOR Schwab pt. has been served his [employer] paperwork and has an upcoming court date. He continues to require a safe and supportive environment and time to allow medications to take their therapeutic effect.
[2021-04-30] MEDS: traMADol 50MG tablet PO PRN (16:20)
[2021-04-30] MEDS: docusate sod 100mg capsule PO SCH (20:03)
[2021-04-30] MEDS: quetiapine 100mg tablet PO SCH (20:03)
[2021-04-30] MEDS: psyllium seed 3.4 gm packet PO SCH (20:03)
[2021-04-30 20:47] VITALS: BP 124/68
--- NOTE | 2021-05-01 01:00 | NUR ---
Nursing Progress Note: Legal hold: TCON Client on involuntary status for GD Report received from nurse Akin JUAREZ with use of SBAR Why are they here: Pt. admitted to unit from ER on 5150. Pt self reported he was not eating, drinking or sleeping due to hearing voices telling him he will be killed if he does. Pt reports loosing weight and pain in his feet. He endorses recent illicit drug and alcohol use. Assessment What has happened this shift: Van was up on the unit at the start of the shift social with peers. He was less needy today and did not ask for Prns.He was up for snack eating in the group room was med compliant He did ask for a Nicotine Lozenge before going to bed. No outburst or anxiety noted. S/I, H/I: Denies A/VH: Van endorses hearing voices and states Clozaril is what has helped with that in the past. Sleep: See sleep assessment ADL's: Independent Group attendance: No Were Meds taken: yes Any med S/E: None noted or observed Mental Status Exam Appearance: wearing the same clothing as yesterday Eye contact: Fair Behavior: Calm; Articulate Speech: Normal rate and rhythm Mood: Euthymic Affect: Appropriate Thought process: Linear, Circumstantial Thought Content: ongoing A/FOX Cognition: A&O X3 Insight: Poor Judgment: Poor Interventions PRN's used: Nicotine Richelle. Therapeutic interventions: Provided 1:1 assessment with therapeutic communication and active listening, medication administration/education/monitoring,provided redirection and clear boundaries as needed, and maintained Q 15min safety checks. Restraints/seclusion/emergency medication: N/A Justification of Continued Inpatient Treatment: SANDOR Schwab pt. has been served his [employer] paperwork and has an upcoming court date. He continues to require a safe and supportive environment and time to allow medications to take their therapeutic effect.
[2021-05-01] MEDS: NICOTINE POLACRILEX 2 MG LOZENGE BC PRN ×3 (02:16→17:15)
[2021-05-01] MEDS: mag hydrox/Alum hydrox/simeth 30ml oral suspension PO PRN (05:56)
[2021-05-01 07:18] VITALS: BP 104/54
[2021-05-01] MEDS: pantoprazole 40mg Tablet.DR PO SCH (07:58)
[2021-05-01] MEDS: cloNIDine 0.1 mg tablet PO SCH ×3 (07:58→19:57)
[2021-05-01] MEDS: benztropine 1mg tablet PO SCH ×2 (07:58→19:57)
[2021-05-01] MEDS: perphenazine 8mg tablets PO SCH ×2 (07:58→19:58)
[2021-05-01] MEDS: buPROPion SR 150mg tablet PO SCH ×2 (07:59→19:57)
--- NOTE | 2021-05-01 15:53 | NUR ---
Nursing Progress Note: Legal hold: TCON Client on involuntary status for GD Report received from nurse Gabrielle Banda RN with use of SBAR Why are they here: Pt. admitted to unit from ER on 5150. Pt self reported he was not eating, drinking or sleeping due to hearing voices telling him he will be killed if he does. Pt reports loosing weight and pain in his feet. He endorses recent illicit drug and alcohol use. Assessment What has happened this shift: Van has been isolating today. He has been up for meals then he goes back to his room and goes to sleep. He states, "there is nothing else to do." When given the opportunity to go outside he remained inside. He appears depressed. S/I, H/I: Denies A/VH: Denies Sleep: Slept all day ADL's: Independent Group attendance: No Were Meds taken: Yes Any med S/E: None noted or observed Mental Status Exam Appearance: Van is in the same clothes as yesterday Eye contact: Poor Behavior: Isolative Speech: Normal rate and rhythm Mood: Depressed Affect: Congruent with mood Thought process: Circumstantial Thought Content: Wants to be out of here Cognition: A&O X3 Insight: Poor Judgment: Poor Interventions PRN's used: Nicotine Richelle. Therapeutic interventions: Provided 1:1 assessment with therapeutic communication and active listening, medication administration/education/monitoring,provided redirection and clear boundaries as needed, and maintained Q 15min safety checks. Restraints/seclusion/emergency medication: N/A Justification of Continued Inpatient Treatment: SANDOR Schwab pt. has been served his [employer] paperwork and has an upcoming court date. He continues to require a safe and supportive environment and time to allow medications to take their therapeutic effect.
[2021-05-01] MEDS: acetaminophen 325mg tablet PO PRN (18:21)
[2021-05-01 19:09] VITALS: BP 109/68
[2021-05-01] MEDS: quetiapine 100mg tablet PO SCH (19:57)
[2021-05-01] MEDS: docusate sod 100mg capsule PO SCH (19:58)
[2021-05-01] MEDS: psyllium seed 3.4 gm packet PO SCH (19:58)
--- NOTE | 2021-05-02 00:15 | NUR ---
Nursing Progress Note: Legal hold: TCON Client on involuntary status for GD Report received from nurse Kylie RN with use of SBAR Why are they here: Pt. admitted to unit from ER on 5150. Pt self reported he was not eating, drinking or sleeping due to hearing voices telling him he will be killed if he does. Pt reports loosing weight and pain in his feet. He endorses recent illicit drug and alcohol use. Assessment What has happened this shift: Patient isolated to his room this shift only came out of his room to aske for Prn's and for snack. He was med compliant and cheerful. S/I, H/I: Denies A/VH: Denies Sleep: See sleep assessment ADL's: Independent Group attendance: No Were Meds taken: Yes Any med S/E: None noted or observed Mental Status Exam Appearance: Van is in the same clothes as yesterday Eye contact: Poor Behavior: Isolative Speech: Normal rate and rhythm Mood: Depressed Affect: Congruent with mood Thought process: Circumstantial Thought Content: Wants to be out of here Cognition: A&O X3 Insight: Poor Judgment: Poor Interventions PRN's used: Nicotine Richelle. Therapeutic interventions: Provided 1:1 assessment with therapeutic communication and active listening, medication administration/education/monitoring,provided redirection and clear boundaries as needed, and maintained Q 15min safety checks. Restraints/seclusion/emergency medication: N/A Justification of Continued Inpatient Treatment: SANDOR Schwab pt. has been served his [employer] paperwork and has an upcoming court date. He continues to require a safe and supportive environment and time to allow medications to take their therapeutic effect.
[2021-05-02] MEDS: NICOTINE POLACRILEX 2 MG LOZENGE BC PRN ×4 (07:51→18:25)
[2021-05-02] MEDS: perphenazine 8mg tablets PO SCH ×2 (07:51→20:00)
[2021-05-02] MEDS: cloNIDine 0.1 mg tablet PO SCH ×3 (07:52→20:01)
[2021-05-02] MEDS: traMADol 50MG tablet PO PRN ×2 (07:52→16:30)
[2021-05-02] MEDS: pantoprazole 40mg Tablet.DR PO SCH (07:52)
[2021-05-02] MEDS: benztropine 1mg tablet PO SCH ×2 (07:52→20:01)
[2021-05-02] MEDS: buPROPion SR 150mg tablet PO SCH ×2 (07:52→20:01)
[2021-05-02 07:59] VITALS: BP 116/74
[2021-05-02 12:34] VITALS: BP 112/64
--- NOTE | 2021-05-02 14:48 | NUR ---
Nursing Progress Note: ÁNGEL Legal hold: TCON Client on involuntary status for GD Report received from CHRIS Minor with use of SBAR Why are they here: Pt. admitted to unit from ER on 515. Pt self-reported he was not eating, drinking or sleeping due to hearing voices telling him he will be killed if he does. Pt reports losing weight and pain in his feet. He endorses recent illicit drug and alcohol use. Assessment What has happened this shift: Received patient sleeping at shift change, pt woke prior to breakfast and requested a nicotine lozenge and Tramadol. Pt reported bilateral leg pain 04/05. Tramadol was administered with effect. Pt was compliant with care and medications. Pt expresses he is bored but declined to go to the patio with group. Pt is observed pacing the [place] listening to the headphones or napping intermittently. Pt stated I have been exercising in my room. Keeps me sane. Pt has had no outbursts as of this writing. S/I, H/I: Denies both. A/VH: Denies both. Sleep: 8.5 hours per sleep assessment. Intermittent naps. ADL's: Independent Group attendance: No scheduled groups. Were Meds taken: Yes, without issue. Any med S/E: None reported or observed Mental Status Exam Appearance: Neat, clean, dressed in personal attire. Pt has a well-trimmed robertson. Eye contact: Good Behavior: Cooperative, calm. Pt keeps to himself. Napped often or pace [place]. Speech: Normal rate and rhythm Mood: Bored, pleasant Affect: Congruent with mood Thought process: Circumstantial Thought Content: Wants to be out of here Cognition: A&O X3 Insight: Poor Judgment: Poor Interventions PRN's used: Tramadol, nicotine lozenge. Therapeutic interventions: Provided 1:1 assessment with therapeutic communication and active listening, medication administration/education/monitoring, provided redirection and clear boundaries as needed, and maintained Q 15min safety checks. Restraints/seclusion/emergency medication: N/A Justification of Continued Inpatient Treatment: Pt is conserved. Pt continues to require a safe and supportive environment while waiting placement.
[2021-05-02 19:43] VITALS: BP 124/73
[2021-05-02] MEDS: docusate sod 100mg capsule PO SCH (20:01)
[2021-05-02] MEDS: quetiapine 100mg tablet PO SCH (20:02)
[2021-05-02] MEDS: psyllium seed 3.4 gm packet PO SCH (20:02)
[2021-05-02] MEDS: traZODone 50mg tablet PO PRN (23:12)
--- NOTE | 2021-05-03 00:38 | NUR ---
Nursing Progress Note: ÁNGEL Legal hold: TCON Client on involuntary status for GD Report received from CHRIS Espinal with use of SBAR Why are they here: Pt. admitted to unit from ER on 515. Pt self-reported he was not eating, drinking or sleeping due to hearing voices telling him he will be killed if he does. Pt reports losing weight and pain in his feet. He endorses recent illicit drug and alcohol use. Assessment What has happened this shift: Pt was up walking the [place] at shift change with headphones on. Pt was in a good mood. Pt ate snack in group room was med compliant. Pt walked the [place] a while before going to bed. S/I, H/I: Denies both. A/VH: Denies both. Sleep: See sleep assessment ADL's: Independent Group attendance: No scheduled groups. Were Meds taken: Yes, without issue. Any med S/E: None reported or observed Mental Status Exam Appearance: Neat, clean, dressed in personal attire. Pt has a well-trimmed robertson. Eye contact: Good Behavior: Cooperative, calm. Pt keeps to himself. Napped often or pace [place]. Speech: Normal rate and rhythm Mood: Bored, pleasant Affect: Congruent with mood Thought process: Circumstantial Thought Content: Wants to be out of here Cognition: A&O X3 Insight: Poor Judgment: Poor Interventions PRN's used: Therapeutic interventions: Provided 1:1 assessment with therapeutic communication and active listening, medication administration/education/monitoring, provided redirection and clear boundaries as needed, and maintained Q 15min safety checks. Restraints/seclusion/emergency medication: N/A Justification of Continued Inpatient Treatment: Pt is conserved. Pt continues to require a safe and supportive environment while waiting placement.
[2021-05-03 07:58] VITALS: BP 118/66
[2021-05-03] MEDS: benztropine 1mg tablet PO SCH ×2 (08:05→20:01)
[2021-05-03] MEDS: perphenazine 8mg tablets PO SCH ×2 (08:05→20:01)
[2021-05-03] MEDS: buPROPion SR 150mg tablet PO SCH ×2 (08:05→20:01)
[2021-05-03] MEDS: cloNIDine 0.1 mg tablet PO SCH ×3 (08:05→20:02)
[2021-05-03] MEDS: pantoprazole 40mg Tablet.DR PO SCH (08:05)
[2021-05-03] MEDS: traMADol 50MG tablet PO PRN (16:18)
--- NOTE | 2021-05-03 16:47 | NUR ---
Nursing Progress Note: Legal hold: TCON Client on involuntary status for GD Report received from CHRIS Marie with use of SBAR Why they are here: Pt. admitted to unit from ER on 5150. Pt self-reported he was not eating, drinking or sleeping due to hearing voices telling him he will be killed if he does. Pt reports losing weight and pain in his feet. He endorses recent illicit drug and alcohol use. Assessment What has happened this shift: Patient is resting quietly in bed at start of shift. Takes medication as ordered. Remains calm, cooperative and Isolative. Eats meals in community room but has little interaction with peers. Isolates in his room and naps on and off. Noted pacing hallway at times. Declines to attend group. S/I, H/I: Denies A/VH: Denies Sleep: 6.5hrs per NOC. Intermittent naps. ADL's: Independent Group attendance: No Were Meds taken: Yes Any med S/E: None reported or observed Mental Status Exam Appearance: Neat, clean, dressed in personal attire. Pt has a well-trimmed robertson. Eye contact: Good Behavior: Cooperative, calm, withdrawn Speech: Normal rate and rhythm Mood: Alright. Better than usual. Affect: Blunted Thought process: Goal directed Thought Content: Wants to be independent. Cognition: A&O X4 Insight: Poor Judgment: Poor Interventions PRN's used: Therapeutic interventions: Provided 1:1 assessment with therapeutic communication and active listening, medication administration/education/monitoring, provided redirection and clear boundaries as needed, and maintained Q 15min safety checks. Restraints/seclusion/emergency medication: N/A Justification of Continued Inpatient Treatment: Pt is conserved. Pt continues to require a safe and supportive environment while waiting placement.
[2021-05-03] MEDS: docusate sod 100mg capsule PO SCH (20:01)
[2021-05-03] MEDS: quetiapine 100mg tablet PO SCH (20:01)
[2021-05-03] MEDS: psyllium seed 3.4 gm packet PO SCH (20:02)
[2021-05-03 20:41] VITALS: BP 107/64
--- NOTE | 2021-05-04 00:34 | NUR ---
Nursing Progress Note: Legal hold: TCON Client on involuntary status for GD Report received from CHRIS Camacho with use of SBAR Why they are here: Pt. admitted to unit from ER on 5150. Pt self-reported he was not eating, drinking or sleeping due to hearing voices telling him he will be killed if he does. Pt reports losing weight and pain in his feet. He endorses recent illicit drug and alcohol use. Assessment What has happened this shift: Patient up wandering the unit at start of shift. Pt is calm with no out burst noted He was med compliant watched tv in rec room fore a while after snack then went to bed. S/I, H/I: Denies A/VH: Denies Sleep: See sleep assessment. ADL's: Independent Group attendance: No Were Meds taken: Yes Any med S/E: None reported or observed Mental Status Exam Appearance: Neat, clean, dressed in personal attire. Pt has a well-trimmed robertson. Eye contact: Good Behavior: Cooperative, calm, withdrawn Speech: Normal rate and rhythm Mood: Alright. Better than usual. Affect: Blunted Thought process: Goal directed Thought Content: Wants to be independent. Cognition: A&O X4 Insight: Poor Judgment: Poor Interventions PRN's used: none Therapeutic interventions: Provided 1:1 assessment with therapeutic communication and active listening, medication administration/education/monitoring, provided redirection and clear boundaries as needed, and maintained Q 15min safety checks. Restraints/seclusion/emergency medication: N/A Justification of Continued Inpatient Treatment: Pt is conserved. Pt continues to require a safe and supportive environment while waiting placement.
[2021-05-04 07:00] VITALS: BP 107/71
[2021-05-04] MEDS: perphenazine 8mg tablets PO SCH ×2 (08:16→20:01)
[2021-05-04] MEDS: cloNIDine 0.1 mg tablet PO SCH ×3 (08:16→20:01)
[2021-05-04] MEDS: pantoprazole 40mg Tablet.DR PO SCH (08:16)
[2021-05-04] MEDS: benztropine 1mg tablet PO SCH ×2 (08:16→20:00)
[2021-05-04] MEDS: duloxetine 20mg capsule.DR PO SCH (08:16)
[2021-05-04] MEDS: buPROPion SR 150mg tablet PO SCH ×2 (08:16→20:01)
--- NOTE | 2021-05-04 09:40 | NUR ---
F/u 05/04: Pt PO ~100% avg regular diet meeting needs. LBM 05/02 receiving routine colace and miralax. Pt compliant w/ meds. No nutrition intervention at this time. Will continue to monitor. Recommendations: 1) Continue regular diet 2) bowel care per rx 3) Weekly scaled weights Addendum: 05/04/21 at [address] Amended: Links added.
[2021-05-04] MEDS: NICOTINE POLACRILEX 2 MG LOZENGE BC PRN ×2 (11:25→14:28)
--- NOTE | 2021-05-04 17:37 | NUR ---
Nursing Progress Note: Legal hold: TCON Client on involuntary status for GD Report received from CHRIS Marie with use of SBAR Why they are here: Pt. admitted to unit from ER on 5150. Pt self-reported he was not eating, drinking or sleeping due to hearing voices telling him he will be killed if he does. Pt reports losing weight and pain in his feet. He endorses recent illicit drug and alcohol use. Assessment What has happened this shift: Patient is resting quietly in bed at start of shift. Takes medication as ordered. Pleasant/ Cooperative. Isolates in room and naps on and off. Occasionally noted pacing the unit. States he is trying to stay active. It helps my head. Encouraged to attend group but patient declined. S/I, H/I: Denies A/VH: Denies Sleep: 8.5 hrs per NOC. Intermittent naps. ADL's: Independent Group attendance: No Were Meds taken: Yes Any med S/E: None reported or observed Mental Status Exam Appearance: Neat, clean, dressed in personal attire. Pt has a well-trimmed robertson. Eye contact: Good Behavior: Cooperative, calm, withdrawn Speech: Normal rate and rhythm Mood: Good Affect: Blunted Thought process: Goal directed Thought Content: Wants to be independent. Cognition: A&O X4 Insight: Fair Judgment: Fair Interventions PRN's used: nicotine lozenge Therapeutic interventions: Provided 1:1 assessment with therapeutic communication and active listening, medication administration/education/monitoring, provided redirection and clear boundaries as needed, and maintained Q 15min safety checks. Restraints/seclusion/emergency medication: N/A Justification of Continued Inpatient Treatment: Pt is conserved. Pt continues to require a safe and supportive environment while waiting placement.
[2021-05-04] MEDS: docusate sod 100mg capsule PO SCH (20:02)
[2021-05-04] MEDS: quetiapine 100mg tablet PO SCH (20:06)
[2021-05-04] MEDS: psyllium seed 3.4 gm packet PO SCH (20:06)
[2021-05-04 20:14] VITALS: BP 116/60
--- NOTE | 2021-05-04 23:55 | NUR ---
Nursing Progress Note: Legal hold: TCON Client on involuntary status for GD Report received from CHRIS Camacho with use of SBAR Why they are here: Pt. admitted to unit from ER on 5150. Pt self-reported he was not eating, drinking or sleeping due to hearing voices telling him he will be killed if he does. Pt reports losing weight and pain in his feet. He endorses recent illicit drug and alcohol use. Assessment What has happened this shift: Patient was asleep in his room at shift change. He isolated this shift awakened for snack and Med's. Pt reurned to his room and slept. S/I, H/I: Denies A/VH: Denies Sleep: See sleep assessment ADL's: Independent Group attendance: No Were Meds taken: Yes Any med S/E: None reported or observed Mental Status Exam Appearance: Neat, clean, dressed in personal attire. Pt has a well-trimmed robertson. Eye contact: Good Behavior: Cooperative, calm, withdrawn Speech: Normal rate and rhythm Mood: Good Affect: Blunted Thought process: Goal directed Thought Content: Wants to be independent. Cognition: A&O X4 Insight: Fair Judgment: Fair Interventions PRN's used: nicotine lozenge Therapeutic interventions: Provided 1:1 assessment with therapeutic communication and active listening, medication administration/education/monitoring, provided redirection and clear boundaries as needed, and maintained Q 15min safety checks. Restraints/seclusion/emergency medication: N/A Justification of Continued Inpatient Treatment: Pt is conserved. Pt continues to require a safe and supportive environment while waiting placement.
[2021-05-05] MEDS: NICOTINE POLACRILEX 2 MG LOZENGE BC PRN ×4 (06:51→18:33)
[2021-05-05] MEDS: traMADol 50MG tablet PO PRN ×2 (06:53→14:57)
[2021-05-05 07:12] VITALS: BP 131/65
[2021-05-05] MEDS: perphenazine 8mg tablets PO SCH ×2 (07:36→20:01)
[2021-05-05] MEDS: pantoprazole 40mg Tablet.DR PO SCH (07:36)
[2021-05-05] MEDS: cloNIDine 0.1 mg tablet PO SCH ×3 (07:36→20:01)
[2021-05-05] MEDS: duloxetine 20mg capsule.DR PO SCH (07:36)
[2021-05-05] MEDS: buPROPion SR 150mg tablet PO SCH ×2 (07:36→20:00)
[2021-05-05] MEDS: benztropine 1mg tablet PO SCH ×2 (07:36→20:00)
[2021-05-05 12:45] VITALS: BP 124/64
[2021-05-05] MEDS: hydrOXYzine 25 MG tablet PO PRN (14:56)
--- NOTE | 2021-05-05 16:35 | NUR ---
Nursing Progress Note: Legal hold: TCON Client on involuntary status for GD Report received from CHRIS Marie with use of SBAR Why are they here: Pt. admitted to unit from ER on 5150. Pt self-reported he was not eating, drinking or sleeping due to hearing voices telling him he will be killed if he does. Pt reports losing weight and pain in his feet. He endorses recent illicit drug and alcohol use. Assessment What has happened this shift: Pt was up before breakfast. Pt requested a nicotine lozenge and PRN tramadol 50 mg at 0653 for c/o 5/10 general pain and was given it with good effect. Pt requested tramadol again at 1456 along with PRN Atarax 50 mg for c/o elevated anxiety and they were given with good effect. Pt reports feeling tired and a little depressed mostly related to his being here. Pt denies SI/HI/AH/VH. No unsafe behaviors noted. Pt requested a print out on Cymbalta and it was provided. S/I, H/I: Pt denies. A/VH: Pt denies. Sleep: Pt slept 8.5 hours last night per noc shift report, pt took short intermittent naps throughout the day. ADL's: Independent Group attendance: No Were Meds taken: Yes Any med S/E: Pt reported feeling tired. Mental Status Exam Appearance: Neat, clean, younger appearing man with short black hair and glasses dressed in personal clothing and a baseball cap. Eye contact: Good Behavior: Pleasant, cooperative, polite, paces, writes, and watches TV in the rec room. Speech: Clear, audible, a little rapid at times. Mood: Anxious, a little depressed. Affect: Blunted with brightening Thought process: Somewhat ruminative Thought Content: Wants more information on Cymbalta. Cognition: A&O X3 Insight: Poor Judgment: Fair Interventions PRN's used: Tramadol X 2, Atarax, nicotine lozenges. Therapeutic interventions: 1:1 assessment with therapeutic conversation and active listening, medication administration/education/monitoring, encouragement to attend group, provided distraction, redirection, limit setting, encouragement and positive reinforcement, and maintained Q 15 minute safety checks. Restraints/seclusion/emergency medication: N/A Justification of Continued Inpatient Treatment: Pt is on a TCON. Pt continues to require medication adjustment and monitoring in a safe and supportive environment while waiting placement.
[2021-05-05 19:00] VITALS: BP 122/74
[2021-05-05] MEDS: docusate sod 100mg capsule PO SCH (20:00)
[2021-05-05] MEDS: psyllium seed 3.4 gm packet PO SCH (20:01)
[2021-05-05] MEDS: quetiapine 100mg tablet PO SCH (20:01)
--- NOTE | 2021-05-06 01:11 | NUR ---
Nursing Progress Note: Legal hold: T con Report received from Doug JUAREZ with use of SBAR Why are they here: Pt. admitted to unit from ER on 5150. Pt self-reported he was not eating, drinking or sleeping due to hearing voices telling him he will be killed if he does. Pt reports losing weight and pain in his feet. He endorses recent illicit drug and alcohol use. Assessment What has happened this shift: The patient was up on the unit and was friendly when approached for the evening assessment. He was medication compliant and stated that the only side effects from his medications was at times he was experiencing constipation, fatigue and dry mouth. He denied psychotic symptoms. He denied thoughts to harm himself or others. He denied mood instability. He appeared clean and appropriately dressed. He had no behaviors on the unit that required redirection from staff. He stated that he is sleeping well at night. He made no delusional statements. His speech was spontaneous with a moderate rate and rhythm. Justification of Continued Inpatient Treatment: The patient has been served with a temporary conservatorship and placement is currently pending.
[2021-05-06] MEDS: NICOTINE POLACRILEX 2 MG LOZENGE BC PRN ×3 (07:04→14:42)
[2021-05-06] MEDS: buPROPion SR 150mg tablet PO SCH ×2 (08:01→20:10)
[2021-05-06] MEDS: pantoprazole 40mg Tablet.DR PO SCH (08:01)
[2021-05-06] MEDS: cloNIDine 0.1 mg tablet PO SCH ×3 (08:01→20:10)
[2021-05-06] MEDS: benztropine 1mg tablet PO SCH ×2 (08:01→20:11)
[2021-05-06] MEDS: duloxetine 20mg capsule.DR PO SCH (08:01)
[2021-05-06] MEDS: perphenazine 8mg tablets PO SCH ×2 (08:02→20:09)
[2021-05-06 08:28] VITALS: BP 115/69
[2021-05-06 12:40] VITALS: BP 112/66
[2021-05-06] MEDS: traMADol 50MG tablet PO PRN (12:44)
--- NOTE | 2021-05-06 14:43 | NUR ---
Nursing Progress Note: Legal hold: TCON Client on involuntary status for GD Report received from CHRIS Sanchez with use of SBAR Why are they here: Pt. admitted to unit from ER on 5150. Pt self-reported he was not eating, drinking or sleeping due to hearing voices telling him he will be killed if he does. Pt reports losing weight and pain in his feet. He endorses recent illicit drug and alcohol use. Assessment What has happened this shift: Pt was up before breakfast requesting a nicotine lozenge. He was given one at 0704. Pt was cooperative with morning medications. Pt reported that he slept well. Pt denied hearing voices, stated, "nothing that isn't there." Clarified that pt heard the voices of people actually present and talking. Pt denied SI/HI/VH. Pt continues to endorse some mild situational depression and some intermittent anxiety. Pt paces, listens to radio headphones, reads, writes, and watches TV. Pt requested another nicotine lozenge at 1029. Pt decided that he wishes to pace himself on the lozenges and so requested that his order be changed from Q2H PRN to Q4H PRN. Pt was able to wait until 1443 before asking for another lozenge although he did appear anxious and restless at times. Pt did not request a PRN for anxiety. Pt c/o 4/10 left leg pain and requested a tramadol before lunch. Pt was given PRN tramadol 50 mg at 1244 with good effect. S/I, H/I: Pt denies. A/VH: Pt denies. Sleep: Pt slept 8.5 hours last night per noc shift report. ADL's: Independent Group attendance: No Were Meds taken: Yes Any med S/E: None noted or reported. Mental Status Exam Appearance: Neat, clean, younger appearing man with short black hair and glasses dressed in personal clothing and a baseball cap. Eye contact: Good Behavior: Pleasant, cooperative, polite, paces, listens to radio headphones, writes, and watches TV in the rec room. Speech: Rapid and mumbled at times. Mood: Anxious, a little depressed. Affect: Blunted with brightening Thought process: Mildly perseverative and ruminative. Thought Content: Focuses on medications, trying to go longer without asking for nicotine lozenges. Cognition: A&O X3 Insight: Poor Judgment: Fair Interventions PRN's used: Tramadol 50 mg, nicotine lozenges. Therapeutic interventions: 1:1 assessment with therapeutic conversation and active listening, medication administration/education/monitoring, encouragement to attend group, provided distraction, redirection, limit setting, encouragement and positive reinforcement, maintained Q 15 minute safety checks. Restraints/seclusion/emergency medication: N/A Justification of Continued Inpatient Treatment: Pt is on a TCON. Pt continues to require medication adjustment and monitoring in a safe and supportive environment while waiting placement.
[2021-05-06] MEDS: hydrOXYzine 25 MG tablet PO PRN (17:42)
[2021-05-06 19:26] VITALS: BP 118/66
[2021-05-06] MEDS: docusate sod 100mg capsule PO SCH (20:08)
[2021-05-06] MEDS: psyllium seed 3.4 gm packet PO SCH (20:10)
[2021-05-06] MEDS: quetiapine 100mg tablet PO SCH (20:10)
--- NOTE | 2021-05-07 02:44 | NUR ---
Nursing Progress Note: Legal hold: TCON Client on involuntary status for GD Report received from CHRIS Long with use of SBAR Why they are here: Pt. admitted to unit from ER on 5150. Pt self-reported he was not eating, drinking or sleeping due to hearing voices telling him he will be killed if he does. Pt reports losing weight and pain in his feet. He endorses recent illicit drug and alcohol use. Assessment What has happened this shift: Up in hallway pacing and listening to headphones at start of shift. Watched TV, came to group room for snack. Pt denied SI/HI/AH/VH. Pt says he is still a little depressed he said he has improved he thinks the [employer] is really working. Pt pleasant and cooperative with care took all medications. S/I, H/I: Pt denies. A/VH: Pt denies. Sleep: asleep at this time ADL's: Independent Group attendance: NA Were Meds taken: Yes Any med S/E: None noted or reported. Mental Status Exam Appearance: Neat, clean, younger appearing man with short black hair and glasses dressed in personal clothing and a baseball cap. Eye contact: Good Behavior: Pleasant, cooperative, polite, paces, listens to radio headphones, writes, and watches TV in the rec room. Speech: Rapid and mumbled at times. Mood: Per pt a little depressed. Affect: Blunted with brightening Thought process: Mildly perseverative and ruminative. Thought Content: Focuses on medications Cognition: A&O X3 Insight: Poor Judgment: Fair Interventions PRN's used: none Therapeutic interventions: 1:1 assessment with therapeutic conversation and active listening, medication administration/education/monitoring, encouragement to attend group, provided distraction, redirection, limit setting, encouragement and positive reinforcement, maintained Q 15 minute safety checks. Restraints/seclusion/emergency medication: N/A Justification of Continued Inpatient Treatment: Pt is on a TCON. Pt continues to require medication adjustment and monitoring in a safe and supportive environment while waiting placement.
[2021-05-07] MEDS: mag hydrox/Alum hydrox/simeth 30ml oral suspension PO PRN (05:16)
[2021-05-07] MEDS: traMADol 50MG tablet PO PRN ×2 (05:49→17:07)
[2021-05-07] MEDS: NICOTINE POLACRILEX 2 MG LOZENGE BC PRN ×3 (06:52→15:58)
[2021-05-07 07:40] VITALS: BP 124/77
[2021-05-07] MEDS: benztropine 1mg tablet PO SCH ×2 (07:49→20:19)
[2021-05-07] MEDS: cloNIDine 0.1 mg tablet PO SCH ×2 (07:49→13:03)
[2021-05-07] MEDS: pantoprazole 40mg Tablet.DR PO SCH (07:49)
[2021-05-07] MEDS: duloxetine 20mg capsule.DR PO SCH (07:50)
[2021-05-07] MEDS: perphenazine 8mg tablets PO SCH ×2 (07:50→20:18)
[2021-05-07] MEDS: buPROPion SR 150mg tablet PO SCH ×2 (07:50→20:19)
--- NOTE | 2021-05-07 17:10 | NUR ---
Nursing Progress Note: Legal hold: TCON Client on involuntary status for GD Report received from nurse RN with use of SBAR Why are they here: Pt. admitted to unit from ER on 5150. Pt self reported he was not eating, drinking or sleeping due to hearing voices telling him he will be killed if he does. Pt reports loosing weight and pain in his feet. He endorses recent illicit drug and alcohol use. Assessment What has happened this shift: Received Pt in bed sleeping at the beginning of the shift. Pt woke and was cooperative with vitals and AM medications. Pt Ate all meals well and spent most of the day walking the halls and socializing. Pt engaged with staff well to get needs met and to share ideas and jokes. Pt used prn nicotine lozenges and ultram. S/I, H/I: Denies A/VH: Denies Sleep: Napped in AM ADL's: Independent Group attendance: No Were Meds taken: Yes Any med S/E: None noted or observed Mental Status Exam Appearance: Casual Eye contact: Good Behavior: Cooperative, interactive Speech: Normal rate and rhythm Mood: Depressed Affect: Congruent with mood Thought process: Circumstantial Thought Content: Getting needs met, passing time, jokes Cognition: A&O X3 Insight: Poor Judgment: Poor Interventions PRN's used: Nicotine Richelle. Therapeutic interventions: Provided 1:1 assessment with therapeutic communication and active listening, medication administration/education/monitoring, provided redirection and clear boundaries as needed, and maintained Q 15min safety checks. Restraints/seclusion/emergency medication: N/A Justification of Continued Inpatient Treatment: SANDOR Schwab pt. has been served his [employer] paperwork and has an upcoming court date. He continues to require a safe and supportive environment and time to allow medications to take their therapeutic effect.
[2021-05-07 19:13] VITALS: BP 128/69
[2021-05-07] MEDS: docusate sod 100mg capsule PO SCH (20:18)
[2021-05-07] MEDS: quetiapine 100mg tablet PO SCH (20:19)
[2021-05-07] MEDS: psyllium seed 3.4 gm packet PO SCH (20:23)
--- NOTE | 2021-05-08 02:17 | NUR ---
Nursing Progress Note: Legal hold: TCON Client on involuntary status for GD Report received from nurse RN with use of SBAR Why are they here: Pt. admitted to unit from ER on 5150. Pt self-reported he was not eating, drinking or sleeping due to hearing voices telling him he will be killed if he does. Pt reports losing weight and pain in his feet. He endorses recent illicit drug and alcohol use. Assessment What has happened this shift: Pt up on unit at start of shift. Went to bed early, awakened for medications and assessment. Pt cooperative but sleepy. He continues to report some depression denies SI. S/I, H/I: Denies A/VH: Denies Sleep: Asleep at this time ADL's: Independent Group attendance: NA Were Meds taken: Yes Any med S/E: None noted or observed Mental Status Exam Appearance: Casual Eye contact: Good Behavior: Cooperative, interactive Speech: Normal rate and rhythm Mood: Depressed Affect: Congruent with mood Thought process: Circumstantial Thought Content: Getting needs met, passing time, jokes Cognition: A&O X3 Insight: Poor Judgment: Poor Interventions PRN's used: none Therapeutic interventions: Provided 1:1 assessment with therapeutic communication and active listening, medication administration/education/monitoring, provided redirection and clear boundaries as needed, and maintained Q 15min safety checks. Restraints/seclusion/emergency medication: N/A Justification of Continued Inpatient Treatment: SANDOR Schwab pt. has been served his [place] paperwork and has an upcoming court date. He continues to require a safe and supportive environment and time to allow medications to take their therapeutic effect.
[2021-05-08 07:45] VITALS: BP 125/80
[2021-05-08] MEDS: pantoprazole 40mg Tablet.DR PO SCH (07:45)
[2021-05-08] MEDS: NICOTINE POLACRILEX 2 MG LOZENGE BC PRN ×3 (07:45→17:31)
[2021-05-08] MEDS: benztropine 1mg tablet PO SCH ×2 (07:46→20:07)
[2021-05-08] MEDS: buPROPion SR 150mg tablet PO SCH ×2 (07:46→20:07)
[2021-05-08] MEDS: cloNIDine 0.1 mg tablet PO SCH ×2 (07:46→13:13)
[2021-05-08] MEDS: duloxetine 20mg capsule.DR PO SCH (07:47)
[2021-05-08] MEDS: traMADol 50MG tablet PO PRN (07:47)
[2021-05-08] MEDS: perphenazine 8mg tablets PO SCH ×2 (07:47→20:07)
--- NOTE | 2021-05-08 15:51 | NUR ---
Nursing Progress Note: Legal hold: TCON Client on involuntary status for GD Report received from nurse, ANN Camacho with use of SBAR Why are they here: Pt. admitted to unit from ER on 5150. Pt self reported he was not eating, drinking or sleeping due to hearing voices telling him he will be killed if he does. Pt reports loosing weight and pain in his feet. He endorses recent illicit drug and alcohol use. Assessment What has happened this shift: Pt awake and visiting staff and peers at the start of the shift. Pt spent the day watching TV, listening to music, pacing the halls with others and advocating to get his needs met. Pt was medication and treatment compliant taking his medications as prescribed and meeting programming schedule. S/I, H/I: Denies A/VH: Denies Sleep: Napped in AM ADL's: Independent Group attendance: No Were Meds taken: Yes Any med S/E: None noted or observed Mental Status Exam Appearance: Casual, personal attire Eye contact: Good Behavior: Cooperative, interactive Speech: Normal rate and rhythm Mood: Depressed Affect: Congruent with mood Thought process: Circumstantial Thought Content: Getting needs met, passing time, jokes Cognition: A&O X3 Insight: Poor Judgment: Poor Interventions PRN's used: Nicotine Richelle., Ultram Therapeutic interventions: Provided 1:1 assessment with therapeutic communication and active listening, medication administration/education/monitoring, provided redirection and clear boundaries as needed, and maintained Q 15min safety checks. Restraints/seclusion/emergency medication: N/A Justification of Continued Inpatient Treatment: SANDOR Schwab pt. has been served his [place] paperwork and has an upcoming court date. He continues to require a safe and supportive environment and time to allow medications to take their therapeutic effect.
[2021-05-08 18:55] VITALS: BP 107/58
[2021-05-08 19:25] VITALS: BP 107/58
[2021-05-08] MEDS: quetiapine 100mg tablet PO SCH (20:07)
[2021-05-08] MEDS: docusate sod 100mg capsule PO SCH (20:07)
[2021-05-08] MEDS: psyllium seed 3.4 gm packet PO SCH (20:08)
--- NOTE | 2021-05-09 02:14 | NUR ---
Nursing Progress Note: Legal hold: TCON Client on involuntary status for GD Report received from Kylie JUAREZ with use of SBAR Why are they here: Pt. admitted to unit from ER on 5150. Pt self-reported he was not eating, drinking or sleeping due to hearing voices telling him he will be killed if he does. Pt reports losing weight and pain in his feet. He endorses recent illicit drug and alcohol use. Assessment What has happened this shift: Pt in bed at start of shift. Declined to come to group room for snack. Awakened for medications and assessment. Pt cooperative. Pt said his mood is "good" denies depression or SI. He [facility] because he has money and could get an apartment, "instead they are taking my rights away." Referring to being conserved. The pt said all of this in a monotone without any emotion. S/I, H/I: Denies A/VH: Denies Sleep: Asleep at this time ADL's: Independent Group attendance: NA Were Meds taken: Yes Any med S/E: None noted or observed Mental Status Exam Appearance: Casual Eye contact: Good Behavior: Cooperative, interactive Speech: Normal rate and rhythm Mood: Depressed Affect: Congruent with mood Thought process: Circumstantial Thought Content: Getting needs met, passing time, jokes Cognition: A&O X3 Insight: Poor Judgment: Poor Interventions PRN's used: none Therapeutic interventions: Provided 1:1 assessment with therapeutic communication and active listening, medication administration/education/monitoring, provided redirection and clear boundaries as needed, and maintained Q 15min safety checks. Restraints/seclusion/emergency medication: N/A Justification of Continued Inpatient Treatment: SANDOR Schwab pt. has been served his [employer] paperwork and has an upcoming court date. He continues to require a safe and supportive environment and time to allow medications to take their therapeutic effect.
[2021-05-09] MEDS: NICOTINE POLACRILEX 2 MG LOZENGE BC PRN ×3 (07:14→15:25)
[2021-05-09] MEDS: benztropine 1mg tablet PO SCH ×2 (07:36→20:17)
[2021-05-09] MEDS: perphenazine 8mg tablets PO SCH ×2 (07:36→20:17)
[2021-05-09] MEDS: pantoprazole 40mg Tablet.DR PO SCH (07:36)
[2021-05-09] MEDS: buPROPion SR 150mg tablet PO SCH ×2 (07:36→20:17)
[2021-05-09] MEDS: cloNIDine 0.1 mg tablet PO SCH ×2 (07:36→12:22)
[2021-05-09] MEDS: duloxetine 20mg capsule.DR PO SCH (07:37)
[2021-05-09 07:46] VITALS: BP 136/75
[2021-05-09] MEDS: hydrOXYzine 25 MG tablet PO PRN (10:32)
[2021-05-09] MEDS: traMADol 50MG tablet PO PRN ×2 (10:32→16:41)
--- NOTE | 2021-05-09 11:23 | NUR ---
Nursing Progress Note: Legal hold: TCON Client on involuntary status for GD Report received from CHRIS Minor with use of SBAR Why are they here: Pt. admitted to unit from ER on 5150. Pt self-reported he was not eating, drinking or sleeping due to hearing voices telling him he will be killed if he does. Pt reports losing weight and pain in his feet. He endorses recent illicit drug and alcohol use. Assessment What has happened this shift: Pt up and visible before breakfast. Pt affect bright and interactive. Pt cooperative with am assessment and medications. Pt denies S.I./H.I. and denies hallucinations. Later in the morning, pt was feeling a little anxious r/t his temporary conservatorship and asked for atarax which he received with positive effects. Later pt initiated taking a shower. Pt remains calm and cooperative. S/I, H/I: Pt denies. A/VH: Pt denies. Sleep: Pt slept 8.5 hours last night per noc shift report. ADL's: Independent Group attendance: No Were Meds taken: Yes Any med S/E: None noted or reported. Mental Status Exam Appearance: Neat, clean, younger appearing man with short black hair and glasses dressed in personal clothing and a baseball cap. Eye contact: Good Behavior: Pleasant, cooperative, polite, paces, listens to radio headphones, writes, and watches TV in the rec room. Speech: Rapid and mumbled at times. Mood: Anxious, a little depressed. Affect: Blunted with brightening Thought process: Mildly perseverative and ruminative. Thought Content: Focuses on medications, trying to go longer without asking for nicotine lozenges. Cognition: A&O X3 Insight: Poor Judgment: Fair Interventions PRN's used: Tramadol 50 mg, atarax, nicotine lozenges. Therapeutic interventions: 1:1 assessment with therapeutic conversation and active listening, medication administration/education/monitoring, encouragement to attend group, provided distraction, redirection, limit setting, encouragement and positive reinforcement, maintained Q 15 minute safety checks. Restraints/seclusion/emergency medication: N/A Justification of Continued Inpatient Treatment: Pt is on a TCON. Pt continues to require medication adjustment and monitoring in a safe and supportive environment while waiting placement.
--- NOTE | 2021-05-09 13:19 | NUR ---
Pt. attended group today. We talked about how we all look at the world differently due to our core beliefs. These core beliefs then inform thoughts and behaviors. Each pt. identified one negative core belief and then wrote out three truths that contradict their negative beliefs to work on thinking differently. Pt came into the group and stayed for about 20 minutes then abruptly left without saying why. He had appeared to be in a calm and compliant mood. His demeanor was pleasant with Tag Clerk and peers in the group. Jessica Long, DRILL INSTRUCTOR
[2021-05-09] MEDS: mag hydrox/Alum hydrox/simeth 30ml oral suspension PO PRN (15:25)
[2021-05-09] MEDS: acetaminophen 325mg tablet PO PRN (15:25)
[2021-05-09 20:00] VITALS: BP 118/62
[2021-05-09] MEDS: docusate sod 100mg capsule PO SCH (20:17)
[2021-05-09] MEDS: psyllium seed 3.4 gm packet PO SCH (20:18)
[2021-05-09] MEDS: quetiapine 100mg tablet PO SCH (20:18)
[2021-05-09 21:18] VITALS: BP 118/62
--- NOTE | 2021-05-10 00:29 | NUR ---
Nursing Progress Note: Legal hold: TCON Client on involuntary status for GD Report received from ANN Espinal with use of SBAR Why are they here: Pt. admitted to unit from ER on 5150. Pt self-reported he was not eating, drinking or sleeping due to hearing voices telling him he will be killed if he does. Pt reports losing weight and pain in his feet. He endorses recent illicit drug and alcohol use. Assessment What has happened this shift: Pt in bed at the start of the shift and remained there throughout. We discussed his court hearing tomorrow and he requested to be woken up early so he can write a letter to prepare for court. We did discuss the importance of compliance with his meds and follow up care if he does win his court case, his insight still seems limited. S/I, H/I: Pt denies. A/VH: Pt denies. Sleep: no issues with his sleep ADL's: Independent Group attendance: N/A Were Meds taken: Yes Any med S/E: None noted or reported. Mental Status Exam Appearance: well groomed, wearing green hospital scrubs Eye contact: Good Behavior: isolative Speech: normal rate, low volume Mood: euthymic, some anxiety over court tomorrow Affect: restricted Thought process: linear Thought Content: focused on court hearing tomorrow Cognition: A&O X3 Insight: Poor Judgment: Fair Interventions PRN's used: none Therapeutic interventions: 1:1 assessment with therapeutic conversation and active listening, medication administration/education/monitoring, encouragement and positive reinforcement, maintained Q 15 minute safety checks. Restraints/seclusion/emergency medication: N/A Justification of Continued Inpatient Treatment: Pt is on a TCON. Pt continues to require medication adjustment and monitoring in a safe and supportive environment while waiting placement.
[2021-05-10] MEDS: NICOTINE POLACRILEX 2 MG LOZENGE BC PRN ×3 (05:46→15:37)
[2021-05-10] MEDS: traMADol 50MG tablet PO PRN ×2 (05:58→16:07)
[2021-05-10 07:11] VITALS: BP 122/74
[2021-05-10] MEDS: perphenazine 8mg tablets PO SCH ×2 (08:01→20:10)
[2021-05-10] MEDS: duloxetine 20mg capsule.DR PO SCH (08:01)
[2021-05-10] MEDS: cloNIDine 0.1 mg tablet PO SCH ×2 (08:02→13:00)
[2021-05-10] MEDS: pantoprazole 40mg Tablet.DR PO SCH (08:02)
[2021-05-10] MEDS: benztropine 1mg tablet PO SCH ×2 (08:02→20:11)
[2021-05-10] MEDS: buPROPion SR 150mg tablet PO SCH ×2 (08:02→20:11)
[2021-05-10] MEDS: hydrOXYzine 25 MG tablet PO PRN (09:15)
[2021-05-10] MEDS: mag hydrox/Alum hydrox/simeth 30ml oral suspension PO PRN (09:15)
--- NOTE | 2021-05-10 09:23 | NUR ---
Sent updated notes to Van's conservator, Carlos Alberto, at his request. Van has court this afternoon and is contesting conservatorship per Carlos Alberto. ANDREW Rosas
[2021-05-10] MEDS: ibuprofen 200mg tablet PO PRN (12:39)
[2021-05-10] MEDS ORDERED: cloNIDine 0.1 mg tablet PO ONE (16:35)
--- NOTE | 2021-05-10 17:44 | NUR ---
Nursing Progress Note: Van Viveros Legal hold: TCON Client on involuntary status for GD Report received from ANN Marie with use of SBAR Why are they here: Pt. admitted to unit from ER on 5150. Pt self-reported he was not eating, drinking or sleeping due to hearing voices telling him he will be killed if he does. Pt reports losing weight and pain in his feet. He endorses recent illicit drug and alcohol use. Assessment What has happened this shift: Patient noted walking around the unit at change of shift. He approached this designer writer first thing in the morning asking for juice out of the snack room. He was noted to be polite and appropriate during interaction. He was observed sitting in the community room before breakfast conversing with peers and staff, laughing and interacting appropriately. Patient approached this designer writer around 0915 this morning with c/o feelings of anxiety. PRN Atarax 50mg PO given with effectiveness. Pt also c/o indigestion, PRN Maalox 30mL given with effectiveness. He continues to be cooperative, polite, and making jokes at times. He smiles periodically and laughs during conversation. He endorsed to this designer writer that he is feeling anxious about his court hearing today. 1:1 assessment completed, lungs CTA. Pt denies SI/HI, AH or VH. Does not appear to be responding to internal stimuli. He is compliant with all medications. Patient was going to join with peers on the patio today, however, before leaving he endorsed annoyance with another patient on the unit and did not attend. He refused to go to group today due to preparing for his court hearing. He continues to perseverate on leaving the facility. Patient left for court hearing at approximately 1245, picked up by transport service. RTN dose of Clonidine 0.1mg PO held at 1300 d/t patient out of facility. Patient return from court hearing, stating, it didnt go very well and that he is getting conserved. Patient noted tearful and upset, however, stating that he would hopefully get to go to a board and care after here. He spent the remainder of the day walking around the unit, conversing with other peers, and joining in the community room for meals. S/I, H/I: Pt denies. A/VH: Pt denies. Sleep: Pt slept 7.25 hours last night per NOC shift. No naps noted today. ADL's: Independent Group attendance: No Were Meds taken: Yes Any med S/E: None noted or reported. Mental Status Exam Appearance: Clean, well groomed, black button up shirt and jeans Eye contact: Good Behavior: Isolative, polite, sarcastic at times Speech: Clear, WNL Mood: Euthymic, some anxiety about court hearing Affect: Restricted Thought process: Linear Thought Content: Anxious about court hearing. Wants to discharge. Cognition: A&O X3 Insight: Poor Judgment: Fair Interventions PRN's used: Nicotine lozenge, Atarax 50mg PO, Maalox 30mL PO, Motrin 600mg PO Therapeutic interventions: Established rapport, provided 1:1 assessment, therapeutic conversation and active listening, medication administration/education/monitoring, encouragement and positive reinforcement, maintained Q 15 minute safety checks. Restraints/seclusion/emergency medication: N/A Justification of Continued Inpatient Treatment: Patient continues to require a safe and supportive environment while awaiting court hearing and decision on placement. He is currently on a TCON. According to SANDOR Olson, no change in medication or treatment plan at this time patient is awaiting court and the decisions that will be made then
[2021-05-10] MEDS: quetiapine 100mg tablet PO SCH (20:10)
[2021-05-10] MEDS: docusate sod 100mg capsule PO SCH (20:11)
[2021-05-10] MEDS: psyllium seed 3.4 gm packet PO SCH (20:11)
[2021-05-10 20:57] VITALS: BP 115/57
--- NOTE | 2021-05-10 23:53 | NUR ---
Nursing Progress Note: Legal hold: TCON Client on involuntary status for GD Report received from ANN Espinal with use of SBAR Why are they here: Pt. admitted to unit from ER on 5150. Pt self-reported he was not eating, drinking or sleeping due to hearing voices telling him he will be killed if he does. Pt reports losing weight and pain in his feet. He endorses recent illicit drug and alcohol use. Assessment What has happened this shift: Received the patient in bed. He never got up tonight, choosing to sleep. when asked, the patient stated that he was disappointed, but is not really upset about his conservatorship. He still believes he can make it on his own. S/I, H/I: Denies. A/VH: Denies. Sleep: See sleep assessment ADL's: Independent Group attendance: N/A Were Meds taken: Yes Any med S/E: None noted or reported. Mental Status Exam Appearance: well groomed, wearing green hospital scrubs Eye contact: Good Behavior: Isolative, quiet Speech: normal rate, low volume Mood: Euthymic. Affect: Restricted Thought process: linear Thought Content: Being conserved. Cognition: A&O X3 Insight: Poor Judgment: Fair Interventions PRN's used: none Therapeutic interventions: 1:1 assessment with therapeutic conversation and active listening, medication administration/education/monitoring, encouragement and positive reinforcement, maintained Q 15 minute safety checks. Restraints/seclusion/emergency medication: N/A Justification of Continued Inpatient Treatment: Pt is on a TCON. Pt continues to require medication adjustment and monitoring in a safe and supportive environment while waiting placement.
[2021-05-11] MEDS: mag hydrox/Alum hydrox/simeth 30ml oral suspension PO PRN (07:28)
[2021-05-11] MEDS: perphenazine 8mg tablets PO SCH ×2 (07:29→20:31)
[2021-05-11] MEDS: nicotine 7mg patch - 24hr TD SCH (07:29)
[2021-05-11] MEDS: buPROPion SR 150mg tablet PO SCH ×2 (07:30→20:30)
[2021-05-11] MEDS: cloNIDine 0.1 mg tablet PO SCH ×2 (07:30→13:09)
[2021-05-11] MEDS: benztropine 1mg tablet PO SCH ×2 (07:30→20:31)
[2021-05-11] MEDS: duloxetine 20mg capsule.DR PO SCH (07:30)
[2021-05-11] MEDS: pantoprazole 40mg Tablet.DR PO SCH (07:30)
[2021-05-11] MEDS: loperamide 2mg capsule PO PRN (07:30)
[2021-05-11 08:00] VITALS: BP 118/71
[2021-05-11] MEDS: NICOTINE POLACRILEX 2 MG LOZENGE BC PRN ×3 (08:15→17:00)
[2021-05-11] MEDS: traMADol 50MG tablet PO PRN ×2 (08:39→17:11)
--- NOTE | 2021-05-11 09:25 | NUR ---
F/u 05/11: Pt PO ~100% avg regular diet meeting needs. LBM 05/10 receiving routine colace and miralax. Pt compliant w/ meds. No nutrition intervention at this time. Will continue to monitor. Recommendations: 1) Continue regular diet 2) bowel care per rx 3) Weekly scaled weights Addendum: 05/11/21 at [address] Amended: Links added.
[2021-05-11] MEDS: hydrOXYzine 25 MG tablet PO PRN (10:05)
--- NOTE | 2021-05-11 17:55 | NUR ---
Nursing Progress Note: Van Viveros Legal hold: LPS Client on involuntary status for GD Report received from ANN Capone with use of SBAR Why are they here: Pt. admitted to unit from ER on 5150. Pt self-reported he was not eating, drinking or sleeping due to hearing voices telling him he will be killed if he does. Pt reports losing weight and pain in his feet. He endorses recent illicit drug and alcohol use. Assessment What has happened this shift: Patient noted sleeping in bed at change of shift. He approached this fiction and nonfiction prose writer before breakfast with c/o upset stomach. He endorsed having diarrhea this morning. Patient given PRN Imodium and PRN Maalox with effectiveness. He told this fiction and nonfiction prose writer that he wants to read his book today and workout a little bit. Patient stated that he is reading a book called the power of positive thinking that he really enjoys. He walked around the unit, smiling and conversing with others until breakfast arrived. He joined in the community room for breakfast, noted sitting and conversing with peers. Patient endorsed to this fiction and nonfiction prose writer that he has bilateral knee pain from 4 previous surgeries. He requested PRN Ultram for knee pain, given at 0940 and was effective. He joined on the outside patio today with peers, interacting appropriately. He continues to be polite, appropriate, and cooperative with care. 1:1 assessment completed, lungs CTA. He denies SI/HI, AH or VH. Does not appear to be responding to internal stimuli. Patient approached this fiction and nonfiction prose writer with c/o feelings of anxiety, PRN Atarax 50mg PO given with effectiveness. Patient noted walking out of the community room before lunch endorsing to this fiction and nonfiction prose writer that he decided not to do group today. This fiction and nonfiction prose writer encouraged patient to participate, however, he declined. He is compliant with all medications. He joined with peers in the community room for lunch. He was noted taking a nap in his room after lunch. He spent the remainder of the day walking around the unit, talking and laughing with peers appropriately, watching television periodically, and joining for snacks/ meals with peers. S/I, H/I: Pt denies. A/VH: Pt denies. Sleep: Pt slept 10.5 hours last night per NOC shift. Napped for 3 hours today. ADL's: Independent Group attendance: No Were Meds taken: Yes Any med S/E: None noted or reported. Mental Status Exam Appearance: Clean, well groomed, dressed appropriately for unit Eye contact: Good Behavior: Social, polite, sarcastic at times Speech: Clear, WNL Mood: Euthymic, joking at times Affect: Restricted Thought process: Linear Thought Content: Meeting basic needs. Wants to discharge. Cognition: A&O X3 Insight: Poor Judgment: Fair Interventions PRN's used: Nicotine lozenge, Atarax 50mg PO, Maalox 30mL PO, Imodium, Ultram Therapeutic interventions: Provided 1:1 assessment, therapeutic conversation and active listening, medication administration/education/monitoring, encouragement and positive reinforcement, maintained Q 15 minute safety checks. Restraints/seclusion/emergency medication: N/A Justification of Continued Inpatient Treatment: Patient continues to require a safe and supportive environment while awaiting placement. He is currently on LPS. Per SANDOR Olson, Patient is doing well no change in medications at this time. Patient is now awaiting placement.
[2021-05-11 20:00] VITALS: BP 111/58
[2021-05-11] MEDS: docusate sod 100mg capsule PO SCH (20:30)
[2021-05-11] MEDS: psyllium seed 3.4 gm packet PO SCH (20:31)
[2021-05-11] MEDS: quetiapine 100mg tablet PO SCH (20:31)
--- NOTE | 2021-05-12 00:59 | NUR ---
Nursing Progress Note: Van Viveros Legal hold: LPS Client on involuntary status for GD Report received from Doug JUAREZ with use of SBAR Why are they here: Pt. admitted to unit from ER on 5150. Pt self-reported he was not eating, drinking or sleeping due to hearing voices telling him he will be killed if he does. Pt reports losing weight and pain in his feet. He endorses recent illicit drug and alcohol use. Assessment What has happened this shift: Patient was sleeping/resting at change of shift in his bed. Pt calm and cooperative with care, denied MH symptoms and stated he had a fine day. Pt declining snacks and took all HS medications without issue. Pt isolated to his room the rest of the evening and retired to bed early. S/I, H/I: Pt denies. A/VH: Pt denies. Sleep: ADL's: Independent Group attendance: No Were Meds taken: Yes Any med S/E: None noted or reported. Mental Status Exam Appearance: Clean, well groomed, dressed appropriately for unit Eye contact: Good Behavior: Social, polite Speech: Clear, WNL Mood: Euthymic Affect: Restricted Thought process: Linear Thought Content: Meeting basic needs. Cognition: A&O X3 Insight: Poor Judgment: Fair Interventions PRN's used: Therapeutic interventions: Provided 1:1 assessment, therapeutic conversation and active listening, medication administration/education/monitoring, encouragement and positive reinforcement, maintained Q 15 minute safety checks. Restraints/seclusion/emergency medication: N/A Justification of Continued Inpatient Treatment: Patient continues to require a safe and supportive environment while awaiting placement. He is currently on LPS. Per SANDOR Olson, Patient is doing well no change in medications at this time. Patient is now awaiting placement.
[2021-05-12] MEDS: NICOTINE POLACRILEX 2 MG LOZENGE BC PRN ×3 (04:11→14:00)
[2021-05-12] MEDS: nicotine 7mg patch - 24hr TD SCH (07:17)
[2021-05-12] MEDS: duloxetine 20mg capsule.DR PO SCH (07:18)
[2021-05-12] MEDS: perphenazine 8mg tablets PO SCH ×2 (07:18→20:31)
[2021-05-12] MEDS: pantoprazole 40mg Tablet.DR PO SCH (07:19)
[2021-05-12] MEDS: buPROPion SR 150mg tablet PO SCH ×2 (07:19→20:31)
[2021-05-12] MEDS: benztropine 1mg tablet PO SCH ×2 (07:19→20:31)
[2021-05-12] MEDS: cloNIDine 0.1 mg tablet PO SCH ×2 (07:23→13:21)
[2021-05-12 08:00] VITALS: BP 105/81
[2021-05-12] MEDS: traMADol 50MG tablet PO PRN (08:47)
[2021-05-12] MEDS: hydrOXYzine 25 MG tablet PO PRN (08:51)
[2021-05-12] MEDS: ibuprofen 200mg tablet PO PRN (10:37)
--- NOTE | 2021-05-12 12:16 | NUR ---
PLACEMENT Sent updated notes to TAD office (04/29/21-05/11/21) for placement purposes. Per Van's conservator, Carlos Alberto, they will be seeking IMD placement. ANDREW Rosas
[2021-05-12 13:25] VITALS: BP 131/83
--- NOTE | 2021-05-12 17:42 | NUR ---
Nursing Progress Note: Van Viveros Legal hold: LPS Client on involuntary status for GD Report received from ANN Camacho with use of SBAR Why are they here: Pt. admitted to unit from ER on 5150. Pt self-reported he was not eating, drinking or sleeping due to hearing voices telling him he will be killed if he does. Pt reports losing weight and pain in his feet. He endorses recent illicit drug and alcohol use. Assessment What has happened this shift: Patient noted walking around the unit at shift change. He is compliant with all medications. This job specification writer held RTN dose of Clonidine 0.1mg PO at 0800 due to blood pressure out of parameters. 1:1 assessment complete, lungs CTA. He joined with peers in the community room for breakfast. He continues to be polite, appropriate, and cooperative with care. He endorsed to this job specification writer that he is experiencing bilateral knee pain this morning, PRN Ultram given with effectiveness. Patient endorsed experiencing some anxiety about leaving this morning, PRN Atarax given with effectiveness. He denies SI/HI, AH or VH. Does not appear to be responding to internal stimuli. He was observed sitting in the community room after breakfast talking with peers, interacting appropriately and laughing at times. He told this job specification writer that he wants to build a keyboard that has small solar panels on it and can recharge itself. He appeared animated and enthusiastic while explaining his idea to this job specification writer. He was noted walking around the unit, smiling and conversing with others. This job specification writer encouraged patient to participate in group today. He attended group with peers and was noted interacting appropriately. He spent the majority of the day walking around the unit, reading a book, or watching television in the recreation room. He joined with peers on the outside patio today. He was noted talking and laughing with peers periodically. He joined for snacks/ meals in the community room. S/I, H/I: Pt denies. A/VH: Pt denies. Sleep: Pt slept 8 hours last night per NOC shift. One short nap today ADL's: Independent Group attendance: Yes Were Meds taken: Yes Any med S/E: None noted or reported. Mental Status Exam Appearance: Clean, well groomed, dressed appropriately for unit Eye contact: Good Behavior: Social, polite, sarcastic at times Speech: Clear, WNL Mood: Euthymic, joking at times Affect: Restricted Thought process: Linear Thought Content: Meeting basic needs. Wants to discharge. Cognition: A&O X3 Insight: Poor Judgment: Fair Interventions PRN's used: Nicotine lozenge, Atarax 50mg PO, Ultram Therapeutic interventions: Provided 1:1 assessment, therapeutic conversation and active listening, medication administration/education/monitoring, encouragement and positive reinforcement, maintained Q 15 minute safety checks. Restraints/seclusion/emergency medication: N/A Justification of Continued Inpatient Treatment: Patient continues to require a safe and supportive environment while awaiting placement.
[2021-05-12 19:00] VITALS: BP 110/67
[2021-05-12] MEDS: psyllium seed 3.4 gm packet PO SCH (20:30)
[2021-05-12] MEDS: quetiapine 100mg tablet PO SCH (20:31)
[2021-05-12] MEDS: mag hydrox/Alum hydrox/simeth 30ml oral suspension PO PRN (20:31)
[2021-05-12] MEDS: docusate sod 100mg capsule PO SCH (20:41)
--- NOTE | 2021-05-13 02:06 | NUR ---
Nursing Progress Note: Van Viveros Legal hold: LPS Client on involuntary status for GD Report received from ANN Camacho with use of SBAR Why are they here: Pt. admitted to unit from ER on 5150. Pt self-reported he was not eating, drinking or sleeping due to hearing voices telling him he will be killed if he does. Pt reports losing weight and pain in his feet. He endorses recent illicit drug and alcohol use. Assessment What has happened this shift: Patient noted to be lying in bed resting. Pt calm and cooperative with care, 1:1 assessment done, pt denies MH symptoms. As the CN was doing rounds it was noted that the room was quite odorous and the pt was moved to a different room. He is compliant with all medications. Pt up for snacks and retired to bed. S/I, H/I: Pt denies. A/VH: Pt denies. Sleep: ADL's: Independent Group attendance: Yes Were Meds taken: Yes Any med S/E: None noted or reported. Mental Status Exam Appearance: Clean, well groomed, dressed appropriately for unit Eye contact: Good Behavior: Social, polite Speech: Clear, WNL Mood: Euthymic, joking at times Affect: Restricted Thought process: Linear Thought Content: Meeting basic needs. Wants to discharge. Cognition: A&O X3 Insight: Poor Judgment: Fair Interventions PRN's used: Therapeutic interventions: Provided 1:1 assessment, therapeutic conversation and active listening, medication administration/education/monitoring, encouragement and positive reinforcement, maintained Q 15 minute safety checks. Restraints/seclusion/emergency medication: N/A Justification of Continued Inpatient Treatment: Patient continues to require a safe and supportive environment while awaiting placement.
[2021-05-13] MEDS: traMADol 50MG tablet PO PRN ×3 (05:51→12:05)
[2021-05-13] MEDS: NICOTINE POLACRILEX 2 MG LOZENGE BC PRN ×2 (06:10→10:52)
[2021-05-13] MEDS: buPROPion SR 150mg tablet PO SCH ×2 (07:00→19:43)
[2021-05-13] MEDS: pantoprazole 40mg Tablet.DR PO SCH (07:00)
[2021-05-13] MEDS: cloNIDine 0.1 mg tablet PO SCH ×2 (07:00→13:00)
[2021-05-13] MEDS: nicotine 7mg patch - 24hr TD SCH (07:00)
[2021-05-13] MEDS: duloxetine 20mg capsule.DR PO SCH (07:00)
[2021-05-13] MEDS: benztropine 1mg tablet PO SCH ×2 (07:00→19:43)
[2021-05-13] MEDS: perphenazine 8mg tablets PO SCH ×2 (07:00→19:43)
[2021-05-13 07:34] VITALS: BP 133/78
[2021-05-13] MEDS: mag hydrox/Alum hydrox/simeth 30ml oral suspension PO PRN (07:35)
--- NOTE | 2021-05-13 14:50 | NUR ---
Nursing Progress Note: Van Viveros Legal hold: LPS Client on involuntary status for GD Report received from ANN Camacho with use of SBAR Why are they here: Pt. admitted to unit from ER on 515. Pt self-reported he was not eating, drinking or sleeping due to hearing voices telling him he will be killed if he does. Pt reports losing weight and pain in his feet. He endorses recent illicit drug and alcohol use. Assessment What has happened this shift: Pt was up early to ask for motrin for knee pain. Pt continues to be cooperative for all assessments and care. Pt walked the halls at different times during the day listening to headphones. Pt denies having symptoms except indigestion. All meds were taken without issue. S/I, H/I: Pt denies. A/VH: Pt denies. Sleep: ADL's: Independent Group attendance: Yes Were Meds taken: Yes Any med S/E: None noted or reported. Mental Status Exam Appearance: Clean, well groomed, dressed appropriately for unit Eye contact: Good Behavior: Social, polite Speech: Clear, WNL Mood: Euthymic, joking at times Affect: Restricted Thought process: Linear Thought Content: Meeting basic needs. Wants to discharge. Cognition: A&O X3 Insight: Poor Judgment: Fair Interventions PRN's used: Therapeutic interventions: Provided 1:1 assessment, therapeutic conversation and active listening, medication administration/education/monitoring, encouragement and positive reinforcement, maintained Q 15 minute safety checks. Restraints/seclusion/emergency medication: N/A Justification of Continued Inpatient Treatment: Patient continues to require a safe and supportive environment while awaiting placement.
[2021-05-13] MEDS: hydrOXYzine 25 MG tablet PO PRN (16:17)
[2021-05-13 19:00] VITALS: BP 104/66
[2021-05-13] MEDS: psyllium seed 3.4 gm packet PO SCH (19:46)
[2021-05-13] MEDS: quetiapine 100mg tablet PO SCH (21:00)
[2021-05-13] MEDS: docusate sod 100mg capsule PO SCH (21:00)
--- NOTE | 2021-05-14 02:18 | NUR ---
Nursing Progress Note: Van Viveros Legal hold: LPS Client on involuntary status for GD Report received from ANN Camacho with use of SBAR Why are they here: Pt. admitted to unit from ER on 5150. Pt self-reported he was not eating, drinking or sleeping due to hearing voices telling him he will be killed if he does. Pt reports losing weight and pain in his feet. He endorses recent illicit drug and alcohol use. Assessment What has happened this shift: Pt was napping off and on all evening but woke up for 1:1 and medication administration. Pt denies mh symptoms and is not observed responding to IS. Pt attended snack and then went to bed early. All hs meds taken without issue. S/I, H/I: Pt denies. A/VH: Pt denies. Sleep: ADL's: Independent Group attendance: Yes Were Meds taken: Yes Any med S/E: None noted or reported. Mental Status Exam Appearance: Clean, well groomed, dressed appropriately for unit Eye contact: Good Behavior: Social, polite Speech: Clear, WNL Mood: Euthymic, joking at times Affect: Restricted Thought process: Linear Thought Content: Meeting basic needs. Wants to discharge. Cognition: A&O X3 Insight: Poor Judgment: Fair Interventions PRN's used: Therapeutic interventions: Provided 1:1 assessment, therapeutic conversation and active listening, medication administration/education/monitoring, encouragement and positive reinforcement, maintained Q 15 minute safety checks. Restraints/seclusion/emergency medication: N/A Justification of Continued Inpatient Treatment: Patient continues to require a safe and supportive environment while awaiting placement.
[2021-05-14] MEDS: ibuprofen 200mg tablet PO PRN (06:50)
[2021-05-14] MEDS: NICOTINE POLACRILEX 2 MG LOZENGE BC PRN ×2 (06:50→17:04)
[2021-05-14] MEDS: pantoprazole 40mg Tablet.DR PO SCH (07:16)
[2021-05-14] MEDS: cloNIDine 0.1 mg tablet PO SCH ×2 (07:16→12:15)
[2021-05-14] MEDS: benztropine 1mg tablet PO SCH ×2 (07:17→20:06)
[2021-05-14] MEDS: perphenazine 8mg tablets PO SCH ×2 (07:17→20:06)
[2021-05-14] MEDS: duloxetine 20mg capsule.DR PO SCH (07:17)
[2021-05-14] MEDS: buPROPion SR 150mg tablet PO SCH ×2 (07:17→20:05)
[2021-05-14] MEDS: nicotine 7mg patch - 24hr TD SCH (07:18)
[2021-05-14 08:00] VITALS: BP 117/74
[2021-05-14] MEDS: traMADol 50MG tablet PO PRN ×2 (10:05→17:04)
[2021-05-14] MEDS: hydrOXYzine 25 MG tablet PO PRN (12:15)
[2021-05-14] MEDS: acetaminophen 325mg tablet PO PRN (12:17)
--- NOTE | 2021-05-14 15:49 | NUR ---
Nursing Progress Note: Legal hold: LPS Client on involuntary status for GD Report received from nurse RN with use of SBAR Why are they here: Pt. admitted to unit from ER on 5150. Pt self reported he was not eating, drinking or sleeping due to hearing voices telling him he will be killed if he does. Pt reports loosing weight and pain in his feet. He endorses recent illicit drug and alcohol use. Assessment What has happened this shift: Received Pt in bed sleeping at the beginning of the shift. Pt woke and was cooperative with vitals and AM medications. He tolerated assessments well and talked about where he may get placed. He stated that court was on the and he may be ablre to go to a B&C after 6 mos. Pt Ate all meals well and spent most of the day walking the halls and socializing. Pt engaged with staff well to get needs met and frequently asked for snacks and coffee. Pt received pain meds for knee pain which was moderately effective. Pt used prn nicotine lozenges, ultram, and Tylenol. S/I, H/I: Denies A/VH: Denies Sleep: None this shift ADL's: Independent Group attendance: No Were Meds taken: Yes Any med S/E: None noted or observed Mental Status Exam Appearance: Casual Eye contact: Good Behavior: Cooperative, interactive Speech: Normal rate and rhythm Mood: Depressed Affect: Congruent with mood Thought process: Circumstantial Thought Content: Getting needs met, passing time, jokes Cognition: A&O X3 Insight: Fair Judgment: Fair Interventions PRN's used: Nicotine Richelle, ultram, tylenol Therapeutic interventions: Provided 1:1 assessment with therapeutic communication and active listening, medication administration/education/monitoring, provided redirection and clear boundaries as needed, and maintained Q 15min safety checks. Restraints/seclusion/emergency medication: N/A Justification of Continued Inpatient Treatment: SANDOR Schwab pt. has been placed on LPS at recent court date. He continues to require a safe and supportive environment and time to allow medications to take their therapeutic effect.
[2021-05-14 20:00] VITALS: BP 127/74
[2021-05-14] MEDS: traZODone 50mg tablet PO PRN (20:06)
[2021-05-14] MEDS: psyllium seed 3.4 gm packet PO SCH (20:06)
[2021-05-14] MEDS: quetiapine 100mg tablet PO SCH (20:06)
[2021-05-14] MEDS: docusate sod 100mg capsule PO SCH (20:11)
--- NOTE | 2021-05-15 05:08 | NUR ---
Nursing Progress Note: Legal hold: TCON Client on involuntary status for GD Report received from ANN Camacho with use of SBAR Why are they here: Pt. admitted to unit from ER on 5150. Pt self-reported he was not eating, drinking or sleeping due to hearing voices telling him he will be killed if he does. Pt reports losing weight and pain in his feet. He endorses recent illicit drug and alcohol use. Assessment What has happened this shift: Received the patient in his room. He was lying on his bed awake, just thinking about stuff." He came out later to find me and ask if he can have his meds as early as possible. Told him he would be first, and he went back to his room. Patient declined to come down for snack, and received his HS meds at bedside. He denies all MH symptoms, and did not make any delusional statements. S/I, H/I: Denies. A/VH: Denies. Sleep: See sleep assessment ADL's: Independent Group attendance: N/A Were Meds taken: Yes Any med S/E: None noted or reported. Mental Status Exam Appearance: well groomed, wearing clean street clothes. Eye contact: Good Behavior: Isolative, quiet Speech: normal rate, low volume Mood: Euthymic. Affect: Restricted Thought process: linear Thought Content: Being conserved. Cognition: A&O X3 Insight: Poor Judgment: Fair Interventions PRN's used: none Therapeutic interventions: 1:1 assessment with therapeutic conversation and active listening, medication administration/education/monitoring, encouragement and positive reinforcement, maintained Q 15 minute safety checks. Restraints/seclusion/emergency medication: N/A Justification of Continued Inpatient Treatment: Pt is now conserved. Pt continues to require medication adjustment and monitoring in a safe and supportive environment while waiting placement.
[2021-05-15 08:00] VITALS: BP 122/83
[2021-05-15] MEDS: NICOTINE POLACRILEX 2 MG LOZENGE BC PRN ×4 (08:01→21:51)
[2021-05-15] MEDS: nicotine 7mg patch - 24hr TD SCH (08:01)
[2021-05-15] MEDS: benztropine 1mg tablet PO SCH ×2 (08:01→20:01)
[2021-05-15] MEDS: pantoprazole 40mg Tablet.DR PO SCH (08:01)
[2021-05-15] MEDS: buPROPion SR 150mg tablet PO SCH ×2 (08:01→20:02)
[2021-05-15] MEDS: cloNIDine 0.1 mg tablet PO SCH ×2 (08:01→13:03)
[2021-05-15] MEDS: duloxetine 20mg capsule.DR PO SCH (08:02)
[2021-05-15] MEDS: perphenazine 8mg tablets PO SCH ×2 (08:02→20:01)
[2021-05-15] MEDS: mag hydrox/Alum hydrox/simeth 30ml oral suspension PO PRN (08:20)
[2021-05-15] MEDS: traMADol 50MG tablet PO PRN ×2 (10:03→19:06)
[2021-05-15] MEDS: hydrOXYzine 25 MG tablet PO PRN (14:15)
--- NOTE | 2021-05-15 15:53 | NUR ---
Nursing Progress Note: Legal hold: LPS Client on involuntary status for GD Report received from Ethan RN with use of SBAR Why are they here: Pt. admitted to unit from ER on 5150. Pt self reported he was not eating, drinking or sleeping due to hearing voices telling him he will be killed if he does. Pt reports loosing weight and pain in his feet. He endorses recent illicit drug and alcohol use. Assessment What has happened this shift: Van was resting at shift change today. Patient is seen around the unit all day he is pacing, watching football with this medical writer and talking with peers. Patient did c/o knees pain this morning and received a prn of Ultram. Prn Nicotine give a couple times today, patient mentioned that he is try to quit Nicotine but it will take a while. Van did point out to a peer that she asks lots of questions and never waits for the answer, peer took the statement well and responded back nicely, Van just laughed. S/I, H/I: Denies A/VH: Denies Sleep: None this shift ADL's: Independent Group attendance: No Were Meds taken: Yes Any med S/E: None noted or observed Mental Status Exam Appearance: Casual Eye contact: Good Behavior: Cooperative, interactive Speech: Normal rate and rhythm Mood: "I am ok, not bad but no so good" Affect: Congruent with mood Thought process: Circumstantial Thought Content: "not much today, that girl patient sure talks a lot and asks question but does not wait for answers lol" Cognition: A&O X3 Insight: Fair Judgment: Fair Interventions PRN's used: Nicotine Richelle, ultram Therapeutic interventions: Provided 1:1 assessment with therapeutic communication and active listening, medication administration/education/monitoring, provided redirection and clear boundaries as needed, and maintained Q 15min safety checks. Restraints/seclusion/emergency medication: N/A Justification of Continued Inpatient Treatment: Van is conserved with [facility] due to several failed out patient treatment plans. When asked about discharge patient states "I don't have a choice, but the slag motor operator said less restrictive".
[2021-05-15] MEDS: ibuprofen 200mg tablet PO PRN (19:06)
[2021-05-15 20:00] VITALS: BP 100/67
[2021-05-15] MEDS: psyllium seed 3.4 gm packet PO SCH (20:02)
[2021-05-15] MEDS: traZODone 50mg tablet PO PRN (20:02)
[2021-05-15] MEDS: quetiapine 100mg tablet PO SCH (20:02)
[2021-05-15] MEDS: docusate sod 100mg capsule PO SCH (21:00)
--- NOTE | 2021-05-16 04:39 | NUR ---
Nursing Progress Note: Legal hold: TCON Client on involuntary status for GD Report received from ANN Camacho with use of SBAR Why are they here: Pt. admitted to unit from ER on 5150. Pt self-reported he was not eating, drinking or sleeping due to hearing voices telling him he will be killed if he does. Pt reports losing weight and pain in his feet. He endorses recent illicit drug and alcohol use. Assessment What has happened this shift: Patient was on the unit at shift change. He seems to have made a friend on the unit, a female peer that follows him around. He continues to be pleasant and cooperative with staff. Patient asked about his Seroquel, whether it was discontinued or not. He was told not yet, but maybe his doctor will talk to him about it today. He's ok with that. The patient denies SI/HI and AV/H, and has not been seen responding to IS. S/I, H/I: Denies. A/VH: Denies. Sleep: See sleep assessment ADL's: Independent Group attendance: N/A Were Meds taken: Yes Any med S/E: None noted or reported. Mental Status Exam Appearance: well groomed, wearing clean street clothes. Eye contact: Good Behavior: Isolative, quiet Speech: normal rate, low volume Mood: Euthymic. Affect: Restricted Thought process: linear Thought Content: Being conserved. Cognition: A&O X3 Insight: Poor Judgment: Fair Interventions PRN's used: Nicotine lozenge Therapeutic interventions: 1:1 assessment with therapeutic conversation and active listening, medication administration/education/monitoring, encouragement and positive reinforcement, maintained Q 15 minute safety checks. Restraints/seclusion/emergency medication: N/A Justification of Continued Inpatient Treatment: Pt is now conserved. Pt continues to require medication adjustment and monitoring in a safe and supportive environment while waiting placement.
[2021-05-16 07:00] VITALS: BP 114/58
[2021-05-16] MEDS: benztropine 1mg tablet PO SCH ×2 (07:54→20:02)
[2021-05-16] MEDS: duloxetine 20mg capsule.DR PO SCH (07:54)
[2021-05-16] MEDS: buPROPion SR 150mg tablet PO SCH ×2 (07:54→20:02)
[2021-05-16] MEDS: perphenazine 8mg tablets PO SCH ×2 (07:54→20:02)
[2021-05-16] MEDS: pantoprazole 40mg Tablet.DR PO SCH (07:54)
[2021-05-16] MEDS: nicotine 7mg patch - 24hr TD SCH (07:55)
[2021-05-16] MEDS: cloNIDine 0.1 mg tablet PO SCH ×2 (08:01→12:32)
[2021-05-16] MEDS: NICOTINE POLACRILEX 2 MG LOZENGE BC PRN ×3 (08:13→19:10)
[2021-05-16] MEDS: ibuprofen 200mg tablet PO PRN (09:02)
[2021-05-16] MEDS: traMADol 50MG tablet PO PRN ×2 (10:48→15:21)
[2021-05-16] MEDS: hydrOXYzine 25 MG tablet PO PRN (14:22)
--- NOTE | 2021-05-16 14:43 | NUR ---
Nursing Progress Note: Legal hold: LPS Client on involuntary status for GD Report received from Ethan RN with use of SBAR Why are they here: Pt. admitted to unit from ER on 5150. Pt self reported he was not eating, drinking or sleeping due to hearing voices telling him he will be killed if he does. Pt reports loosing weight and pain in his feet. He endorses recent illicit drug and alcohol use. Assessment What has happened this shift: Van was resting at shift change today. Patient is seen around the unit all day he is pacing. Patient did c/o knees pain this morning and received a prn of motrin then Ultram. Prn Nicotine give a couple times today along with Atarax. Van did mention that he may want some medication changes because he has gain some weight. This is common for Van, he gets somewhat settled on his meds then starts requesting changes, it is of the opinion of this medical underwriter this is partly due to him liking his jose d and boredom. S/I, H/I: Denies A/VH: Denies Sleep: None this shift ADL's: Independent Group attendance: No Were Meds taken: Yes Any med S/E: None noted or observed Mental Status Exam Appearance: Casual Eye contact: Good Behavior: Cooperative, interactive Speech: Normal rate and rhythm Mood: "I am ok, not bad but no so good" Affect: Congruent with mood Thought process: Circumstantial Thought Content: wanting to make some medication changes Cognition: A&O X3 Insight: Fair Judgment: Fair Interventions PRN's used: Nicotine Richelle, ultram, motrin, Atatrax..... Therapeutic interventions: Provided 1:1 assessment with therapeutic communication and active listening, medication administration/education/monitoring, provided redirection and clear boundaries as needed, and maintained Q 15min safety checks. Restraints/seclusion/emergency medication: N/A Justification of Continued Inpatient Treatment: Van is conserved with [facility] due to several failed out patient treatment plans. When asked about discharge patient states "I don't have a choice, but the quality assurance associate said less restrictive".
[2021-05-16 20:00] VITALS: BP 93/55
[2021-05-16] MEDS: psyllium seed 3.4 gm packet PO SCH (20:01)
[2021-05-16] MEDS: quetiapine 100mg tablet PO SCH (20:02)
[2021-05-16] MEDS: traZODone 50mg tablet PO PRN (20:03)
[2021-05-16] MEDS: docusate sod 100mg capsule PO SCH (21:00)
--- NOTE | 2021-05-17 04:01 | NUR ---
Nursing Progress Note: Legal hold: TCON Client on involuntary status for GD Report received from ANN Camacho with use of SBAR Why are they here: Pt. admitted to unit from ER on 5150. Pt self-reported he was not eating, drinking or sleeping due to hearing voices telling him he will be killed if he does. Pt reports losing weight and pain in his feet. He endorses recent illicit drug and alcohol use. Assessment What has happened this shift: The patient was out in the hallway at shift change. He was jut standing there. He says he's just thinking, "I'm doing pretty good today." He spent most of the evening wandering around and talking to a female peer. The patient attended snack, accepted HS meds, then went to bed. S/I, H/I: Denies. A/VH: Denies. Sleep: See sleep assessment ADL's: Independent Group attendance: N/A Were Meds taken: Yes Any med S/E: None noted or reported. Mental Status Exam Appearance: well groomed, wearing clean street clothes. Eye contact: Good Behavior: Isolative, quiet Speech: normal rate, low volume Mood: Euthymic. Affect: Restricted Thought process: linear Thought Content: Being conserved. Cognition: A&O X3 Insight: Poor Judgment: Fair Interventions PRN's used: Nicotine lozenge Therapeutic interventions: 1:1 assessment with therapeutic conversation and active listening, medication administration/education/monitoring, encouragement and positive reinforcement, maintained Q 15 minute safety checks. Restraints/seclusion/emergency medication: N/A Justification of Continued Inpatient Treatment: Pt is now conserved. Pt continues to require medication adjustment and monitoring in a safe and supportive environment while waiting placement.
[2021-05-17 07:00] VITALS: BP 105/70
[2021-05-17] MEDS: buPROPion SR 150mg tablet PO SCH ×2 (08:23→19:58)
[2021-05-17] MEDS: nicotine 7mg patch - 24hr TD SCH (08:23)
[2021-05-17] MEDS: pantoprazole 40mg Tablet.DR PO SCH (08:23)
[2021-05-17] MEDS: duloxetine 20mg capsule.DR PO SCH (08:24)
[2021-05-17] MEDS: benztropine 1mg tablet PO SCH ×2 (08:24→19:58)
[2021-05-17] MEDS: perphenazine 8mg tablets PO SCH ×2 (08:24→19:57)
[2021-05-17] MEDS: cloNIDine 0.1 mg tablet PO SCH ×2 (08:24→12:42)
[2021-05-17] MEDS: NICOTINE POLACRILEX 2 MG LOZENGE BC PRN ×2 (08:38→12:42)
[2021-05-17] MEDS ORDERED: tuberculin, purif. prot. deriv. 5 units/0.1ml ID ONE (08:55)
[2021-05-17] MEDS: traMADol 50MG tablet PO PRN ×2 (09:16→15:17)
[2021-05-17] MEDS: ibuprofen 200mg tablet PO PRN (13:32)
--- NOTE | 2021-05-17 14:53 | NUR ---
F/u 05/17: Pt PO ~100% avg regular diet meeting needs. LBM 05/15 receiving routine colace and miralax. Pt compliant w/ meds. No nutrition intervention at this time. Will continue to monitor. Addendum: 05/17/21 at [address] Amended: Links added.
[2021-05-17] MEDS: hydrOXYzine 25 MG tablet PO PRN (16:03)
--- NOTE | 2021-05-17 16:26 | NUR ---
Nursing Progress Note: Legal hold: LPS Client on involuntary status for GD Report received from Ethan RN with use of SBAR Why are they here: Pt. admitted to unit from ER on 5150. Pt self reported he was not eating, drinking or sleeping due to hearing voices telling him he will be killed if he does. Pt reports loosing weight and pain in his feet. He endorses recent illicit drug and alcohol use. Assessment What has happened this shift: Van was resting at shift change today. Patient is seen around the unit all day he is pacing. Patient did c/o knees pain this morning and received a prn of motrin then Ultram. Prn Nicotine give a couple times today along with Atarax. Van did mention that he may want some medication changes because he has dry mouth. This is common for Van, he gets somewhat settled on his meds then starts requesting changes, it is of the opinion of this technical publications writer this is partly due to him liking his jose d and boredom. This technical publications writer asked Van "what has changed, you seem to need more prn's this week?", Van went on to say that "I have not taken prn's for a while and I am just ready to start taking them again." Patient is seems depressed today more than usual. S/I, H/I: Denies A/VH: Denies Sleep: None this shift ADL's: Independent Group attendance: No Were Meds taken: Yes Any med S/E: None noted or observed Mental Status Exam Appearance: Casual Eye contact: Good Behavior: Cooperative, interactive Speech: Normal rate and rhythm Mood: depressed Affect: Congruent with mood Thought process: Circumstantial Thought Content: wanting to make some medication changes Cognition: A&O X3 Insight: Fair Judgment: Fair Interventions PRN's used: Nicotine Richelle, ultram, motrin, Atatrax..... Therapeutic interventions: Provided 1:1 assessment with therapeutic communication and active listening, medication administration/education/monitoring, provided redirection and clear boundaries as needed, and maintained Q 15min safety checks. Restraints/seclusion/emergency medication: N/A Justification of Continued Inpatient Treatment: Van is conserved with [facility] due to several failed out patient treatment plans. When asked about discharge patient states "I don't have a choice, but the slotter operator helper said less restrictive".
[2021-05-17] MEDS: psyllium seed 3.4 gm packet PO SCH (19:57)
[2021-05-17] MEDS: traZODone 50mg tablet PO PRN (19:57)
[2021-05-17] MEDS: quetiapine 100mg tablet PO SCH (19:58)
[2021-05-17 20:00] VITALS: BP 108/60
[2021-05-17] MEDS: docusate sod 100mg capsule PO SCH (21:00)
--- NOTE | 2021-05-18 03:21 | NUR ---
Nursing Progress Note: Legal hold: LPS Client on involuntary status for GD Report received from ANN Camacho with use of SBAR Why are they here: Pt. admitted to unit from ER on 5150. Pt self-reported he was not eating, drinking or sleeping due to hearing voices telling him he will be killed if he does. Pt reports losing weight and pain in his feet. He endorses recent illicit drug and alcohol use. Assessment What has happened this shift: The patient decided to stay in bed tonight. He's usually willing to talk to this nurse, but not tonight. When asked, he says he's not depressed or anything, just feels tired and sleepy. He declined snacks but accepted HS meds without problem. S/I, H/I: Denies. A/VH: Denies. Sleep: See sleep assessment ADL's: Independent Group attendance: N/A Were Meds taken: Yes Any med S/E: None noted or reported. Mental Status Exam Appearance: well groomed, wearing clean street clothes. Eye contact: Good Behavior: Isolative, quiet Speech: normal rate, low volume Mood: Euthymic. Affect: Restricted Thought process: linear Thought Content: Being conserved. Cognition: A&O X3 Insight: Poor Judgment: Fair Interventions PRN's used: Therapeutic interventions: 1:1 assessment with therapeutic conversation and active listening, medication administration/education/monitoring, encouragement and positive reinforcement, maintained Q 15 minute safety checks. Restraints/seclusion/emergency medication: N/A Justification of Continued Inpatient Treatment: Pt is now conserved. Pt continues to require medication adjustment and monitoring in a safe and supportive environment while waiting placement.
[2021-05-18] MEDS: benztropine 1mg tablet PO SCH ×2 (07:16→20:16)
[2021-05-18] MEDS: pantoprazole 40mg Tablet.DR PO SCH (07:16)
[2021-05-18] MEDS: perphenazine 8mg tablets PO SCH ×2 (07:16→20:17)
[2021-05-18] MEDS: buPROPion SR 150mg tablet PO SCH ×2 (07:16→20:16)
[2021-05-18] MEDS: cloNIDine 0.1 mg tablet PO SCH ×2 (07:16→12:26)
[2021-05-18] MEDS: duloxetine 20mg capsule.DR PO SCH (07:19)
[2021-05-18] MEDS: NICOTINE POLACRILEX 2 MG LOZENGE BC PRN ×4 (07:19→20:00)
[2021-05-18] MEDS: nicotine 7mg patch - 24hr TD SCH (07:22)
[2021-05-18] MEDS: magnesium hydroxide 30ml (MOM) UD suspension PO PRN (07:25)
[2021-05-18] MEDS: traMADol 50MG tablet PO PRN ×2 (07:51→13:57)
[2021-05-18 08:00] VITALS: BP 120/81
[2021-05-18] MEDS: hydrOXYzine 25 MG tablet PO PRN ×2 (09:09→15:50)
--- NOTE | 2021-05-18 09:26 | NUR ---
Pt. attended group today. Patients filled out a sheet around writing down what their strengths, values and good qualities are. We then translated this to a Vision page that we called titled an Empowerment Page that they could look at and be inspired by. Pt came into the group and reluctantly engaged in the activity. His mood seemed good with a flat affect. His thought content and thought process was WNL. Jessica Long LCSW
[2021-05-18 12:08] VITALS: BP 108/63
--- NOTE | 2021-05-18 15:17 | NUR ---
Nursing Progress Note: Legal hold: LPS conserved Client on involuntary status for GD Report received from CHRIS Camacho with use of SBAR Why are they here: Pt admitted to unit from ER on 5150. Pt self-reported he was not eating, drinking or sleeping due to hearing voices telling him he will be killed if he does. Pt reports losing weight and pain in his feet. He endorses recent illicit drug and alcohol use. Assessment What has happened this shift: Pt was up before breakfast requesting a nicotine lozenge. Pt was cooperative with his routine morning medications. Pt reported being constipated and was given MOM at 0725 along with prune juice. Pt requested PRN tramadol 50 mg at 0751 and 1357 for c/o 4/10 bilateral knee pain made worse by walking/pacing with good effect. Pt requested PRN Atarax 50 mg at 0909 for increased anxiety with good effect. Pt c/o dry mouth and lips which he believes is from his Cymbalta. Pt was provided with mouth and lip moisturizer. Pt was given a PPD in his left forearm at 1027. Pt's 1300 routine clonidine was held due to decreased BP of 108/63 per parameters. Pt attended group. Pt socializes with peers especially female peers. Pt listens to radio headphones and paces. Pt watches TV in the rec room. Pt denies SI/HI/AH/VH. Pt had been given Brandon wraps for bilateral knees instead of knee splints/braces. Pt does not use the Brandon wraps and a female peer had been asking to have his. Place pt's Brandon bandages in his locker. S/I, H/I: Pt denies. A/VH: Pt denies. Sleep: Pt slept 10.25 hours last night per noc shift report. ADL's: Independent Group attendance: Yes Were Meds taken: Yes Any med S/E: Pt reported dry mouth and lips. Mental Status Exam Appearance: Neat, clean, younger appearing man with short black hair and black rimmed glasses dressed in personal clothing and a baseball cap. Eye contact: Good Behavior: Pleasant, cooperative, polite, socializes with select peers and staff, listens to radio headphones, paces, watches TV. Speech: Clear, audible Mood: Anxious Affect: Anxious, restless. Thought process: Perseverative; perseverates on meds and perceived med side effects. Thought Content: Cymbalta causes dry mouth and lips, he wants his dad to bring him in compression sleeves/splints for knees as we don't have the right kind here. Cognition: A&O X3 Insight: Poor Judgment: Fair Interventions PRN's used: Tramadol X 2, Atarax, MOM, nicotine lozenges. Therapeutic interventions: 1:1 assessment with therapeutic conversation and active listening, medication administration/education/monitoring, encouragement to attend group, provided distraction, redirection, limit setting, encouragement and positive reinforcement, and maintained Q 15 minute safety checks. Restraints/seclusion/emergency medication: N/A Justification of Continued Inpatient Treatment: Pt is conserved. Pt continues to require medication adjustment and monitoring in a safe and supportive environment while awaiting placement. Addendum: 05/18/21 at 1653 by Faith "Cherise Vogel RN Pt's Cymbalta decreased from 60 mg to 30 mg daily.
[2021-05-18 19:50] VITALS: BP 123/70
[2021-05-18] MEDS: quetiapine 100mg tablet PO SCH (20:16)
[2021-05-18] MEDS: psyllium seed 3.4 gm packet PO SCH (20:16)
[2021-05-18] MEDS: traZODone 50mg tablet PO PRN (20:16)
[2021-05-18] MEDS: docusate sod 100mg capsule PO SCH (20:17)
--- NOTE | 2021-05-18 21:12 | NUR ---
removed nicotine patch
--- NOTE | 2021-05-18 21:14 | NUR ---
Nursing Progress Note: Legal hold: LPS conserved Client on involuntary status for GD Report received from CHRIS Camacho with use of SBAR Why are they here: Pt admitted to unit from ER on 5150. Pt self-reported he was not eating, drinking or sleeping due to hearing voices telling him he will be killed if he does. Pt reports losing weight and pain in his feet. He endorses recent illicit drug and alcohol use. Assessment What has happened this shift: pt was asking for nicotine lozenge and ultram at change of shift. Explained it was too early for both. Pt argued that he should get 3 ultrams, explained he could have them but it was too soon for another. Pt states his pain is "Ok" right now. Pt denies s/i, seems to be in a pleasant mood, socializing w/female peer, and watching tv this evening. Spends some time listening to headphones. S/I, H/I: Pt denies. A/VH: Pt denies. Sleep: see sleep hours ADL's: Independent Group attendance: no evening groups Were Meds taken: Yes Any med S/E: none reported Mental Status Exam Appearance: Neat, clean, younger appearing man with short black hair and black rimmed glasses dressed in personal clothing and a baseball cap. Eye contact: Good Behavior: Pleasant, cooperative, polite, socializes with select peers and staff, listens to radio headphones, paces, watches TV. Speech: Clear, audible Mood: Anxious Affect: Anxious, restless. Thought process: Perseverates on meds and perceived med side effects. Thought Content: talking about meds Cognition: A&O X3 Insight: Poor Judgment: Fair Interventions PRN's used: nicotine lozenge, trazodone Therapeutic interventions: 1:1 assessment with therapeutic conversation and active listening, medication administration/education/monitoring, encouragement to attend group, provided distraction, redirection, limit setting, encouragement and positive reinforcement, and maintained Q 15 minute safety checks. Restraints/seclusion/emergency medication: N/A Justification of Continued Inpatient Treatment: Pt is conserved. Pt continues to require medication adjustment and monitoring in a safe and supportive environment while awaiting placement.
[2021-05-19] MEDS: NICOTINE POLACRILEX 2 MG LOZENGE BC PRN ×4 (07:33→15:37)
[2021-05-19] MEDS: perphenazine 8mg tablets PO SCH ×2 (07:33→20:49)
[2021-05-19] MEDS: pantoprazole 40mg Tablet.DR PO SCH (07:33)
[2021-05-19] MEDS: benztropine 1mg tablet PO SCH ×2 (07:33→20:49)
[2021-05-19] MEDS: duloxetine 30mg CAPSULE.DR PO SCH (07:33)
[2021-05-19] MEDS: buPROPion SR 150mg tablet PO SCH ×2 (07:33→20:49)
[2021-05-19] MEDS: traMADol 50MG tablet PO PRN ×2 (07:33→15:37)
[2021-05-19] MEDS: cloNIDine 0.1 mg tablet PO SCH ×2 (07:34→12:30)
[2021-05-19] MEDS: nicotine 7mg patch - 24hr TD SCH (07:38)
[2021-05-19 07:53] VITALS: BP 103/61
[2021-05-19] MEDS: ibuprofen 200mg tablet PO PRN (08:53)
[2021-05-19] MEDS: hydrOXYzine 25 MG tablet PO PRN (09:53)
[2021-05-19 12:25] VITALS: BP 127/69
--- NOTE | 2021-05-19 15:53 | NUR ---
Nursing Progress Note: Legal hold: LPS conserved Client on involuntary status for GD Report received from CHRIS Camacho with use of SBAR Why are they here: Pt admitted to unit from ER on 5150. Pt self-reported he was not eating, drinking or sleeping due to hearing voices telling him he will be killed if he does. Pt reports losing weight and pain in his feet. He endorses recent illicit drug and alcohol use. Assessment What has happened this shift: Pt was up before breakfast asking for a nicotine lozenge and a tramadol for 4/10 bilateral knee pain at 0733. Pt reported that the tramadol was not effective and asked for Motrin. PRN Motrin 600 mg was given at 0853 with good effect. Pt's clonidine was held this morning for decreased BP of 103/61 per parameters. Pt requested Atarax for anxiety and was given PRN Atarax 50 mg at 0953 with good effect. SANDOR Jones was notified of Clonidine being held this morning and yesterday lunchtime due to decreased BP per parameters. Pt requested of PA to change his nicotine lozenges from Q4H PRN to Q2H PRN. Pt requested nicotine lozenges at 1046, 1307, and 1537. Pt requested tramadol again at 1537 and Maalox at 1613. Pt socializes with staff and peers, is present in the milieu, participates in unit activities and attends group. Pt is polite and has good personal hygiene. He appears restless and bored at times. Pt denies SI/HI/AH/VH. S/I, H/I: Pt denies. A/VH: Pt denies. Sleep: Pt slept 8.5 hours last night per noc shift report. ADL's: Independent Group attendance: Yes Were Meds taken: Yes Any med S/E: None noted or reported. Mental Status Exam Appearance: Neat, clean, younger appearing man with short black hair and a goatee wearing black rimmed glasses personal clothing, and a baseball cap. Eye contact: Good Behavior: Pleasant, cooperative, polite, socializes with peers and staff, listens to radio headphones, paces, watches TV, frequently asks for PRN medications. Speech: Clear, audible Mood: Anxious Affect: Anxious, restless. Thought process: Perseverative; perseverates on medications. Thought Content: He accidently shaved off too much of his robertson, he likes to leave some hair along his jawbone, he will grow it out. Cognition: A&O X 4 Insight: Fair Judgment: Fair Interventions PRN's used: Tramadol X 2, Atarax 50 mg, ibuprofen 600 mg, Maalox, nicotine lozenges. Therapeutic interventions: 1:1 assessment with therapeutic conversation and active listening, medication administration/education/monitoring, encouragement to attend group, provided distraction, redirection, limit setting, encouragement and positive reinforcement, and maintained Q 15 minute safety checks. Restraints/seclusion/emergency medication: N/A Justification of Continued Inpatient Treatment: Pt is conserved. Pt continues to require medication adjustment and monitoring in a safe and supportive environment while awaiting placement.
[2021-05-19] MEDS: mag hydrox/Alum hydrox/simeth 30ml oral suspension PO PRN (16:13)
[2021-05-19 20:00] VITALS: BP 124/71
[2021-05-19] MEDS: docusate sod 100mg capsule PO SCH (20:49)
[2021-05-19] MEDS: quetiapine 100mg tablet PO SCH (20:49)
[2021-05-19] MEDS: psyllium seed 3.4 gm packet PO SCH (20:49)
--- NOTE | 2021-05-20 00:52 | NUR ---
Nursing Progress Note: Legal hold: LPS Client on involuntary status for GD Report received from ANN Espinal with use of SBAR Why are they here: Pt. admitted to unit from ER on 5150. Pt self-reported he was not eating, drinking or sleeping due to hearing voices telling him he will be killed if he does. Pt reports losing weight and pain in his feet. He endorses recent illicit drug and alcohol use. Assessment What has happened this shift: Van was in bed at shift change, patient allowed assessment, patient stated "for some reason I am just tired tonight I am going to sty in bed". Patient took hs medication with out difficulty and went right back to sleep. S/I, H/I: Denies. A/VH: Denies. Sleep: See sleep assessment ADL's: Independent Group attendance: N/A Were Meds taken: Yes Any med S/E: None noted or reported. Mental Status Exam Appearance: well groomed, wearing clean street clothes. Eye contact: Good Behavior: Isolative, quiet Speech: normal rate, low volume Mood: Euthymic. Affect: Restricted Thought process: linear Thought Content: unable to access Cognition: A&O X3 Insight: Poor Judgment: Fair Interventions PRN's used: Therapeutic interventions: 1:1 assessment with therapeutic conversation and active listening, medication administration/education/monitoring, encouragement and positive reinforcement, maintained Q 15 minute safety checks. Restraints/seclusion/emergency medication: N/A Justification of Continued Inpatient Treatment: Van is conserved with [facility] due to several out patient treatment plan failures, and is awaiting placement. Patient is looking forward to less restrictive facility.
[2021-05-20] MEDS: NICOTINE POLACRILEX 2 MG LOZENGE BC PRN ×4 (06:44→15:43)
[2021-05-20] MEDS: pantoprazole 40mg Tablet.DR PO SCH (07:11)
[2021-05-20] MEDS: duloxetine 30mg CAPSULE.DR PO SCH (07:11)
[2021-05-20] MEDS: benztropine 1mg tablet PO SCH ×2 (07:11→20:25)
[2021-05-20] MEDS: buPROPion SR 150mg tablet PO SCH ×2 (07:11→20:25)
[2021-05-20] MEDS: perphenazine 8mg tablets PO SCH ×2 (07:12→20:27)
[2021-05-20] MEDS: cloNIDine 0.1 mg tablet PO SCH (07:12)
[2021-05-20] MEDS: magnesium hydroxide 30ml (MOM) UD suspension PO PRN (07:15)
[2021-05-20] MEDS: nicotine 7mg patch - 24hr TD SCH (07:15)
[2021-05-20 07:42] VITALS: BP 129/58
[2021-05-20] MEDS: traMADol 50MG tablet PO PRN ×2 (08:35→16:30)
--- NOTE | 2021-05-20 10:59 | NUR ---
Pt. attended group today. Today's group was about the different communications styles i.e passive, aggressive and assertive. We discussed what the characteristics of each style was. We then discussed where they saw themselves at now and where they would like to be with their communication style. Pt. was engaged in the group today. He shared where he saw himself and where he would like to be with his communication style. He and his a peer got into a playful argument about their communication styles which was entertaining for the group. He was alert and oriented X 4. His thought content and thought process was WNL. His demeanor was calm and compliant. He was more open and friendly today with his peers. Jessica Long LCSW Addendum: 05/20/21 at 1059 by Jessica Long This note is for the group date of .
[2021-05-20] MEDS: ibuprofen 200mg tablet PO PRN (11:24)
--- NOTE | 2021-05-20 11:45 | NUR ---
PLACEMENT Send updated notes (05/12-05/19) to [facility] office along with PPD results. ANDREW Rosas
--- NOTE | 2021-05-20 13:57 | NUR ---
Nursing Progress Note: Legal hold: LPS conserved Client on involuntary status for GD Report received from CHRIS Camacho with use of SBAR Why are they here: Pt admitted to unit from ER on 5150. Pt self-reported he was not eating, drinking or sleeping due to hearing voices telling him he will be killed if he does. Pt reports losing weight and pain in his feet. He endorses recent illicit drug and alcohol use. Assessment What has happened this shift: Pt asked for a nicotine lozenge early this morning at 0644. He c/o hard stools and some mild lower abdominal discomfort and was given MOM and prune juice at 0715. Pt asked for tramadol for bilateral knee pain / at 0835 with good effect though c/o the same pain again at 1124 and was given PRN ibuprofen 600 mg with good effect. Pt stated that it felt like the morning was dragging today. Pt stated it felt like it had been 4 hours but it was just after breakfast. Pt appears bored. Pt reported that he almost passed out after taking clonidine this morning. Pt notified SANDOR Calvillo of this. Clonidine was D/c'd. Cymbalta was also D/c'd. Pt has new orders for Strattera 40 mg daily. PRN tramadol 50 mg was changed from TID PRN to Q6H PRN. Pt denies SI/HI/AH/VH. S/I, H/I: Pt denies. A/VH: Pt denies. Sleep: Pt slept 8.5 hours last night per noc shift report. ADL's: Independent Group attendance: Yes Were Meds taken: Yes Any med S/E: Pt reported he felt like passing out after taking morning clonidine. Mental Status Exam Appearance: Neat, clean, younger appearing man with short black hair and a goatee wearing black rimmed glasses personal clothing, and a baseball cap. Eye contact: Good Behavior: Pleasant, cooperative, polite, socializes with peers and staff, listens to radio headphones, paces, watches TV, frequently asks for PRN medications. Speech: Clear, audible Mood: Anxious Affect: Anxious, restless. Thought process: Perseverative; perseverates on medications. Thought Content: Time has been passing slowly today. Cognition: A&O X 4 Insight: Fair Judgment: Fair Interventions PRN's used: Tramadol, ibuprofen, MOM, nicotine lozenges. Therapeutic interventions: 1:1 assessment with therapeutic conversation and active listening, medication administration/education/monitoring, encouragement to attend group, provided distraction, redirection, limit setting, encouragement and positive reinforcement, and maintained Q 15 minute safety checks. Restraints/seclusion/emergency medication: N/A Justification of Continued Inpatient Treatment: Pt is conserved. Pt continues to require medication adjustment and monitoring in a safe and supportive environment while awaiting placement. Addendum: 05/20/21 at 1522 by Faith Vogel RN (Lee) Read pt's PPD today: negative.
[2021-05-20] MEDS: quetiapine 100mg tablet PO SCH (20:26)
[2021-05-20] MEDS: docusate sod 100mg capsule PO SCH (20:27)
[2021-05-20] MEDS: psyllium seed 3.4 gm packet PO SCH (20:28)
[2021-05-20 20:51] VITALS: BP 142/75
--- NOTE | 2021-05-20 23:27 | NUR ---
Nursing Progress Note: Legal hold: LPS conserved Client on involuntary status for GD Report received from CHRIS Espinal with use of SBAR Why are they here: Pt admitted to unit from ER on 5150. Pt self-reported he was not eating, drinking or sleeping due to hearing voices telling him he will be killed if he does. Pt reports losing weight and pain in his feet. He endorses recent illicit drug and alcohol use. Assessment What has happened this shift: Patient was asleep in his room at the start of the shift.He refused snack and was med compliant. Pt denies SI/HI/AH/VH. Pt did not request any prns or med changes this shift. S/I, H/I: Pt denies. A/VH: Pt denies. Sleep: See sleep assessment. ADL's: Independent Group attendance: Yes Were Meds taken: Yes Any med S/E: Pt reported he felt like passing out after taking morning clonidine. Mental Status Exam Appearance: Neat, clean, younger appearing man with short black hair and a goatee wearing black rimmed glasses personal clothing, and a baseball cap. Eye contact: Good Behavior: Pleasant, cooperative, polite, socializes with peers and staff, listens to radio headphones, paces, watches TV, frequently asks for PRN medications. Speech: Clear, audible Mood: Anxious Affect: Anxious, restless. Thought process: Perseverative; perseverates on medications. Thought Content: Time has been passing slowly today. Cognition: A&O X 4 Insight: Fair Judgment: Fair Interventions PRN's used: none Therapeutic interventions: 1:1 assessment with therapeutic conversation and active listening, medication administration/education/monitoring, encouragement to attend group, provided distraction, redirection, limit setting, encouragement and positive reinforcement, and maintained Q 15 minute safety checks. Restraints/seclusion/emergency medication: N/A Justification of Continued Inpatient Treatment: Pt is conserved. Pt continues to require medication adjustment and monitoring in a safe and supportive environment while awaiting placement.
[2021-05-21] MEDS: NICOTINE POLACRILEX 2 MG LOZENGE BC PRN ×6 (06:50→19:13)
[2021-05-21] MEDS: nicotine 7mg patch - 24hr TD SCH (07:03)
[2021-05-21] MEDS: atomoxetine 40 MG capsule PO SCH (07:04)
[2021-05-21] MEDS: buPROPion SR 150mg tablet PO SCH ×2 (07:04→19:21)
[2021-05-21] MEDS: pantoprazole 40mg Tablet.DR PO SCH (07:04)
[2021-05-21] MEDS: benztropine 1mg tablet PO SCH ×2 (07:04→19:21)
[2021-05-21] MEDS: perphenazine 8mg tablets PO SCH ×2 (07:05→19:21)
[2021-05-21 07:45] VITALS: BP 111/79
[2021-05-21] MEDS: traMADol 50MG tablet PO PRN (08:50)
--- NOTE | 2021-05-21 16:04 | NUR ---
Nursing Progress Note: Legal hold: LPS conserved Client on involuntary status for GD Report received from CHRIS Camacho with use of SBAR Why they are here: Pt admitted to unit from ER on 5150. Pt self-reported he was not eating, drinking or sleeping due to hearing voices telling him he will be killed if he does. Pt reports losing weight and pain in his feet. He endorses recent illicit drug and alcohol use. Assessment What has happened this shift: Patient resting quietly in bed at start of shift. Up before breakfast requesting nicotine lozenge. Eats meals in community room and interacts appropriately with peers. Complains of bilateral leg pain relieved by PRN Ultram. Changes clothes more than once during shift. Friendly and talkative with peers and staff. Frequently requests nicotine patch. Occasionally will smile to himself and then say something off topic, I lola look like Im 16, huh? Appears calm/ bored and stands in the hallways watching staff and peers. S/I, H/I: Denies A/VH: Denies Sleep: 9.5 hours per NOC ADL's: Independent Group attendance: No Were Meds taken: Yes Any med S/E: None noted or reported Mental Status Exam Appearance: Neat, clean, younger appearing man with short black hair and a goatee wearing black rimmed glasses personal clothing, and a baseball cap. Eye contact: Good Behavior: Pleasant, cooperative, polite, socializes with peers and staff, listens to radio headphones, paces, watches TV, frequently asks for PRN medications. Speech: Clear, audible Mood: Good. Affect: Congruent with mood Thought process: Linear Thought Content: Meeting needs Cognition: A&O X 4 Insight: Fair Judgment: Fair Interventions PRN's used: Ultram, Nicotine Therapeutic interventions: 1:1 assessment with therapeutic conversation and active listening, medication administration/education/monitoring, encouragement to attend group, provided distraction, redirection, limit setting, encouragement and positive reinforcement, and maintained Q 15 minute safety checks. Restraints/seclusion/emergency medication: N/A Justification of Continued Inpatient Treatment: Pt is conserved. Pt continues to require medication adjustment and monitoring in a safe and supportive environment while awaiting placement.
[2021-05-21 20:00] VITALS: BP 133/84
[2021-05-21] MEDS: psyllium seed 3.4 gm packet PO SCH (20:07)
[2021-05-21] MEDS: docusate sod 100mg capsule PO SCH (20:07)
[2021-05-21] MEDS: quetiapine 100mg tablet PO SCH (20:07)
--- NOTE | 2021-05-22 00:17 | NUR ---
Nursing Progress Note: Legal hold: LPS conserved Client on involuntary status for GD Report received from CHRIS Long with use of SBAR Why they are here: Pt admitted to unit from ER on 5150. Pt self-reported he was not eating, drinking or sleeping due to hearing voices telling him he will be killed if he does. Pt reports losing weight and pain in his feet. He endorses recent illicit drug and alcohol use. Assessment What has happened this shift: Patient mostly isolated to his room but will come out when he has needs. Pt stated that he had a bm yesterday and did not need his Metamucil. Pt denies having any concerns or needs and accepted hs meds without issue. S/I, H/I: Denies A/VH: Denies Sleep: see sleep assessment ADL's: Independent Group attendance: No Were Meds taken: Yes Any med S/E: None noted or reported Mental Status Exam Appearance: Neat, clean, in personal clothing Eye contact: Good Behavior: Pleasant, cooperative, polite Speech: Clear, audible Mood: Good. Affect: Congruent with mood Thought process: Linear Thought Content: Meeting needs Cognition: A&O X 4 Insight: Fair Judgment: Fair Interventions PRN's used: Nicotine Therapeutic interventions: 1:1 assessment with therapeutic conversation and active listening, medication administration/education/monitoring, encouragement to attend group, provided distraction, redirection, limit setting, encouragement and positive reinforcement, and maintained Q 15 minute safety checks. Restraints/seclusion/emergency medication: N/A Justification of Continued Inpatient Treatment: Pt is conserved. Pt continues to require medication adjustment and monitoring in a safe and supportive environment while awaiting placement.
[2021-05-22] MEDS: NICOTINE POLACRILEX 2 MG LOZENGE BC PRN ×5 (05:37→18:29)
[2021-05-22] MEDS: mag hydrox/Alum hydrox/simeth 30ml oral suspension PO PRN (05:37)
[2021-05-22] MEDS: nicotine 7mg patch - 24hr TD SCH (07:00)
[2021-05-22] MEDS: atomoxetine 40 MG capsule PO SCH (07:01)
[2021-05-22] MEDS: perphenazine 8mg tablets PO SCH ×2 (07:01→19:20)
[2021-05-22] MEDS: buPROPion SR 150mg tablet PO SCH ×2 (07:01→19:20)
[2021-05-22] MEDS: pantoprazole 40mg Tablet.DR PO SCH (07:01)
[2021-05-22] MEDS: benztropine 1mg tablet PO SCH ×2 (07:01→19:20)
[2021-05-22 07:46] VITALS: BP 128/64
[2021-05-22] MEDS: traMADol 50MG tablet PO PRN (09:32)
--- NOTE | 2021-05-22 17:21 | NUR ---
Nursing Progress Note: Legal hold: LPS conserved Client on involuntary status for GD Report received from CHRIS Long with use of SBAR Why they are here: Pt admitted to unit from ER on 5150. Pt self-reported he was not eating, drinking or sleeping due to hearing voices telling him he will be killed if he does. Pt reports losing weight and pain in his feet. He endorses recent illicit drug and alcohol use. Assessment What has happened this shift: Patient awake pacing unit at start of shift. Cooperative and interacting appropriately with staff and peers. Requests nicotine lozenges frequently but refuses nicotine patch stating he no longer wants to wear it but wants to continue nicotine lozenges. States he had BM yesterday but it was hard and he feels constipated. Offered MOM but declined. Stated he would like prune juice which was provided. Complains of bilateral leg pain relieved by PRN Ultram. S/I, H/I: Denies A/VH: Denies Sleep: 7.75 hours per NOC ADL's: Independent Group attendance: N/A Were Meds taken: Yes Any med S/E: None noted or reported Mental Status Exam Appearance: Neat, clean, younger appearing man with short black hair and a goatee wearing black rimmed glasses personal clothing, and a baseball cap. Eye contact: Good Behavior: Pleasant, cooperative, polite, socializes with peers and staff, listens to radio headphones, paces, watches TV, and frequently asks for PRN medications. Speech: Clear, audible, normal rate/ rhythm Mood: Good. Affect: Congruent with mood Thought process: Linear Thought Content: Meeting needs Cognition: A&O X 4 Insight: Fair Judgment: Fair Interventions PRN's used: Nicotine lozenge. Therapeutic interventions: 1:1 assessment with therapeutic conversation and active listening, medication administration/education/monitoring, encouragement to attend group, provided distraction, redirection, limit setting, encouragement and positive reinforcement, and maintained Q 15 minute safety checks. Restraints/seclusion/emergency medication: N/A Justification of Continued Inpatient Treatment: Pt is conserved. Pt continues to require medication adjustment and monitoring in a safe and supportive environment while awaiting placement.
[2021-05-22 19:39] VITALS: BP 129/79
[2021-05-22] MEDS: quetiapine 100mg tablet PO SCH (20:07)
[2021-05-22] MEDS: psyllium seed 3.4 gm packet PO SCH (20:07)
[2021-05-22] MEDS: docusate sod 100mg capsule PO SCH (20:07)
--- NOTE | 2021-05-23 05:29 | NUR ---
Nursing Progress Note: Legal hold: LPS conserved Client on involuntary status for GD Report received from CHRIS Espinal with use of SBAR Why they are here: Pt admitted to unit from ER on 5150. Pt self-reported he was not eating, drinking or sleeping due to hearing voices telling him he will be killed if he does. Pt reports losing weight and pain in his feet. He endorses recent illicit drug and alcohol use. Assessment What has happened this shift: Patient in hallway socializing at start of shift. Asks for medication as soon as it is available as he would like to go to bed as early as possible. Cooperative with 1:1 assessment and takes medication as ordered. Paces the unit in the evening with headphones on. Goes to bed after medication is given and sleeps quietly through the night. S/I, H/I: Denies A/VH: Denies Sleep: See sleep assessment ADL's: Independent Group attendance: N/A Were Meds taken: Yes Any med S/E: None noted or reported Mental Status Exam Appearance: Neat, clean, younger appearing man with short black hair and a goatee wearing black rimmed glasses personal clothing, and a baseball cap. Eye contact: Good Behavior: Pleasant, cooperative, polite, socializes with peers and staff, listens to radio headphones, paces, watches TV, and frequently asks for PRN medications. Speech: Clear, audible, normal rate/ rhythm Mood: Good. Affect: Congruent with mood Thought process: Linear Thought Content: Meeting needs Cognition: A&O X 4 Insight: Fair Judgment: Fair Interventions PRN's used: Therapeutic interventions: 1:1 assessment with therapeutic conversation and active listening, medication administration/education/monitoring, encouragement to attend group, provided distraction, redirection, limit setting, encouragement and positive reinforcement, and maintained Q 15 minute safety checks. Restraints/seclusion/emergency medication: N/A Justification of Continued Inpatient Treatment: Pt is conserved. Pt continues to require medication adjustment and monitoring in a safe and supportive environment while awaiting placement.
[2021-05-23] MEDS: NICOTINE POLACRILEX 2 MG LOZENGE BC PRN ×4 (06:08→20:24)
[2021-05-23 07:56] VITALS: BP 130/82
[2021-05-23] MEDS: nicotine 7mg patch - 24hr TD SCH ×2 (08:00→08:21)
[2021-05-23] MEDS: pantoprazole 40mg Tablet.DR PO SCH (08:20)
[2021-05-23] MEDS: benztropine 1mg tablet PO SCH ×2 (08:20→19:37)
[2021-05-23] MEDS: buPROPion SR 150mg tablet PO SCH ×2 (08:20→19:37)
[2021-05-23] MEDS: atomoxetine 40 MG capsule PO SCH (08:20)
[2021-05-23] MEDS: perphenazine 8mg tablets PO SCH ×2 (08:21→19:36)
[2021-05-23] MEDS: hydrOXYzine 25 MG tablet PO PRN (11:09)
[2021-05-23] MEDS: ibuprofen 200mg tablet PO PRN (13:21)
[2021-05-23] MEDS: traMADol 50MG tablet PO PRN (14:20)
--- NOTE | 2021-05-23 14:55 | NUR ---
F/u 05/23: Pt PO ~100% avg regular diet meeting needs. LBM 05/21 receiving routine colace and miralax. Pt compliant w/ meds. No nutrition intervention at this time. Will continue to monitor. Recommendations: 1) Continue regular diet 2) bowel care per rx 3) Weekly scaled weights Addendum: 05/23/21 at [address] Amended: Links added.
--- NOTE | 2021-05-23 16:42 | NUR ---
Nursing Progress Note: Legal hold: LPS conserved Client on involuntary status for GD Report received from Liborio JUAREZ with use of SBAR Why they are here: Pt admitted to unit from ER on 5150. Pt self-reported he was not eating, drinking or sleeping due to hearing voices telling him he will be killed if he does. Pt reports losing weight and pain in his feet. He endorses recent illicit drug and alcohol use. Assessment What has happened this shift: Patient awake pacing unit at start of shift. Cooperative and interacting appropriately with staff and peers. Requests nicotine lozenges frequently but refuses nicotine patch stating he no longer wants to wear it but wants to continue nicotine lozenges. About 1108 patient request prn Atarax " I am bored and I feel like people are talking about me or listening to me". Patient asked for several prns through out the day. Van did take a shower early in the day. Patient was weighed today, Van is down 8 pounds in one week, patient did take off heavy clothes and removed his shoes, it is not know if he did the same last week. S/I, H/I: Denies A/VH: Denies Sleep: rested a few times today but was unable to nap ADL's: Independent Group attendance: no, patient did show up the last 3 mins of group Were Meds taken: Yes Any med S/E: None noted or reported Mental Status Exam Appearance: Neat, clean, younger appearing man with short black hair and a goatee wearing black rimmed glasses personal clothing, and a baseball cap. Eye contact: Good Behavior: Pleasant, cooperative, polite, listens to radio headphones, paces, watches TV, and frequently asks for PRN medications. Speech: Clear, audible, normal rate/ rhythm Mood: Good. Affect: Congruent with mood Thought process: Linear Thought Content: requesting prn and giving reasons for each all day long Cognition: A&O X 4 Insight: Fair Judgment: Fair Interventions PRN's used: Nicotine lozenge, Motrin, Atarax, Ultram Therapeutic interventions: 1:1 assessment with therapeutic conversation and active listening, medication administration/education/monitoring, encouragement to attend group, provided distraction, redirection, limit setting, encouragement and positive reinforcement, and maintained Q 15 minute safety checks. Restraints/seclusion/emergency medication: N/A Justification of Continued Inpatient Treatment: Van is conserved with [facility] and is awaiting placement. One of Van behaviors that sabotages his "baseline", is that he makes several request to change medication often.
[2021-05-23] MEDS: psyllium seed 3.4 gm packet PO SCH (19:36)
[2021-05-23] MEDS: quetiapine 100mg tablet PO SCH (19:37)
[2021-05-23] MEDS: docusate sod 100mg capsule PO SCH (19:37)
[2021-05-23 20:18] VITALS: BP 134/88
--- NOTE | 2021-05-24 02:27 | NUR ---
Nursing Progress Note: Legal hold: LPS conserved Client on involuntary status for GD Report received from ANN Espinal with use of SBAR Why they are here: Pt admitted to unit from ER on 5150. Pt self-reported he was not eating, drinking or sleeping due to hearing voices telling him he will be killed if he does. Pt reports losing weight and pain in his feet. He endorses recent illicit drug and alcohol use. Assessment What has happened this shift: The patient was in the hallway at shift change. He's friendly and cooperative with staff. Patient has been speaking to a certain peer about his thoughts, and hers, related to the Bible. He asked to have his medications as soon as possible, so he could go to bed early. It didn't work as he had planned, so he spent ~hour quickly pacing the halls, before retiring to bed. S/I, H/I: Denies A/VH: Denies Sleep: See sleep assessment ADL's: Independent Group attendance: N/A Were Meds taken: Yes Any med S/E: None reported or observed. Mental Status Exam Appearance: Well groomed young man with short black hair and goatee wearing nice clean street clothes.. Eye contact: Good Behavior: Pleasant, cooperative, polite, socializes with peers and staff, listens to radio headphones, paces, watches TV, and frequently asks for PRN medications. Speech: Clear, audible Mood: Good. Affect: Congruent with mood Thought process: Linear Thought Content: Meeting needs Cognition: A&O X 4 Insight: Fair Judgment: Fair Interventions PRN's used: Nicotine lozenge Therapeutic interventions: 1:1 assessment with therapeutic conversation and active listening, medication administration/education/monitoring, encouragement to attend group, provided distraction, redirection, limit setting, encouragement and positive reinforcement, and maintained Q 15 minute safety checks. Restraints/seclusion/emergency medication: N/A Justification of Continued Inpatient Treatment: Pt is conserved. Pt continues to require medication adjustment and monitoring in a safe and supportive environment while awaiting placement.
[2021-05-24] MEDS: perphenazine 8mg tablets PO SCH ×2 (07:48→20:07)
[2021-05-24] MEDS: benztropine 1mg tablet PO SCH ×2 (07:48→20:08)
[2021-05-24] MEDS: atomoxetine 40 MG capsule PO SCH (07:48)
[2021-05-24] MEDS: pantoprazole 40mg Tablet.DR PO SCH (07:48)
[2021-05-24] MEDS: buPROPion SR 150mg tablet PO SCH ×2 (07:48→20:08)
[2021-05-24 08:00] VITALS: BP 130/80
[2021-05-24] MEDS: nicotine 7mg patch - 24hr TD SCH (08:00)
[2021-05-24] MEDS: NICOTINE POLACRILEX 2 MG LOZENGE BC PRN ×4 (08:17→19:07)
[2021-05-24] MEDS: traMADol 50MG tablet PO PRN (08:58)
[2021-05-24] MEDS: hydrOXYzine 25 MG tablet PO PRN ×2 (09:50→16:34)
--- NOTE | 2021-05-24 16:45 | NUR ---
Nursing Progress Note: Legal hold: LPS conserved Client on involuntary status for GD Report received from Cynthia JUAREZ with use of SBAR Why they are here: Pt admitted to unit from ER on 5150. Pt self-reported he was not eating, drinking or sleeping due to hearing voices telling him he will be killed if he does. Pt reports losing weight and pain in his feet. He endorses recent illicit drug and alcohol use. Assessment What has happened this shift: Patient awake pacing unit at start of shift. Cooperative and interacting appropriately with staff and peers. Requests nicotine lozenges frequently but refuses nicotine patch stating he no longer wants to wear it but wants to continue nicotine lozenges. Van woke up this morning when this customs entry writer was doing med pass, Van went on and on a bout a dream he was having, this did not appear to be delusional thought rather a dream about a train and his cousin. Patient asked for a PRN at least every hour on the hour, Atrax 2 times, Ultram, Nicotine indigo....."I am just having a hard time focusing and I think these things will help me". S/I, H/I: Denies A/VH: Denies Sleep: rested a few times today but was unable to nap ADL's: Independent Group attendance: no, passed on 2 groups today Were Meds taken: Yes Any med S/E: None noted or reported Mental Status Exam Appearance: Neat, clean, younger appearing man with short black hair and a goatee wearing black rimmed glasses personal clothing, and a baseball cap. Eye contact: Good Behavior: Pleasant, cooperative, polite, listens to radio headphones, paces, watches TV, and frequently asks for PRN medications. Speech: Clear, audible, normal rate/ rhythm Mood: Good. Affect: Congruent with mood Thought process: Linear Thought Content: requesting prn and giving reasons for each all day long Cognition: A&O X 4 Insight: Fair Judgment: Fair Interventions PRN's used: Nicotine lozenge, Atarax, Ultram Therapeutic interventions: 1:1 assessment with therapeutic conversation and active listening, medication administration/education/monitoring, encouragement to attend group, provided distraction, redirection, limit setting, encouragement and positive reinforcement, and maintained Q 15 minute safety checks. Restraints/seclusion/emergency medication: N/A Justification of Continued Inpatient Treatment: Van is conserved with [facility] and is awaiting placement. One of Van behaviors that sabotages his "baseline", is that he makes several request to change medication often.
[2021-05-24] MEDS: docusate sod 100mg capsule PO SCH (20:07)
[2021-05-24] MEDS: psyllium seed 3.4 gm packet PO SCH (20:08)
[2021-05-24] MEDS: quetiapine 100mg tablet PO SCH (20:08)
[2021-05-24 20:48] VITALS: BP 120/77
--- NOTE | 2021-05-24 22:25 | NUR ---
Nursing Progress Note: Legal hold: LPS conserved Client on involuntary status for GD Report received from tom JUAREZ with use of SBAR Why they are here: Pt admitted to unit from ER on 5150. Pt self-reported he was not eating, drinking or sleeping due to hearing voices telling him he will be killed if he does. Pt reports losing weight and pain in his feet. He endorses recent illicit drug and alcohol use. Assessment What has happened this shift: Patient was walking in the [place] at change of shift, reports some anxiety. Pt requested prn nicotine lozenge and requested twice to have scheduled meds given early. Explained to patient he would get meds when scheduled, pt states he understands. Pt is in a pleasant mood tonight, noticed to be laughing about other conversations he overhears as he walks by. S/I, H/I: Denies A/VH: Denies Sleep: see sleep hours ADL's: Independent Group attendance: No evening groups Were Meds taken: Yes Any med S/E: None noted or reported Mental Status Exam Appearance: Neat, clean, younger appearing man with short black hair and a goatee wearing black rimmed glasses personal clothing, and a baseball cap. Eye contact: Good Behavior: Pleasant, cooperative, polite, listens to radio headphones, paces, watches TV, and frequently asks for PRN medications. Speech: Clear, audible, normal rate/ rhythm Mood: Good. Affect: Congruent with mood Thought process: Linear Thought Content: getting meds "early" Cognition: A&O X 4 Insight: Fair Judgment: Fair Interventions PRN's used: Nicotine lozenge, Therapeutic interventions: 1:1 assessment with therapeutic conversation and active listening, medication administration/education/monitoring, encouragement to attend group, provided distraction, redirection, limit setting, encouragement and positive reinforcement, and maintained Q 15 minute safety checks. Restraints/seclusion/emergency medication: N/A Justification of Continued Inpatient Treatment: Van is conserved with [facility] and is awaiting placement. One of Van behaviors that sabotages his "baseline", is that he makes several request to change medication often.
[2021-05-25] MEDS: pantoprazole 40mg Tablet.DR PO SCH (07:41)
[2021-05-25] MEDS: NICOTINE POLACRILEX 2 MG LOZENGE BC PRN ×4 (07:41→15:54)
[2021-05-25] MEDS: buPROPion SR 150mg tablet PO SCH ×2 (07:41→20:16)
[2021-05-25] MEDS: perphenazine 8mg tablets PO SCH ×2 (07:41→20:16)
[2021-05-25] MEDS: atomoxetine 40 MG capsule PO SCH (07:41)
[2021-05-25] MEDS: nicotine 7mg patch - 24hr TD SCH (07:42)
[2021-05-25 08:42] VITALS: BP 119/80
[2021-05-25] MEDS: hydrOXYzine 25 MG tablet PO PRN ×2 (09:31→14:16)
[2021-05-25] MEDS: traMADol 50MG tablet PO PRN ×2 (10:33→18:26)
--- NOTE | 2021-05-25 16:46 | NUR ---
Nursing Progress Note: Legal hold: LPS Client on involuntary status for GD Report received from nurse RN with use of SBAR Why are they here: Pt. admitted to unit from ER on 5150. Pt self reported he was not eating, drinking or sleeping due to hearing voices telling him he will be killed if he does. Pt reports loosing weight and pain in his feet. He endorses recent illicit drug and alcohol use. Assessment What has happened this shift: Received Pt in bed sleeping at the beginning of the shift. Pt woke and was cooperative with vitals and AM medications. Van tolerated assessments well and talked about being anxious. He used atarax X2 today and Ultram for knee pain. Pt Ate all meals well and spent most of the day walking the halls. Pt engaged with staff well to get needs met and frequently asked for coffee and nicotine lozenges. Van likes to laugh at ideas and reminisces with this RN about past at [facility]. S/I, H/I: Denies A/VH: Denies Sleep: None this shift ADL's: Independent Group attendance: Yes Were Meds taken: Yes Any med S/E: None noted or observed Mental Status Exam Appearance: Casual Eye contact: Good Behavior: Cooperative, interactive Speech: Normal rate and rhythm Mood: Anxious Affect: Congruent with mood Thought process: Circumstantial Thought Content: Getting needs met, passing time, jokes Cognition: A&O X3 Insight: Fair Judgment: Fair Interventions PRN's used: Nicotine Richelle, ultram, Atarax Therapeutic interventions: Provided 1:1 assessment with therapeutic communication and active listening, medication administration/education/monitoring, provided redirection and clear boundaries as needed, and maintained Q 15min safety checks. Restraints/seclusion/emergency medication: N/A Justification of Continued Inpatient Treatment: SANDOR Schwab pt. has been placed on LPS at recent court date. He continues to require a safe and supportive environment and time to allow medications to take their therapeutic effect.
[2021-05-25] MEDS: mag hydrox/Alum hydrox/simeth 30ml oral suspension PO PRN (17:50)
[2021-05-25 19:43] VITALS: BP 121/71
[2021-05-25] MEDS: quetiapine 100mg tablet PO SCH (20:16)
[2021-05-25] MEDS: docusate sod 100mg capsule PO SCH (20:16)
[2021-05-25] MEDS: psyllium seed 3.4 gm packet PO SCH (20:16)
[2021-05-25] MEDS: benztropine 1mg tablet PO SCH (20:16)
--- NOTE | 2021-05-26 05:16 | NUR ---
Nursing Progress Note: Legal hold: LPS Client on involuntary status for GD Report received from nurse RN with use of SBAR Why are they here: Pt. admitted to unit from ER on 5150. Pt self reported he was not eating, drinking or sleeping due to hearing voices telling him he will be killed if he does. Pt reports loosing weight and pain in his feet. He endorses recent illicit drug and alcohol use. Assessment What has happened this shift: Received Pt walking hallway and listening to music. Pt pleasant, yet experiencing increased paranoid feelings. Im starting to feel like people are out to get me again. Pt states he knows its a delusion, but it feels real. Pt took PM meds w/o issue and went to bed early. S/I, H/I: Denies A/VH: Denies Sleep: See sleep assessment ADL's: Independent Group attendance: NA Were Meds taken: Yes Any med S/E: None noted or observed Mental Status Exam Appearance: Casual Eye contact: Good Behavior: Cooperative, interactive Speech: Normal rate and rhythm Mood: Anxious Affect: Congruent with mood Thought process: Circumstantial Thought Content: Getting needs met, passing time, jokes Cognition: A&O X3 Insight: Fair Judgment: Fair Interventions PRN's used: Nicotine Richelle Therapeutic interventions: Provided 1:1 assessment with therapeutic communication and active listening, medication administration/education/monitoring, provided redirection and clear boundaries as needed, and maintained Q 15min safety checks. Restraints/seclusion/emergency medication: N/A Justification of Continued Inpatient Treatment: SANDOR Schwab pt. has been placed on LPS at recent court date. He continues to require a safe and supportive environment and time to allow medications to take their therapeutic effect.
[2021-05-26] MEDS: buPROPion SR 150mg tablet PO SCH ×2 (07:20→19:09)
[2021-05-26] MEDS: atomoxetine 40 MG capsule PO SCH (07:20)
[2021-05-26] MEDS: perphenazine 8mg tablets PO SCH ×2 (07:20→19:09)
[2021-05-26] MEDS: pantoprazole 40mg Tablet.DR PO SCH (07:20)
[2021-05-26] MEDS: NICOTINE POLACRILEX 2 MG LOZENGE BC PRN ×2 (07:24→09:27)
[2021-05-26] MEDS: nicotine 7mg patch - 24hr TD SCH (07:24)
[2021-05-26 08:00] VITALS: BP 115/77
[2021-05-26] MEDS: traMADol 50MG tablet PO PRN ×2 (08:25→14:28)
[2021-05-26] MEDS: hydrOXYzine 25 MG tablet PO PRN ×2 (10:14→16:30)
[2021-05-26] MEDS: nicotine 14mg patch - 24hr TD SCH (10:42)
[2021-05-26] MEDS ORDERED: COVID-19 VACC, MRNA(PFIZER)/PF--BNT162b2 syringe IMVAC ONE (10:50)
--- NOTE | 2021-05-26 12:25 | NUR ---
DISCHARGE PLAN Van has been accepted at [facility] and will transfer there tomorrow. ANDREW Rosas
--- NOTE | 2021-05-26 15:14 | NUR ---
Nursing Progress Note: Legal hold: LPS conserved Client on involuntary status for GD Report received from CHRIS Marie with use of SBAR Why are they here: Pt admitted to unit from ER on 5150. Pt self-reported he was not eating, drinking or sleeping due to hearing voices telling him he will be killed if he does. Pt reports losing weight and pain in his feet. He endorses recent illicit drug and alcohol use. Assessment What has happened this shift: Pt was up before breakfast asking for a nicotine lozenge. Pt was given one at 0724 and 0927. Pt was cooperative with routine medications. Pt is restless and mildly paranoid. Pt reported, "well, we could be having a Covid outbreak here, 2 people were throwing up last night and I felt nauseous too." Pt c/o some lung/chest area tightness which he rated at a 2/10. Lungs were clear to auscultation and VS were stable. Pt reported it felt like when you are outside in the cold for too long, pt stated he could feel it in the back of his throat too. Pt asked for PRN tramadol today for 4/10 bilateral knee pain at 0825 and 1428. His dad brought him in a knee brace/sleeve but it was too big and needs returned. Pt requested PRN [id number] mg at 1014 for increased anxiety. Pt requested that his nicotine patch be increased and his PRN nicotine lozenges D/c'd. SANDOR Robert accommodated increasing the patch from 7 mg to 14 mg daily. Pt denied depression, SI/HI/VH. Pt does admit to AH that are murmurs in the background. Pt states they make fun of him. Pt was given the 1st dose of the [employer] Covid vaccine today in his right deltoid per his request. His card was given to Patrizia from social media executive as he has been accepted at [facility] with the plan to D/c tomorrow. Pt tolerated the vaccine with no adverse reactions noted. A rapid Covid swab was also done with negative results. S/I, H/I: Pt denies. A/VH: Pt denies VH, + AH. Sleep: Pt slept 8 hours last night per noc shift report. ADL's: Independent Group attendance: No, pt went to art therapy group but left stating that he had already done the project last year when he was here. Were Meds taken: Yes Any med S/E: Pt reported that his psych meds dull his mind and lower his intelligence. Mental Status Exam Appearance: Neat, clean, younger appearing man with short black hair and a goatee wearing black rimmed glasses personal clothing, and a baseball cap. Eye contact: Good Behavior: Pleasant, cooperative, restless, polite, socializes with peers and staff, paces, listens to radio headphones, paces, watches TV, frequently asks for PRN medications. Speech: Clear, somewhat mumbled and rapid at times. Mood: Anxious Affect: Anxious, restless. Thought process: Perseverative; perseverates on medications. Thought Content: Focused on discharge tomorrow. Cognition: A&O X 4 Insight: Fair Judgment: Fair Interventions PRN's used: Tramadol X 2, Atarax, nicotine lozenges. Therapeutic interventions: 1:1 assessment with therapeutic conversation and active listening, medication administration/education/monitoring, encouragement to attend group, provided distraction, redirection, limit setting, reality orientation, encouragement and positive reinforcement, maintained Q 15 minute safety checks. Restraints/seclusion/emergency medication: N/A Justification of Continued Inpatient Treatment: Pt is conserved and at baseline. Pt has been accepted at [facility] with the plan to discharge tomorrow.
[2021-05-26 19:00] VITALS: BP 157/98
[2021-05-26] MEDS: benztropine 1mg tablet PO SCH (21:20)
[2021-05-26] MEDS: docusate sod 100mg capsule PO SCH (21:20)
[2021-05-26] MEDS: psyllium seed 3.4 gm packet PO SCH (21:20)
[2021-05-26] MEDS: quetiapine 100mg tablet PO SCH (21:20)
--- NOTE | 2021-05-27 01:32 | NUR ---
Nursing Progress Note: Legal hold: LPS Patent on involuntary status for GD Received report from ANN Camacho Why are they here: Assessment What has happened this shift: Patient assessment done, medication given per order, tolerated well. Denies any pain/distress. A/VH: Denies Sleep: See sleep assessment ADL's: Independent Group attendance: NA Were Meds taken: Yes Any med S/E: None noted or observed Mental Status Exam Appearance: Casual Eye contact: Good Behavior: Cooperative, interactive Speech: Normal rate and rhythm Mood: Anxious Affect: Congruent with mood Thought process: Circumstantial Thought Content: Getting needs met, passing time, jokes Cognition: A&O X3 Insight: Fair Judgment: Fair Interventions PRN's used: Nicotine Richelle Therapeutic interventions: Provided 1:1 assessment with therapeutic communication and active listening, medication administration/education/monitoring, provided redirection and clear boundaries as needed, and maintained Q 15min safety checks. Restraints/seclusion/emergency medication: N/A Justification of Continued Inpatient Treatment: SANDOR Schwab pt. has been placed on LPS at recent court date. He continues to require a safe and supportive environment and time to allow medications to take their therapeutic effect.
[2021-05-27] MEDS: atomoxetine 40 MG capsule PO SCH (07:15)
[2021-05-27] MEDS: pantoprazole 40mg Tablet.DR PO SCH (07:15)
[2021-05-27] MEDS: buPROPion SR 150mg tablet PO SCH (07:15)
[2021-05-27] MEDS: perphenazine 8mg tablets PO SCH (07:16)
[2021-05-27] MEDS: nicotine 14mg patch - 24hr TD SCH (07:21)
[2021-05-27 08:00] VITALS: BP 107/81
[2021-05-27] MEDS: hydrOXYzine 25 MG tablet PO PRN (09:06)
[2021-05-27] MEDS: traMADol 50MG tablet PO PRN (09:10)
[2021-05-27] MEDS ORDERED: QUET100T34 PO (09:52)
[2021-05-27] MEDS ORDERED: OMEP40CA21 PO (09:52)
[2021-05-27] MEDS ORDERED: BUPR-72 PO (09:52)
[2021-05-27] MEDS ORDERED: ATOM40CA PO (09:52)
[2021-05-27] MEDS ORDERED: IBUP-1594 PO (09:52)
[2021-05-27] MEDS ORDERED: NICO-631 TD (09:52)
[2021-05-27] MEDS ORDERED: TRAZ-251 PO (09:52)
[2021-05-27] MEDS ORDERED: TRAM50TA2 PO (09:52)
[2021-05-27] MEDS ORDERED: HYDR-3686 PO (09:52)
[2021-05-27] MEDS ORDERED: PERP8TAB6 PO (09:52)
[2021-05-27] MEDS ORDERED: BENZ1TAB7 PO (09:52)
--- NOTE | 2021-05-27 10:50 | NUR ---
DISCHARGE NOTE: Pt transferred/discharged to [facility]. Pt expressed understanding of his discharge plan, all belongings returned. Pt ambulated off the unit accompanied by staff to motor driver waiting just outside the unit. Pt was in good spirits.
== END 2021-05-27 10:45 | DRG 750 ==
LOC: ADULT MH 10:37
PROVIDERS: ADMIT Psychiatry & Neurology Psychiatry; ATTEND Psychiatry & Neurology Psychiatry
DX: F25.9 Schizoaffective disorder, unspecified (principal); I95.9 Hypotension, unspecified; F22 Delusional disorders; Z59.00 Homelessness unspecified; G89.29 Other chronic pain; F60.81 Narcissistic personality disorder; F60.2 Antisocial personality disorder; Z20.822 Contact with and (suspected) exposure to COVID-19; K21.9 Gastro-esophageal reflux disease without esophagitis; I10 Essential (primary) hypertension; R19.7 Diarrhea, unspecified; M23.92 Unspecified internal derangement of left knee; M23.91 Unspecified internal derangement of right knee; K59.00 Constipation, unspecified; T43.8X6A Underdosing of other psychotropic drugs, initial encounter; Y92.89 Other specified places as the place of occurrence of the external cause; Z88.0 Allergy status to penicillin; Z88.8 Allergy status to other drugs, medicaments and biological substances; Z90.49 Acquired absence of other specified parts of digestive tract
CPT/HCPCS: 36415; 73080; 80061; 83036; 84443; 87081; 87635; 91300; 97116; 97161; 97530; 97760; J1200; J1630; J2060; J3486; Q0163; Q0177

== ENCOUNTER 2021-09-15 14:58 | Emergency (ER) | payer MEDICAID ==
[~2021-09-15] VITALS: Ht 179.1 cm; Wt 81.8 kg
[~2021-09-15 14:58] MED LIST changes: +BENZ1TAB7 PO; +BUPR-72 PO; -BUPR-94 PO; -CLON-528 PO; +HYDR-3686 PO; +IBUP-1594 PO; +NICO-631 TD; +PERP8TAB6 PO; +QUET100T34 PO; -QUET200T PO; -QUET25TA PO; -QUET50TA PO; +TRAM50TA2 PO; +TRAZ-251 PO; -VENL25TA48 PO
[2021-09-15] MEDS ORDERED: LORazepam 1 MG tablet PO ONE (23:00)
[2021-09-15 23:27] LABS: BASOPHILS % (AUTO) 0.6 % (0-1); EOSINOPHILS # (AUTO) 0.1 X10'3 (0-0.9); EOSINOPHILS % (AUTO) 1.1 % (0-6); HEMATOCRIT 43.1 % (42.0-52.0); HEMOGLOBIN 14.6 g/dl (14.0-17.9); LYMPHOCYTES # (AUTO) 1.4 X10'3 (1.1-4.8); LYMPHOCYTES % (AUTO) 21.7 % (21-51); MEAN CORPUSCULAR HGB CONC 33.9 g/dL (33.0-36.5); MEAN CORPUSCULAR VOLUME 88.4 FL (78-98); MEAN PLATELET VOLUME 7.9 FL (7.4-10.4); MONOCYTES # (AUTO) 0.6 X10'3 (0-0.9); MONOCYTES % (AUTO) 8.6 % (2-12); NEUTROPHILS # (AUTO) 4.5 X10'3 (1.8-7.7); PLATELET COUNT 291 X10'3 (140-440); RED BLOOD COUNT 4.88 X10'6 (4.70-6.10); RED CELL DISTRIBUTION WIDTH 12.9 % (11.5-14.5); WHITE BLOOD COUNT 6.6 X10'3 (4.5-11.0)
[2021-09-15] MEDS ORDERED: acetaminophen 325mg tablet PO ONE (23:30)
[2021-09-15 23:39] LABS: ANION GAP 7 (8-16); BLOOD UREA NITROGEN 11 MG/DL (7-18); CHLORIDE 104 MMOL/L (99-107); GLUCOSE 88 MG/DL (70-104); POTASSIUM 4.2 MMOL/L (3.5-5.1); SODIUM 141 MMOL/L (135-145); TOTAL CARBON DIOXIDE 30.4 MMOL/L (24-32)
[2021-09-15 23:40] LABS: ALANINE AMINOTRANSFERASE 26 U/L (12-78); ALBUMIN 4.1 G/DL (3.4-5.0); ALBUMIN/GLOBULIN RATIO 1.2 (1.1-1.5); ALKALINE PHOSPHATASE 128 IU/L (46-116); ASPARTATE AMINO TRANSFERASE 20 U/L (10-37); BILIRUBIN,TOTAL 0.2 MG/DL (0.1-1.0); CALCIUM 9.4 MG/DL (8.5-10.1); TOTAL PROTEIN 7.5 G/DL (6.4-8.2); eGFR 86 ML/MIN
[2021-09-15 23:48] LABS: ETHANOL < 0.010 GM/DL (0.0-0.010)
[2021-09-16] MEDS ORDERED: diphenhydrAMINE 50 mg/ml inj IM ONE (00:15)
[2021-09-16] MEDS ORDERED: haloperidol lactate 5mg/ml inj IM ONE (00:15)
[2021-09-16] MEDS ORDERED: LORazepam 2 mg/ml vial IM ONE (00:15)
[2021-09-16 00:33] LABS: URINE AMPHETAMINE SCREEN NEGATIVE (Neg); URINE BARBITUATE SCREEN NEGATIVE (Neg); URINE BENZODIAZEPINES SCREEN NEGATIVE (Neg); URINE CANNABINOID SCREEN NEGATIVE (Neg); URINE COCAINE SCREEN NEGATIVE (Neg); URINE METHADONE SCREEN NEGATIVE (Neg); URINE OPIATE SCREEN NEGATIVE (Neg); URINE PHENCYCLIDINE SCREEN NEGATIVE (Neg)
--- NOTE | 2021-09-16 14:20 | NUR ---
Pt. ambulated back from main ER accompanied by Marli. He is providing a urine sample at this time and belongings are being inventoried.
--- NOTE | 2021-09-16 14:46 | NUR ---
PT. up pacing at this time, provided at snack and returned to bed.
[2021-09-16] MEDS ORDERED: OLANZapine 2.5MG tablet PO ONE (15:30)
[2021-09-16] MEDS ORDERED: acetaminophen 325mg tablet PO ONE (15:30)
--- NOTE | 2021-09-16 15:45 | NUR ---
pt sleeping on left side.
--- NOTE | 2021-09-16 16:28 | NUR ---
Pt. c/o anxiety and a headache. Endorsed to Dr. Carbajal and obtained orders for Zyprexa and Tylenol. Urine sample obtained and sent to lab. Pt. is resting in bed at this time.
[2021-09-16 16:37] LABS: CLARITY,URINE CLEAR (Clear); COLOR,URINE STRAW (Yellow); GLUCOSE, URINE NEGATIVE (Neg); KETONES,URINE NEGATIVE (Neg); LEUKOCYTE ESTERASE ,URINE NEGATIVE (Neg); NITRITES, URINE NEGATIVE (Neg); OCCULT BLOOD,URINE NEGATIVE (Neg); PROTEIN,URINE NEGATIVE (Neg); UA COLLECTION TYPE CLN CATCH MIDSTREAM; UROBILINOGEN,URINE 0.2 E.U/dL (0.2-1.0)
--- NOTE | 2021-09-16 16:52 | NUR ---
1:1 completed with pt., he currently denies any S/I or H/I. Pt. does report some A/FOX which are not command in nature and some paranoid delusions that others want to hurt him. This physician underwriter will contact [facility]'s previous facility to complete his Medication Reconcilliation.
--- NOTE | 2021-09-16 17:06 | NUR ---
Called [facility], they will fax over pt's current medications so Med Recc can be completed. Addendum: 09/16/21 at 3812 celsa BARRAGAN [facility]
--- NOTE | 2021-09-16 17:16 | NUR ---
Pt. is medically cleared, packet faxed to [facility]
--- NOTE | 2021-09-16 18:00 | NUR ---
Received report from ANN Salomon. all questions and concerns addressed.
--- NOTE | 2021-09-16 19:00 | NUR ---
patient sitting on side of bed eating dinner.
--- NOTE | 2021-09-16 20:00 | NUR ---
pt. is laying in bed eyes closed.
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
--- NOTE | 2021-09-16 21:00 | NUR ---
pt. requested snacks and said FOX is gone now. sitting in bed eating snacks.
--- NOTE | 2021-09-16 22:00 | NUR ---
pt. is snoring in bed. laying on right side.
--- NOTE | 2021-09-16 23:00 | NUR ---
patient is adjusting self in bed, all needs are met at this time.
--- NOTE | 2021-09-17 | NUR ---
pt is resting on back with eyes closed.
--- NOTE | 2021-09-17 00:34 | NUR ---
called [facility] to get current medications sent to fax machine.
--- NOTE | 2021-09-17 01:00 | NUR ---
patient is resting on back.
[2021-09-17] MEDS ORDERED: MAGN24002 PO (01:52)
--- NOTE | 2021-09-17 02:00 | NUR ---
patient is restlesws in bed. eyes closed.
[2021-09-17] MEDS ORDERED: DULO30CA52 PO (02:06)
[2021-09-17] MEDS ORDERED: OMEP20CA15 PO (02:10)
[2021-09-17] MEDS ORDERED: PERP8TAB6 PO (02:12)
[2021-09-17] MEDS ORDERED: QUET200T31 PO (02:14)
[2021-09-17] MEDS ORDERED: ATOM40CA PO (02:16)
[2021-09-17] MEDS ORDERED: BUPR300T53 PO (02:17)
[2021-09-17] MEDS ORDERED: ACET-3080 PO (02:18)
[2021-09-17] MEDS ORDERED: BENZ0.5T4 PO (02:19)
[2021-09-17] MEDS ORDERED: CLON1TAB60 PO (02:21)
[2021-09-17] MEDS ORDERED: HYDR50TA65 PO (02:23)
[2021-09-17] MEDS ORDERED: IBUP-1985 PO (02:24)
[2021-09-17] MEDS ORDERED: TRAM50TA2 PO (02:26)
[2021-09-17] MEDS ORDERED: TRAZ-256 PO (02:28)
--- NOTE | 2021-09-17 03:00 | NUR ---
pt. resting on back.
--- NOTE | 2021-09-17 04:00 | NUR ---
pt appears to be sleeping on left side
--- NOTE | 2021-09-17 05:00 | NUR ---
pt. in bathroom.
--- NOTE | 2021-09-17 06:00 | NUR ---
pt. is laying in bed, eyes closed, all needs met at this time. will continue to monitor.
[2021-09-17] MEDS ORDERED: acetaminophen 325mg tablet PO PRN (08:00)
[2021-09-17] MEDS: buPROPion SR 150mg tablet PO SCH ×2 (08:34→20:52)
[2021-09-17] MEDS: pantoprazole 40mg Tablet.DR PO SCH (08:35)
[2021-09-17] MEDS: hydrOXYzine 25 MG tablet PO SCH ×3 (08:35→20:53)
[2021-09-17] MEDS: traMADol 50MG tablet PO SCH ×2 (08:35→16:14)
[2021-09-17] MEDS: clonazePAM 1mg tablet PO SCH ×3 (08:36→20:52)
[2021-09-17] MEDS: ibuprofen 200mg tablet PO SCH ×3 (08:36→20:53)
[2021-09-17] MEDS: benztropine 1mg tablet PO SCH (08:36)
[2021-09-17] MEDS: duloxetine 30mg CAPSULE.DR PO SCH (08:36)
[2021-09-17] MEDS: atomoxetine 40 MG capsule PO SCH (08:37)
[2021-09-17] MEDS: LORazepam 1 MG tablet PO PRN (13:15)
--- NOTE | 2021-09-17 18:55 | NUR ---
One to one with the patient to assess for severity of mental health symptoms. The patient was asked about mental health symptoms and he replied with either "here and there" or "not bad". He stated he felt groggy but that his mood was "decent" When asked what the discharge plan was he replied, that he wanted to go to [place] or a motel room until he can get an apartment. He asked if he was going to be discharged today and he was reminded that he was on conservatorship. His insight and judgement is very poor.
[2021-09-17] MEDS ORDERED: traMADol 50MG tablet PO SCH (20:28)
[2021-09-17] MEDS: perphenazine 8mg tablets PO SCH (20:52)
[2021-09-17] MEDS: traZODone 50mg tablet PO SCH (20:53)
[2021-09-17] MEDS: quetiapine 100mg tablet PO SCH (20:53)
--- NOTE | 2021-09-17 21:35 | NUR ---
The patient has been up and pacing slowly back and forth in front of the nursing station. He again asked about being discharged tonight and he was reminded that he was on conservatorship
--- NOTE | 2021-09-17 22:58 | NUR ---
The patient appears to be sleeping
--- NOTE | 2021-09-18 00:10 | NUR ---
The patient appears to be sleeping
[2021-09-18] MEDS: ibuprofen 200mg tablet PO SCH (02:00)
--- NOTE | 2021-09-18 02:06 | NUR ---
The patient appears to be sleeping
--- NOTE | 2021-09-18 04:00 | NUR ---
The patient appears to be sleeping
--- NOTE | 2021-09-18 05:43 | NUR ---
THe patient appeared to have slept well throughout the night
[2021-09-18] MEDS: clonazePAM 1mg tablet PO SCH ×3 (08:14→20:23)
[2021-09-18] MEDS: pantoprazole 40mg Tablet.DR PO SCH (08:14)
[2021-09-18] MEDS: buPROPion SR 150mg tablet PO SCH ×2 (08:14→20:23)
[2021-09-18] MEDS: atomoxetine 40 MG capsule PO SCH (08:14)
[2021-09-18] MEDS: hydrOXYzine 25 MG tablet PO SCH ×3 (08:14→20:23)
[2021-09-18] MEDS: benztropine 1mg tablet PO SCH (08:14)
[2021-09-18] MEDS: duloxetine 30mg CAPSULE.DR PO SCH (08:14)
--- NOTE | 2021-09-18 08:45 | NUR ---
The patient up and eating his breakfast. He stated he feels he is doing well and voices are less this am. He took his morning medications. He has not had any agitated behaviors.
--- NOTE | 2021-09-18 10:00 | NUR ---
The patient appears to be sleeping
--- NOTE | 2021-09-18 10:47 | NUR ---
The patient is pacing back and forth in front of the nursing station. He stated he feels he is doing good but is walking to get some exercise.
[2021-09-18] MEDS: LORazepam 1 MG tablet PO PRN ×2 (11:58→20:24)
--- NOTE | 2021-09-18 12:00 | NUR ---
THe patient up and pacing and slightly irritable. Medications given.
[2021-09-18] MEDS: traMADol 50MG tablet PO PRN (12:36)
[2021-09-18] MEDS: calcium carbonate 500mg chew tablet PO PRN (12:55)
--- NOTE | 2021-09-18 12:57 | NUR ---
The patient requesting TUMs and MD made aware and orders received.
--- NOTE | 2021-09-18 14:10 | NUR ---
The patient up and walking back and forth in front of the nursing station whispering to himself and making odd gestures.
[2021-09-18] MEDS ORDERED: mag hydrox/Alum hydrox/simeth 30ml oral suspension PO ONE (14:20)
[2021-09-18] MEDS ORDERED: quetiapine 100mg tablet PO SCH (14:20)
[2021-09-18] MEDS ORDERED: LORazepam 1 MG tablet PO ONE (14:20)
--- NOTE | 2021-09-18 16:21 | NUR ---
The patient is resting on his bed
--- NOTE | 2021-09-18 16:56 | NUR ---
The patient is resting on his bed
[2021-09-18] MEDS: ibuprofen 200mg tablet PO PRN (18:56)
--- NOTE | 2021-09-18 19:46 | NUR ---
Pt alternating between pacing and sitting on side of bed. Provided coloring materials which he used for a short time then returned to pacing. Given Motrin per pt request for shoulder pain. Pt not sure if it helped.
[2021-09-18] MEDS: quetiapine 100mg tablet PO SCH (20:23)
[2021-09-18] MEDS: traZODone 50mg tablet PO SCH (20:23)
[2021-09-18] MEDS: perphenazine 8mg tablets PO SCH (20:23)
--- NOTE | 2021-09-18 21:38 | NUR ---
Pt took HS meds paced for awhile and went to sleep. Asleep at this time.
--- NOTE | 2021-09-18 22:04 | NUR ---
Pt woke up given Ativan for anxiety. Lying in bed awake at this time.
--- NOTE | 2021-09-19 07:02 | NUR ---
pt up to use the restroom.
--- NOTE | 2021-09-19 07:04 | NUR ---
pt came up to nurses station requesting for juice and fresh water.
--- NOTE | 2021-09-19 07:21 | NUR ---
pt pacing in the [address] .will cont to monitor ,as per night nurse "that is pt daily routine pacing in his area ".
[2021-09-19] MEDS: LORazepam 1 MG tablet PO PRN ×3 (08:04→22:12)
[2021-09-19] MEDS: benztropine 1mg tablet PO SCH (08:04)
[2021-09-19] MEDS: pantoprazole 40mg Tablet.DR PO SCH (08:04)
[2021-09-19] MEDS: calcium carbonate 500mg chew tablet PO PRN ×2 (08:04→19:28)
[2021-09-19] MEDS: duloxetine 30mg CAPSULE.DR PO SCH (08:05)
[2021-09-19] MEDS: hydrOXYzine 25 MG tablet PO SCH ×3 (08:05→19:32)
[2021-09-19] MEDS: buPROPion SR 150mg tablet PO SCH ×2 (08:05→20:03)
[2021-09-19] MEDS: clonazePAM 1mg tablet PO SCH ×3 (08:05→19:30)
[2021-09-19] MEDS: atomoxetine 40 MG capsule PO SCH (08:05)
--- NOTE | 2021-09-19 08:08 | NUR ---
medicated the pt at this time ,no distress noted ,pt asked for tums ,given to the pt ,given ativan for anxiety .had one to one with the pt and asked how he is doing ,pt stated" i am good".pt mi any concern at this time .pt stated" i slept good last night had some nightmares but thats normal for me".pt has finished his 100% of breakfast .will cont to monitor.
--- NOTE | 2021-09-19 08:18 | NUR ---
pt is usig restroom at this time.
--- NOTE | 2021-09-19 08:50 | NUR ---
pt talking to himself and laughing ,came to nurses station and stated that he need flonase for allergy , asked if he used it before ?pt stated in past not on regular basis.informed that will ask the provider.
--- NOTE | 2021-09-19 08:57 | NUR ---
informed md that pt is requesting for flonase as per md he will put the orders in.
--- NOTE | 2021-09-19 09:46 | NUR ---
pt up to use restroom.came back to bed .
--- NOTE | 2021-09-19 10:07 | NUR ---
called pharmacy and speak to suneet /pharmacist and informed that pt need flonase nasal spray but has put the orders for tomm am not today but pt need it today as per alfa they will fix it and bring it down to overflow.
--- NOTE | 2021-09-19 10:09 | NUR ---
pt pacing in hallway.
[2021-09-19] MEDS: fluticasone nasal spray 16GM bottle NS SCH (10:11)
--- NOTE | 2021-09-19 10:35 | NUR ---
pt came to nurses station requesting for tramadol for generalized joint aches shoulders ,knee and body pain .
[2021-09-19] MEDS: traMADol 50MG tablet PO PRN (10:38)
--- NOTE | 2021-09-19 14:01 | NUR ---
pt up to use restroom.came back and trying to close the curtain .informed that he has to leave the curtain open.pt verbalized understanding and opened the curtain.
--- NOTE | 2021-09-19 18:20 | NUR ---
Received report from ANN Estrada. Patient awake and alert on room air, in no apparent distress. In RN's view. Will continue to monitor.
[2021-09-19] MEDS: quetiapine 100mg tablet PO SCH (19:29)
[2021-09-19] MEDS: traZODone 50mg tablet PO SCH (19:31)
[2021-09-19] MEDS: perphenazine 8mg tablets PO SCH (20:03)
--- NOTE | 2021-09-19 20:50 | NUR ---
Patient asked for ice water, towels and change of gown/pants; given.
--- NOTE | 2021-09-19 21:50 | NUR ---
Patient asked for coffee; not given since its bedtime.
--- NOTE | 2021-09-19 22:18 | NUR ---
Patient pacing around the unit; upon asking "What's going on?" Patient verbalized "just exercising before going to bed."
--- NOTE | 2021-09-19 23:56 | NUR ---
Patient sleeping in supine position. RR even and unlabored. No s/sx of distress.
--- NOTE | 2021-09-20 02:13 | NUR ---
Patient appears to be sleeping. No signs of distress.
--- NOTE | 2021-09-20 04:03 | NUR ---
Patient sleeping supine. Resp. rate even and unlabored. No signs of distress.
--- NOTE | 2021-09-20 05:48 | NUR ---
Patient continues to sleep. No distress noted.
--- NOTE | 2021-09-20 06:11 | NUR ---
Patient sleeping on left side. No distress observed. Continue to monitor.
--- NOTE | 2021-09-20 06:37 | NUR ---
Spoke with Chitra at [facility]. She reported Van was on Perphenazine 16 mg BID and was doing well. About a month ago he was able to talk the psychiatrist into reducing it and that was when he started to decomensate. ANDREW Rosas
[2021-09-20] MEDS ORDERED: perphenazine 8mg tablets PO SCH (08:00)
--- NOTE | 2021-09-20 08:12 | NUR ---
Patient eating breakfast. No distress observed. Continue to monitor.
[2021-09-20] MEDS: calcium carbonate 500mg chew tablet PO PRN (08:29)
[2021-09-20] MEDS: hydrOXYzine 25 MG tablet PO SCH ×3 (08:29→20:12)
[2021-09-20] MEDS: duloxetine 30mg CAPSULE.DR PO SCH (08:29)
[2021-09-20] MEDS: fluticasone nasal spray 16GM bottle NS SCH (08:29)
[2021-09-20] MEDS: atomoxetine 40 MG capsule PO SCH (08:30)
[2021-09-20] MEDS: buPROPion SR 150mg tablet PO SCH ×2 (08:30→20:13)
[2021-09-20] MEDS: perphenazine 8mg tablets PO SCH ×2 (08:31→20:14)
[2021-09-20] MEDS: clonazePAM 1mg tablet PO SCH ×3 (08:31→20:14)
[2021-09-20] MEDS: pantoprazole 40mg Tablet.DR PO SCH (08:31)
[2021-09-20] MEDS: benztropine 1mg tablet PO SCH (08:32)
--- NOTE | 2021-09-20 10:05 | NUR ---
Patient appears to be having auditory hallucinations AEB having a full on conversation with lev in his room. Patient is animated and laughs as he speaks. Continue to monitor.
[2021-09-20] MEDS: traMADol 50MG tablet PO PRN ×2 (10:37→20:13)
[2021-09-20] MEDS: LORazepam 1 MG tablet PO PRN ×2 (11:35→21:52)
--- NOTE | 2021-09-20 12:03 | NUR ---
RN back from break. Per ANN Luong, patient asking for multiple items. Patient given Ativan. Patient now sitting in bed laughing and appears to be responding to internal stimuli. Continue to monitor.
--- NOTE | 2021-09-20 12:03 | NUR ---
Odin petty in [facility] - 09/20/21 at 1203 by SAVANA RN
--- NOTE | 2021-09-20 12:13 | NUR ---
Patient sitting up and eating lunch. No distress observed. Continue to monitor.
[2021-09-20] MEDS: ibuprofen 200mg tablet PO PRN (12:33)
--- NOTE | 2021-09-20 14:06 | NUR ---
Patient pacing the halls. Patient doing strange movements. States "It's the way I pray." Continue to monitor.
[2021-09-20] MEDS ORDERED: NICOTINE POLACRILEX 2 MG LOZENGE BC PRN (15:40)
--- NOTE | 2021-09-20 15:51 | NUR ---
Accepting Info: [facility] wanting patient around 0800-8:30. will be leaving between 7:30-8. Patient is aware. Continue to monitor.
--- NOTE | 2021-09-20 17:03 | NUR ---
Patient reclining in bed, awake. No distress observed. Contiue to monitor.
--- NOTE | 2021-09-20 18:35 | NUR ---
ASSUMED PATIENT CARE. PATIENT PACES BACK AND FORTH. HE IS COOPERATIVE. HE PRESENTS HYPOMANIC. PLAN IS TO TRANSFER PATIENT OUT TO [facility] IN [place] AROUND 1730 HOURS.
[2021-09-20] MEDS: NICOTINE POLACRILEX 2 MG LOZENGE BC PRN ×2 (19:58→21:52)
[2021-09-20] MEDS: traZODone 50mg tablet PO SCH (20:12)
[2021-09-20] MEDS: quetiapine 100mg tablet PO SCH (20:15)
--- NOTE | 2021-09-20 21:21 | NUR ---
PATIENT HAS EATEN HIS DINNER, ULTRAM FOR BACK PAIN. HE HAS COMPLIED WITH NOC MEDICATIONS. PATIENT WILL NOT TRANSFER UNTIL TOMORROW PER THE [facility] OFFICE.
--- NOTE | 2021-09-20 21:54 | NUR ---
PATIENT IS SITTING UP IN BED. HE COMPLAINED OF ANXIETY AND REQUESTED A NICOTINE LOZENGE. ATIVAN WAS GIVEN ALONG WITH A LOZENGE.
[2021-09-20] MEDS ORDERED: traZODone 50mg tablet PO SCH (22:30)
[2021-09-20] MEDS ORDERED: traZODone 50mg tablet PO ONE (22:30)
--- NOTE | 2021-09-20 22:42 | NUR ---
PATIENT GIVEN AN ADDITIONAL TRAZADONE 100 MG PO. PATIENT BELIEVES IF CURTAIN IS NOT CLOSED BAD THINGS WILL HAPPEN. HE EXHIBITS SOME LABILE BEHAVIOR, HE ALSO BELIEVES THAT HE IS BEING HELD HOSTAGE HERE.
--- NOTE | 2021-09-21 00:05 | NUR ---
PATIENT HAS BEEN PACING THE FLOORS AT A RAPID GAIT. HE TELLS THIS NURSE OFFICE HE HAS SPECIAL MCNAIR THAT CAN HURT THIS NURSE OFFICE. THE PATIENT IS WRITING RAPIDLY IN A NOTE BOOK. HE EXHIBITS POVERTY OF THOUGHT AND IS HYPOMANIC. THE PATIENT WAS ADVISED TO GET INTO HIS BED. HE COMPLIED. THIS NURSE OFFICE WILL SPEAK WITH DR. JOHNSON ABOUT THIS PATIENTS ESCELATING CONDITION. Addendum: 09/21/21 at 0016 by SHAQ PATIENT IS RESPONDING TO INTERNAL STIMULI..
--- NOTE | 2021-09-21 00:34 | NUR ---
PER DR. RASHID IF PATIENT BECOMES AGRESSIVE OR THREATENING ADMINISTER A B-52. PATIENT IS NOW SITTING QUIETLY IN BED.
[2021-09-21] MEDS ORDERED: diphenhydrAMINE 50 mg/ml inj IM ONE (00:40)
[2021-09-21] MEDS ORDERED: LORazepam 2 mg/ml vial IM ONE (00:40)
[2021-09-21] MEDS ORDERED: haloperidol lactate 5mg/ml inj IM ONE (00:40)
--- NOTE | 2021-09-21 01:08 | NUR ---
PATIENT IS NOW RESTING WITH LIGHTS OUT. PATIENT EXHIBITED UNDERSTANDING THAT IF AGRESSIVE BEHAVIOR CONTINUED A B-52 WOULD BE USED. PATIENT WAS ALSO ADVISED THAT HE WILL PROBABLY BE ABLE TO TRANSFER TO [facility] TOMORROW IF ALL GOES WELL.
--- NOTE | 2021-09-21 02:15 | NUR ---
PATIENT AWOKE, ATE A SNACK RETURNED TO SLEEP. PATIENT IS NOT LABILE AT THIS MOMEMT, HE IS COOPERATIVE.
--- NOTE | 2021-09-21 03:34 | NUR ---
PATIENT SLEEPING QUIETLY. NO DISTRESS. IN DIRECT VIEW FROM NURSES STATION.
--- NOTE | 2021-09-21 04:46 | NUR ---
PATIENT SLEEPING, MID FOWLERS POSITION. NO DISTRESS.
[2021-09-21 06:05] VITALS: BP 108/63
--- NOTE | 2021-09-21 06:27 | NUR ---
Patient sleeping supine. No distress observed. Continue to monitor.
--- NOTE | 2021-09-21 08:19 | NUR ---
Patient continues to sleep. No distress observed. Continue to monitor.
[2021-09-21] MEDS: clonazePAM 1mg tablet PO SCH (09:03)
[2021-09-21] MEDS: duloxetine 30mg CAPSULE.DR PO SCH (09:03)
[2021-09-21] MEDS: atomoxetine 40 MG capsule PO SCH (09:03)
[2021-09-21] MEDS: hydrOXYzine 25 MG tablet PO SCH (09:03)
[2021-09-21] MEDS: buPROPion SR 150mg tablet PO SCH (09:03)
[2021-09-21] MEDS: pantoprazole 40mg Tablet.DR PO SCH (09:03)
[2021-09-21] MEDS: perphenazine 8mg tablets PO SCH (09:04)
[2021-09-21] MEDS: fluticasone nasal spray 16GM bottle NS SCH (09:04)
[2021-09-21] MEDS: benztropine 1mg tablet PO SCH (09:04)
[2021-09-21] MEDS: LORazepam 1 MG tablet PO PRN (09:56)
[2021-09-21] MEDS: traMADol 50MG tablet PO PRN (09:57)
--- NOTE | 2021-09-21 10:15 | NUR ---
Patient is needy and asks for his PRN medication. Patient is very intelligent but is responding to internal stimuli. Patient is back on all his regular medication since yesterday morning. Continue to monitor.
[2021-09-21] MEDS: calcium carbonate 500mg chew tablet PO PRN (10:16)
[2021-09-21] MEDS: NICOTINE POLACRILEX 2 MG LOZENGE BC PRN (10:16)
== END 2021-09-21 10:50 ==
LOC: ER 15:00
DX: Z20.822 Contact with and (suspected) exposure to COVID-19 (principal); K21.9 Gastro-esophageal reflux disease without esophagitis; G89.29 Other chronic pain; F31.9 Bipolar disorder, unspecified; F20.9 Schizophrenia, unspecified; Z98.890 Other specified postprocedural states; Z72.89 Other problems related to lifestyle; Z60.2 Problems related to living alone; Z59.00 Homelessness unspecified; Z88.0 Allergy status to penicillin; Z88.8 Allergy status to other drugs, medicaments and biological substances; Z79.899 Other long term (current) drug therapy
CPT/HCPCS: 36415; 80053; 80305; 80320; 81003; 84443; 85025; 87635; 96372; 99285; C9803; J1200; J1630; J2060; Q0175; Q0177